=== PATIENT | female | born 1955 | race Caucasian/White ===

== ENCOUNTER 2016-05-29 15:59 | Inpatient (IN) | payer MEDICAID, OTHER ==
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
[2016-05-29 17:55] LABS: Basophils % (A) 1 %; CH 32.9; CHCM 34.1; Eosinophils # (A) 0.2 k/uL (0-0.7); Eosinophils % (A) 3 %; HCT 34.8 % (34.0-46.0); HDW 2.23; HGB 11.8 gm/dL (11.4-16.0); Luc # (Auto) 0.18; Luc % (Auto) 3; Lymphocytes # (A) 1.9 k/uL (1.0-4.8); Lymphocytes % (A) 31 %; MCH 32.8 pg (25.0-35.0); MCHC 33.9 g/dL (31.0-37.0); MCV 96.8 fL (80.0-100.0); Mean Platelet Volume 7.5; Monocytes # (A) 0.3 k/uL (0-1.0); Monocytes % (A) 5 %; Neutrophils # (A) 3.5 k/uL (1.3-7.7); Neutrophils % (A) 57 %; RBC 3.59 m/uL (3.80-5.40); RDW 13.2 % (11.5-15.5); WBC 6.1 k/uL (3.8-10.6); WBC (Perox) 6.37
[2016-05-29 18:11] LABS: ALT 44 U/L (9-52); AST 45 U/L (14-36); Alkaline Phosphatase 121 U/L (38-126); Anion Gap 12 mmol/L; Blood Urea Nitrogen 12 mg/dL (7-17); Calcium 9.2 mg/dL (8.4-10.2); Carbon Dioxide 25 mmol/L (22-30); Chloride 103 mmol/L (98-107); Glucose 95 mg/dL (74-99); Non-African American GFR(MDRD) >60 (>60 ml/min/1.73 sqM); Potassium 3.2 mmol/L (3.5-5.1); Sodium 140 mmol/L (137-145); Total Bilirubin 0.6 mg/dL (0.2-1.3); Total Protein 6.8 g/dL (6.3-8.2)
[2016-05-29 19:22] LABS: Appearance,Urine Clear (Clear); Bilirubin,Urine Negative (Negative); Glucose,Urine (UA) Negative (Negative); Ketones,Urine Negative (Negative); Leukocyte Esterase,Urine Negative (Negative); Nitrite,Urine Negative (Negative); PH, Urine 5.5 (5.0-8.0); Protein,Urine Trace (Negative); UA Billing (MACRO vs. MICRO) CHEM; Urobilinogen,Urine <2.0 mg/dL (<2.0)
[2016-05-29] MEDS ORDERED: POTASSIUM CHLORIDE ER 20 MEQ TAB.ER PO STA (20:04)
[2016-05-29] MEDS ORDERED: MAG HYDROX/AL HYDROX/SIMETH 30 ML CUP PO PRN (21:47)
[2016-05-29] MEDS ORDERED: MAGNESIUM HYDROXIDE 2,400 MG/10 ML CUP PO PRN (21:47)
[2016-05-29] MEDS ORDERED: ACETAMINOPHEN TAB 325 MG TAB PO PRN (21:47)
[2016-05-29] MEDS ORDERED: ZIPRASIDONE 20 MG VIAL IM PRN (21:47)
[2016-05-29] MEDS ORDERED: LORazepam 2 MG/ML SYRINGE IM PRN ×2 (21:50→22:23)
[2016-05-29] MEDS ORDERED: LORazepam 1 MG TAB PO PRN (21:50)
[2016-05-29] MEDS: NICOTINE 14MG/24HR PATCH TRANSDERM SCH (22:01)
[2016-05-30] MEDS: NICOTINE 14MG/24HR PATCH TRANSDERM SCH (09:17)
[2016-05-30 11:34] LABS: Anion Gap 11 mmol/L; Blood Urea Nitrogen 15 mg/dL (7-17); Calcium 9.5 mg/dL (8.4-10.2); Carbon Dioxide 30 mmol/L (22-30); Chloride 103 mmol/L (98-107); Glucose 73 mg/dL (74-99); Non-African American GFR(MDRD) >60 (>60 ml/min/1.73 sqM); Sodium 144 mmol/L (137-145)
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
--- NOTE | 2016-05-30 13:55 | CT ---
EXAMINATION TYPE: CT brain wo con DATE OF EXAM: 05/30/2016 1:48 PM COMPARISON: 11/18/2015 INDICATION: Headaches DLP: 1135 mGycm, Automated exposure control for dose reduction was used. CONTRAST: None CT of the brain is performed utilizing 3 mm thick sections through the posterior fossa and 3 mm thick sections through the remaining calvarium. Study is performed within 24 hours of arrival to the hosp [facility]. No abnormal hyperdensity is present to suggest an acute intracranial hemorrhage. No mass lesion is evident. There is some subtle hypodensity within the left limbic region. This appears sutton than on the federico rison study. Some acute ischemic change at this level is not excluded. Series 5 image 23. Encephaloma lacia such as posttraumatic change is within the inferior left frontal and anterior left temporal reg ion. This is unchanged from 11/18/2015. Patient reports history of head trauma. Ventricles and sulci are prominent for the patient age. Paranasal sinuses and mastoid air cells within the [id number] are clear. IMPRESSIONS: 1. Correlate for left subcortical infarct left limbic region. 2. Posttraumatic change or possibly prior infarct left frontal and anterior temporal regions, stable from November 2015. 3. Age-related atrophy
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
[2016-05-30] MEDS: GABAPENTIN 100 MG CAP PO SCH ×2 (16:09→21:13)
[2016-05-30] MEDS ORDERED: risperiDONE ODT 2 MG TAB PO SCH (21:00)
[2016-05-30] MEDS: clonazePAM 0.5 MG TAB PO SCH (21:12)
[2016-05-30] MEDS: DIVALPROEX 500 MG TABLET.DR PO SCH (21:13)
[2016-05-31] MEDS: DIVALPROEX 500 MG TABLET.DR PO SCH ×3 (09:45→21:33)
[2016-05-31] MEDS: NICOTINE 14MG/24HR PATCH TRANSDERM SCH (09:45)
[2016-05-31] MEDS: clonazePAM 0.5 MG TAB PO SCH ×2 (09:45→21:33)
[2016-05-31] MEDS: GABAPENTIN 100 MG CAP PO SCH ×3 (09:45→21:34)
--- NOTE | 2016-05-31 09:53 | CONS ---
DATE OF CONSULTATION: 05/30/2016 CHIEF COMPLAINT: Abnormal CT scan of the brain. HISTORY OF PRESENT ILLNESS: The patient is a 61-year-old female who is being evaluated today on 05/30/2016 by the Neurology Service per the request of Dr. Gonzalez Barbour for an abnormal CT scan of the brain. The patient was admitted to [facility] mental health unit for increasing depression and suicidal thoughts. An episode of confusion was noticed and a CT scan of the brain was done, which showed old traumatic changes involving the frontal and temporal lobes. There was also evidence of a left subcortical acute stroke involving the limbic region. The patient denies any lateralizing numbness or weakness. She is complaining of a mild recurrent headache. The patient does have history of seizure disorder, which is felt to be secondary to her old traumatic brain injury. It is unclear why she is not on any antiepileptic medications. She had been on seizure medications in the past when I had seen her in the Outpatient Neurology Clinic. She denies having any recent generalized tonic-clonic seizures, but the patient is a poor historian with significant memory deficits. PAST MEDICAL HISTORY: Seizure disorder, traumatic brain injury, chronic obstructive pulmonary disease, history of alcohol abuse, orthopedic surgeries, bipolar disorder, depression, anxiety disorder, borderline personality disorder. SOCIAL HISTORY: The patient is a current every day smoker. She does have a history of alcohol abuse and continues to drink on a daily basis. She denies any IV drug use. HOME MEDICATIONS: Reviewed in the chart. ALLERGIES: SULFA DRUGS and TRILEPTAL. REVIEW OF SYSTEMS: CONSTITUTIONAL: Positive for fatigue. EYES: Negative. ENT: Negative. CARDIOVASCULAR: Negative. RESPIRATORY: Positive for occasional shortness of breath. NEUROLOGICAL: As mentioned above. GASTROINTESTINAL: Negative. GENITOURINARY: Negative. PSYCHIATRIC: As mentioned above. MUSCULOSKELETAL: Positive for chronic joint pain. ENDOCRINE: Negative. DERMATOLOGICAL: Negative. PHYSICAL EXAM: Vital signs show a temperature of 98.0, pulse 82, respirations 16, blood pressure 124/84. GENERAL APPEARANCE: The patient is a well-developed female who appears to be in no acute distress. HEENT: Normocephalic, atraumatic, no facial asymmetry is seen. Neck is supple with no masses felt. CARDIOVASCULAR: Regular rate and rhythm. ABDOMEN: Nontender, nondistended. Extremities showed no edema or clubbing. NEUROLOGICAL EXAM: The patient is alert, aware, and oriented x3. Speech and language are normal. Her affect is flat. No lateralizing weakness is seen. Sensory exam was normal to light touch in all 4 extremities. Her gait was normal. No seizure-like activity is seen. No facial asymmetry is noticed on cranial nerve testing. IMPRESSION: 1. Hypoattenuation in the left subcortical limbic region. 2. History of traumatic brain injury. 3. History of seizure disorder. 4. Severe depression. RECOMMENDATIONS: I did review her CT scan of the brain, which did show the old traumatic changes but there was questionable hypoattenuation involving the limbic system on the left side. It is unclear if this is an acute ischemic event, so I will order an MRI of the brain without contrast. The patient's neurological examination was normal. As for her history of seizures, I will restart her on Depakote 500 mg 3 times daily, which should also help with her mood stabilization. An EEG will be ordered. Continue your current management of her severe depression. I will continue to follow with you. Further recommendations to follow. Thank you for allowing me to participate in the care of your patient. If you have any questions, please feel free to contact me.
--- NOTE | 2016-05-31 11:03 | P.PN ---
Progress Note - Text SUBJECTIVE: Patient endorses racing thoughts ,restless sleep ,disorganized speech ,talked in detail about history of multiple orthopedic surgeries and her need for pain medications ,she stated "I WANT TO HAVE MY OLD MEDICATIONS ,I WAS NORMAL ON IT ,I WAS ON PROZAC 60 mg ,NORCO 4 TIMES DAILY AND XANAX 2mg 4 TIMES DAILY", patient endorses grandiose delusion "MY IQ is 150",somatic preoccupied ,drug seeking for opium and benzodiazepine RX,she recalled that she left [facility] because "THEY ASKED ME TO DO TOUGH ACTIVITIES ,I JUST ASKED FOR PAIN MEDICATIONS AND REST,EVEN MY SURGEON TOLD ME NOT TO LISTEN TO THEM", perseveration Patient was seen by DR CHAMPION ,as her CT scan of brain was abnormal ,he started her on Depakote for seizure and ordered EEG and MRI of brain MENTAL STATUS EXAM: Patient is wearing hospital gown ,unkept ,disheveled ,limping ,unsteady gait , disorganized ,endorses lot of somatic complains,racing thoughts ,not able to maintain train of thoughts ,loose of association ,halting and blocking ,denies any current suicidal or homicidal ideation ,denies any hallucination but reports delusional thinking ,concrete thinking ,insight and judgment impaired PLAN :1)Start low of PROZAC ,continue Klonopin and Neurontin ,same dose 2) Continue full neurological work -up 3) Increase Risperdal ,encourage groups participation
[2016-05-31 11:17] VITALS: BMI 20.6
--- NOTE | 2016-05-31 15:11 | MR ---
EXAMINATION TYPE: MR brain wo con DATE OF EXAM: 05/31/2016 2:54 PM. COMPARISON: Previous study dated 09/10/2008. HISTORY: Stroke Technique: Multiplanar, multiecho imaging of the brain was obtained without intravenous contrast. FINDINGS: Midline structures are unremarkable. There is a normal craniocervical junction. Echoplanar diffusion imaging shows no areas of restricted diffusion. There are normal vascular flow voids. The orbits are normal. There is no evidence of a CP angle mass lesion. There is some abnormal signal within the ashlee bilaterally suggesting layering degeneration. There is abnormal signal in the left frontal region compatible with an old infarct. There is also sma ll amount of abnormal signal just anterior to the sylvian fissure on the right. There is a 9.5 mm hig h signal lesion adjacent to the frontal horn of the right lateral ventricle. There is no mass effect, midline shift or intracranial blood. IMPRESSION: 1. NO ACUTE INTRACRANIAL ABNORMALITY. 2. EVIDENCE OF A PREVIOUS LEFT FRONTAL INFARCT. 3. 9.5 MM LESION ANTERIOR TO THE FRONTAL HORN OF THE RIGHT LATERAL VENTRICLE IS NONSPECIFIC AND MAY R EPRESENT DEMYELINATION FROM SMALL VESSEL DISEASE OR OTHER CAUSES. 4. I CANNOT EXCLUDE A SMALL PREVIOUS INFARCT IN THE ANTERIOR RIGHT FRONTAL REGION.
--- NOTE | 2016-05-31 15:49 | P.PN ---
Subjective Principal diagnosis: Abnormal CT of the brain This is 61-year-old female continuing be evaluated by the neurology service for an abnormal CT of the brain. She was admitted to [facility] to the mental health unit for depression and suicidal thoughts. She had an episode of confusion her computed tomography scan of the brain was done and showed old traumatic changes of the frontal and temporal lobes. There was also evidence of the left subcortical acute stroke involving the limbic region. This could not be confirmed on MRI was recommended. She denied any significant strokelike symptoms. Recall that we did have restarted her on Depakote 500 mg 3 times daily for her history of seizure disorder. The MRI was performed and showed no acute intracranial abnormalities. There was evidence of a previous left frontal infarct which is consistent with her history. There was also a 9.5 mm area of demyelination in the frontal horn of the right lateral ventricle this is nonspecific. And a previous infarct of the anterior right frontal region could not be excluded. Again no acute ischemic changes are seen. At the time of my exam she is in the mental health unit. Objective - Vital Signs Vital signs: Vital Signs Temp 97.3 F L 05/31/16 07:08 Pulse 72 05/31/16 07:08 Resp 18 05/31/16 07:08 BP 121/61 05/31/16 07:08 Pulse Ox 97 05/29/16 21:00 Intake & Output 05/30/16 05/31/16 05/31/16 18:59 06:59 18:59 Weight 58.06 kg - Constitutional General appearance: Present: cooperative, no acute distress - EENT Eyes: Present: EOMI, PERRLA. Absent: abnormal pupil, ptosis ENT: Present: hearing grossly normal - Neck Neck: Present: normal ROM. Absent: rigidity - Respiratory Respiratory: negative: prolonged expiration, prolonged inspiration - Cardiovascular Rhythm: regular - Gastrointestinal General gastrointestinal: Absent: distended, tenderness - Neurologic Neurologic Comment(s): She is alert awake and oriented 3. Speech-language are normal. There is no lateralizing weakness. Gait is normal. Negative Romberg. Strength is full in bilateral upper lower extremities. There is no sensory deficit. - Labs CBC & Chem 7: 05/29/16 17:34 05/30/16 10:58 Assessment and Plan (1) Seizure disorder Status: Chronic (2) Confusion with non-focal neuro exam Status: Resolved (3) Abnormal computed tomography scan Status: Acute (4) Depression Status: Chronic (5) History of traumatic brain injury Status: Chronic (6) Benzodiazepine abuse Status: Chronic Plan: Due to the abnormality on her computed tomography scan of the brain, and MRI was done showing no evidence of an acute ischemic event. Her neurological exam remains normal. Recommend continuation of Depakote 500 mg 3 times daily for a known seizure disorder. Continue management for treatment of her psychological diagnoses. Otherwise she is cleared from a neurological standpoint. We may be contacted for any further or some neurological symptoms. I have performed a history and physical on the above patient. I have reviewed the above note, and agree.
[2016-05-31] MEDS ORDERED: risperiDONE ODT 1 MG TAB PO SCH (21:00)
--- NOTE | 2016-06-01 08:51 | EEG ---
DATE OF SERVICE: 05/31/2016 REASON FOR TESTING: Altered mental status and history of seizures. AGE: 61Y DESCRIPTION OF THE PROCEDURE: This EEG was performed using a 21-channel digital electroencephalograph, following the international 10 to 20 system. DESCRIPTION OF THE RECORDING: From the beginning of the tracing, and with the patient's eyes closed, the background rhythm was mostly consisting of 8 to 9 Hz alpha frequency in the posterior occipital leads. No obvious asymmetry is seen. Occasional movement artifacts and muscle artifacts are seen. Photic stimulation was performed with a minimal driving response seen. No pathological waves were elicited. Hyperventilation was performed with no build-up of amplitude seen. Again, no pathological waves were elicited. Later in the tracing, the patient does reach stage II of sleep and occasional sleep spindles are seen. No epileptiform discharges were seen. Her EKG lead showed a regular rate and rhythm. INTERPRETATION: This asleep and awake EEG can be considered within normal limits. There was no asymmetry seen. No epileptiform discharges were noticed. The absence of epileptiform discharges does not rule out the diagnosis of epilepsy, therefore, clinical correlation is recommended.
[2016-06-01] MEDS: NICOTINE 14MG/24HR PATCH TRANSDERM SCH (09:34)
[2016-06-01] MEDS: DIVALPROEX 500 MG TABLET.DR PO SCH ×3 (09:35→21:13)
[2016-06-01] MEDS: clonazePAM 0.5 MG TAB PO SCH ×2 (09:35→21:13)
[2016-06-01] MEDS: FLUoxetine HCL 20 MG CAP PO SCH (09:35)
[2016-06-01] MEDS: GABAPENTIN 100 MG CAP PO SCH ×3 (09:35→21:13)
--- NOTE | 2016-06-01 13:28 | P.PN ---
Progress Note - Text SUBJECTIVE: Patient endorses racing thoughts ,restless sleep ,auditory hallucination "YOUNG COLLEGE MAN WHISPERING IN MY EAR" ,talked in detail about history of multiple orthopedic surgeries and her need for pain medications ,she asked me more than once to put her on Prozac 60 mg but was receptive when I discussed with her history "OF MOOD SWINGS "and treatment options ,she asked to see her PCP because "He will put me back on Xanax 2 mg 3-4 times a day and [place] ,Klonopin does not help ",lot of somatic complain ,perseverating on her chronic pain I reviewed neurologist notes ,EEG:no seizure activity but he recommended to continue her on Depakote,MRI of Brain :no acute process ,old infarct in frontal lobe MENTAL STATUS EXAM: Patient is wearing hospital gown ,unkept ,disheveled ,limping ,unsteady gait , disorganized ,endorses lot of somatic complains,racing thoughts ,not able to maintain train of thoughts ,loose of association ,auditory hallucination , denies any current suicidal or homicidal ideation ,,concrete thinking ,insight and judgment impaired PLAN :Increase Risperdal continue current medication regime ,encourage ADLs and groups participation
[2016-06-01] MEDS: risperiDONE ODT 2 MG TAB PO SCH (21:12)
[2016-06-02] MEDS: NICOTINE 14MG/24HR PATCH TRANSDERM SCH (09:18)
[2016-06-02] MEDS: DIVALPROEX 500 MG TABLET.DR PO SCH ×3 (09:19→21:08)
[2016-06-02] MEDS: clonazePAM 0.5 MG TAB PO SCH ×2 (09:19→21:07)
[2016-06-02] MEDS: FLUoxetine HCL 20 MG CAP PO SCH (09:19)
[2016-06-02] MEDS: GABAPENTIN 100 MG CAP PO SCH ×3 (09:19→21:08)
--- NOTE | 2016-06-02 18:20 | P.PN ---
Progress Note - Text Interval history: Patient seen in cross coverage today for Dr. Stanley. She reports that she is frustrated because she is not getting the medications that she should be on. She makes reference to a certain dose of Tatum as well as Xanax she's been on in the past. She feels like she is sicker and also in more pain. Mental status exam: She is alert and cooperative with the interview. Her affect overall is restricted. Her mood she describes as "depressed and agitated." She denies any thoughts of harm to self or others. She says at times she gets thoughts that she doesn't want to wake up. She makes reference to being poisoned with the medication. She does not appear to responding to any internal stimuli. She does not show any significant agitation. Plan: We'll maintain current psychotropic medications. Continue to monitor her mood and for any agitation. We'll continue to cover this patient for Dr. Stanley through the weekend.
[2016-06-02] MEDS: risperiDONE ODT 2 MG TAB PO SCH (21:08)
[2016-06-03] MEDS: DIVALPROEX 500 MG TABLET.DR PO SCH ×3 (08:57→21:14)
[2016-06-03] MEDS: clonazePAM 0.5 MG TAB PO SCH ×2 (08:57→21:14)
[2016-06-03] MEDS: FLUoxetine HCL 20 MG CAP PO SCH (08:58)
[2016-06-03] MEDS: GABAPENTIN 100 MG CAP PO SCH ×3 (08:58→21:14)
[2016-06-03] MEDS: NICOTINE 14MG/24HR PATCH TRANSDERM SCH (08:58)
[2016-06-03] MEDS: NICOTINE 21MG/24HR PATCH TRANSDERM SCH (10:41)
--- NOTE | 2016-06-03 14:53 | P.PN ---
Progress Note - Text Interval history: Patient is seen in cross coverage today for . She reports that earlier this morning she got up without her walker to go to the bathroom and took a fall look onto her right upper extremity/side in makes reference to hitting her head. Neuro checks have been ordered. She is fully alert. She does not appear to be in any acute distress at this time. She does make reference to being frustrated that she is not on her normal pain medication and makes reference to if she had to continue to live her life like that she would consider suicide but denies any current thoughts of harm to self or others. Mental status exam: She is fully alert and cooperative with the interview. She is seated in a wheelchair. She does show range of affect today and smiles at times. She denies any current thoughts of harm to self or others. She denies any hallucinations. She does not show any significant agitation. She does not appear to be in any acute distress. Plan: We'll maintain current psychotropic medications. Patient is encouraged to continue to use her walker she is going to ambulate. She is on fall precautions. We are continuing to do neuro checks. Dr. Stanley will be resuming care of this patient starting tomorrow.
[2016-06-03] MEDS: risperiDONE ODT 2 MG TAB PO SCH (21:14)
[2016-06-03] MEDS: ARTIFICIAL TEARS-HYPROMELLOSE DROPS 15 ML BTL BOTH EYES PRN (21:17)
[2016-06-04] MEDS: NICOTINE 21MG/24HR PATCH TRANSDERM SCH (09:32)
[2016-06-04] MEDS: ARTIFICIAL TEARS-HYPROMELLOSE DROPS 15 ML BTL BOTH EYES PRN (09:33)
--- NOTE | 2016-06-04 10:53 | P.PN ---
Subjective Interval history: . She reports that yesterday morning she got up without her walker to go to the bathroom and took a fall look onto her right upper extremity /side in makes reference to hitting her head. Neuro checks have been ordered. She is on wheelchair ,looked tired and sedated ,very somatic preoccupied , focussing about having more pain since she fell and asking for NORCO ,She does make reference to being frustrated that she is not on her normal pain medication and makes reference to if she had to continue to live her life like that she would consider suicide but denies any current thoughts of harm to self or others. ORDER STAT DEPAKOTE LEVEL :117 ,ammonia level pending,patient was started On Depakote by Neurologist for possible seizure disorder ,EEG :no epileptic focus Mental status exam: She is fully alert and cooperative with the interview. She is seated in a wheelchair. She looked tired and sedated ,long reaction time , non spontaneous but coherent ,denies any current suicidal or homicidal ideation ,no psychotic features ,insight is very limited Plan: We'll decrease Depakote ,hold morning dose,decrease Klonopin to only HS to minimize morning sedation ,continue rest of medications. She is on fall precautions. We are continuing to do neuro checks. Encourage patient to use a walker instead of wheelchair Objective - Vital Signs Vital signs: Vital Signs Temp 98.0 F 06/04/16 07:11 Pulse 85 06/04/16 07:11 Resp 18 06/04/16 07:11 BP 113/64 06/04/16 07:11 Pulse Ox 97 05/29/16 21:00 - Labs CBC & Chem 7: 05/29/16 17:34 05/30/16 10:58 Labs: Abnormal Lab Results - Last 24 Hours (Table) 06/04/16 Range/Units 09:26 Valproic Acid 117.0 H* ug/mL
[2016-06-04] MEDS: GABAPENTIN 100 MG CAP PO SCH ×3 (10:54→21:41)
[2016-06-04] MEDS: FLUoxetine HCL 20 MG CAP PO SCH (10:54)
[2016-06-04] MEDS: DIVALPROEX 500 MG TABLET.DR PO SCH (10:58)
[2016-06-04] MEDS ORDERED: clonazePAM 0.5 MG TAB PO SCH (21:00)
[2016-06-04] MEDS: risperiDONE ODT 2 MG TAB PO SCH (21:37)
[2016-06-04] MEDS: DIVALPROEX ER 250 MG TAB.ER.24H PO SCH (21:37)
[2016-06-05 07:19] VITALS: BP 101/55; PULSE 72; RESP 16; TEMP 97.5
[2016-06-05] MEDS: NICOTINE 21MG/24HR PATCH TRANSDERM SCH (08:57)
[2016-06-05] MEDS: GABAPENTIN 100 MG CAP PO SCH (08:57)
[2016-06-05] MEDS: DIVALPROEX ER 250 MG TAB.ER.24H PO SCH (08:57)
[2016-06-05] MEDS: FLUoxetine HCL 20 MG CAP PO SCH (08:57)
[2016-06-05] MEDS: ARTIFICIAL TEARS-HYPROMELLOSE DROPS 15 ML BTL BOTH EYES PRN (09:01)
--- NOTE | 2016-06-06 09:13 | DS ---
DATE OF ADMISSION: 05/29/2016 DATE OF DISCHARGE: 06/05/2016 CONSULT PHYSICIAN: Routine. Patient was seen by medical consultation Dr. Gonzalez Barbour and also by the neurologist Dr. Jossy Thibodeaux. CONSULT REASON: For medical management. Do you want consulting provider notified? He was already notified. DISCHARGE DIAGNOSES: 1. Bipolar disorder mixed with psychotic feature in early remission. 2. Major neurocognitive disorder due to vascular dementia. 3. Polysubstance abuse and dependence, alcohol, opiate and sedative hypnotic. 4. Chronic pain syndrome. FOR BRIEF SUMMARY OF THE ADMISSION NOTE: The patient was admitted to the mental health unit for psychosis and visual hallucination. Patient was admitted on petition filed by the clinical social work aide from the [facility] and she was in the [facility] due to conduct disorder and disturbing the peace. Please refer to my initial dictation on May 30. SUMMARY OF THE HOSPITAL COURSE: The patient was originally admitted to the mental health unit on petition and clinical certificate and I did fill the second clinical certificate. Patient met with her city attorney and she deferred regarding consultation. The medical doctor stated that there is history of cerebrovascular accident; also, seizure disorder with gait dysfunction as she has multiple orthopedic surgeries so I did consult Physical Therapy who did recommend that the patient has to moved with walker as her gait has been unsteady. On 05/30, I did order brain CT and it came back that patient has old infarct in the limbic region. In addition, there is infarct in the left frontal and temporal region. Patient also had atrophy of the brain Due to this abnormal CT scan, I did consult the neurologist Dr. Thibodeaux and according to his consultation he did recommend EEG and MRI of the brain. EEG came there is no epileptic focus; however, he did recommend to start the patient on Depakote 500 three times a day due to past history of seizure disorder and history of traumatic brain injury. The brain MRI done on May 31 show there is no acute intracranial abnormality. There is evidence of previous left frontal infarct and there is a lesion in the frontal area of the right lateral ventricle. Regarding her psychotropic medication, I did restart her back on Klonopin 0.5 twice a day; however, patient was demanding every day to be back on Xanax up to 6 mg daily and [place] for her chronic pain. She did not have any insight regarding her extensive history of substance abuse. She did agree to start Neurontin for chronic pain and we gradually increased this to 200 three times a day and due to her irrational thinking, grandiose delusion I did add Risperdal to restore her sleep and she was able to tolerate up to 4 mg at bedtime of Risperdal. Patient was complaining of having depression and she was asking me more than once to be back on Prozac 60 mg; however, I told her based on her history of mood swings and poor impulse control I will not recommended this high dose and she did agree to be only on Prozac 20 mg daily. We did check her Depakote level and it was 117, so I did cut down the Depakote from 500 three times a day to just 250 twice a day. It can be used as preventive for seizure and also as mood stabilizer. Patient was participating in group therapy. Regarding the mental status examination, the patient is unkept, disheveled, Speech is non-pressure. She has definite cognitive program due to chronic alcoholism and stroke and/or old stroke. Her thought process is tangential. She denied any homicidal or suicidal ideation. She does not feel hopeless or helpless. She is still very somatic, preoccupied and drug seeking for pain medication or for more benzodiazepine, but there is no evidence of psychosis or esdras. Her insight and judgment are very limited. Cognitive ability has been the same since her hospitalization as she has mild to moderate cognitive deficit. PLAN: The patient will be discharged from the mental health unit today to return back [facility]. I will continue her on her current medications: 1. Prozac 20 mg in the morning for depression. 2. Neurontin 200 mg 3 times a day for one month supply for chronic pain. 3. Depakote XR 250 mg twice a day for seizure and as mood stabilizer. 4. Klonopin 0.5 at bedtime for sleep. 5. Risperdal 4 mg at bedtime for her thought disorder. Patient was instructed to maintain abstinence from any habit-forming drugs especially ii is affecting her cognitive function in very negative way. Prognosis guarded.
== END 2016-06-05 13:00 | DRG 885 ==
LOC: EC 15:59 → 3MHU 20:55
PROVIDERS: ADMIT Psychiatry & Neurology Psychiatry; ATTEND Psychiatry & Neurology Psychiatry
DX: F31.60 Bipolar disorder, current episode mixed, unspecified (principal); F01.51 Vascular dementia, unspecified severity, with behavioral disturbance; R45.851 Suicidal ideations; F19.20 Other psychoactive substance dependence, uncomplicated; F23 Brief psychotic disorder; J44.9 Chronic obstructive pulmonary disease, unspecified; F41.9 Anxiety disorder, unspecified; G89.4 Chronic pain syndrome; R26.9 Unspecified abnormalities of gait and mobility; G40.909 Epilepsy, unspecified, not intractable, without status epilepticus; I67.9 Cerebrovascular disease, unspecified; F10.20 Alcohol dependence, uncomplicated; R25.1 Tremor, unspecified; R51 Headache; R90.89 Other abnormal findings on diagnostic imaging of central nervous system; Z91.410 Personal history of adult physical and sexual abuse; E87.6 Hypokalemia; F60.3 Borderline personality disorder; Z88.8 Allergy status to other drugs, medicaments and biological substances; F22 Delusional disorders; Z87.81 Personal history of (healed) traumatic fracture; R41.89 Other symptoms and signs involving cognitive functions and awareness; F17.200 Nicotine dependence, unspecified, uncomplicated; Z88.2 Allergy status to sulfonamides; Z81.8 Family history of other mental and behavioral disorders; Z87.820 Personal history of traumatic brain injury; Z79.899 Other long term (current) drug therapy; Z87.01 Personal history of pneumonia (recurrent); Z91.5 Personal history of self-harm; Z76.5 Malingerer [conscious simulation]; Z91.19 Patient's noncompliance with other medical treatment and regimen; Z71.51 Drug abuse counseling and surveillance of drug abuser; Z71.41 Alcohol abuse counseling and surveillance of alcoholic; Z81.1 Family history of alcohol abuse and dependence; Z62.811 Personal history of psychological abuse in childhood; Z59.0 Homelessness; Z65.3 Problems related to other legal circumstances; Z71.6 Tobacco abuse counseling; Z91.81 History of falling; Z86.73 Personal history of transient ischemic attack (TIA), and cerebral infarction without residual deficits; Z72.89 Other problems related to lifestyle
CPT/HCPCS: 36415; 70450; 70551; 80048; 80053; 80164; 80306; 81003; 82075; 82140; 82607; 84443; 85025; 95819; 99285

== ENCOUNTER → 2016-08-06 | Outpatient (CLI) | payer OTHER ==
--- NOTE | 2016-08-06 10:00 | XR ---
EXAMINATION TYPE: XR knee complete LT DATE OF EXAM: 08/06/2016 9:48 AM COMPARISON: 11/20/2015 HISTORY: Pain TECHNIQUE: Four views are submitted. FINDINGS: Narrowing of the joint spaces with no evidence of erosive change.. Osseous structures are intact. N o acute fracture seen. Postsurgical change involving the distal femur. Diffuse osteopenia noted. IMPRESSION: 1. No acute fracture or dislocation. 2. Postsurgical changes and findings compatible with osteoarthritis.
== END ==
LOC: RADXRMAIN 09:24
PROVIDERS: ATTEND Family Medicine
DX: M23.92 Unspecified internal derangement of left knee (principal); Z98.890 Other specified postprocedural states

== ENCOUNTER → 2016-08-13 | Outpatient (CLI) | payer OTHER ==
--- NOTE | 2016-08-14 08:11 | BD ---
EXAMINATION TYPE: MG DEXA axial skeleton. DATE OF EXAM: 08/13/2016 2:12 PM COMPARISON: Prior DEXA bone scan report August 10, 2003. CLINICAL HISTORY: Postmenopausal female Height: 64 IN Weight: 143 LBS FRAX RISK QUESTIONS: Alcohol (3 or more units per day): NOT NOW. PT STOPPED DRINKING 3 1/2 MONTHS AGO Family History (Parent hip fracture): NO Glucocorticoids (More than 3mos): NO (Ex: prednisone, prednisolone, methylprednisolone, dexamethasone, and hydrocortisone). History of Fracture in Adulthood: YES . RT ARM, RT HAND, RT TIB/ FIB, RT FOOT.LT HIP. MANY FRACTURES SINCE AGE 49., Secondary Osteoporosis: 1. Type 1 Diabetes: NO 2. Hyperthyroidism: NO 3. Menopause before 45: YES AGE 39 4. Malnutrition: NO 5. Chronic liver disease: NO Rheumatoid Arthritis: NO Current Tobacco Use: YES RISK FACTORS HISTORY OF: Hip Fracture (Left): YES When: 03/2015 History of Wrist Fracture: YES RT When: PT STATES SHE FX RT WRIST 12 TIMES OVER THE YEARS WHEN SHE WAS DRINKING. Surgery to Hip(left): YES When: 03/2015 Other Fractures since Age 49: MANY FRACTURES. RT HAND, RT ARM, RT TIB/FIB, RT FOOT. LT HIP. When: OVER THE YEARS PT HAS HAD MANY FRACTURES CANNOT REMEMBER WHEN Active: MODERATELY Postmenopausal woman: AGE 39 Lost more than 2 inches in height since high school: YES 3 " Frequent falls: YES Poor Health: YES MEDICATIONS: Additional Medications: FLUOXETINE, VIT B1, GABAPENTIN, DIVALPROEX, OLANZAPINE, TRAZODONE EXAM MEASUREMENTS: Bone mineral densitometry was performed using the RES Software System. Bone mineral density as measured about the Lumbar spine is: ----- L1-L4(G/cm2): 0.927 T Score Values are as follows: ----- L2: -2.0 ----- L3: -2.4 ----- L4: -2.6 ----- L1-L4: -2.1 Bone mineral density has: Decreased -7.0% since study of: 08/10/2003 PT HAD LEFT HIP FRACTURE AND SURGERY IN 03/2015 Bone mineral density about the R hip (g/cm2): 0.666 T Score values are as follows: -----R Neck: -2.7 ----R Total: -2.8 Bone mineral density has: Decreased -16.7% since study of: 08/10/2003 IMPRESSION: Osteoporosis (T Score less than -2.5) as noted by T Score values at the right hip. There is increase d fracture risk and therapy is usually indicated based on age. Re-Screen 1-2 years. NOTE: T-SCORE=SD OF THE YOUNG ADULT MEAN.
--- NOTE | 2016-08-14 10:05 | MM ---
Reason for exam: screening (asymptomatic). Last mammogram was performed 3 years and 4 months ago. History: Patient is postmenopausal. Physical Findings: A clinical breast exam by your physician is recommended on an annual basis and results should be correlated with mammographic findings. MG Screening Mammo w CAD Bilateral CC and MLO view(s) were taken. Prior study comparison: April 29, 2013, bilateral digital screening mammo w/CAD. February 15, 2012, bilateral digital screening mammo w/CAD. The breast tissue is heterogeneously dense. This may lower the sensitivity of mammography. Finding: There are typically benign round calcifications in the right breast. There is no discrete abnormality. ASSESSMENT: Benign, BI-RAD 2 RECOMMENDATION: Routine screening mammogram of both breasts in 1 year.
== END | disposition home or self-care (01) ==
LOC: RADBDWWP 13:26
PROVIDERS: ATTEND Family Medicine
DX: Z12.31 Encounter for screening mammogram for malignant neoplasm of breast (principal); M81.0 Age-related osteoporosis without current pathological fracture; Z78.0 Asymptomatic menopausal state
CPT/HCPCS: 77080; G0202

== ENCOUNTER → 2016-09-20 | Outpatient (CLI) | payer OTHER ==
--- NOTE | 2016-09-20 14:36 | MR ---
EXAMINATION TYPE: MR cspine/lspine wo con DATE OF EXAM: 09/20/2016 COMPARISON: MRI lumbar spine March 16, 2014. MRI cervical spine July 24, 2010. HISTORY: Cervicalgia and lumbago per order. Headaches with neck pain causing pain or weakness in righ t arm and fingers per years per patient. Chronic back pain for 20 years per patient. TECHNIQUE: Multiplanar, multisequence imaging of the cervical and lumbar spine are performed without IV contrast. FINDINGS: C-SPINE: FINDINGS: Sagittal images of the cervical spine show the craniocervical junction to appear within nor mal limits. The cervical and upper thoracic spinal cord is normal in course, caliber, and signal. V ertebral alignment is anatomic. The vertebral body and intravertebral disk heights are normal. No la rge posterior disc herniations are seen on sagittal images. The bone marrow signal intensity is withi n normal limits. No significant spurring is seen. Axial images show the C2-C3 and C3-C4 levels to appear within normal limits. Axial images at C4-C5 level redemonstrate central broad-based disc protrusion mildly effacing anterio r thecal sac on axial image 33 slightly more prominent than prior study, bilateral neural foramina re main patent. Axial images at C5-C6 level are felt to remain within normal limits. Axial images at C6-C7 and C7-T1 level are felt to remain within normal limits IMPRESSION: Slight progression in degenerative finding C4-C5 level otherwise unremarkable study. L-SPINE: Sagittal images of the lumbar spine redemonstrated stable mild to moderate height loss superior L1 en dplate with prominent Schmorl node. There is additional prominent Schmorl low in the superior T12 end plate redemonstrated. Multilevel disc desiccation is again seen. There is mild disc space narrowing L 5-S1 level. No significant posterior disc herniations are seen on sagittal images. The conus medullar y remains normal in position and signal ending at mid L1 vertebral body level. The bone marrow signa l intensity is overall heterogeneous. Mild multilevel anterior spurring in the upper to mid lumbar sp ine is present. Axial images show the T12-L1, L1-L2, and L2-L3 levels all to remain within normal limits. Axial images at L3-L4 level show mild broad disc bulge and facet degenerative changes bilaterally but spinal canal is preserved and bilateral neural foramina are patent. Axial images at L4-L5 and L5-S1 levels redemonstrated mild facet degenerative changes bilaterally but spinal canal is preserved and bilateral neural foramina are patent. IMPRESSION: Overall stable findings, mild to moderate compression type fracture involving the superio r L1 endplate and multilevel degenerative changes in mid to lower lumbar spine as detailed above.
== END | disposition home or self-care (01) ==
LOC: RADMRIMAIN 10:28
PROVIDERS: ATTEND Psychiatry & Neurology Neurology
DX: M48.56XA Collapsed vertebra, not elsewhere classified, lumbar region, initial encounter for fracture (principal); M47.816 Spondylosis without myelopathy or radiculopathy, lumbar region; M47.812 Spondylosis without myelopathy or radiculopathy, cervical region; Z88.2 Allergy status to sulfonamides; Z88.8 Allergy status to other drugs, medicaments and biological substances
CPT/HCPCS: 72141; 72148

== ENCOUNTER → 2016-09-28 | Outpatient (CLI) | payer OTHER ==
--- NOTE | 2016-09-28 10:40 | US ---
EXAMINATION TYPE: US carotid duplex BILAT DATE OF EXAM: 09/28/2016 COMPARISON: NONE CLINICAL HISTORY: I65.29 CRISTY STENOSIS. ICA STENOSIS, DIZZINESS. EXAM MEASUREMENTS: RIGHT: Peak Systolic Velocity (PSV) cm/sec ----- Right CCA: 68.8 ----- Right ICA: 102.0 ----- Right ECA: 31.7 ICA/CCA ratio: 1.5 RIGHT: End Diastole cm/sec ----- Right CCA: 18.0 ----- Right ICA: 33.0 ----- Right ECA: 5.4 LEFT: Peak Systolic Velocity (PSV) cm/sec ----- Left CCA: 96.6 ----- Left ICA: 139.5 ----- Left ECA: 116.9 ICA/CCA ratio: 1.4 LEFT: End Diastole cm/sec ----- Left CCA: 33.2 ----- Left ICA: 28.0 ----- Left ECA: 26.4 VERTEBRALS (direction of flow): Right Vertebral: Antegrade Left Vertebral: Antegrade IMPRESSION: 1. Mild left internal carotid artery stenosis estimated between 50 and 69% based on velocity measurem ents. Criteria for Assigning % of Stenosis / Diameter reduction (Estimation based on the indirect measurements of the internal carotid artery velocities (ICA PSV). 1. Normal (no stenosis)=ICA PSV < 125 cm/s: ratio < 2.0: ICA EDV<40 cm/s. 2. Less than 50% stenosis=ICA PSV < 125 cm/s: ratio < 2.0: ICA EDV<40 cm/s. 3. 50 to 69% stenosis=ICA PSV of 125 to 230 cm/s: ration 2.0 ? 4.0: ICA EDV 40-100 cm/s. 4. Greater than 70% stenosis to near occlusion= ICA PSV > 230 cm/s: ratio > 4.0: ICA EDV > 100 cm/s. 5. Near occlusion= ICA PSV velocities may be low or undetectable: variable ratio and ICA EDV. 6. Total occlusion=unable to detect flow.
== END | disposition home or self-care (01) ==
LOC: RADUSWWP 09:05
PROVIDERS: ATTEND Psychiatry & Neurology Neurology
DX: I65.22 Occlusion and stenosis of left carotid artery (principal)
CPT/HCPCS: 93880

== ENCOUNTER 2017-04-12 14:55 | Emergency (ER) | payer MEDICAID, OTHER ==
[2017-04-12] MEDS ORDERED: HALOPERIDOL LACTATE 5 MG/ML 1 ML VIAL IM STA (14:59)
[2017-04-12] MEDS ORDERED: LORazepam 2 MG/ML INJ IM STA (14:59)
[2017-04-12 15:08] VITALS: RESP 18; TEMP 97.4
--- NOTE | 2017-04-12 15:50 | CT ---
EXAMINATION TYPE: CT brain soledad harris con DATE OF EXAM: 04/12/2017 COMPARISON: 05/30/2016 HISTORY: Head laceration after fall. CT DLP: 1169.7 mGycm. Automated Exposure Control for Dose Reduction was Utilized. TECHNIQUE: CT scan of the head and cervical spine are performed without contrast. FINDINGS: There is encephalomalacia within the left frontal temporal region from prior injury. There is no acute intracranial hemorrhage, mass effect, or midline shift identified. The ventricles and braxton lci are symmetrically prominent compatible with age-related volume loss. Patchy areas of hypoattenuat ion are present within the subcortical and periventricular white matter, most commonly on the basis o f microangiopathy. This includes a similar appearing left external capsule patchy area of hypoattenua tion seen on the prior exam of 05/30/2016. The globes are intact and the visualized sinuses are clear. Left frontal scalp hematoma with high density hemorrhage measures 5 mm in greatest thickness. Cervical spine is visualized in its entirety from C1 through upper thoracic levels and demonstrates s atisfactory alignment without evidence of acute fracture or dislocation. Prevertebral soft tissue ap pears within normal limits. The C1-C2 articulation is unremarkable. Mild paraseptal emphysematous c hanges are seen of the lung apices. Multilevel degenerative disc disease is seen of the cervical spin e, mild in degree. No gross evidence of spinal canal stenosis. Incidentally noted carotid arterial ar harley atheromatous calcifications are present. IMPRESSION: 1. Left frontal scalp hematoma measuring 5 mm in greatest thickness with no underlying intracranial h emorrhage or calvarial fracture. No acute intracranial process. 2. There is no acute fracture or dislocation evident in the cervical spine. 3. Similar encephalomalacia of the left frontal temporal lobes. 4. Mild paraseptal emphysematous changes of the lung apices. 5. Incidentally noted atheromatous calcifications of the carotid arteries. Nonemergent carotid ultras ound could be performed for further evaluation.
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
--- NOTE | 2017-04-12 16:58 | XR ---
EXAMINATION TYPE: XR pelvis AP view DATE OF EXAM: 04/12/2017 CLINICAL HISTORY: Pelvic pain. TECHNIQUE: A single AP view of the pelvis is obtained. COMPARISON: None. FINDINGS: There is no acute fracture/dislocation evident in the pelvis. Fixation of a prior left fem oral fracture is seen as a cephalomedullary patrick and intramedullary patrick, partially visualized. Mild d egenerative changes of the femoral acetabular joints are noted. The hip and sacroiliac joints appear symmetric and unremarkable. The overlying soft tissue appears unremarkable. IMPRESSION: There is no acute fracture or dislocation in the pelvis. Postsurgical changes of the lef t hip.
--- NOTE | 2017-04-12 17:00 | XR ---
EXAMINATION TYPE: XR knee complete LT DATE OF EXAM: 04/12/2017 CLINICAL HISTORY: Left knee pain TECHNIQUE: Three views of the left knee are obtained. COMPARISON: None. FINDINGS: New impacted lateral tibial plateau fracture with approximately 4 mm of depression and comm inution is seen in comparison to exam of 08/06/2016. Small suprapatellar joint effusion is also noted as well as surgical fixation of a prior distal femoral fracture no radiopaque foreign body. Generaliz ed mild overlying soft tissue swelling of the left knee. IMPRESSION: New comminuted impacted lateral tibial plateau fracture with small suprapatellar joint ef fusion and surrounding soft tissue swelling.
[2017-04-12] MEDS ORDERED: NICOTINE 21MG/24HR PATCH TRANSDERM STA (18:16)
[2017-04-12] MEDS ORDERED: MORPHINE SULFATE 5 MG/ML SYRINGE IVP STA (18:54)
[2017-04-12 19:58] VITALS: BP 154/87; PULSE 81
== END 2017-04-12 20:01 | disposition home or self-care (01) ==
LOC: SUPCPDRO 14:55 → EC 14:55
DX: S82.252A Displaced comminuted fracture of shaft of left tibia, initial encounter for closed fracture (principal); S01.81XA Laceration without foreign body of other part of head, initial encounter; F10.129 Alcohol abuse with intoxication, unspecified; G40.909 Epilepsy, unspecified, not intractable, without status epilepticus; F41.9 Anxiety disorder, unspecified; F31.9 Bipolar disorder, unspecified; F17.200 Nicotine dependence, unspecified, uncomplicated; Z79.899 Other long term (current) drug therapy; Z88.2 Allergy status to sulfonamides; Z88.8 Allergy status to other drugs, medicaments and biological substances; X58.XXXA Exposure to other specified factors, initial encounter
CPT/HCPCS: 82075; 72170; 73562; 72125; 70450; 99284; 12013; 96374; 96372 ×2; S4990; J2060; J1630; J2274

== ENCOUNTER 2018-08-28 22:26 | Emergency (ER) | payer OTHER ==
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
[2018-08-29 09:43] VITALS: BP 135/55; PULSE 68; RESP 19; TEMP 98.1
== END 2018-08-29 09:42 | disposition home or self-care (01) ==
LOC: EC 22:26
DX: F43.23 Adjustment disorder with mixed anxiety and depressed mood (principal); F10.129 Alcohol abuse with intoxication, unspecified; G40.909 Epilepsy, unspecified, not intractable, without status epilepticus; F17.200 Nicotine dependence, unspecified, uncomplicated; Z86.73 Personal history of transient ischemic attack (TIA), and cerebral infarction without residual deficits; Z79.899 Other long term (current) drug therapy; Z88.8 Allergy status to other drugs, medicaments and biological substances; Z88.2 Allergy status to sulfonamides
CPT/HCPCS: 82075; 99285

== ENCOUNTER 2018-10-12 00:04 | Emergency (ER) | payer OTHER ==
[2018-10-12 00:24] VITALS: TEMP 98.6
[2018-10-12] MEDS ORDERED: ACETAMINOPHEN TAB 500 MG TAB PO STA (02:16)
[2018-10-12] MEDS ORDERED: HYDROcodone/APAP 5-325MG 1 EACH TAB PO STA (02:29)
--- NOTE | 2018-10-12 03:43 | XR ---
EXAM: XR Left Ankle Complete, 3 or More Views CLINICAL HISTORY: ITS.REASON XR Reason: Pain TECHNIQUE: Frontal, lateral and oblique views of the left ankle. COMPARISON: No relevant prior studies available. FINDINGS/IMPRESSION: Osteopenia. Degenerative changes which appear mild by plain film. Suspect some soft tissue swelling. Calcaneal plantar enthesophyte.
--- NOTE | 2018-10-12 03:50 | XR ---
EXAM: XR Left Foot Complete, 3 or More Views CLINICAL HISTORY: ITS.REASON XR Reason: Pain TECHNIQUE: Frontal, lateral and oblique views of the left foot. COMPARISON: No relevant prior studies available. FINDINGS/IMPRESSION: Bones appear osteopenic. Tibial sesamoid is not definitely visualized. Clinical significance uncertain. No significant hallux valgus. Although rare, can be congenital and associated with pain at first MTP. Correlate clinically. MR or other nonemergent follow-up could be obtained, as clinically indicated. No acute fracture or dislocation seen. DJD which appears mild by plain film. Suspect some soft tissue swelling. Plantar calcaneal enthesophyte.
--- NOTE | 2018-10-12 04:01 | XR ---
EXAM: XR Left Knee CLINICAL HISTORY: Pain COMPARISON: 04/12/17. FINDINGS/IMPRESSION: 4 views left knee. Interval plate and screw fixation of tibial plateau fracture compared to the previous. There is increasing sclerosis at the lateral tibial plateau. Old femur fracture with postop fixation, as on prior. DJD which appears mild by plain film. Osteopenia. Trace joint effusion.
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
[2018-10-12 06:27] VITALS: BP 146/76; PULSE 76; RESP 18
== END 2018-10-12 06:00 | disposition home or self-care (01) ==
LOC: EC 00:04
DX: M79.605 Pain in left leg (principal); G89.29 Other chronic pain; M17.12 Unilateral primary osteoarthritis, left knee; M19.072 Primary osteoarthritis, left ankle and foot; M85.80 Other specified disorders of bone density and structure, unspecified site; M77.32 Calcaneal spur, left foot; M85.872 Other specified disorders of bone density and structure, left ankle and foot; M79.89 Other specified soft tissue disorders; G40.909 Epilepsy, unspecified, not intractable, without status epilepticus; F10.10 Alcohol abuse, uncomplicated; F31.9 Bipolar disorder, unspecified; F41.9 Anxiety disorder, unspecified; F17.200 Nicotine dependence, unspecified, uncomplicated; Z88.2 Allergy status to sulfonamides; Z88.8 Allergy status to other drugs, medicaments and biological substances; Z79.899 Other long term (current) drug therapy; Z86.73 Personal history of transient ischemic attack (TIA), and cerebral infarction without residual deficits; Z87.81 Personal history of (healed) traumatic fracture; Z96.7 Presence of other bone and tendon implants; Z98.890 Other specified postprocedural states; W22.8XXA Striking against or struck by other objects, initial encounter
CPT/HCPCS: 99284

== ENCOUNTER 2018-10-12 16:15 | Emergency (ER) | payer OTHER ==
[2018-10-12] MEDS ORDERED: SODIUM CHLORIDE 0.9% 1,000 ML IV STA (19:35)
[2018-10-12] MEDS ORDERED: ONDANSETRON 4 MG/2 ML VIAL IVP STA (19:35)
[2018-10-12] MEDS ORDERED: DICYCLOMINE 10 MG CAP PO STA ×2 (19:36→22:51)
[2018-10-12 20:27] LABS: Basophils # (A) 0.1 k/uL (0-0.2); Basophils % (A) 1 %; Eosinophils # (A) 0.4 k/uL (0-0.7); Eosinophils % (A) 5 %; HCT 38.3 % (34.0-46.0); HGB 12.6 gm/dL (11.4-16.0); Lymphocytes # (A) 2.9 k/uL (1.0-4.8); Lymphocytes % (A) 36 %; MCH 30.3 pg (25.0-35.0); MCHC 32.9 g/dL (31.0-37.0); MCV 92.1 fL (80.0-100.0); Mean Platelet Volume 7.8; Monocytes # (A) 0.3 k/uL (0-1.0); Monocytes % (A) 4 %; Neutrophils # (A) 4.3 k/uL (1.3-7.7); Neutrophils % (A) 52 %; Platelet Count 375 k/uL (150-450); RBC 4.16 m/uL (3.80-5.40); RDW 15.2 % (11.5-15.5); WBC 8.1 k/uL (3.8-10.6)
[2018-10-12 20:38] LABS: African American GFR (CKD) >90 (>60 ml/min/1.73 sqM); Anion Gap 11 mmol/L; Blood Urea Nitrogen 14 mg/dL (7-17); Carbon Dioxide 26 mmol/L (22-30); Chloride 103 mmol/L (98-107); Glucose 89 mg/dL (74-99); Sodium 140 mmol/L (137-145)
[2018-10-12 20:39] LABS: ALT 20 U/L (9-52); AST 21 U/L (14-36); Alkaline Phosphatase 143 U/L (38-126); Calcium 9.4 mg/dL (8.4-10.2); Lipase 84 U/L (23-300); Total Bilirubin 0.3 mg/dL (0.2-1.3); Total Protein 7.2 g/dL (6.3-8.2)
--- NOTE | 2018-10-12 21:16 | CT ---
EXAMINATION TYPE: CT abdomen pelvis w con DATE OF EXAM: 10/12/2018 COMPARISON: NONE HISTORY: 63-year-old female Abdomen pain, nausea. TECHNIQUE: Contiguous axial scanning of the abdomen and pelvis following administration of 100 ml Omn ipaque 300 IV contrast. Delayed images through the kidneys and coronal/sagittal reconstructions perf ormed. CT DLP: 664.8 mGycm Automated exposure control for dose reduction was used. FINDINGS: Heart normal size without pericardial effusion. 6 mm peripheral left basilar pulmonary nodule appears larger from 2012. 6-12 month follow-up recommended. No focal liver lesion. Mild prominence to the bile duct likely acceptable given patient's age. Portal venous system is patent. Gallbladder, adrenal glands, and pancreas appear within normal limits. There is a diverticulum of the second portion of the duodenum projecting into the peripancreatic head region. Both kidneys show some centimeter cortical hypodensities too small for accurate CT characterization, likely cysts. There is some cortical defects in the lower pole of the right kidney suggesting prior v ascular or infectious insults. Multiple splenic granulomas. Moderate atherosclerotic calcifications abdominal aorta and iliac arteries. No dilated small bowel, free fluid, or free air. There is some prominent fluid-filled small bowel loops in the lower abdomen and liquid stool in the c ecum. No pericolonic inflammatory change or significant stool burden. Normal appendix. Some mucosal h yperemia suggested within the cecum and lower ascending colon. Bladder urine distended. Prominent periuterine varices on both sides. Pelvic phlebolith. No abnormal fluid collection in the pelvis or pelvic lymphadenopathy. Bones: Proximal femoral antegrade nail fixation with screws. Facet arthropathy lower lumbar spine. IMPRESSION: 1. SOME LIQUID STOOL IN THE CECUM AND DISTAL ILEUM AND SOME MILD MUCOSAL HYPEREMIA SUGGESTED UNTIL TH E LOWER ASCENDING COLON. CORRELATE FOR REGIONAL ENTEROCOLITIS. 2. A 6 MM LEFT BASILAR PULMONARY NODULE INCREASED IN SIZE FROM 2012. 6-[address] MON[address] FOLLOW-UP CT RECOMMEN DED TO REASSESS. 3. CORTICAL DEFECTS LOWER POLE RIGHT KIDNEY SUGGESTS SEQUELA OF PRIOR VASCULAR OR INFECTIOUS INSULTS.
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
[2018-10-12 22:33] VITALS: PULSE 78
[2018-10-12 22:39] LABS: Appearance,Urine Clear (Clear); Bilirubin,Urine Negative (Negative); Blood,Urine Negative (Negative); Color,Urine Yellow; Glucose,Urine (UA) Negative (Negative); Ketones,Urine Negative (Negative); Leukocyte Esterase,Urine Negative (Negative); Nitrite,Urine Negative (Negative); PH, Urine 6.5 (5.0-8.0); Protein,Urine Negative (Negative); Urobilinogen,Urine <2.0 mg/dL (<2.0)
[2018-10-12] MEDS ORDERED: ONDANSETRON ODT 4 MG TAB PO STA (22:50)
[2018-10-12 23:01] LABS: Specific Gravity,Urine >1.050 (1.001-1.035)
[2018-10-13 00:33] VITALS: BP 111/68; RESP 15; TEMP 98.8
== END 2018-10-13 00:30 | disposition home or self-care (01) ==
LOC: EC 16:15
DX: R11.2 Nausea with vomiting, unspecified (principal); R19.7 Diarrhea, unspecified; F17.200 Nicotine dependence, unspecified, uncomplicated; Z86.73 Personal history of transient ischemic attack (TIA), and cerebral infarction without residual deficits; Z88.2 Allergy status to sulfonamides; Z88.8 Allergy status to other drugs, medicaments and biological substances
CPT/HCPCS: 99284 ×3; 96374 ×2; 36415; 93005; 80053; 83605; 83690; 85025; 81003; 73564; 73610; 73630; 74177; J2405; Q9967

== ENCOUNTER 2018-12-03 16:28 | Emergency (ER) | payer OTHER ==
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
[2018-12-03 17:25] LABS: Basophils # (A) 0.1 k/uL (0-0.2); Basophils % (A) 1 %; Eosinophils # (A) 0.2 k/uL (0-0.7); Eosinophils % (A) 2 %; HCT 41.4 % (34.0-46.0); HGB 13.8 gm/dL (11.4-16.0); Lymphocytes # (A) 2.5 k/uL (1.0-4.8); Lymphocytes % (A) 40 %; MCHC 33.4 g/dL (31.0-37.0); MCV 92.9 fL (80.0-100.0); Mean Platelet Volume 6.8; Monocytes # (A) 0.3 k/uL (0-1.0); Monocytes % (A) 4 %; Neutrophils # (A) 3.1 k/uL (1.3-7.7); Neutrophils % (A) 50 %; Platelet Count 296 k/uL (150-450); RBC 4.46 m/uL (3.80-5.40); RDW 14.7 % (11.5-15.5); WBC 6.3 k/uL (3.8-10.6)
[2018-12-03 17:35] LABS: Acetaminophen <10.0 ug/mL; African American GFR (CKD) >90 (>60 ml/min/1.73 sqM); Anion Gap 13 mmol/L; Blood Urea Nitrogen 10 mg/dL (7-17); Calcium 9.1 mg/dL (8.4-10.2); Carbon Dioxide 19 mmol/L (22-30); Chloride 110 mmol/L (98-107); Glucose 104 mg/dL (74-99); Potassium 4.1 mmol/L (3.5-5.1); Salicylate <1.0 mg/dL; Sodium 142 mmol/L (137-145)
[2018-12-03 17:40] LABS: Alcohol 226 mg/dL
[2018-12-03 20:49] LABS: Appearance,Urine Clear (Clear); Bilirubin,Urine Negative (Negative); Blood,Urine Negative (Negative); Color,Urine Yellow; Glucose,Urine (UA) Negative (Negative); Ketones,Urine Negative (Negative); Leukocyte Esterase,Urine Negative (Negative); Nitrite,Urine Negative (Negative); Protein,Urine Negative (Negative); Urobilinogen,Urine <2.0 mg/dL (<2.0)
[2018-12-03 20:59] LABS: Amphetamine Screen,Urine Detected (NotDetected); Barbiturate Screen,Urine Not Detected (NotDetected); Benzodiazepines Screen,Urine Not Detected (NotDetected); Cocaine Screen,Urine Not Detected (NotDetected); Methadone Screen, Urine Not Detected (NotDetected); Opiate Screen,Urine Not Detected (NotDetected); Oxycodone Screen, Urine Not Detected (NotDetected); Phencyclidine Screen,Urine Not Detected (NotDetected); Tricyclic Antidepressant,Urine Not Detected (NotDetected); Urn Cannabinoid Scrn Not Detected (NotDetected)
[2018-12-03 22:27] VITALS: RESP 18
[2018-12-04 02:20] VITALS: BP 136/79; PULSE 100; TEMP 98
== END 2018-12-04 02:25 | disposition home or self-care (01) ==
LOC: EC 16:28
DX: F10.129 Alcohol abuse with intoxication, unspecified (principal); F32.9 Major depressive disorder, single episode, unspecified; F17.200 Nicotine dependence, unspecified, uncomplicated; Z88.2 Allergy status to sulfonamides; Z88.8 Allergy status to other drugs, medicaments and biological substances
CPT/HCPCS: 82075; 36415; 80048; 85025; 81003; 80306; 83520; 99285; G0480 ×2; 80320; 80329

== ENCOUNTER 2018-12-14 13:33 | Emergency (ER) | payer OTHER ==
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
[2018-12-14 14:11] VITALS: RESP 18
[2018-12-14 14:42] LABS: Amphetamine Screen,Urine Not Detected (NotDetected); Barbiturate Screen,Urine Not Detected (NotDetected); Benzodiazepines Screen,Urine Not Detected (NotDetected); Cocaine Screen,Urine Not Detected (NotDetected); Methadone Screen, Urine Not Detected (NotDetected); Opiate Screen,Urine Not Detected (NotDetected); Oxycodone Screen, Urine Not Detected (NotDetected); Phencyclidine Screen,Urine Not Detected (NotDetected); Tricyclic Antidepressant,Urine Not Detected (NotDetected); Urn Cannabinoid Scrn Not Detected (NotDetected)
[2018-12-14 20:36] VITALS: BP 160/85; PULSE 95; TEMP 97.9
== END 2018-12-14 20:50 | disposition home or self-care (01) ==
LOC: EC 13:33
DX: F43.20 Adjustment disorder, unspecified (principal); F10.129 Alcohol abuse with intoxication, unspecified; R44.0 Auditory hallucinations; R44.1 Visual hallucinations; F32.9 Major depressive disorder, single episode, unspecified; F17.200 Nicotine dependence, unspecified, uncomplicated; Z88.2 Allergy status to sulfonamides; Z88.8 Allergy status to other drugs, medicaments and biological substances
CPT/HCPCS: 80306; 82075; 99285

== ENCOUNTER 2019-01-18 13:18 | Emergency (ER) | payer OTHER ==
[2019-01-18 13:33] VITALS: TEMP 98
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
--- NOTE | 2019-01-18 14:55 | CT ---
EXAMINATION TYPE: CT brain [place] DATE OF EXAM: 01/18/2019 COMPARISON: 04/12/2017 HISTORY: Fall downstairs, c/o ALEMAN, dizziness Headache. Neck pain CT DLP: 1322.6 mGycm Automated exposure control for dose reduction was used. TECHNIQUE: CT scan of the head and cervical spine are performed without contrast. FINDINGS: There is cerebral cortical atrophy. There is hypodensity that measures 5 cm in the left f rontal lobe related to old infarct. There is also evidence of old infarct anterior left temporal lobe . There is no mass effect nor midline shift. There is no sign of intracranial hemorrhage. Calvarium i s intact. Cervical vertebra have normal alignment. Disc spaces are fairly normal. Posterior elements are intact . There is multilevel mild hypertrophic facet arthropathy. The skull base is intact. There is no evid ence of cervical spine fracture. 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 No acute intracranial abnormality . Minor degenerative changes in the cervical spine. No fracture. No change.
[2019-01-18 15:13] VITALS: BP 110/65; PULSE 88; RESP 16
== END 2019-01-18 15:07 | disposition home or self-care (01) ==
LOC: EC 13:18
DX: S09.90XA Unspecified injury of head, initial encounter (principal); F17.200 Nicotine dependence, unspecified, uncomplicated; Z88.2 Allergy status to sulfonamides; Z88.8 Allergy status to other drugs, medicaments and biological substances; Z79.82 Long term (current) use of aspirin; Z86.73 Personal history of transient ischemic attack (TIA), and cerebral infarction without residual deficits; W10.9XXA Fall (on) (from) unspecified stairs and steps, initial encounter
CPT/HCPCS: 70450; 72125; 99283

== ENCOUNTER 2019-02-10 19:57 | Emergency (ER) | payer MEDICARE, OTHER ==
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
[2019-02-10] MEDS ORDERED: LORazepam 2 MG/ML INJ IM STA (21:10)
[2019-02-10 21:27] LABS: Amphetamine Screen,Urine Not Detected (NotDetected); Barbiturate Screen,Urine Not Detected (NotDetected); Benzodiazepines Screen,Urine Detected (NotDetected); Cocaine Screen,Urine Not Detected (NotDetected); Methadone Screen, Urine Not Detected (NotDetected); Opiate Screen,Urine Not Detected (NotDetected); Oxycodone Screen, Urine Not Detected (NotDetected); Phencyclidine Screen,Urine Not Detected (NotDetected); Tricyclic Antidepressant,Urine Not Detected (NotDetected); Urn Cannabinoid Scrn Not Detected (NotDetected)
[2019-02-10 21:35] VITALS: RESP 18
[2019-02-11 04:29] VITALS: BP 126/78; PULSE 88; TEMP 98.7
== END 2019-02-11 04:38 | disposition home or self-care (01) ==
LOC: EC 19:57
DX: F10.129 Alcohol abuse with intoxication, unspecified (principal); S09.90XA Unspecified injury of head, initial encounter; F17.200 Nicotine dependence, unspecified, uncomplicated; Z79.82 Long term (current) use of aspirin; Z88.2 Allergy status to sulfonamides; Z88.8 Allergy status to other drugs, medicaments and biological substances; Z86.73 Personal history of transient ischemic attack (TIA), and cerebral infarction without residual deficits; Z86.69 Personal history of other diseases of the nervous system and sense organs; W22.8XXA Striking against or struck by other objects, initial encounter
CPT/HCPCS: 82075; 80306; 99285; 96372; J2060

== ENCOUNTER 2019-02-13 21:23 | Emergency (ER) | payer MEDICARE, OTHER ==
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
[2019-02-13 21:51] VITALS: TEMP 98.6
[2019-02-13 23:07] VITALS: BP 126/70; PULSE 87; RESP 18
== END 2019-02-14 01:45 | disposition home or self-care (01) ==
LOC: EC 21:23
DX: F10.229 Alcohol dependence with intoxication, unspecified (principal); F17.200 Nicotine dependence, unspecified, uncomplicated; Z88.2 Allergy status to sulfonamides; Z88.8 Allergy status to other drugs, medicaments and biological substances; Z79.82 Long term (current) use of aspirin; Z86.73 Personal history of transient ischemic attack (TIA), and cerebral infarction without residual deficits
CPT/HCPCS: 99284

== ENCOUNTER 2019-06-10 05:48 | Emergency (ER) | payer MEDICARE, OTHER ==
[2019-06-10 05:58] LABS: Glucose,Whole Blood 140 mg/dL (75-99)
[2019-06-10] MEDS ORDERED: SODIUM CHLORIDE 0.9% 1,000 ML IV ONE (05:59)
[2019-06-10] MEDS ORDERED: DIPH,PERTUS(ACELL)TETVAC-LF 0.5 ML VIAL IM ONE (06:00)
[2019-06-10 06:13] LABS: Basophils % (A) 1 %; Eosinophils # (A) 0.1 k/uL (0-0.7); Eosinophils % (A) 1 %; HCT 35.6 % (34.0-46.0); HGB 11.9 gm/dL (11.4-16.0); Lymphocytes # (A) 2.1 k/uL (1.0-4.8); Lymphocytes % (A) 24 %; MCH 31.8 pg (25.0-35.0); MCHC 33.4 g/dL (31.0-37.0); MCV 95.3 fL (80.0-100.0); Mean Platelet Volume 8.2; Monocytes # (A) 0.2 k/uL (0-1.0); Monocytes % (A) 3 %; Neutrophils % (A) 68 %; Platelet Count 267 k/uL (150-450); RBC 3.74 m/uL (3.80-5.40); RDW 13.4 % (11.5-15.5); WBC 8.9 k/uL (3.8-10.6)
[2019-06-10 06:22] LABS: Albumin 3.7 g/dL (3.5-5.0); Calcium 8.7 mg/dL (8.4-10.2); Potassium 4.3 mmol/L (3.5-5.1); Total Bilirubin 0.1 mg/dL (0.2-1.3); Total Protein 6.9 g/dL (6.3-8.2)
[2019-06-10 06:29] LABS: INR 0.9 (<1.2); Partial Thromboplastin Time 22.8 sec (22.0-30.0); Prothrombin Time 9.6 sec (9.0-12.0)
--- NOTE | 2019-06-10 06:48 | CT ---
EXAM: CT Head Without Intravenous Contrast CLINICAL HISTORY: fall TECHNIQUE: Axial computed tomography images of the head/brain without intravenous contrast. CTDI is 56 mGy and DLP is 1350 mGy-cm. This CT exam was performed using one or more of the following dose reduction techniques: automated exposure control, adjustment of the mA and/or kV according to patient size, and/or use of iterative reconstruction technique. COMPARISON: January 18, 2019 FINDINGS: Brain: No acute intracranial hemorrhage. No mass effect or midline shift. Stable encephalomalacia in the left frontal lobe. Generalized involutional changes. Ventricles: Unremarkable. No ventriculomegaly. Bones/joints: Unremarkable. No acute fracture. Soft tissues: Extracranial soft tissue hematoma and laceration. Sinuses: Unremarkable as visualized. Mastoid air cells: Unremarkable as visualized. No mastoid effusion. IMPRESSION: Extracranial soft tissue hematoma and laceration. No acute skull fractures. No acute intracranial hemorrhage. EXAM: CT Cervical Spine Without Intravenous Contrast CLINICAL HISTORY: fall TECHNIQUE: Axial computed tomography images of the cervical spine without intravenous contrast. CTDI is 56 mGy and DLP is 1350 mGy-cm. This CT exam was performed using one or more of the following dose reduction techniques: automated exposure control, adjustment of the mA and/or kV according to patient size, and/or use of iterative reconstruction technique. COMPARISON: January 18, 2019 FINDINGS: Vertebrae: There is mild loss of height along the superior aspect of the C7 vertebral body, new since prior exam. Generalized osteopenia. No acute fracture. Discs/spinal canal/neural foramina: Mild multilevel degenerative changes. No spinal canal stenosis. Soft tissues: Unremarkable. Lung apices: Emphysematous disease in the lung apices. IMPRESSION: Mild loss of height along the superior aspect of the C7 vertebral bodies is new since prior exam. Differential considerations include acute or subacute process. If there is acute neck pain, recommend correlation with MRI. <[id number]> Communications: 06/10/19 06:58 Verify Receipt Verified receipt with ABBY Neal . Given to Dr. Herring on 06/10 06:57 (-05:00)
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
[2019-06-10] MEDS ORDERED: LIDOCAINE 1% INJ 10MG/ML (20 ML MDV) SQ ONE (08:03)
[2019-06-10 10:03] VITALS: BP 168/85; PULSE 97; RESP 20; TEMP 98.5
== END 2019-06-10 10:03 | disposition home or self-care (01) ==
LOC: EC 05:48 → EEVIPCON 05:48 → EC 10:03
DX: S01.81XA Laceration without foreign body of other part of head, initial encounter (principal); F31.9 Bipolar disorder, unspecified; F41.9 Anxiety disorder, unspecified; F17.200 Nicotine dependence, unspecified, uncomplicated; Z88.2 Allergy status to sulfonamides; Z88.8 Allergy status to other drugs, medicaments and biological substances; Z79.899 Other long term (current) drug therapy; Z23 Encounter for immunization; W01.0XXA Fall on same level from slipping, tripping and stumbling without subsequent striking against object, initial encounter; Y92.009 Unspecified place in unspecified non-institutional (private) residence as the place of occurrence of the external cause
CPT/HCPCS: 99285; 12013; 96360; 90471; 36415; 86900; 86901; 80053; 83605; 85025; 85610; 85730; 86850; 72125; 70450; 90715; G0480; J2001; 80320

== ENCOUNTER 2019-07-20 00:25 | Emergency (ER) | payer MEDICARE, OTHER ==
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
[2019-07-20 14:52] VITALS: BP 144/67; PULSE 99; RESP 18; TEMP 97.9
== END 2019-07-20 15:06 | disposition home or self-care (01) ==
LOC: EC 00:25
DX: Z00.8 Encounter for other general examination (principal); F31.9 Bipolar disorder, unspecified; F17.200 Nicotine dependence, unspecified, uncomplicated; Z86.73 Personal history of transient ischemic attack (TIA), and cerebral infarction without residual deficits; Z79.899 Other long term (current) drug therapy; Z88.8 Allergy status to other drugs, medicaments and biological substances; Z88.2 Allergy status to sulfonamides; X31.XXXA Exposure to excessive natural cold, initial encounter
CPT/HCPCS: 82075; 99283

== ENCOUNTER 2019-08-31 11:00 | Emergency (ER) | payer MEDICARE, OTHER ==
[2019-08-31 11:08] VITALS: PULSE 106; RESP 18; TEMP 97.9
[2019-08-31] MEDS ORDERED: IBUPROFEN 600 MG TAB PO STA (11:28)
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
--- NOTE | 2019-08-31 11:41 | XR ---
EXAMINATION TYPE: XR foot complete LT DATE OF EXAM: 08/31/2019 CLINICAL HISTORY: pain TECHNIQUE: Frontal, lateral and oblique images of the left foot are obtained. COMPARISON: 10/12/2018 FINDINGS: There is no acute fracture/dislocation evident. The joint spaces appear within normal carvalho its. The overlying soft tissue appears unremarkable. IMPRESSION: There is no acute fracture or dislocation. ICD 10 NO FRACTURE, INITIAL EVALUATION
[2019-08-31 12:25] VITALS: BP 132/77
== END 2019-08-31 12:45 | disposition home or self-care (01) ==
LOC: EC 11:00
DX: M79.672 Pain in left foot (principal); F10.10 Alcohol abuse, uncomplicated; F41.9 Anxiety disorder, unspecified; F31.9 Bipolar disorder, unspecified; F17.200 Nicotine dependence, unspecified, uncomplicated; Z79.899 Other long term (current) drug therapy; Z88.2 Allergy status to sulfonamides; Z88.8 Allergy status to other drugs, medicaments and biological substances; Z87.81 Personal history of (healed) traumatic fracture; Z98.890 Other specified postprocedural states
CPT/HCPCS: 99283

== ENCOUNTER 2019-09-12 14:07 | Emergency (ER) | payer MEDICARE, OTHER ==
[2019-09-12 14:18] VITALS: RESP 18; TEMP 98.5
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
[2019-09-12 15:21] LABS: Basophils # (A) 0.1 k/uL (0-0.2); Basophils % (A) 1 %; Eosinophils # (A) 0.2 k/uL (0-0.7); Eosinophils % (A) 3 %; HCT 44.3 % (34.0-46.0); HGB 14.2 gm/dL (11.4-16.0); Lymphocytes # (A) 2.2 k/uL (1.0-4.8); Lymphocytes % (A) 27 %; MCH 30.8 pg (25.0-35.0); MCHC 32.1 g/dL (31.0-37.0); Mean Platelet Volume 7.6; Monocytes # (A) 0.3 k/uL (0-1.0); Monocytes % (A) 4 %; Neutrophils # (A) 5.1 k/uL (1.3-7.7); Neutrophils % (A) 63 %; Platelet Count 328 k/uL (150-450); RBC 4.61 m/uL (3.80-5.40); RDW 13.4 % (11.5-15.5); WBC 8.1 k/uL (3.8-10.6)
[2019-09-12 15:48] LABS: ALT 28 U/L (4-34); AST 34 U/L (14-36); African American GFR (CKD) >90 (>60 ml/min/1.73 sqM); Albumin 4.4 g/dL (3.5-5.0); Alkaline Phosphatase 129 U/L (38-126); Anion Gap 10 mmol/L; Blood Urea Nitrogen 11 mg/dL (7-17); Calcium 9.3 mg/dL (8.4-10.2); Carbon Dioxide 25 mmol/L (22-30); Chloride 107 mmol/L (98-107); Glucose 94 mg/dL (74-99); Magnesium 2.4 mg/dL (1.6-2.3); Non-African American GFR(CKD) >90 (>60 ml/min/1.73 sqM); Potassium 4.2 mmol/L (3.5-5.1); Sodium 142 mmol/L (137-145); Total Bilirubin 0.2 mg/dL (0.2-1.3); Total Protein 7.9 g/dL (6.3-8.2)
[2019-09-12 15:53] LABS: Alcohol 230 mg/dL
[2019-09-12 16:25] VITALS: BP 128/78; PULSE 64
== END 2019-09-12 16:32 | disposition home or self-care (01) ==
LOC: EC 14:07
DX: F10.10 Alcohol abuse, uncomplicated (principal); F41.9 Anxiety disorder, unspecified; F31.9 Bipolar disorder, unspecified; F17.200 Nicotine dependence, unspecified, uncomplicated; Z79.899 Other long term (current) drug therapy; Z88.2 Allergy status to sulfonamides; Z88.8 Allergy status to other drugs, medicaments and biological substances; Z86.73 Personal history of transient ischemic attack (TIA), and cerebral infarction without residual deficits
CPT/HCPCS: 36415; 80053; 83735; 85025; 99284; G0480; 80320

== ENCOUNTER 2019-10-25 15:14 | Emergency (ER) | payer MEDICARE, OTHER ==
[2019-10-25 15:25] VITALS: BP 116/59; PULSE 95; RESP 20
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
== END 2019-10-25 21:19 | disposition home or self-care (01) ==
LOC: EC 15:14
DX: F10.129 Alcohol abuse with intoxication, unspecified (principal); F17.200 Nicotine dependence, unspecified, uncomplicated; F41.9 Anxiety disorder, unspecified; F31.9 Bipolar disorder, unspecified; Z79.899 Other long term (current) drug therapy; Z88.2 Allergy status to sulfonamides; Z88.8 Allergy status to other drugs, medicaments and biological substances; Z86.73 Personal history of transient ischemic attack (TIA), and cerebral infarction without residual deficits; Y90.9 Presence of alcohol in blood, level not specified
CPT/HCPCS: 99284

== ENCOUNTER 2019-10-27 01:46 | Emergency (ER) | payer MEDICARE, OTHER ==
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
--- NOTE | 2019-10-27 02:57 | CT ---
EXAMINATION TYPE: CT brain cspine wo con DATE OF EXAM: 10/27/2019 COMPARISON: 06/10/2019 HISTORY: fALL Headache. Neck pain CT DLP: 1355.3 mGycm Automated exposure control for dose reduction was used. Cervical vertebra have fairly normal spacing and alignment. Posterior elements are intact. Facet join ts are intact. The skull base is intact. There is normal aeration of the temporal bones. There is 4.5 x 2.5 cm area of hypodensity in the left frontal lobe leone and white matter consistent w ith an old infarct. There is no mass effect nor midline shift. There is no evidence of intracranial h emorrhage. There is mild cerebral atrophy. The calvarium appears intact. IMPRESSION: Negative CT scan of the cervical spine. Mild atrophy. Old left frontal lobe infarct unchanged compared to old exam. No acute intracranial abn ormality. There is clearing of right frontal scalp hematoma compared to old exam.
[2019-10-27 04:32] VITALS: PULSE 87
[2019-10-27 06:32] VITALS: BP 146/67; RESP 16; TEMP 97.9
== END 2019-10-27 06:31 | disposition home or self-care (01) ==
LOC: EC 01:46
DX: F10.129 Alcohol abuse with intoxication, unspecified (principal); F41.9 Anxiety disorder, unspecified; F31.9 Bipolar disorder, unspecified; F17.200 Nicotine dependence, unspecified, uncomplicated; Y90.9 Presence of alcohol in blood, level not specified; Z79.899 Other long term (current) drug therapy; Z86.73 Personal history of transient ischemic attack (TIA), and cerebral infarction without residual deficits; Z88.8 Allergy status to other drugs, medicaments and biological substances; Z88.2 Allergy status to sulfonamides
CPT/HCPCS: 70450; 72125; 99284

== ENCOUNTER 2019-12-10 17:18 | Emergency (ER) | payer MEDICARE, OTHER ==
[2019-12-10 17:33] VITALS: RESP 18
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
[2019-12-10 23:49] VITALS: BP 163/81; PULSE 97; TEMP 98.2
== END 2019-12-10 23:47 | disposition home or self-care (01) ==
LOC: EC 17:18
DX: F10.129 Alcohol abuse with intoxication, unspecified (principal); F17.200 Nicotine dependence, unspecified, uncomplicated; F32.9 Major depressive disorder, single episode, unspecified; F41.9 Anxiety disorder, unspecified; Z88.2 Allergy status to sulfonamides; Z88.8 Allergy status to other drugs, medicaments and biological substances; Y90.6 Blood alcohol level of 120-199 mg/100 ml
CPT/HCPCS: 82075; 99284

== ENCOUNTER 2020-01-14 13:30 | Observation (INO) | payer MEDICARE, OTHER ==
[2020-01-14] MEDS ORDERED: SODIUM CHLORIDE 0.9% 1,000 ML IV ONE ×2 (13:36→15:05)
[2020-01-14] MEDS ORDERED: SODIUM CHLORIDE 0.9% 500 ML 500 ML IV ONE (13:36)
[2020-01-14] MEDS ORDERED: SODIUM CHLORIDE 0.9% 1,000 ML with MVI, ADULT NO.4 WITH VIT K 10 ML, THIAMINE 100 MG, F... IV ONE ×4 (13:36)
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
[2020-01-14 14:50] LABS: Albumin 4.3 g/dL (3.5-5.0); Calcium 9.1 mg/dL (8.4-10.2); Magnesium 2.3 mg/dL (1.6-2.3); Potassium 4.4 mmol/L (3.5-5.1); Total Bilirubin 0.3 mg/dL (0.2-1.3); Total Protein 7.9 g/dL (6.3-8.2)
[2020-01-14 14:56] LABS: Basophils # (A) 0.1 k/uL (0-0.2); Basophils % (A) 1 %; Eosinophils # (A) 0.2 k/uL (0-0.7); Eosinophils % (A) 3 %; HCT 46.7 % (34.0-46.0); HGB 15.3 gm/dL (11.4-16.0); Lymphocytes # (A) 2.9 k/uL (1.0-4.8); Lymphocytes % (A) 32 %; MCH 30.7 pg (25.0-35.0); MCHC 32.7 g/dL (31.0-37.0); MCV 93.8 fL (80.0-100.0); Mean Platelet Volume 7.3; Monocytes # (A) 0.2 k/uL (0-1.0); Monocytes % (A) 2 %; Neutrophils # (A) 5.4 k/uL (1.3-7.7); Neutrophils % (A) 61 %; Platelet Count 304 k/uL (150-450); RBC 4.98 m/uL (3.80-5.40); RDW 13.3 % (11.5-15.5); WBC 8.9 k/uL (3.8-10.6)
[2020-01-14] MEDS ORDERED: LORazepam 2 MG/ML INJ IV PRN ×3 (15:07)
[2020-01-14] MEDS ORDERED: THIAMINE 100 MG/ML 2 ML VIAL IM STA (15:07)
[2020-01-14] MEDS ORDERED: HYDROcodone/APAP 5-325MG 1 EACH TAB PO PRN (21:32)
[2020-01-14] MEDS ORDERED: ONDANSETRON 4 MG/2 ML VIAL IVP PRN (21:32)
[2020-01-14] MEDS ORDERED: ACETAMINOPHEN TAB 325 MG TAB PO PRN (21:32)
[2020-01-14] MEDS ORDERED: HALOPERIDOL LACTATE 5 MG/ML 1 ML VIAL IM PRN (21:45)
[2020-01-14 23:46] LABS: Amphetamine Screen,Urine Not Detected (NotDetected); Cocaine Screen,Urine Not Detected (NotDetected); Opiate Screen,Urine Not Detected (NotDetected); Phencyclidine Screen,Urine Not Detected (NotDetected); Urn Cannabinoid Scrn Not Detected (NotDetected)
[2020-01-14 23:47] LABS: Barbiturate Screen,Urine Not Detected (NotDetected); Benzodiazepines Screen,Urine Detected (NotDetected); Methadone Screen, Urine Not Detected (NotDetected); Oxycodone Screen, Urine Not Detected (NotDetected); Tricyclic Antidepressant,Urine Not Detected (NotDetected)
[2020-01-15] MEDS: THIAMINE 100 MG TAB PO SCH ×2 (08:38→16:28)
[2020-01-15] MEDS ORDERED: PANTOPRAZOLE 40 MG/10 ML VIAL IVP SCH (09:00)
--- NOTE | 2020-01-15 19:29 | PN ---
PROGRESS NOTE DATE OF SERVICE: 01/15/2020 CHIEF COMPLAINT: Alcohol intoxication. HISTORY OF PRESENT ILLNESS: This lady is doing well. She is more awake and alert, oriented. PHYSICAL EXAMINATION: Color is good. Chest is clear. Cardiac exam is normal. Abdomen is soft, nontender. IMPRESSION: 1. Acute alcohol intoxication. 2. Alcoholism. 3. Chronic obstructive pulmonary disease. 4. Depression. PLAN: Continue with current program with suicide precautions and watching for DTs. MMODL / IJN: [id number] /
--- NOTE | 2020-01-15 19:29 | HP ---
HISTORY AND PHYSICAL CHIEF COMPLAINT: 1. Acute alcohol intoxication. 2. Depression and impending DTs. HISTORY OF PRESENT ILLNESS: This is another admission for this 64-year-old white female, chronic alcoholic who came to the emergency room and was admitted. She was admitted to another physician and I was notified after the fact. REVIEW OF SYSTEMS: She denies any seizures, blackouts, diplopia, chest pain, shortness of breath, cough, hemoptysis, abdominal pain, nausea, vomiting, melena, any, hematochezia, dysuria, frequency, urgency and hematuria, etc. Past medical history, family history and personal and social histories are otherwise unremarkable and noncontributory. PHYSICAL EXAMINATION: Blood pressure is 128/90 with a pulse of 96, respirations of 34 and she is afebrile. In general, she appeared to be older than stated age. She is slightly dehydrated. She is not jaundiced. Head, ears, eyes, nose, mouth, and throat were normal. Neck veins not distended. Thyroid is not enlarged. Chest demonstrated scattered rales. Cardiac exam demonstrated sinus rhythm and no murmurs. Abdomen is soft, nontender without any visceromegaly or masses. Bowel sounds present. Extremities: Normal. Neurologically, she is intact. She was not tremulous. There is no diplopia. IMPRESSION: She is admitted to the hospital with diagnoses: 1. Acute alcohol intoxication. 2. Chronic alcoholism. 3. Chronic obstructive pulmonary disease. 4. Depression. PLAN: 1. Bed rest. 2. IV fluids. 3. Bedside sitter. 4. Watch for DTs. MMODL / IJN: [id number] /
[2020-01-15] MEDS: cloNIDine HCL 0.1 MG TAB PO SCH (21:45)
[2020-01-16] MEDS: cloNIDine HCL 0.1 MG TAB PO SCH ×3 (08:09→20:38)
[2020-01-16] MEDS: PANTOPRAZOLE 40 MG TABLET PO SCH (08:09)
[2020-01-16] MEDS: THIAMINE 100 MG TAB PO SCH ×2 (08:09→16:59)
--- NOTE | 2020-01-16 16:07 | PN ---
PROGRESS NOTE DATE OF SERVICE: 01/16/2020. CHIEF COMPLAINT: DTs and depression. HISTORY OF PRESENT ILLNESS: This lady is doing well. She is awake, alert, and affect seems fairly normal. She is not in DTs and she has no diplopia or tremors. When she came in, she was talking about wanting to and she has been referred to Psychiatry who has not seen her yet. PHYSICAL EXAMINATION: She is awake and alert. Chest is clear. Cardiac exam is normal. Abdomen is soft, nontender. She has no diplopia and no DTs. IMPRESSION: 1. Acute alcohol intoxication. 2. Chronic alcoholism. 3. Depression. PLAN: Continue with IV fluids, advancing diet and activity, suicide precautions and wait for psych consult. MMODL / IJN: [id number] /
[2020-01-16] MEDS: QUEtiapine 200 MG TAB PO SCH (20:22)
[2020-01-16 20:35] VITALS: RESP 16
[2020-01-17] MEDS: LEVOTHYROXINE 25 MCG TAB PO SCH (05:34)
[2020-01-17] MEDS: QUEtiapine 200 MG TAB PO SCH (08:21)
[2020-01-17] MEDS: FLUoxetine HCL 20 MG CAP PO SCH ×2 (08:28)
[2020-01-17] MEDS: THIAMINE 100 MG TAB PO SCH ×2 (08:28→17:11)
[2020-01-17] MEDS: cloNIDine HCL 0.1 MG TAB PO SCH ×3 (08:28→21:00)
[2020-01-17] MEDS: PANTOPRAZOLE 40 MG TABLET PO SCH (08:28)
[2020-01-17] MEDS ORDERED: OLANZapine 5 MG TAB PO ONE (12:50)
[2020-01-17] MEDS: OLANZapine 5 MG TAB PO SCH ×2 (17:11→21:00)
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
[2020-01-18 04:43] VITALS: BP 114/63; PULSE 58; TEMP 98.2
[2020-01-18] MEDS: LEVOTHYROXINE 25 MCG TAB PO SCH (05:41)
[2020-01-18] MEDS: OLANZapine 5 MG TAB PO SCH (09:05)
[2020-01-18] MEDS: FLUoxetine HCL 20 MG CAP PO SCH ×2 (09:05→09:06)
[2020-01-18] MEDS: PANTOPRAZOLE 40 MG TABLET PO SCH (09:05)
[2020-01-18] MEDS: THIAMINE 100 MG TAB PO SCH (09:05)
[2020-01-18] MEDS: cloNIDine HCL 0.1 MG TAB PO SCH (09:05)
--- NOTE | 2020-01-18 22:49 | PN ---
PROGRESS NOTE DATE OF SERVICE: 01/17/2020 CHIEF COMPLAINT: Acute alcohol intoxication and DTs with depression. HISTORY OF PRESENT ILLNESS: This lady is doing very well. She is awake and alert and up and about. She has not been seen by Psychiatry yet. PHYSICAL EXAMINATION: Chest is clear. Cardiac exam is normal. Abdomen is soft, nontender. Extremities are normal. IMPRESSION: 1. Acute alcohol intoxication. 2. Chronic obstructive pulmonary disease. 3. Major depression. PLAN: Await Psychiatry's evaluation, then she can probably go home. MMODL / IJN: [id number] /
--- NOTE | 2020-01-19 03:54 | DS ---
DISCHARGE SUMMARY CHIEF COMPLAINT: Acute alcohol intoxication and depression with suicidal intent. HISTORY OF PRESENT ILLNESS AND PHYSICAL EXAM: Details of this lady's history and physical can be found in the initial workup. LABORATORY STUDIES: While she was in the hospital she had laboratory studies, details of which can be found in the laboratory section of her chart. COURSE IN THE HOSPITAL: After admission, patient was placed on bedrest, started on intravenous fluids and was placed on suicide precautions. She did not go into the [facility] DTs. She was doing well and seen by Psychiatry who felt that she did not need to be kept in the hospital to protect her from herself. She will go home on light activity about the house and her usual medication and diet and will follow her up in the office. FINAL DIAGNOSES: 1. Acute alcohol intoxication. 2. Chronic alcoholism. 3. Depression. 4. Chronic obstructive pulmonary disease. OPERATIONS: None. CONSULTATIONS: Psychiatry. She is improved. MMODL / CHRISTINEN: [id number] /
== END 2020-01-18 15:00 | disposition home or self-care (01) ==
LOC: EC 13:30 → 4SSUR 15:06 → 6NMEDSUR 17:14
PROVIDERS: ADMIT Family Medicine; ATTEND Family Medicine
DX: F10.229 Alcohol dependence with intoxication, unspecified (principal); F10.239 Alcohol dependence with withdrawal, unspecified; Y90.8 Blood alcohol level of 240 mg/100 ml or more; R45.851 Suicidal ideations; Z20.828 Contact with and (suspected) exposure to other viral communicable diseases; F41.9 Anxiety disorder, unspecified; F31.9 Bipolar disorder, unspecified; F17.200 Nicotine dependence, unspecified, uncomplicated; G40.909 Epilepsy, unspecified, not intractable, without status epilepticus; J44.9 Chronic obstructive pulmonary disease, unspecified; Z86.73 Personal history of transient ischemic attack (TIA), and cerebral infarction without residual deficits; Z87.01 Personal history of pneumonia (recurrent); Z98.890 Other specified postprocedural states; Z87.81 Personal history of (healed) traumatic fracture; Z79.899 Other long term (current) drug therapy; Z88.2 Allergy status to sulfonamides; Z88.8 Allergy status to other drugs, medicaments and biological substances
CPT/HCPCS: 96375 ×2; 82075; 96365; 96366; 96372; 99285; 36415; 93005; 80053; 83735; 85025; 80306; G0378 ×6; G0480; U0003; J2060; J3411; C9113; 80320

== ENCOUNTER 2020-03-19 10:41 | Inpatient (IN) | payer MEDICARE, OTHER ==
[2020-03-19] MEDS ORDERED: SODIUM CHLORIDE 0.9% 1,000 ML IV STA ×2 (10:49)
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
[2020-03-19] MEDS ORDERED: SODIUM CHLORIDE 0.9% 1,000 ML with MVI, ADULT NO.4 WITH VIT K 10 ML, THIAMINE 100 MG, F... IV ONE ×4 (11:00)
[2020-03-19 11:16] LABS: Glucose,Whole Blood 79 mg/dL (75-99)
[2020-03-19 11:32] LABS: Basophils % (A) 1 %; Eosinophils # (A) 0.1 k/uL (0-0.7); Eosinophils % (A) 1 %; Hypochromasia Slight; Lymphocytes # (A) 1.2 k/uL (1.0-4.8); Lymphocytes % (A) 15 %; MCH 31.3 pg (25.0-35.0); MCHC 32.1 g/dL (31.0-37.0); MCV 97.5 fL (80.0-100.0); Mean Platelet Volume 8.1; Monocytes # (A) 0.2 k/uL (0-1.0); Monocytes % (A) 2 %; Neutrophils # (A) 6.5 k/uL (1.3-7.7); Neutrophils % (A) 80 %; Platelet Count 202 k/uL (150-450); RBC 3.29 m/uL (3.80-5.40); RDW 14.4 % (11.5-15.5); WBC 8.1 k/uL (3.8-10.6)
[2020-03-19 11:33] LABS: HGB 10.3 gm/dL (11.4-16.0)
[2020-03-19 11:34] LABS: ALT 18 U/L (4-34); African American GFR (CKD) >90 (>60 ml/min/1.73 sqM); Albumin 2.5 g/dL (3.5-5.0); Amylase 46 U/L (30-110); Anion Gap 8 mmol/L; Blood Urea Nitrogen 14 mg/dL (7-17); Carbon Dioxide 15 mmol/L (22-30); Chloride 120 mmol/L (98-107); Creatine Kinase 112 U/L (30-135); Glucose 55 mg/dL (74-99); Lipase 108 U/L (23-300); Non-African American GFR(CKD) >90 (>60 ml/min/1.73 sqM); Sodium 143 mmol/L (137-145); Total Bilirubin 0.4 mg/dL (0.2-1.3); Total Protein 5.3 g/dL (6.3-8.2)
[2020-03-19 11:53] LABS: Alcohol 195 mg/dL
[2020-03-19 11:54] LABS: AST 33 U/L (14-36); Alkaline Phosphatase 79 U/L (38-126); Calcium 5.8 mg/dL (8.4-10.2); Magnesium 1.6 mg/dL (1.6-2.3)
[2020-03-19] MEDS ORDERED: POTASSIUM CHLORIDE 20 MEQ in WATER FOR INJECTION 1 100ML.BAG IVPB STA (11:58)
--- NOTE | 2020-03-19 12:02 | XR ---
EXAMINATION TYPE: XR chest 1V portable DATE OF EXAM: 03/19/2020 Comparison: 11/18/2015 Clinical History: 65-year-old female Aspiration Findings: Heart borderline enlarged atherosclerotic arch calcifications. Increasing diffuse interstitial opacit y. No pleural effusion. Impression: Increased diffuse interstitial opacity could represent early interstitial edema, bronchitis, asthma, or atypical pneumonias.
--- NOTE | 2020-03-19 12:04 | XR ---
EXAMINATION TYPE: XR pelvis AP view DATE OF EXAM: 03/19/2020 COMPARISON: 04/12/2017 HISTORY: 65-year-old female pain, possible trauma, confusion and hypothermia. FINDINGS: The visualized antegrade intramedullary nailing and screw fixation on the left. Overall appearance of the pelvis is unchanged from 04/12/2017. Osteopenia. No displaced fracture seen. IMPRESSION: Osteopenia. No displaced fracture seen. Partially visualized IT fracture fixation left hip.
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
[2020-03-19] MEDS: MAGNESIUM SULFATE-D5W PMX 1 GM in DEXTROSE/WATER 1 100ML.BAG IVPB SCH ×2 (12:37→14:14)
[2020-03-19] MEDS ORDERED: cefTRIAXone IN SWFI 1,000 MG/10 ML SYRINGE IVP STA (13:20)
[2020-03-19] MEDS ORDERED: THIAMINE 100 MG/ML 2 ML VIAL IM STA (15:02)
[2020-03-19] MEDS ORDERED: LORazepam 2 MG/ML INJ IV PRN ×3 (15:02)
[2020-03-19] MEDS ORDERED: NALOXONE 0.4 MG/ML 1 ML VIAL IV PRN (15:04)
[2020-03-19 16:59] LABS: Appearance,Urine Clear (Clear); Bacteria,Urine Rare /hpf; Bilirubin,Urine Negative (Negative); Blood,Urine Negative (Negative); Color,Urine Yellow; Glucose,Urine (UA) Negative (Negative); Hyaline Casts,Urine 19 /lpf (0-2); Ketones,Urine 1+ (Negative); Leukocyte Esterase,Urine Trace (Negative); Mucus,Urine Few /hpf; Nitrite,Urine Negative (Negative); Protein,Urine Trace (Negative); RBC,Urine <1 /hpf (0-5); Specific Gravity,Urine 1.016 (1.001-1.035); Squamous Epithelial Cell,Urine 1 /hpf (0-4); Urobilinogen,Urine <2.0 mg/dL (<2.0); WBC,Urine 4 /hpf (0-5)
[2020-03-19 17:03] LABS: Amphetamine Screen,Urine Detected (NotDetected); Barbiturate Screen,Urine Not Detected (NotDetected); Benzodiazepines Screen,Urine Not Detected (NotDetected); Cocaine Screen,Urine Not Detected (NotDetected); Methadone Screen, Urine Not Detected (NotDetected); Opiate Screen,Urine Not Detected (NotDetected); Oxycodone Screen, Urine Not Detected (NotDetected); Phencyclidine Screen,Urine Not Detected (NotDetected); Tricyclic Antidepressant,Urine Detected (NotDetected); Urn Cannabinoid Scrn Not Detected (NotDetected)
[2020-03-19] MEDS: PIPERACILLIN-TAZOBACTAM 3.375 GM in SODIUM CHLORIDE 0.9% 100 ML IVPB SCH (17:50)
[2020-03-19] MEDS: THIAMINE 100 MG TAB PO SCH (17:55)
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
[2020-03-20] MEDS: PIPERACILLIN-TAZOBACTAM 3.375 GM in SODIUM CHLORIDE 0.9% 100 ML IVPB SCH ×3 (00:44→18:17)
[2020-03-20 06:00] LABS: Basophils % (A) 0 %; Eosinophils # (A) 0.2 k/uL (0-0.7); Eosinophils % (A) 3 %; HCT 39.4 % (34.0-46.0); HGB 12.9 gm/dL (11.4-16.0); Lymphocytes # (A) 1.4 k/uL (1.0-4.8); Lymphocytes % (A) 19 %; MCHC 32.7 g/dL (31.0-37.0); MCV 94.8 fL (80.0-100.0); Mean Platelet Volume 7.5; Monocytes # (A) 0.3 k/uL (0-1.0); Monocytes % (A) 4 %; Neutrophils # (A) 5.3 k/uL (1.3-7.7); Neutrophils % (A) 72 %; Platelet Count 281 k/uL (150-450); RBC 4.15 m/uL (3.80-5.40); RDW 14.4 % (11.5-15.5); WBC 7.3 k/uL (3.8-10.6)
[2020-03-20] MEDS: THIAMINE 100 MG TAB PO SCH ×2 (09:36→18:17)
[2020-03-20 10:19] LABS: African American GFR (CKD) 104.6 (60.0-200.0); Albumin/Globulin Ratio 1.54 (1.60-3.17); Anion Gap 10.2 mmol/L (4.00-12.00); BUN/Creat Ratio 25.71 Ratio (12.00-20.00); Calcium 8.6 mg/dL (8.7-10.3); Carbon Dioxide 21.8 mmol/L (21.6-31.8); Globulin 2.6 g/dL (1.6-3.3); Non-African American GFR(CKD) 90.3 (60.0-200.0); Potassium 4.1 mmol/L (3.5-5.5); Total Bilirubin 0.6 mg/dL (0.3-1.2); Total Protein 6.6 g/dL (6.2-8.2)
[2020-03-21] MEDS: PIPERACILLIN-TAZOBACTAM 3.375 GM in SODIUM CHLORIDE 0.9% 100 ML IVPB SCH ×2 (00:44→07:58)
[2020-03-21 06:48] LABS: Basophils # (A) 0.1 k/uL (0-0.2); Basophils % (A) 1 %; Eosinophils # (A) 0.3 k/uL (0-0.7); Eosinophils % (A) 7 %; HCT 39.6 % (34.0-46.0); HGB 13.1 gm/dL (11.4-16.0); Lymphocytes # (A) 1.3 k/uL (1.0-4.8); Lymphocytes % (A) 29 %; MCH 31.1 pg (25.0-35.0); MCV 94.3 fL (80.0-100.0); Mean Platelet Volume 7.7; Monocytes # (A) 0.3 k/uL (0-1.0); Monocytes % (A) 6 %; Neutrophils # (A) 2.5 k/uL (1.3-7.7); Neutrophils % (A) 55 %; Platelet Count 239 k/uL (150-450); WBC 4.6 k/uL (3.8-10.6)
[2020-03-21] MEDS: THIAMINE 100 MG TAB PO SCH (07:58)
[2020-03-21 08:12] VITALS: BP 177/78; PULSE 80; RESP 17; TEMP 98.5
[2020-03-21 09:20] LABS: African American GFR (CKD) 110.1 (60.0-200.0); Anion Gap 7.6 mmol/L (4.00-12.00); Calcium 8.8 mg/dL (8.7-10.3); Carbon Dioxide 24.4 mmol/L (21.6-31.8)
--- NOTE | 2020-03-21 15:10 | P.PN ---
Subjective Progress Note Date: 03/20/20 Principal diagnosis: Hypothermia and alcohol intoxication Ms. Renee is a 65-year-old female with a past medical history of COPD, CVA/TIA, seizure disorder, alcohol abuse brought in by EMS after she was noted to be sleeping at a bus stop outside in the cold winter weather. A fellow citizen noticed that the patient was sleeping in the past up around 6:30 in the morning, and later on he noticed that she was sleeping in the same place at 10:30 AM. When the paramedics went she was cold to touch and they were unable to get an accurate temperature so she was brought in to the emergency for further evaluation. After warming, patient was more responsive and able to communicate. Patient had blood work done showing alcohol level of 195 and her UDS was positive for amphetamines and tricyclic antidepressants. Her initial lactic acid was 4 and a repeat 1 was 1.5. Patient was still in the emergency department when I examined her. She states that she is homeless and was recently in correction, currently on probation not to drink. Patient states that she is a chronic alcoholic and drinks 1/5 of vodka every day. Patient denies having any chest pain or palpitations. No fever cough or chills or rigors. No chest pain or palpitations. No abdominal pain nausea vomiting or diarrhea. No complaints of pain in the lower extremities. In the ER patient also had chest x-ray showing diffuse interstitial opacity could be early interstitial edema, bronchitis, asthma or atypical pneumonia. EKG left fasicular block , unchanged from May. CT scan of the head showing stable encephalomalacia in the anterior left frontal lobe and anterior left temporal lobe possibly sequela of prior traumatic insult versus prior infarct. X-ray of the pelvis showing no displaced fracture partially visualized right hip fracture fixation of left hip. On 03/20/2020 - patient was seen and examined. She denies having any cough or difficulty in breathing. No chest pain or palpitations. No abdominal pain nausea vomiting or diarrhea. Patient denies having any visual or auditory hallucinations. She denies having any tremors. As per discussion with nursing staff patient required only 1 dose of Ativan last night. Active Medications Piperacillin Sod/Tazobactam (Sod 3.375 gm/ Sodium Chloride) 100 mls @ 200 mls/hr IVPB Q8HR DALE Last Admin: 03/21/20 00:44 Dose: 200 mls/hr Documented by: Lorazepam (Lorazepam 2 Mg/Ml Inj) 1 mg IV Q2HR PRN PRN Reason: CIWA 8 or 9 Last Admin: 03/20/20 00:08 Dose: 1 mg Documented by: Lorazepam (Lorazepam 2 Mg/Ml Inj) 1 mg IV Q1HR PRN PRN Reason: CIWA 10 to 15 Lorazepam (Lorazepam 2 Mg/Ml Inj) 2 mg IV Q10M PRN PRN Reason: CIWA 16 or higher Stop: 03/21/20 15:02 Naloxone HCl (Naloxone 0.4 Mg/Ml 1 Ml Vial) 0.2 mg IV Q2M PRN PRN Reason: Opioid Reversal Thiamine HCl (Thiamine 100 Mg Tab) 100 mg PO BID-W/MEALS DALE Last Admin: 03/20/20 18:17 Dose: 100 mg Documented by: Objective - Vital Signs Vital signs: Vital Signs Temp 98.5 F 03/20/20 15:00 Pulse 81 03/20/20 15:00 Resp 18 03/20/20 15:00 BP 163/68 03/20/20 15:00 Pulse Ox 96 03/20/20 15:00 Intake & Output 03/19/20 03/20/20 03/20/20 18:59 06:59 18:59 Weight 71 kg - Exam ASSESSMENT Hypothermia Alcohol intoxication Possible aspiration pneumonitis Hypokalemia Hypocalcemia Lactic acidosis Chronic alcohol abuse History of traumatic brain injury in the past PLAN: Will monitor for alcohol withdrawal, CIWA scale. Patient was started on Zosyn for possible aspiration pneumonia. Continue with thiamine supplements. Patient's lactic acid is trending down. We will repeat labs for tomorrow morning. Further recommendations depending on the progress of the patient. - Labs CBC & Chem 7: 03/21/20 06:01 03/21/20 06:01 Labs: Abnormal Lab Results - Last 24 Hours (Table) 03/19/20 03/19/20 03/20/20 Range/Units 16:29 17:17 05:45 Sodium 134 L (135-145) mmol/L BUN/Creatinine Ratio 25.71 H (12.00-20.00) Ratio Plasma Lactic Acid Sam 2.9 H* (0.7-2.0) mmol/L Calcium 8.6 L (8.7-10.3) mg/dL AST 42 H (13-35) U/L Alkaline Phosphatase 141 H (41-126) U/L Albumin/Globulin Ratio 1.54 L (1.60-3.17) g/dL U Tricyclic Antidepress Detected H (NotDetected) Ur Amphetamines Screen Detected H (NotDetected) Microbiology - Last 24 Hours (Table) 03/19/20 14:12 Blood Culture - Preliminary Blood No Growth after 24 hours
--- NOTE | 2020-03-21 15:13 | P.DS ---
Providers Date of admission: 03/19/20 15:04 Expected date of discharge: 03/21/20 Attending physician: Marylin John Primary care physician: Stated None Hospital Course: Ms. Renee is a 65-year-old female with a past medical history of COPD, CVA/TIA, seizure disorder, alcohol abuse brought in by EMS after she was noted to be sleeping at a bus stop outside in the cold winter weather. A fellow citizen noticed that the patient was sleeping in the past up around 6:30 in the morning, and later on he noticed that she was sleeping in the same place at 10:30 AM. When the paramedics went she was cold to touch and they were unable to get an accurate temperature so she was brought in to the emergency for further evaluation. After warming, patient was more responsive and able to communicate. Patient had blood work done showing alcohol level of 195 and her UDS was positive for amphetamines and tricyclic antidepressants. Her initial lactic acid was 4 and a repeat 1 was 1.5. Patient was still in the emergency department when I examined her. She states that she is homeless and was recently in skilled nursing, currently on probation not to drink. Patient states that she is a chronic alcoholic and drinks 1/5 of vodka every day. Patient denies having any chest pain or palpitations. No fever cough or chills or rigors. No chest pain or palpitations. No abdominal pain nausea vomiting or diarrhea. No complaints of pain in the lower extremities. In the ER patient also had chest x-ray showing diffuse interstitial opacity could be early interstitial edema, bronchitis, asthma or atypical pneumonia. EKG left fasicular block , unchanged from May. CT scan of the head showing stable encephalomalacia in the anterior left frontal lobe and anterior left temporal lobe possibly sequela of prior traumatic insult versus prior infarct. X-ray of the pelvis showing no displaced fracture partially visualized right hip fracture fixation of left hip. Hospital course - patient was monitored for alcohol withdrawal symptoms and was put on Cipro scale. She required only couple of doses of Ativan. Patient is back to her baseline. She does not have any complaints. She states that she is straight to go home. So patient is being discharged to a rehab facility. Vital Signs - 24 hr 03/20/20 03/21/20 03/21/20 19:25 03:10 07:00 Temperature 99.2 F 98.8 F 98.5 F Pulse Rate [ 83 83 80 Pulse Oximetery ] Respiratory 20 16 17 Rate Blood Pressure 149/83 174/84 177/78 [Right Arm] O2 Sat by Pulse 95 96 96 Oximetry PHYSICAL EXAMINATION: Patient is lying in the bed comfortably, no acute distress, awake alert and oriented.. HEENT: Normocephalic. Neck is supple. Pupils reactive. . Oral cavity is moist. Neck reveals no JVD, carotid bruits, or thyromegaly. CHEST EXAMINATION: Trachea is central. Lung dodd clear to auscultation and percussion. CARDIAC: Normal S1, S2 with no gallops. No murmurs ABDOMEN: Soft. Bowel sounds normal. No organomegaly. No abdominal bruits. Extremities: reveal no edema. No clubbing or cyanosis Neurologically awake, alert, oriented x3 with well-coordinated movements. No focal deficits noted Skin: No rash or skin lesions. Psychiatric: Coperative. normal modd an effect DISCHARGE DIAGNOSIS Hypothermia Alcohol intoxication Possible aspiration pneumonitis Hypokalemia Hypocalcemia Lactic acidosis Chronic alcohol abuse History of traumatic brain injury in the past Follow-up: Patient is advised to follow with her primary care physician in one weeks time. She is being discharged on 5 days of levofloxacin for aspiration pneumonia. Patient is on her way to rehab facility. Patient Condition at Discharge: Fair Plan - Discharge Summary Discharge Rx Participant: Yes New Discharge Prescriptions: New Folic Acid 1 mg PO DAILY 30 Days #30 tablet levoFLOXacin 750 mg PO DAILY 4 Days #4 tab Thiamine [Vitamin B-1] 100 mg PO BID-W/MEALS 30 Days #30 tab Discharge Medication List Folic Acid 1 mg PO DAILY 30 Days #30 tablet 03/21/20 [Rx] Thiamine [Vitamin B-1] 100 mg PO BID-W/MEALS 30 Days #30 tab 03/21/20 [Rx] levoFLOXacin 750 mg PO DAILY 4 Days #4 tab 03/21/20 [Rx] Follow up Appointment(s)/Referral(s): None,Stated [Primary Care Provider] - 1-2 days Patient Instructions/Handouts: Alcohol Intoxication (DC), Acute Hypothermia (DC) Discharge Disposition: HOME SELF-CARE
== END 2020-03-21 14:54 | DRG 922 ==
LOC: EC 10:41 → 4SSUR 15:04
PROVIDERS: ADMIT Internal Medicine; ATTEND Internal Medicine
DX: T68.XXXA Hypothermia, initial encounter (principal); J69.0 Pneumonitis due to inhalation of food and vomit; E87.2 Acidosis; G93.89 Other specified disorders of brain; F10.229 Alcohol dependence with intoxication, unspecified; F60.9 Personality disorder, unspecified; J44.9 Chronic obstructive pulmonary disease, unspecified; G40.909 Epilepsy, unspecified, not intractable, without status epilepticus; F31.9 Bipolar disorder, unspecified; F41.9 Anxiety disorder, unspecified; E83.51 Hypocalcemia; E86.0 Dehydration; E87.6 Hypokalemia; Y90.6 Blood alcohol level of 120-199 mg/100 ml; F17.210 Nicotine dependence, cigarettes, uncomplicated; Z59.0 Homelessness; Z86.73 Personal history of transient ischemic attack (TIA), and cerebral infarction without residual deficits; Z87.81 Personal history of (healed) traumatic fracture; Z98.890 Other specified postprocedural states; Z87.820 Personal history of traumatic brain injury; Z65.3 Problems related to other legal circumstances; Z87.01 Personal history of pneumonia (recurrent); X31.XXXA Exposure to excessive natural cold, initial encounter; Z88.2 Allergy status to sulfonamides; Z88.8 Allergy status to other drugs, medicaments and biological substances
CPT/HCPCS: 36415; 70450; 71045; 72125; 72170; 80048; 80053; 80306; 80320; 81001; 82150; 82550; 83605; 83690; 83735; 84484; 85025; 87040; 93005; 96361; 96365; 96366; 96368; 96375; 99291

== ENCOUNTER 2021-01-08 16:23 | Emergency (ER) | payer MEDICARE, OTHER ==
[2021-01-08] MEDS ORDERED: DIPH,PERTUS(ACELL)TETVAC-LF 0.5 ML VIAL IM ONE (16:47)
[2021-01-08 17:03] VITALS: BP 123/63; PULSE 67; RESP 20; TEMP 97.7
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
[2021-01-08 20:37] LABS: Basophils # (A) 0.1 k/uL (0-0.2); Basophils % (A) 1 %; Eosinophils # (A) 0.1 k/uL (0-0.7); Eosinophils % (A) 2 %; HCT 44.8 % (34.0-46.0); HGB 15.4 gm/dL (11.4-16.0); Lymphocytes # (A) 2.8 k/uL (1.0-4.8); Lymphocytes % (A) 31 %; MCH 31.9 pg (25.0-35.0); MCHC 34.3 g/dL (31.0-37.0); MCV 92.8 fL (80.0-100.0); Mean Platelet Volume 8.1; Monocytes # (A) 0.3 k/uL (0-1.0); Monocytes % (A) 3 %; Neutrophils # (A) 5.5 k/uL (1.3-7.7); Neutrophils % (A) 61 %; Platelet Count 316 k/uL (150-450); RBC 4.82 m/uL (3.80-5.40); RDW 13.4 % (11.5-15.5)
== END 2021-01-08 22:48 | disposition left against medical advice (07) ==
LOC: EC 16:23
DX: F10.129 Alcohol abuse with intoxication, unspecified (principal); J44.9 Chronic obstructive pulmonary disease, unspecified; F41.9 Anxiety disorder, unspecified; F31.9 Bipolar disorder, unspecified; F17.200 Nicotine dependence, unspecified, uncomplicated; Z23 Encounter for immunization; Z88.2 Allergy status to sulfonamides; Z86.73 Personal history of transient ischemic attack (TIA), and cerebral infarction without residual deficits; Y90.9 Presence of alcohol in blood, level not specified; W18.30XA Fall on same level, unspecified, initial encounter
CPT/HCPCS: 36415; 85025; 90471; 90715; 99284

== ENCOUNTER 2021-01-12 13:54 | Inpatient (IN) | payer MEDICARE, MEDICAID ==
[2021-01-12] MEDS ORDERED: DIPH,PERTUS(ACELL)TETVAC-LF 0.5 ML VIAL IM ONE (14:23)
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
[2021-01-12] MEDS ORDERED: LORazepam 2 MG/ML INJ IM STA (14:36)
[2021-01-12] MEDS ORDERED: HALOPERIDOL LACTATE 5 MG/ML 1 ML VIAL IM STA (14:36)
--- NOTE | 2021-01-12 15:13 | CT ---
EXAMINATION TYPE: CT brain [facility]ed[facility]arris con DATE OF EXAM: 01/12/2021 COMPARISON: 03/19/2020 HISTORY: Patient poor historian. Right sided facial and frontal abrasions. CT DLP: 2528.[address] of the brain was performed. The ventricles, basal cisterns and sulci overlying the cerebral convexities demonstrate mild enlargem ent. Remote insult left frontal lobe. There is no evidence for intracranial hemorrhage or sulcal effacement. There is decreased attenuatio n about the periventricular white matter and deep white matter of both cerebral hemispheres, compatib le with chronic small vessel ischemia. No mass effects are seen. If symptoms persist consider MRI. Osseous calvarium is intact. IMPRESSION: 1. Age related atrophic and chronic small vessel ischemic change without acute intracranial process seen at this time. CT Cervical Spine: Unenhanced CT of the cervical spine was performed with bone and soft tissue window settings submitted . Coronal and sagittal reconstruction is obtained. There is normal alignment and prevertebral soft tissues. No evidence for acute cervical fracture . Scattered degenerative disc disease and spondylosis. Biapical scarring. IMPRESSION: 1. No evidence for acute fracture or subluxation of the cervical spine.
[2021-01-12 19:06] LABS: Amphetamine Screen,Urine Not Detected (NotDetected); Barbiturate Screen,Urine Not Detected (NotDetected); Benzodiazepines Screen,Urine Not Detected (NotDetected); Cocaine Screen,Urine Not Detected (NotDetected); Methadone Screen, Urine Not Detected (NotDetected); Opiate Screen,Urine Not Detected (NotDetected); Oxycodone Screen, Urine Not Detected (NotDetected); Phencyclidine Screen,Urine Not Detected (NotDetected); Tricyclic Antidepressant,Urine Not Detected (NotDetected); Urn Cannabinoid Scrn Not Detected (NotDetected)
[2021-01-13] MEDS ORDERED: ACETAMINOPHEN TAB 325 MG TAB PO PRN (00:02)
[2021-01-13] MEDS ORDERED: MAGNESIUM HYDROXIDE 2,400 MG/10 ML CUP PO PRN (00:02)
[2021-01-13] MEDS ORDERED: MAG HYDROX/AL HYDROX/SIMETH 30 ML CUP PO PRN (00:02)
[2021-01-13] MEDS ORDERED: LORazepam 2 MG/ML INJ IM PRN (00:05)
[2021-01-13] MEDS ORDERED: haloperidoL 5 MG TAB PO PRN (00:05)
[2021-01-13] MEDS ORDERED: HALOPERIDOL LACTATE 5 MG/ML 1 ML VIAL IM PRN (00:05)
[2021-01-13] MEDS: LORazepam 1 MG TAB PO PRN (01:23)
[2021-01-13] MEDS: NICOTINE 14MG/24HR PATCH TRANSDERM SCH ×2 (01:24→08:11)
--- NOTE | 2021-01-13 02:30 | P.PN ---
Progress Note - Text Progress Note Date: 01/13/21 Patient sleeping and unable to be evaluated at this time.
[2021-01-13] MEDS: THIAMINE 100 MG TAB PO SCH (11:04)
[2021-01-13] MEDS: diazePAM 5 MG TAB PO SCH ×3 (11:04→21:02)
[2021-01-13] MEDS: FOLIC ACID 1 MG TAB PO SCH (11:04)
[2021-01-13] MEDS: FLUoxetine HCL 20 MG CAP PO SCH (11:04)
[2021-01-13] MEDS: MULTIVITAMINS, THERA 1 EACH TAB PO SCH (11:04)
--- NOTE | 2021-01-13 11:28 | P.HP ---
Psychiatric H&P - . H&P Date: 01/13/21 History & Physical: Allergies Allergy/AdvReac Type Severity Reaction Status Date / Time Sulfa (Sulfonamide Allergy Severe Rash/Hives Verified 01/12/21 16:53 Antibiotics) oxcarbazepine Allergy Unknown Verified 01/12/21 16:53 From Trileptal Vital Signs Temp 98.6 F 01/13/21 08:00 Pulse 111 H 01/13/21 08:00 Resp 16 01/13/21 08:00 BP 127/60 01/13/21 08:00 Pulse Ox 94 L 01/13/21 08:00 Intake & Output 01/12/21 01/13/21 01/13/21 18:59 06:59 18:59 Weight 71.214 kg Laboratory Last Values Urine Opiates Screen Not Detected (NotDetected) 01/12/21 18:41 Ur Oxycodone Screen Not Detected (NotDetected) 01/12/21 18:41 Urine Methadone Screen Not Detected (NotDetected) 01/12/21 18:41 Ur Propoxyphene Screen Not Detected (NotDetected) 01/12/21 18:41 Ur Barbiturates Screen Not Detected (NotDetected) 01/12/21 18:41 U Tricyclic Antidepress Not Detected (NotDetected) 01/12/21 18:41 Ur Phencyclidine Scrn Not Detected (NotDetected) 01/12/21 18:41 Ur Amphetamines Screen Not Detected (NotDetected) 01/12/21 18:41 U Methamphetamines Scrn Not Detected (NotDetected) 01/12/21 18:41 U Benzodiazepines Scrn Not Detected (NotDetected) 01/12/21 18:41 Urine Cocaine Screen Not Detected (NotDetected) 01/12/21 18:41 U Marijuana (THC) Screen Not Detected (NotDetected) 01/12/21 18:41 Coronavirus (PCR) Not Detected (Not Detectd) 01/12/21 23:01 01/13/21 10:37 IDENTIFYING DATA: Patient is a 65-year-old female who is currently on Social Security disability, currently living at different hotels and has 2 kids. HPI: Patient presented to the hospital yesterday for alcohol intoxication and was picked up by the police as she was wandering on the streets. Patient was endorsing suicidal thoughts and depression in the ER. Patient was admitted voluntarily to the mental health unit. Patient was last admitted to the mental health unit in May 2016. Patient appeared to have cuts over the right side of her face near her nose and stated that she had a fall at her hotel last weekend as she was trying to get up from a seated position outside. She states that she has been staying at different shelters and hotels also a sober house recently [facility] the past several months. Patient's UDS was negative. Patient claims that she has been dealing with alcohol and has been binge drinking "on and off". She is not currently did not admitting to any withdrawal symptoms however does state that she has a history of withdrawal seizures in the past and complicated withdrawals. She claims that her father recently and has been having other family issues which she was vague about. She states that she is has poor contact with her family. She claims that she's been feeling depressed and anxious for "hears now". She claims that she is not on any medications however did state that she used to be on Prozac in the past which has helped her. Claims that she has been having poor sleep. She is denying any paranoid thoughts today. Patient denies any current suicidal or homicidal ideations intent or plan. At this time patient denies any auditory or visual hallucinations. Patient denies any flight of ideas racing thoughts and increased in goal directed behavior. Patient admits to using alcohol as noted above. She claims that she has been in rehab multiple times in the past. She admits to cigarette use. PAST PSYCHIATRIC HISTORY: Patient states that she has a history of depression and anxiety and alcohol abuse. She has been on different antidepressants in the past however can only remember Prozac and Zyprexa. Patient was last psychiatrically hospitalized in May 2016. Patient currently follows up at [facility]. Patient denies any history of suicide attempts in the past. PMH:denies ALLERGIES: as per EMR CHEMICAL DEPENDENCY HISTORY: as per HPI FAMILY PSYCHIATRIC/SUBSTANCE USE HISTORY: denies SOCIAL HISTORY: Patient was born and raised in [place] [place] [facility]. 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 She claims that she has been to senior living in the past however cannot remember when related to her alcohol use. She has 2 kids collects Social Sec urity disability and currently is homeless and living in different hotels.. MENTAL STATUS EXAM: General Appearance: Patient appears to be older than stated age is alert, is using a walker, attempts to cooperate. Patient appears to have poor hygiene and grooming. Various abrasions over the right side of her face and nose. Behavior: Patient is seated without any agitated behavior. Speech: Patient's speech is fluent and nonpressured. Soft spoken. Mood/Affect: Patient reports their mood is depressed, affect is congruent and constricted. Suicidality/Homicidality: Patient denies having any homicidal ideation intent or plan. Denies any suicidal ideations intent or plan Perceptions: Patient denies any visual hallucinations and denies any auditory hallucinations Though content/process: There is no evidence of any delusional thought content and thought process is linear and goal-directed. Memory and concentration: AOX3, grossly intact for the purposes of this session. Can spell "WORLD" backwards Judgment and insight: poor STRENGTHS/WEAKNESSES: strength is that patient is resilient. Weakness is that patient has poor judgment and is impulsive INTELLECT: average IMPRESSIONS: Major depressive disorder, recurrent, severe without psychotic features Alcohol use disorder, severe, currently in withdrawal Homelessness Nicotine dependence PLAN: -Patient is admitted under voluntary status to MHU for stabilization of psychiatric symptoms and safety. Patient has signed adult voluntary form and medication consent and is placed in patient's chart. -Medications : Will start patient on Prozac 20 mg daily for mood/anxiety. We'll start patient on Remeron 15 mg daily at bedtime for mood/anxiety/insomnia. Start scheduled Valium 5 mg 3 times a day for alcohol withdrawal with plan to taper down. -Ativan and Haldol PRN for agitation/aggression -Started thiamine, MVM for etoh use -CIWA protocol with Ativan PRN for ETOH withdrawal -Patient was counselled on substance abuse and desired to cut back on use -Patient was informed of the risks, benefits and side effects of the medication and patient verbally consented to taking the medications. Patient signed med consent form and was placed in chart. -Internal Medicine consult to perform medical evaluation and physical. -NRT - nicotine patch -SW on board for discharge planning. Encourage patient to participate in groups to work on coping skills. Patient will have a substance use court hearing on next Saturday. glass processing worker will speak to patient about going to rehab upon discharge.
[2021-01-13] MEDS ORDERED: MIRTAZAPINE 15 MG TAB PO SCH (21:00)
--- NOTE | 2021-01-13 22:22 | P.PN ---
Progress Note - Text Progress Note Date: 01/13/21 The patient refused to be seen or examined.
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
[2021-01-14] MEDS: FLUoxetine HCL 20 MG CAP PO SCH (09:31)
[2021-01-14] MEDS: NICOTINE 14MG/24HR PATCH TRANSDERM SCH (09:31)
[2021-01-14] MEDS: MULTIVITAMINS, THERA 1 EACH TAB PO SCH (09:31)
[2021-01-14] MEDS: THIAMINE 100 MG TAB PO SCH (09:31)
[2021-01-14] MEDS: FOLIC ACID 1 MG TAB PO SCH (09:31)
[2021-01-14] MEDS: diazePAM 5 MG TAB PO SCH ×3 (09:33→20:56)
[2021-01-14 12:11] LABS: Basophils # (A) 0.1 k/uL (0-0.2); Basophils % (A) 1 %; Eosinophils # (A) 0.2 k/uL (0-0.7); Eosinophils % (A) 3 %; HCT 43.1 % (34.0-46.0); HGB 14.6 gm/dL (11.4-16.0); Lymphocytes # (A) 2.3 k/uL (1.0-4.8); Lymphocytes % (A) 33 %; MCH 31.8 pg (25.0-35.0); MCHC 33.9 g/dL (31.0-37.0); MCV 93.7 fL (80.0-100.0); Mean Platelet Volume 7.8; Monocytes # (A) 0.3 k/uL (0-1.0); Monocytes % (A) 4 %; Neutrophils % (A) 57 %; Platelet Count 323 k/uL (150-450); RBC 4.61 m/uL (3.80-5.40); RDW 13.5 % (11.5-15.5); WBC 7.1 k/uL (3.8-10.6)
[2021-01-14 12:44] LABS: ALT 12 U/L (4-34); AST 21 U/L (14-36); African American GFR (CKD) >90 (>60 ml/min/1.73 sqM); Albumin 4.2 g/dL (3.5-5.0); Alkaline Phosphatase 125 U/L (38-126); Anion Gap 10 mmol/L; Blood Urea Nitrogen 15 mg/dL (7-17); Carbon Dioxide 28 mmol/L (22-30); Chloride 102 mmol/L (98-107); Glucose 81 mg/dL (74-99); Non-African American GFR(CKD) >90 (>60 ml/min/1.73 sqM); Potassium 4.6 mmol/L (3.5-5.1); Sodium 140 mmol/L (137-145); Total Bilirubin 0.4 mg/dL (0.2-1.3); Total Protein 7.9 g/dL (6.3-8.2)
[2021-01-14] MEDS: MIRTAZAPINE 15 MG TAB PO SCH (20:56)
--- NOTE | 2021-01-14 21:00 | P.PN ---
Progress Note - Text Progress Note Date: 01/14/21 Subjective: Patient was seen today as a cross coverage for Dr. Bernardo. The patient was evaluated, chart reviewed, case discussed with the treatment team. Patient reports poor sleep last night, and appetite was reported as " fair". Patient has been going to some groups and other unit activities. The patient is compliant with her medications and denies any adverse reactions. Patient reports troubles falling asleep last night and Remeron didn't help her. She continues to feel depressed and today feeling tired. Denies any current suicidal ideation, paranoid ideation, or any hallucinations. No report of delusions or manic symptoms. Objective: Vitals has been reviewed. Mental status examination; Appearance: The patient appears stated age, adequately groomed and dressed, with laceration and contusions on her face Gait/posture: using walker, Normal arm swinging: No abnormal movements. Attitude and behavior: not fully engaged, superficially cooperative, intermittent eye contact. Motor activity: slow psychomotor activity Speech: Normal rate, tone. Mood: Anxious, depressed Affect: Constricted Thought form: goal-directed, linear, coherent. Thought content: Non-delusional, denies suicidal thoughts, denies homicidal thoughts, denies intentions or plans. Perception: Denies any auditory or visual hallucinations Attention: No impairment. Orientation: Patient patient was fully oriented to time place person and situation. Insight: Patient has fair insight about her psychiatric disorder. Judgment: Patient has fair judgment about her psychiatric treatment. Assessment: Major depressive disorder, recurrent, severe without psychotic features Alcohol use disorder, severe, currently in withdrawal Homelessness Nicotine dependence Plan: Continue inpatient level of care due to she needs further monitoring and stabilization and he still meets criteria for inpatient level of care Precautions: Continue 15 minutes check for safety. Consider medical consultation if any acute medical issues arise. Provide the patient individual, group therapy, substance use disorder counseling to give better insight and learn coping skills. Medications: Continue Prozac and increase the dose to 30 mg daily for better management of depression and anxiety. Continue Remeron and increase the dose to 22.5 mg at bedtime for better help with insomnia and for depression/anxiety. Continue Valium taper as per her primary psychiatrist plan. Continue nicotine replacement therapy. Continue as needed medications for psychiatric emergencies including Haldol for psychosis, agitation and Ativan for anxiety. Continue non-psychiatric medications for medical conditions as recommended by t [facility] medical team. Discharge patient to OUTPATIENT services upon a stabilization
[2021-01-15] MEDS: FOLIC ACID 1 MG TAB PO SCH (08:38)
[2021-01-15] MEDS: NICOTINE 14MG/24HR PATCH TRANSDERM SCH (08:38)
[2021-01-15] MEDS: FLUoxetine HCL 10 MG CAP PO SCH (08:38)
[2021-01-15] MEDS: THIAMINE 100 MG TAB PO SCH (08:38)
[2021-01-15] MEDS: MULTIVITAMINS, THERA 1 EACH TAB PO SCH (08:38)
[2021-01-15] MEDS: diazePAM 5 MG TAB PO SCH ×3 (08:39→21:29)
[2021-01-15] MEDS ORDERED: ASPIRIN 325 MG TAB PO STA (12:17)
[2021-01-15] MEDS: MIRTAZAPINE 15 MG TAB PO SCH (21:29)
--- NOTE | 2021-01-15 22:36 | P.PN ---
Progress Note - Text Progress Note Date: 01/15/21 Subjective: Patient was seen today as a cross coverage for Dr. Bernardo. The patient was evaluated, chart reviewed, case discussed with the treatment team. Patient reports is still having difficulty to maintain sleeping, but denies any appetite problems. She continues to take her psych medications and denies side effects. Patient is selectively participating in groups and other unit activities. Reports feeling down and is still depressed with high anxiety. She reports is still having bouts of severe headache. Denies any suicidal or homicidal ideation, and no reports of hallucinations, paranoid ideation, delusions, or manic symptoms. Objective: Vitals has been reviewed. Mental status examination; Appearance: The patient appears stated age, adequately groomed and dressed, with laceration and contusions on her face Gait/posture: using walker, Normal arm swinging: No abnormal movements. Attitude and behavior: not fully engaged, superficially cooperative, intermittent eye contact. Motor activity: slow psychomotor activity Speech: Normal rate, tone. Mood: Anxious, depressed Affect: Constricted Thought form: goal-directed, linear, coherent. Thought content: Non-delusional, denies suicidal thoughts, denies homicidal thoughts, denies intentions or plans. Perception: Denies any auditory or visual hallucinations Attention: No impairment. Orientation: Patient patient was fully oriented to time place person and situation. Insight: Patient has fair insight about her psychiatric disorder. Judgment: Patient has fair judgment about her psychiatric treatment. Assessment: Major depressive disorder, recurrent, severe without psychotic features Alcohol use disorder, severe, currently in withdrawal Homelessness Nicotine dependence Plan: Continue inpatient level of care due to she needs further monitoring and stabilization and he still meets criteria for inpatient level of care Precautions: Continue 15 minutes check for safety. Consider medical consultation if any acute medical issues arise. Discussed with nursing staff to update medical team about patient requested reevaluation of headache and other treatment. Provide the patient individual, group therapy, substance use disorder counseling to give better insight and learn coping skills. Medications: Continue Prozac 30 mg daily for better management of depression and anxiety. Continue Pbqnyuv71.5 mg at bedtime for better help with insomnia and for depression/anxiety. Continue Valium taper as per her primary psychiatrist plan. Continue nicotine replacement therapy. Continue as needed medications for psychiatric emergencies including Haldol for psychosis, agitation and Ativan for anxiety. Continue non-psychiatric medications for medical conditions as recommended by the medical team. Discharge patient to OUTPATIENT services upon a stabilization
[2021-01-16] MEDS: FLUoxetine HCL 10 MG CAP PO SCH (08:33)
[2021-01-16] MEDS: FOLIC ACID 1 MG TAB PO SCH (08:33)
[2021-01-16] MEDS: diazePAM 5 MG TAB PO SCH (08:33)
[2021-01-16] MEDS: NICOTINE 14MG/24HR PATCH TRANSDERM SCH (08:33)
[2021-01-16] MEDS: MULTIVITAMINS, THERA 1 EACH TAB PO SCH (08:33)
[2021-01-16] MEDS: THIAMINE 100 MG TAB PO SCH (08:33)
--- NOTE | 2021-01-16 11:39 | P.PN ---
Progress Note - Text Progress Note Date: 01/16/21 Interval History: Patient was seen wandering the hallways and was directable and agreeable to sp coralk with technical proposal writer in the office. Patient was fairly focused on discharge today and wanted to go smoke a cigarette. She claims that she is doing better now in terms of her mood and anxiety. She claims that her sleep was poor last night and was agreeable to have her Remeron increased. She was vague about her [facility] intake date and what she spoke, some about over the phone. She appeared to be minimizing her substance use and states that "I will not touch alcohol again". She was refusing naltrexone or any other cravings medications. She was argumentative with technical proposal writer when she found out that she was not really discharged today. She was demanding to see "paperwork" that she wasn't going to be released. She wanted to speak to her director of social services today. She appears to have chronically poor insight and judgment. At this time patient denies any suicidal or homical ideations, intent or plan. Patient denies any auditory, visual hallucinations and denies any paranoia or delusions. Patient denies any side effects from the medications and has been compliant with meds. Mental Status Exam: General Appearance: Patient appears to be older than stated age is alert, is using a walker, demanding. Patient appears to have improving hygiene and grooming. Various abrasions over the right side of her face and nose, improving mildly Behavior: Patient is seated without any agitated behavior. Argumentative. Demanding discharge. Speech: Patient's speech is fluent and nonpressured. Soft spoken. Mood/Affect: Patient reports their mood is improving, affect is congruent and constricted. Suicidality/Homicidality: Patient denies having any homicidal ideation intent or plan. Denies any suicidal ideations intent or plan Perceptions: Patient denies any visual hallucinations and denies any auditory hallucinations Though content/process: There is no evidence of any delusional thought content. She was focused on discharge. Demanding. Memory and concentration: AOX3, grossly intact for the purposes of this session. Can spell "WORLD" backwards Judgment and insight: Chronically poor Assessment Major depressive disorder, recurrent, severe without psychotic features Alcohol use disorder, severe, currently in withdrawal Homelessness Nicotine dependence Plan: -Patient continues to meet criteria for inpatient psychiatric admission for symptom stabilization and safety. Patient has signed adult voluntary form and medication consent and was placed in patient's chart. -Medications: Continue Prozac 30 mg daily/anxiety. Increase Remeron to 30 mg daily at bedtime for mood/anxiety/insomnia. Decreased Valium to 2 mg 3 times a day for alcohol withdrawal with plan to continue tapering down. -thiamine, MVM for etoh use -CIWA protocol with Ativan PRN for ETOH withdrawal -When necessary Ativan and Haldol for agitation/aggression. -NRT - nicotine patch -SW on board for discharge planning. Encouraged the patient to participate in milieu. Substance use court hearing on next Saturday. forestry worker to help patient obtain a [facility] intake appointment today. We'll need to ensure that patient has a intake date before discharge.
[2021-01-16] MEDS: diazePAM 2 MG TAB PO SCH ×2 (17:00→21:01)
[2021-01-16] MEDS ORDERED: MIRTAZAPINE 15 MG TAB PO SCH (21:00)
[2021-01-17] MEDS: NICOTINE 14MG/24HR PATCH TRANSDERM SCH (08:45)
[2021-01-17] MEDS: MULTIVITAMINS, THERA 1 EACH TAB PO SCH (08:46)
[2021-01-17] MEDS: diazePAM 2 MG TAB PO SCH (08:46)
[2021-01-17] MEDS: FOLIC ACID 1 MG TAB PO SCH (08:47)
[2021-01-17] MEDS: THIAMINE 100 MG TAB PO SCH (08:47)
[2021-01-17] MEDS: FLUoxetine HCL 10 MG CAP PO SCH (08:47)
[2021-01-17] MEDS: NICOTINE 21MG/24HR PATCH TRANSDERM SCH (09:52)
--- NOTE | 2021-01-17 09:56 | P.PN ---
Progress Note - Text Progress Note Date: 01/17/21 Interval History: Patient was seen wandering the hallways today after speaking with the social w boris and was directable and agreeable to speak with technical writer and editor in the office. Patient appeared to have improvement in her mood and affect today. She was less irritable with technical writer and editor and apologized yesterday for slamming the door and "being rude". She spoke more about her alcohol use and her history and also her relapses. She states that "I'm not in a touch alcohol" and spoke about the negative affects of alcohol that she was experiencing before. She understands that she will be having the court hearing tomorrow for her substance use order and claims that she tried to call to get into [facility] today however was not able to get through to intake. She claims that yesterday she did not sleep much at all with the Remeron and wanted to switch onto another medication. Straw Baler went through other options including trazodone and Benadryl however patient claims that she would like to try doxepin for sleep as the others have not been helping her. At this time patient denies any suicidal or homical ideations, intent or plan. Patient denies any auditory, visual hallucinations and denies any paranoia or delusions. Patient denies any side effects from the medications and has been compliant with meds. Mental Status Exam: General Appearance: Patient appears to be older than stated age is alert, is using a walker, attempts to cooperate today. Patient appears to have improving hygiene and grooming. Various abrasions over the right side of her face and nose, improving mildly Behavior: Patient is seated without any agitated behavior. More cooperative today Speech: Patient's speech is fluent and nonpressured. Soft spoken. Mood/Affect: Patient reports their mood is improving, affect is congruent and constricted. Suicidality/Homicidality: Patient denies having any homicidal ideation intent or plan. Denies any suicidal ideations intent or plan Perceptions: Patient denies any visual hallucinations and denies any auditory hallucinations Though content/process: There is no evidence of any delusional thought content. Logical. Memory and concentration: AOX3, grossly intact for the purposes of this session. Can spell "WORLD" backwards Judgment and insight: Chronically poor, improving mildly Assessment Major depressive disorder, recurrent, severe without psychotic features Alcohol use disorder, severe, currently in withdrawal Homelessness Nicotine dependence Plan: -Patient continues to meet criteria for inpatient psychiatric admission for symptom stabilization and safety. Patient has signed adult voluntary form and medication consent and was placed in patient's chart. -Medications: Continue Prozac 30 mg daily/anxiety. d/c remeron and patient is agreeable to start Doxepin 10mg hs for sleep/mood. Decreased Valium to 2 mg daily for alcohol withdrawal with plan to continue tapering down. -thiamine, MVM for etoh use -CIWA protocol with Ativan PRN for ETOH withdrawal -When necessary Ativan and Haldol for agitation/aggression. -NRT - nicotine patch -SW on board for discharge planning. Encouraged the patient to participate in milieu. Substance use court hearing tomorrow morning. coke worker to help patient obtain a [facility] intake appointment today prior to d/c. We'll need to ensure that patient has a intake date before discharge.
[2021-01-17] MEDS ORDERED: diazePAM 2 MG TAB PO ONE (13:00)
[2021-01-17] MEDS: LORazepam 1 MG TAB PO PRN (20:41)
[2021-01-17] MEDS: DOXEPIN 10 MG CAP PO SCH (20:41)
[2021-01-17] MEDS ORDERED: diazePAM 2 MG TAB PO SCH (21:00)
[2021-01-17] MEDS ORDERED: MIRTAZAPINE 45 MG TABLET PO SCH (21:00)
[2021-01-17] MEDS ORDERED: MELATONIN 5 MG TABLET PO SCH (21:00)
[2021-01-18] MEDS: ASPIRIN 325 MG TAB PO PRN (00:03)
[2021-01-18] MEDS: NICOTINE 21MG/24HR PATCH TRANSDERM SCH (08:40)
[2021-01-18] MEDS: THIAMINE 100 MG TAB PO SCH (08:41)
[2021-01-18] MEDS: FOLIC ACID 1 MG TAB PO SCH (08:41)
[2021-01-18] MEDS: MULTIVITAMINS, THERA 1 EACH TAB PO SCH (08:41)
[2021-01-18] MEDS: FLUoxetine HCL 10 MG CAP PO SCH (08:41)
[2021-01-18] MEDS ORDERED: diazePAM 2 MG TAB PO ONE (09:00)
--- NOTE | 2021-01-18 10:14 | P.DS ---
Providers Date of admission: 01/12/21 23:59 Expected date of discharge: 01/18/21 Attending physician: Nitin Bernardo MD Consults: 01/13/21 00:02 Consult Physician Routine Consulting Provider: Ayla Kenny Consult Reason/Comments: History and physical Do you want consulting provider notified?: Yes Primary care physician: Stated None - Discharge Diagnosis(es) (1) Major depressive disorder without psychotic features Current Visit: Yes Status: Acute Priority: High (2) Alcohol use disorder, severe, dependence Current Visit: Yes Status: Acute Priority: High (3) Homelessness Current Visit: Yes Status: Acute Priority: Medium (4) Nicotine dependence Current Visit: Yes Status: Acute Priority: Low Hospital Course: Admission HPI: Admission note was completed by typewriter assembly and parts inspector "Patient is a 65-year-old female who is currently on Social Security disability, currently living at different hotels and has 2 kids. Patient presented to the hospital yesterday for alcohol intoxication and was picked up by the police as she was wandering on the streets. Patient was endorsing suicidal thoughts and depression in the ER. Patient was admitted voluntarily to the mental health unit. Patient was last admitted to the mental health unit in May 2016. Patient appeared to have cuts over the right side of her face near her nose and stated that she had a fall at her hotel last weekend as she was trying to get up from a seated position outside. She states that she has been staying at different shelters and hotels also a sober house recently between [facility] the past several months. Patient's UDS was negative. Patient claims that she has been dealing with alcohol and has been binge drinking "on and off". She is not currently did not admitting to any withdrawal symptoms however does state that she has a history of withdrawal seizures in the past and complicated withdrawals. She claims that her father recently and has been having other family issues which she was vague about. She states that she is has poor contact with her family. She claims that she's been feeling depressed and anxious for "hears now". She claims that she is not on any medications however did state that she used to be on Prozac in the past which has helped her. Claims that she has been having poor sleep. She is denying any paranoid thoughts today. Patient denies any current suicidal or homicidal ideations intent or plan. At this time patient denies any auditory or visual hallucinations. Patient denies any flight of ideas racing thoughts and increased in goal directed behavior. Patient admits to using alcohol as noted above. She claims that she has been in rehab multiple times in the past. She admits to cigarette use." Hospital course: Upon admission to the unit patient was initially depressed and going through alcohol withdrawal. Patient was however directable and agreeable to commence treatment and signed adult voluntary form. Patient got along well with other patients on the unit and followed unit protocol. Patient was compliant with the medications and denied any side effects throughout hospital course. Patient was started on CIWA protocol with when necessary Ativan and also given Valium scheduled which was gradually tapered down for alcohol withdrawal symptoms. Patient was also started on Prozac and titrated up to dose of 30 mg daily for mood/anxiety, started on doxepin 10 mg daily at bedtime for sleep/mood. Patient spoke of her stressors and engaged in therapy both group and individual. Patient was also seen by medical team for history and physical exam. She had a computed tomography scan of her brain and C-spine without contrast performed on 01/12/2021 which showed age-related atrophic and chronic small vessel ischemic changes and no acute intracranial process was observed and also no evidence of any acute fracture or subluxation in her C-spine. Throughout the course of the hospitalization patient gradually improved with regards to mood, anxiety, sleep and became more future oriented with improved insight and judgment. On the day of discharge patient denied any suicidal or homicidal ideations intent or plan denied any auditory or visual hallucinations. Patient endorsed wanting to live for her sobriety and her future. The patient denied any access to guns or weapons. Patient denied any paranoia and did not endorse any delusions. Patient does have a significant history of substance abuse and was counseled on abstaining from all substances including alcohol and marijuana. Patient will be scheduled for a court hearing for her subtsance use treatment order today on day of discharge and has an intake at [facility] and will be transferred directly from the unit on discharge to the rehab program at [facility] today. Patient was also counseled on the medications and need for regular compliance and was encouraged to follow-up with their outpatient appointment for mental health and also for primary care. Mental status exam: General Appearance: Patient appears to be elderly, stated age is alert, pleasant, and cooperative. Patient is in no acute distress and has improved hygiene and grooming Behavior: Patient is calmly seated without any agitated behavior. More cooperative today. Speech: Patient's speech is fluent and nonpressured. Mood/Affect: Patient reports their mood is "good", affect is congruent and euthymic. Suicidality/Homicidality: Patient denies having any suicidal or homicidal ideation intent or plan. Perceptions: Patient denies any auditory or visual hallucinations. Though content/process: There is no evidence of any delusional thought content and thought process is linear and goal-directed. more future oriented Memory and concentration: AOX3, grossly intact for the purposes of this session. Can spell "WORLD" backwards correctly. Judgment and insight: chronically poor, however has improved with guarded prognosis Impression: Major depressive disorder, severe, recurrent without psychotic features Alcohol use disorder severe dependence Homelessness Nicotine dependence Plan: -Continue with discharge today as patient has improved and stabilized psyc hiatrically and is not currently an imminent threat to himself and/or others. Patient will remain at chronically elevated risk for harm to self and/or others due to his impulsivity and polysubstance abuse. -Continue medications: Prozac 30 mg daily for mood/anxiety, doxepin 10 mg daily at bedtime for sleep/mood. Valium was discontinued prior to discharge. -Patient was counseled on the need for medication compliance and appropriate follow-up at mental health and also primary care for medical issues. Patient verbalized understanding and agreed. -Social work to arrange for transfer today to [facility] substance use rehab program as she has her intake today. Social work also to arrange for patients follow up appointments with [facility] for psychiatric care along with follow up with primary care provider. -Patient counseled on abstaining from recreational drugs and marijuana and alcohol. Was informed/educated on the adverse effects on their physical and mental health. Patient verbally agreed and understood. -Patient was instructed to return to the hospital or seek immediate medical care if their psychiatric or medical symptoms do worsen or reoccur. Allergies Allergy/AdvReac Type Severity Reaction Status Date / Time Sulfa (Sulfonamide Allergy Severe Rash/Hives Verified 01/14/21 16:08 Antibiotics) oxcarbazepine Allergy Unknown Verified 01/14/21 16:08 [From Trileptal] Laboratory Results WBC 7.1 k/uL (3.8-10.6) 01/14/21 11:52 RBC 4.61 m/uL (3.80-5.40) 01/14/21 11:52 Hgb 14.6 gm/dL (11.4-16.0) 01/14/21 11:52 Hct 43.1 % (34.0-46.0) 01/14/21 11:52 MCV 93.7 fL (80.0-100.0) 01/14/21 11:52 MCH 31.8 pg (25.0-35.0) 01/14/21 11:52 MCHC 33.9 g/dL (31.0-37.0) 01/14/21 11:52 RDW 13.5 % (11.5-15.5) 01/14/21 11:52 Plt Count 323 k/uL (150-450) 01/14/21 11:52 MPV 7.8 01/14/21 11:52 Neutrophils % 57 % 01/14/21 11:52 Lymphocytes % 33 % 01/14/21 11:52 Monocytes % 4 % 01/14/21 11:52 Eosinophils % 3 % 01/14/21 11:52 Basophils % 1 % 01/14/21 11:52 Neutrophils # 4.0 k/uL (1.3-7.7) 01/14/21 11:52 Lymphocytes # 2.3 k/uL (1.0-4.8) 01/14/21 11:52 Monocytes # 0.3 k/uL (0-1.0) 01/14/21 11:52 Eosinophils # 0.2 k/uL (0-0.7) 01/14/21 11:52 Basophils # 0.1 k/uL (0-0.2) 01/14/21 11:52 Sodium 140 mmol/L (137-145) 01/14/21 11:52 Potassium 4.6 mmol/L (3.5-5.1) 01/14/21 11:52 Chloride 102 mmol/L (98-107) 01/14/21 11:52 Carbon Dioxide 28 mmol/L (22-30) 01/14/21 11:52 Anion Gap 10 mmol/L 01/14/21 11:52 BUN 15 mg/dL (7-17) 01/14/21 11:52 Creatinine 0.64 mg/dL (0.52-1.04) 01/14/21 11:52 Est GFR (CKD-EPI)AfAm >90 (>60 ml/min/1.73 sqM) 01/14/21 11:52 Est GFR (CKD-EPI)NonAf >90 (>60 ml/min/1.73 sqM) 01/14/21 11:52 Glucose 81 mg/dL (74-99) 01/14/21 11:[address] Glu mg/dL 114 01/14/21 11:52 Hemoglobin A1c 5.6 % (4.0-6.0) 01/14/21 11:52 Calcium 10.0 mg/dL (8.4-10.2) 01/14/21 11:52 Total Bilirubin 0.4 mg/dL (0.2-1.3) 01/14/21 11:52 AST 21 U/L (14-36) 01/14/21 11:52 ALT 12 U/L (4-34) 01/14/21 11:52 Alkaline Phosphatase 125 U/L (38-126) 01/14/21 11:52 Total Protein 7.9 g/dL (6.3-8.2) 01/14/21 11:52 Albumin 4.2 g/dL (3.5-5.0) 01/14/21 11:52 TSH 3.030 mIU/L (0.465-4.680) 01/14/21 11:52 Urine Opiates Screen Not Detected (NotDetected) 01/12/21 18:41 Ur Oxycodone Screen Not Detected (NotDetected) 01/12/21 18:41 Urine Methadone Screen Not Detected (NotDetected) 01/12/21 18:41 Ur Propoxyphene Screen Not Detected (NotDetected) 01/12/21 18:41 Ur Barbiturates Screen Not Detected (NotDetected) 01/12/21 18:41 U Tricyclic Antidepress Not Detected (NotDetected) 01/12/21 18:41 Ur Phencyclidine Scrn Not Detected (NotDetected) 01/12/21 18:41 Ur Amphetamines Screen Not Detected (NotDetected) 01/12/21 18:41 U Methamphetamines Scrn Not Detected (NotDetected) 01/12/21 18:41 U Benzodiazepines Scrn Not Detected (NotDetected) 01/12/21 18:41 Urine Cocaine Screen Not Detected (NotDetected) 01/12/21 18:41 U Marijuana (THC) Screen Not Detected (NotDetected) 01/12/21 18:41 Coronavirus (PCR) Not Detected (Not Detectd) 01/12/21 23:01 Vital Signs Temp 97.8 F 01/18/21 06:39 Pulse 73 01/18/21 06:39 Resp 16 01/18/21 06:39 BP 131/56 01/18/21 06:39 Pulse Ox 95 01/17/21 06:26 Patient Condition at Discharge: Stable Plan - Discharge Summary New Discharge Prescriptions: New Aspirin 325 mg PO DAILY PRN 30 Days tab PRN Reason: Pain Folic Acid 1 mg PO DAILY 30 Days tab FLUoxetine HCL [PROzac] 30 mg PO DAILY 30 Days cap Nicotine 21Mg/24Hr Patch [Habitrol] 1 patch TRANSDERM DAILY 14 Days patch Multivitamins, Thera [Multivitamin (formulary)] 1 each PO DAILY 30 Days tab Doxepin [SINEquan] 10 mg PO HS 30 Days cap Acetaminophen Tab [Tylenol] 650 mg PO Q4HR PRN tab PRN Reason: Pain/Discomfort Thiamine [Vitamin B-1] 100 mg PO DAILY 30 Days tab Discharge Medication List Acetaminophen Tab [Tylenol] 650 mg PO Q4HR PRN tab 01/18/21 [Rx] Aspirin 325 mg PO DAILY PRN 30 Days tab 01/18/21 [Rx] Doxepin [SINEquan] 10 mg PO HS 30 Days cap 01/18/21 [Rx] FLUoxetine HCL [PROzac] 30 mg PO DAILY 30 Days cap 01/18/21 [Rx] Folic Acid 1 mg PO DAILY 30 Days tab 01/18/21 [Rx] Multivitamins, Thera [Multivitamin (formulary)] 1 each PO DAILY 30 Days tab 01/18/21 [Rx] Nicotine 21Mg/24Hr Patch [Habitrol] 1 patch TRANSDERM DAILY 14 Days patch 01/18/21 [Rx] Thiamine [Vitamin B-1] 100 mg PO DAILY 30 Days tab 01/18/21 [Rx] Follow up Appointment(s)/Referral(s): None,Stated [Primary Care Provider] - 1-2 days Activity/Diet/Wound Care/Special Instructions: Activity and diet as tolerated. Avoid the use of street drugs and alcohol. Take all medications as prescribed. When you are in need of refills on your medications please contact your medical provider and/or outpatient psychiatrist to have this done. Please go to scheduled outpatient appointment for aftercare treatment. If symptoms return or become worse, call the crisis line at and/or go to the nearest emergency room for evaluation. Discharge Disposition: OTHER INSTITUTION NOT DEFINED
[2021-01-18] MEDS: DOXEPIN 10 MG CAP PO SCH (20:06)
[2021-01-19] MEDS: ASPIRIN 325 MG TAB PO PRN (07:40)
[2021-01-19] MEDS: THIAMINE 100 MG TAB PO SCH (08:44)
[2021-01-19] MEDS: NICOTINE 21MG/24HR PATCH TRANSDERM SCH (08:44)
[2021-01-19] MEDS: MULTIVITAMINS, THERA 1 EACH TAB PO SCH (08:44)
[2021-01-19] MEDS: FOLIC ACID 1 MG TAB PO SCH (08:44)
[2021-01-19] MEDS: FLUoxetine HCL 10 MG CAP PO SCH (08:44)
--- NOTE | 2021-01-19 12:48 | P.PN ---
Progress Note - Text Progress Note Date: 01/19/21 Clinical Problems: According use disorder severe, major depressive disorder without psychotic features, tobacco use disorder, homelessness Interim history: I reviewed the medical record, interviewed the patient and discussed her treatment and treatment plan during team meeting. She is anxious about discharge and was expected to be discharge [facility] today. However, manager social responsibility spoke with the coordinator from [facility] and they had mistakingly scheduled for admission to the psychiatric unit. lube worker is currently coordinating discharge plans with the courts in the community residential substance abuse treatment programs. The patient denied other concerns; specifically and that she is experiencing withdrawal symptoms or thoughts of or suicide. Mental status exam: She presented as a casually groomed elderly woman who was pleasant on approach. She made eye contact and attended to the interview. She had a blunted but bright facial expression. She was alert and oriented to person, place and time. She had psychomotor retardation but no abnormal invo luntary movements. She walked with the aid of walker. Her speech was spontaneous with normal rate and rhythm. Affect was blunted but stable and appropriate. She denied suicidal ideation, wishes and homicidal ideation. She denied feeling hopeless, helpless or worthless. She did not express ideas reference, paranoid ideation, magical ideation or delusions. Her thinking was concrete but her associations were coherent, logical goal-directed. She denied hallucinations didn't appear to be responding to internal stimuli. Assessment: Overall, she is much improved from admission. We are waiting placement at a residential substance abuse treatment program. Plan: Continue inpatient treatment pending disposition. The [employer] is continuing to coordinate discharge and aftercare consistent with her substance- abuse court order. Continue Sinequan 10 mg at bedtime, Prozac 30 mg daily, and Habitrol for smoking cessation. Encouraged continued participation in therapeutic groups and activities. Evaluate clinical status response to treatment daily basis.
[2021-01-19] MEDS: DOXEPIN 10 MG CAP PO SCH (21:07)
[2021-01-20 06:45] VITALS: BP 132/58; PULSE 72; RESP 14; TEMP 97.7
[2021-01-20] MEDS: FLUoxetine HCL 10 MG CAP PO SCH (07:41)
[2021-01-20] MEDS: FOLIC ACID 1 MG TAB PO SCH (07:41)
[2021-01-20] MEDS: NICOTINE 21MG/24HR PATCH TRANSDERM SCH (07:41)
[2021-01-20] MEDS: THIAMINE 100 MG TAB PO SCH (07:41)
[2021-01-20] MEDS: MULTIVITAMINS, THERA 1 EACH TAB PO SCH (07:41)
[2021-01-20] MEDS ORDERED: BACITRACIN ZINC 500 UNIT/GM OINT 28.4 GM TUBE TOPICAL SCH (09:00)
[2021-01-20] MEDS ORDERED: MUPIROCIN 2% OINT 22 GM TUBE TOPICAL SCH (09:00)
--- NOTE | 2021-01-20 12:38 | P.PN ---
Progress Note - Text Progress Note Date: 01/20/21 Clinical Problems: Alcohol use disorder severe, major depressive disorder without psychotic features, tobacco use disorder, homelessness Interim history: I reviewed the medical record, interviewed the patient and discussed her treatment and treatment plan during team meeting. She is less anxious since the social has arranged a substance abuse rehabilitation program. After several telephone call yesterday the director social service was able to secure admission to [facility]. ticket worker collaboration with mental health has range for transportation. The patient denied other concerns; specifically and that she is experiencing withdrawal symptoms or thoughts of or suicide. Mental status exam: She presented as a casually groomed elderly woman who was pleasant on approach. She made eye contact and attended to the interview. She had a blunted but bright facial expression. She was alert and oriented to person, place and time. She had psychomotor retardation but no abnormal involuntary movements. She walked with the aid of walker. Her speech was spontaneous with normal rate and rhythm. Affect was blunted but stable and appropriate. She denied suicidal ideation, wishes and homicidal ideation. She denied feeling hopeless, helpless or worthless. She did not express ideas reference, paranoid ideation, magical ideation or delusions. Her thinking was concrete but her associations were coherent, logical goal-directed. She denied hallucinations didn't appear to be responding to internal stimuli. Assessment: Overall, she is much improved from admission. Plan: Discharge today for residential substance abuse treatment. Continue Sinequan 10 mg at bedtime, Prozac 30 mg daily, and Habitrol for smoking cessation. Encouraged continued participation in therapeutic groups and activities. Evaluate clinical status response to treatment daily basis.
== END 2021-01-20 11:47 | DRG 885 ==
LOC: EC 13:54 → 3MHU 23:59
PROVIDERS: ADMIT Psychiatry & Neurology Psychiatry; ATTEND Psychiatry & Neurology Psychiatry
PROC: 3E0234Z Introduction of Serum, Toxoid and Vaccine into Muscle, Percutaneous Approach (ICD-10-PCS; principal; 2021-01-12)
DX: F33.2 Major depressive disorder, recurrent severe without psychotic features (principal); F10.239 Alcohol dependence with withdrawal, unspecified; R45.851 Suicidal ideations; F10.229 Alcohol dependence with intoxication, unspecified; J44.9 Chronic obstructive pulmonary disease, unspecified; Z23 Encounter for immunization; Z20.822 Contact with and (suspected) exposure to COVID-19; F41.9 Anxiety disorder, unspecified; S00.81XA Abrasion of other part of head, initial encounter; M54.9 Dorsalgia, unspecified; M79.605 Pain in left leg; M79.604 Pain in right leg; F17.210 Nicotine dependence, cigarettes, uncomplicated; Z71.6 Tobacco abuse counseling; Z59.0 Homelessness; Z87.01 Personal history of pneumonia (recurrent); Z87.81 Personal history of (healed) traumatic fracture; Z65.3 Problems related to other legal circumstances; Z86.73 Personal history of transient ischemic attack (TIA), and cerebral infarction without residual deficits; Z86.69 Personal history of other diseases of the nervous system and sense organs; Z98.890 Other specified postprocedural states; W18.39XA Other fall on same level, initial encounter; Y92.59 Other trade areas as the place of occurrence of the external cause; Z88.2 Allergy status to sulfonamides; Z88.8 Allergy status to other drugs, medicaments and biological substances; Z82.49 Family history of ischemic heart disease and other diseases of the circulatory system
CPT/HCPCS: 70450; 72125; 80053; 80306; 82075; 83036; 84443; 85025; 87635; 90471; 90715; 96372; 99285

== ENCOUNTER 2021-02-14 23:15 | Emergency (ER) | payer MEDICARE, OTHER ==
[2021-02-14] MEDS ORDERED: SODIUM CHLORIDE 0.9% 1,000 ML IV STA (23:27)
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
[2021-02-15 00:29] LABS: Basophils # (A) 0.1 k/uL (0-0.2); Basophils % (A) 1 %; Eosinophils # (A) 0.2 k/uL (0-0.7); Eosinophils % (A) 2 %; HCT 43.4 % (34.0-46.0); Lymphocytes % (A) 38 %; MCH 32.2 pg (25.0-35.0); MCHC 34.5 g/dL (31.0-37.0); MCV 93.4 fL (80.0-100.0); Monocytes # (A) 0.3 k/uL (0-1.0); Monocytes % (A) 3 %; Neutrophils # (A) 4.1 k/uL (1.3-7.7); Neutrophils % (A) 52 %; Platelet Count 290 k/uL (150-450); RBC 4.65 m/uL (3.80-5.40); RDW 13.8 % (11.5-15.5); WBC 7.8 k/uL (3.8-10.6)
[2021-02-15 00:45] LABS: ALT 14 U/L (4-34); AST 28 U/L (14-36); African American GFR (CKD) >90 (>60 ml/min/1.73 sqM); Albumin 4.6 g/dL (3.5-5.0); Alkaline Phosphatase 164 U/L (38-126); Anion Gap 17 mmol/L; Blood Urea Nitrogen 13 mg/dL (7-17); Calcium 9.4 mg/dL (8.4-10.2); Carbon Dioxide 17 mmol/L (22-30); Chloride 104 mmol/L (98-107); Glucose 101 mg/dL (74-99); Lipase 158 U/L (23-300); Magnesium 2.1 mg/dL (1.6-2.3); Non-African American GFR(CKD) >90 (>60 ml/min/1.73 sqM); Phosphorus 3.8 mg/dL (2.5-4.5); Potassium 3.6 mmol/L (3.5-5.1); Sodium 138 mmol/L (137-145); Total Bilirubin 0.3 mg/dL (0.2-1.3)
[2021-02-15 00:47] LABS: Alcohol 146 mg/dL
[2021-02-15] MEDS ORDERED: SODIUM CHLORIDE 0.9% 1,000 ML IV STA (00:48)
--- NOTE | 2021-02-15 01:10 | CT ---
EXAMINATION TYPE: CT brain cspine wo con DATE OF EXAM: 02/15/2021 COMPARISON: 01/12/2021 HISTORY: fall CT DLP: 1335.2 mGycm Automated exposure control for dose reduction was used. There is wedge-shaped 3 cm area of hypodensity in the left frontal lobe related to old infarct. There is no mass effect nor midline shift. There is no evidence of intracranial hemorrhage. Calvarium is i ntact skull base is intact. There is normal aeration of the mastoid sinuses Cervical vertebra have normal alignment. Posterior elements are intact. There is no compression fract ure. Facet joints are intact. No focal bone destruction. IMPRESSION: Mild atrophy. Old left frontal lobe infarct. No acute intracranial abnormality. No change compared to old exam. Negative CT scan cervical spine. No fracture.
[2021-02-15 05:05] VITALS: BP 160/69; PULSE 90; RESP 18; TEMP 97.9
== END 2021-02-15 05:05 | disposition home or self-care (01) ==
LOC: EC 23:15
DX: F10.129 Alcohol abuse with intoxication, unspecified (principal); R41.82 Altered mental status, unspecified; G40.909 Epilepsy, unspecified, not intractable, without status epilepticus; J44.9 Chronic obstructive pulmonary disease, unspecified; F31.9 Bipolar disorder, unspecified; F41.9 Anxiety disorder, unspecified; F17.200 Nicotine dependence, unspecified, uncomplicated; Z79.82 Long term (current) use of aspirin; Z79.899 Other long term (current) drug therapy; Z86.73 Personal history of transient ischemic attack (TIA), and cerebral infarction without residual deficits; Z88.2 Allergy status to sulfonamides; Z82.49 Family history of ischemic heart disease and other diseases of the circulatory system; Y90.6 Blood alcohol level of 120-199 mg/100 ml
CPT/HCPCS: 36415; 80053; 83690; 83735; 84100; 85025; 72125; 70450; 99284; 96360; 96361; G0480; 80320

== ENCOUNTER 2021-03-23 19:22 | Emergency (ER) | payer MEDICARE, OTHER ==
[2021-03-23 20:59] VITALS: TEMP 98.9
[2021-03-23 22:47] LABS: ALT 18 U/L (4-34); AST 27 U/L (14-36); African American GFR (CKD) >90 (>60 ml/min/1.73 sqM); Albumin 4.1 g/dL (3.5-5.0); Alcohol <10 mg/dL; Alkaline Phosphatase 130 U/L (38-126); Amylase 73 U/L (30-110); Anion Gap 10 mmol/L; Blood Urea Nitrogen 14 mg/dL (7-17); Calcium 9.4 mg/dL (8.4-10.2); Carbon Dioxide 30 mmol/L (22-30); Chloride 99 mmol/L (98-107); Glucose 147 mg/dL (74-99); Lipase 59 U/L (23-300); Non-African American GFR(CKD) >90 (>60 ml/min/1.73 sqM); Potassium 3.2 mmol/L (3.5-5.1); Sodium 139 mmol/L (137-145); Total Bilirubin 0.3 mg/dL (0.2-1.3); Total Protein 7.3 g/dL (6.3-8.2)
[2021-03-23 23:00] LABS: Basophils # (A) 0.1 k/uL (0-0.2); Basophils % (A) 1 %; Eosinophils # (A) 0.2 k/uL (0-0.7); Eosinophils % (A) 2 %; HCT 42.7 % (34.0-46.0); HGB 14.2 gm/dL (11.4-16.0); Lymphocytes # (A) 3.4 k/uL (1.0-4.8); Lymphocytes % (A) 38 %; MCH 31.8 pg (25.0-35.0); MCHC 33.2 g/dL (31.0-37.0); Mean Platelet Volume 8.1; Monocytes # (A) 0.4 k/uL (0-1.0); Monocytes % (A) 5 %; Neutrophils # (A) 4.9 k/uL (1.3-7.7); Neutrophils % (A) 54 %; Platelet Count 319 k/uL (150-450); RBC 4.45 m/uL (3.80-5.40); RDW 12.9 % (11.5-15.5)
[2021-03-24] MEDS ORDERED: LORazepam 1 MG TAB PO STA (00:47)
[2021-03-24] MEDS ORDERED: POTASSIUM CHLORIDE ER 20 MEQ TAB.ER PO STA (00:47)
[2021-03-24 03:08] VITALS: BP 138/77; PULSE 70; RESP 16
--- NOTE | 2021-03-24 03:10 | ED ---
Alcohol HPI - General Chief Complaint: Alcohol Stated Complaint: ETOH withdrawal Time Seen by Provider: 03/24/21 00:38 Source: patient Mode of arrival: ambulatory Limitations: no limitations - History of Present Illness MD Complaint: alcohol withdrawal Last Drink: just [employer] Previous Visits for Alcohol Intoxication?: Yes Recent Trauma: No Associated Symptoms: nausea Treatments Prior to Arrival: none Chronic Alcohol Use: Yes - Related Data Home Medications Medication Instructions Recorded Confirmed Aspirin 325 mg PO DAILY 02/14/21 02/14/21 Bacitracin Zinc Oint 1 applic TOPICAL BID PRN 02/14/21 02/14/21 Multivitamins, Thera [Multivitamin 1 tab PO DAILY 02/14/21 02/14/21 (formulary)] Nicotine 21Mg/24Hr Patch [Habitrol] 1 patch TRANSDERM DAILY PRN 02/14/21 02/14/21 Previous Rx's Medication Instructions Recorded Acetaminophen Tab [Tylenol] 650 mg PO Q4HR PRN tab 01/18/21 Doxepin [SINEquan] 10 mg PO HS 30 Days cap 01/18/21 FLUoxetine HCL [PROzac] 30 mg PO DAILY 30 Days cap 01/18/21 Folic Acid 1 mg PO DAILY 30 Days tab 01/18/21 Thiamine [Vitamin B-1] 100 mg PO DAILY 30 Days tab 01/18/21 Aspirin 325 mg PO DAILY 30 Days tab 03/28/21 Famotidine [Pepcid] 20 mg PO BID 30 Days tab 03/28/21 Folic Acid 1 mg PO DAILY 30 Days tab 03/28/21 Nicotine 14Mg/24Hr Patch [Habitrol] 1 patch TRANSDERM DAILY 30 Days 03/28/21 patch Thiamine [Vitamin B-1] 100 mg PO DAILY 30 Days tab 03/28/21 Topiramate [Topamax] 50 mg PO HS 30 Days tab 03/28/21 Venlafaxine HCl ER [Effexor XR] 150 mg PO DAILY 30 Days capsule 03/28/21 Allergies Allergy/AdvReac Type Severity Reaction Status Date / Time Sulfa (Sulfonamide Allergy Severe Rash/Hives Verified 03/31/21 07:59 Antibiotics) oxcarbazepine Allergy Unknown Verified 03/31/21 07:59 [From Trileptal] Review of Systems ROS Statement: Those systems with pertinent positive or pertinent negative responses have been documented in the HPI. ROS Other: All systems not noted in ROS Statement are negative. Constitutional: Denies: fever, chills, weakness Respiratory: Denies: cough, dyspnea Cardiovascular: Denies: chest pain, palpitations, edema Gastrointestinal: Reports: nausea. Denies: abdominal pain, vomiting Genitourinary: Denies: dysuria, frequency, hematuria Musculoskeletal: Denies: back pain Skin: Denies: rash Neurological: Denies: headache, weakness Psychiatric: Reports: anxiety. Denies: homicidal thoughts, suicidal thoughts Past Medical History Past Medical History: COPD, CVA/TIA, Pneumonia Additional Past Medical History / Comment(s): ETOH abuse/withdrawals/tremors, seizures-pt unsure if in past prior to using alcohol or only with alcohol withdrawal, head injury, CVA without residual, migraines, L leg/foot injury with surgery/gait dysfunction, tracheobronchitis. History of Any Multi-Drug Resistant Organisms: None Reported Past Surgical History: No Surgical Hx Reported, Orthopedic Surgery Additional Past Surgical History / Comment(s): R shoulder surgery d/t injury, L leg surgery d/t injury, colonoscopy Past Anesthesia/Blood Transfusion Reactions: No Reported Reaction Past Psychological History: Anxiety, Depression Smoking Status: Current every day smoker Past Alcohol Use History: Daily, Heavy Past Drug Use History: None Reported - Past Family History Father Family Medical History: No Reported History Additional Family Medical History / Comment(s): Father recently . He was in his 90s. Mother Family Medical History: No Reported History Additional Family Medical History / Comment(s): Mother is , pt states she was healthy. General Exam Limitations: no limitations General appearance: alert, in no apparent distress Head exam: Present: atraumatic, normocephalic Eye exam: Present: normal appearance. Absent: scleral icterus, conjunctival injection Neck exam: Present: normal inspection Respiratory exam: Present: normal lung sounds bilaterally. Absent: respiratory distress, wheezes, rales, rhonchi, stridor Cardiovascular Exam: Present: regular rate, normal rhythm, normal heart sounds. Absent: systolic murmur, diastolic murmur, rubs, gallop GI/Abdominal exam: Present: soft. Absent: distended, tenderness, guarding, rebound, rigid, mass Extremities exam: Present: normal inspection, normal capillary refill. Absent: pedal edema, calf tenderness Back exam: Present: normal inspection. Absent: CVA tenderness (R), CVA tenderness (L) Neurological exam: Present: alert Psychiatric exam: Present: anxious. Absent: suicidal ideation Skin exam: Present: warm, dry, intact, normal color. Absent: rash Course Vital Signs 03/23/21 03/24/21 20:54 03:07 Temperature 98.9 F Pulse Rate 86 70 Respiratory 20 16 Rate Blood Pressure 112/70 138/77 O2 Sat by Pulse 97 97 Oximetry Medical Decision Making - Lab Data Result diagrams: 03/23/21 22:25 03/23/21 22:25 Lab Results 03/23/21 03/23/21 Range/Units 22:25 22:25 WBC 9.0 (3.8-10.6) k/uL RBC 4.45 (3.80-5.40) m/uL Hgb 14.2 (11.4-16.0) gm/dL Hct 42.7 (34.0-46.0) % MCV 96.0 (80.0-100.0) fL MCH 31.8 (25.0-35.0) pg MCHC 33.2 (31.0-37.0) g/dL RDW 12.9 (11.5-15.5) % Plt Count 319 (150-450) k/uL MPV 8.1 Neutrophils % 54 % Lymphocytes % 38 % Monocytes % 5 % Eosinophils % 2 % Basophils % 1 % Neutrophils # 4.9 (1.3-7.7) k/uL Lymphocytes # 3.4 (1.0-4.8) k/uL Monocytes # 0.4 (0-1.0) k/uL Eosinophils # 0.2 (0-0.7) k/uL Basophils # 0.1 (0-0.2) k/uL Sodium 139 (137-145) mmol/L Potassium 3.2 L (3.5-5.1) mmol/L Chloride 99 (98-107) mmol/L Carbon Dioxide 30 (22-30) mmol/L Anion Gap 10 mmol/L BUN 14 (7-17) mg/dL Creatinine 0.69 (0.52-1.04) mg/dL Est GFR (CKD-EPI)AfAm >90 (>60 ml/min/1.73 sqM) Est GFR (CKD-EPI)NonAf >90 (>60 ml/min/1.73 sqM) Glucose 147 H (74-99) mg/dL Calcium 9.4 (8.4-10.2) mg/dL Magnesium 2.0 (1.6-2.3) mg/dL Total Bilirubin 0.3 (0.2-1.3) mg/dL AST 27 (14-36) U/L ALT 18 (4-34) U/L Alkaline Phosphatase 130 H (38-126) U/L Total Protein 7.3 (6.3-8.2) g/dL Albumin 4.1 (3.5-5.0) g/dL Amylase 73 (30-110) U/L Lipase 59 (23-300) U/L Serum Alcohol <10 mg/dL Disposition Clinical Impression: Alcohol withdrawal syndrome Disposition: HOME SELF-CARE Condition: Good Instructions (If sedation given, give patient instructions): Alcohol Withdrawal (ED) Is patient prescribed a controlled substance at d/c from ED?: No Referrals: None,Stated [Primary Care Provider] - 1-2 days
== END 2021-03-24 03:59 | disposition home or self-care (01) ==
LOC: EC 19:22 → MERGE 19:22 → EC 03-24 03:59
DX: F10.239 Alcohol dependence with withdrawal, unspecified (principal); J44.9 Chronic obstructive pulmonary disease, unspecified; F32.A Depression, unspecified; F41.9 Anxiety disorder, unspecified; F17.200 Nicotine dependence, unspecified, uncomplicated; Z79.82 Long term (current) use of aspirin; Z79.899 Other long term (current) drug therapy; Y90.0 Blood alcohol level of less than 20 mg/100 ml
CPT/HCPCS: 36415; 80053; 82150; 83690; 83735; 85025; 99284; G0480; 80320

== ENCOUNTER 2021-03-26 16:19 | Inpatient (IN) | payer MEDICARE, MEDICAID ==
--- NOTE | 2021-03-26 16:52 | ED ---
General Adult HPI - General Chief complaint: Psychiatric Symptoms Stated complaint: EPS eval Time Seen by Provider: 03/26/21 16:37 Source: patient, police, EMS, RN notes reviewed, old records reviewed Mode of arrival: EMS - History of Present Illness Initial comments: 76-year-old female presenting for psychiatric evaluation. Patient has had increased depression, suicidal thoughts. She is currently homeless. She has been dealing with community mental health and has been living in various hotels over the past several months. She admits to alcohol consumption approximately 2 or 3 days ago. She states she has not slept in 5 days. She denies suicide attempt. She does have several suicidal plans. - Related Data Home Medications Medication Instructions Recorded Confirmed Aspirin EC [Ecotrin] 325 mg PO DAILY 03/13/21 03/13/21 Doxepin [SINEquan] 10 mg PO HS 03/13/21 03/13/21 FLUoxetine HCL [PROzac] 60 mg PO DAILY 03/13/21 03/13/21 Folic Acid 1 mg PO DAILY 03/13/21 03/13/21 Multivitamins, Thera [Multivitamin 1 tab PO DAILY 03/13/21 03/13/21 (formulary)] Thiamine HCl [Vitamin B-1] 100 mg PO DAILY 03/13/21 03/13/21 Previous Rx's Medication Instructions Recorded Famotidine [Pepcid] 20 mg PO BID #60 tab 03/15/21 Ondansetron [Zofran] 4 mg PO Q8HR PRN #6 tab 03/15/21 chlordiazePOXIDE HCl [Librium] See Taper PO TID 7 Days #14 capsule 03/15/21 LORazepam [Ativan] 1 mg PO TID 3 Days #9 tab 03/24/21 Allergies Allergy/AdvReac Type Severity Reaction Status Date / Time Sulfa (Sulfonamide Allergy Unknown Verified 03/23/21 20:59 Antibiotics) Review of Systems ROS Statement: Those systems with pertinent positive or pertinent negative responses have been documented in the HPI. ROS Other: All systems not noted in ROS Statement are negative. 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 History of Any Multi-Drug Resistant Organisms: None Reported Past Surgical History: No Surgical Hx Reported, Orthopedic Surgery Additional Past Surgical History / Comment(s): R shoulder surgery d/t injury, L leg surgery d/t injury, colonoscopy Past Anesthesia/Blood Transfusion Reactions: No Reported Reaction Past Psychological History: Anxiety, Depression Smoking Status: Current every day smoker Past Alcohol Use History: Daily, Heavy Past Drug Use History: None Reported - Past Family History Father Family Medical History: No Reported History Additional Family Medical History / Comment(s): Father recently . He was in his 90s. Mother Family Medical History: No Reported History Additional Family Medical History / Comment(s): Mother is , pt states she was healthy. General Exam General appearance: alert, in no apparent distress Head exam: Present: atraumatic, normocephalic Eye exam: Present: normal appearance, PERRL ENT exam: Present: normal exam Neck exam: Present: normal inspection. Absent: tenderness, meningismus Respiratory exam: Present: normal lung sounds bilaterally. Absent: respiratory distress, wheezes Cardiovascular Exam: Present: regular rate. Absent: normal rhythm GI/Abdominal exam: Present: soft. Absent: distended, tenderness Extremities exam: Present: normal inspection, normal capillary refill. Absent: pedal edema Neurological exam: Present: alert, oriented X3, CN II-XII intact. Absent: motor sensory deficit Psychiatric exam: Present: depressed, flat affect, suicidal ideation Skin exam: Present: warm, dry, intact. Absent: cyanosis, diaphoretic Course Vital Signs 03/26/21 16:34 Temperature 98.8 F Pulse Rate 67 Respiratory 18 Rate Blood Pressure 161/67 O2 Sat by Pulse 97 Oximetry - Reevaluation(s) Reevaluation #1: 03/26/21 16:52 Cleared for EPS Medical Decision Making - Medical Decision Making Patient evaluated by EPS and felt to require inpatient psychiatric evaluation treatment. she will be admitted to this institution. - Lab Data Lab Results 03/26/21 Range/Units 19:11 Coronavirus (PCR) Not Detected (Not Detectd) Disposition Clinical Impression: Depression, Suicidal ideation Disposition: ADMITTED IP TO THIS HOSP Condition: Stable Is patient prescribed a controlled substance at d/c from ED?: No Referrals: None,Stated [Primary Care Provider] - 1-2 days Decision to Admit Reason: Admit from EC Decision Date: 03/26/21 Decision Time: 20:09
[2021-03-26] MEDS ORDERED: MAGNESIUM HYDROXIDE 2,400 MG/10 ML CUP PO PRN (20:44)
[2021-03-26] MEDS ORDERED: ACETAMINOPHEN TAB 325 MG TAB PO PRN (20:44)
[2021-03-26] MEDS ORDERED: LORazepam 1 MG TAB PO PRN (20:44)
[2021-03-26] MEDS ORDERED: MAG HYDROX/AL HYDROX/SIMETH 30 ML CUP PO PRN (20:44)
[2021-03-26] MEDS ORDERED: LORazepam 2 MG/ML INJ IM PRN (20:47)
[2021-03-26] MEDS ORDERED: HALOPERIDOL LACTATE 5 MG/ML 1 ML VIAL IM PRN (20:52)
--- NOTE | 2021-03-27 00:12 | P.PN ---
Progress Note - Text Progress Note Date: 03/27/21 The patient received sedatives and is not appropriate for evaluation at this time. Will attempt again tomorrow.
[2021-03-27 07:04] VITALS: TEMP 97.4
[2021-03-27 07:22] LABS: Basophils # (A) 0.1 k/uL (0-0.2); Basophils % (A) 1 %; Eosinophils # (A) 0.2 k/uL (0-0.7); Eosinophils % (A) 2 %; HCT 41.8 % (34.0-46.0); HGB 13.5 gm/dL (11.4-16.0); Lymphocytes # (A) 2.6 k/uL (1.0-4.8); Lymphocytes % (A) 39 %; MCH 31.8 pg (25.0-35.0); MCHC 32.2 g/dL (31.0-37.0); MCV 98.7 fL (80.0-100.0); Mean Platelet Volume 7.6; Monocytes # (A) 0.3 k/uL (0-1.0); Monocytes % (A) 4 %; Neutrophils # (A) 3.4 k/uL (1.3-7.7); Neutrophils % (A) 51 %; Platelet Count 329 k/uL (150-450); RBC 4.24 m/uL (3.80-5.40); RDW 13.7 % (11.5-15.5); WBC 6.7 k/uL (3.8-10.6)
[2021-03-27 07:50] LABS: ALT 14 U/L (4-34); AST 22 U/L (14-36); African American GFR (CKD) >90 (>60 ml/min/1.73 sqM); Albumin 3.7 g/dL (3.5-5.0); Alkaline Phosphatase 109 U/L (38-126); Anion Gap 7 mmol/L; Bilirubin, Delta 0.1 mg/dL (0.0-0.2); Bilirubin,Unconjugated 0.2 mg/dL (0.0-1.1); Blood Urea Nitrogen 17 mg/dL (7-17); Calcium 9.3 mg/dL (8.4-10.2); Carbon Dioxide 27 mmol/L (22-30); Chloride 104 mmol/L (98-107); Glucose 98 mg/dL (74-99); Non-African American GFR(CKD) 88 (>60 ml/min/1.73 sqM); Sodium 138 mmol/L (137-145); Total Bilirubin 0.3 mg/dL (0.2-1.3); Total Protein 6.8 g/dL (6.3-8.2)
[2021-03-27] MEDS: NICOTINE 14MG/24HR PATCH TRANSDERM SCH (09:03)
[2021-03-27] MEDS ORDERED: VENLAFAXINE HCL ER 37.5 MG CAP PO STA (11:38)
[2021-03-27 11:44] LABS: Chol/HDL Ratio 2.99 Ratio; LDL Cholesterol,Calculated 83.9 mg/dL (0.0-131.0)
--- NOTE | 2021-03-27 14:01 | P.HP ---
Psychiatric H&P - . H&P Date: 03/27/21 History & Physical: Allergies Allergy/AdvReac Type Severity Reaction Status Date / Time Sulfa (Sulfonamide Allergy Unknown Verified 03/26/21 20:41 Antibiotics) Vital Signs Temp 97.4 F L 03/27/21 07:02 Pulse 92 03/27/21 07:02 Resp 14 03/27/21 07:02 BP 123/85 03/27/21 07:02 Pulse Ox 95 03/27/21 07:02 Intake & Output 03/26/21 03/27/21 03/27/21 18:59 06:59 18:59 Weight 68.039 kg 66.678 kg Laboratory Last Values WBC 6.7 k/uL (3.8-10.6) 03/27/21 06:46 RBC 4.24 m/uL (3.80-5.40) 03/27/21 06:46 Hgb 13.5 gm/dL (11.4-16.0) 03/27/21 06:46 Hct 41.8 % (34.0-46.0) 03/27/21 06:46 MCV 98.7 fL (80.0-100.0) 03/27/21 06:46 MCH 31.8 pg (25.0-35.0) 03/27/21 06:46 MCHC 32.2 g/dL (31.0-37.0) 03/27/21 06:46 RDW 13.7 % (11.5-15.5) 03/27/21 06:46 Plt Count 329 k/uL (150-450) 03/27/21 06:46 MPV 7.6 03/27/21 06:46 Neutrophils % 51 % 03/27/21 06:46 Lymphocytes % 39 % 03/27/21 06:46 Monocytes % 4 % 03/27/21 06:46 Eosinophils % 2 % 03/27/21 06:46 Basophils % 1 % 03/27/21 06:46 Neutrophils # 3.4 k/uL (1.3-7.7) 03/27/21 06:46 Lymphocytes # 2.6 k/uL (1.0-4.8) 03/27/21 06:46 Monocytes # 0.3 k/uL (0-1.0) 03/27/21 06:46 Eosinophils # 0.2 k/uL (0-0.7) 03/27/21 06:46 Basophils # 0.1 k/uL (0-0.2) 03/27/21 06:46 Sodium 138 mmol/L (137-145) 03/27/21 06:46 Potassium 4.0 mmol/L (3.5-5.1) 03/27/21 06:46 Chloride 104 mmol/L (98-107) 03/27/21 06:46 Carbon Dioxide 27 mmol/L (22-30) 03/27/21 06:46 Anion Gap 7 mmol/L 03/27/21 06:46 BUN 17 mg/dL (7-17) 03/27/21 06:46 Creatinine 0.72 mg/dL (0.52-1.04) 03/27/21 06:46 Est GFR (CKD-EPI)AfAm >90 (>60 ml/min/1.73 sqM) 03/27/21 06:46 Est GFR (CKD-EPI)NonAf 88 (>60 ml/min/1.73 sqM) 03/27/21 06:46 Glucose 98 mg/dL (74-99) 03/27/21 06:[address] Glu mg/dL 100 03/27/21 06:46 Hemoglobin A1c 5.1 % (4.0-6.0) 03/27/21 06:46 Calcium 9.3 mg/dL (8.4-10.2) 03/27/21 06:46 Total Bilirubin 0.3 mg/dL (0.2-1.3) 03/27/21 06:46 Conjugated Bilirubin 0.0 mg/dL (0.0-0.3) 03/27/21 06:46 Unconjugated Bilirubin 0.2 mg/dL (0.0-1.1) 03/27/21 06:46 Delta Bilirubin 0.1 mg/dL (0.0-0.2) 03/27/21 06:46 AST 22 U/L (14-36) 03/27/21 06:46 ALT 14 U/L (4-34) 03/27/21 06:46 Alkaline Phosphatase 109 U/L (38-126) 03/27/21 06:46 Total Protein 6.8 g/dL (6.3-8.2) 03/27/21 06:46 Albumin 3.7 g/dL (3.5-5.0) 03/27/21 06:46 Triglycerides 130.00 mg/dL (0.00-149.00) 03/27/21 06:46 Cholesterol 165.00 mg/dL (0.00-200.00) 03/27/21 06:46 LDL Cholesterol, Calc 83.9 mg/dL (0.0-131.0) 03/27/21 06:46 VLDL Cholesterol, Calc 26.00 mg/dL (5.00-40.00) 03/27/21 06:46 HDL Cholesterol 55.10 mg/dL (40.00-60.00) 03/27/21 06:46 Cholesterol/HDL Ratio 2.99 Ratio 03/27/21 06:46 TSH 4.310 mIU/L (0.465-4.680) 03/27/21 06:46 Coronavirus (PCR) Not Detected (Not Detectd) 03/26/21 19:11 03/27/21 14:01 IDENTIFYING DATA: Patient is a , unemployed, 66-year-old female with significant history of alcohol use disorder, depression, and bipolar disorder, who presented to the emergency department brought in by EMS for suicidal ideation. HPI: Patient presented to the hospital on 03/26/2021, brought in by EMS for suicidal ideation. The patient reportedly told the EPS nurse that "I'm and wishing to drop . The only reason why I am not that is because I don't have a gun." The patient expresses numerous life stressors that have been contributing to her depression. Furthermore, the patient reports that she has been drinking heavily. The patient states that the last time she was not miserable was in 1991 prior to her her . She reports that s anam then she has been chronically depressed with significant symptoms of hopelessness, helplessness, suicidal ideation, and difficulty sleeping. The patient continues to report that this is all ongoing despite being trialed on numerous medications in the past. In regards other mood symptoms, the patient does endorse a history of esdras. She reports that she went 15 days with little to no sleep. She reports no periods of mood lability, racing thoughts, or grandiosity that occur outside the presence of substance use. The patient does not endorse any significant history of psychotic symptoms. She reports no auditory or visual hallucinations. She denies any paranoia or other delusions. The patient expresses a strong desire to be back on medications to help her with her sleep. The patient states that she has been off her prescribed regimen of Prozac and Sinequan for the last few weeks. She reportedly stopped the medications because she felt like that they were not helping her with her mood. This provider discussed at length that since the patient is actively drinking alcohol, the effects of medications will not be present. The patient maintains that she is waiting for the medications to help prior to her being able to quit alcohol. The patient has been drinking for most of her adult life. She reports that it was because of her drinking that she is now and alienated from her family. She reports that she was scheduled to go to [place] and for rehabilitation this week. PAST PSYCHIATRIC HISTORY: Patient states that she has been diagnosed with bipolar disorder and alcohol use disorder. The patient reports that she has been on numerous medications including Seroquel, trazodone, and Xanax. The patient has had numerous psychiatric admissions on to this unit. The patient reports that she has not been following up with her outpatient appointments. The patient denies any prior suicide attempts. 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 History of Any Multi-Drug Resistant Organisms: None Reported Past Surgical History: No Surgical Hx Reported, Orthopedic Surgery Additional Past Surgical History / Comment(s): R shoulder surgery d/t injury, L leg surgery d/t injury, colonoscopy Past Anesthesia/Blood Transfusion Reactions: No Reported Reaction Past Psychological History: Anxiety, Depression Smoking Status: Current every day smoker Past Alcohol Use History: Daily, Heavy Past Drug Use History: None Reported ALLERGIES: Sulfa CHEMICAL DEPENDENCY HISTORY: The patient's drug of choice is alcohol. The patient reportedly drinks at least a pint of liquor per day and up to 2/5 of liquor per day. Last drink reportedly 3 days ago She smokes one pack per day of tobacco. She denies any other drug use. She reports going to rehabilitation multiple times in the past. FAMILY PSYCHIATRIC/SUBSTANCE USE HISTORY: The patient's father was an alcoholic. She reports no other psychiatric family history. SOCIAL HISTORY: Patient was born in [place] and raised in [place]. She is currently twice. She has 2 children 1 grandchild. She reports that her children are currently living in [place]. The patient is currently homeless. She spends her days in front of the [facility]. MENTAL STATUS EXAM: General Appearance: Patient appears to be stated age is alert, directable, and attempts to cooperate. Patient appears to have poor hygiene and grooming. Short cut hair. Behavior: Patient is seated without any agitated behavior. Ambulates with the assistance of a walker. Speech: Patient's speech is fluent and nonpressured. Mood/Affect: Patient reports their mood is depressed, affect is congruent and constricted. Suicidality/Homicidality: Patient denies having any homicidal ideation intent or plan. Patient endorses suicidal ideation with plan to shoot herself. Perceptions: Patient denies any visual hallucinations and denies any auditory hallucinations Though content/process: There is no evidence of any delusional thought content and thought process is linear and goal-directed. Memory and concentration: AOX3, grossly intact for the purposes of this session. Can spell "WORLD" backwards Judgment and insight: poor STRENGTHS/WEAKNESSES: Unable to identify patient's strengths at this time. Weakness is that the patient is currently homeless, engages in heavy alcohol use, and appears to be precontemplative and change. INTELLECT: average IMPRESSIONS: Major depressive disorder, recurrent, severe Alcohol use disorder Nicotine dependence PLAN: -Patient is admitted under voluntary status to MHU for stabilization of psychiatric symptoms and safety. Patient signed adult voluntary form and medication consent and is placed in patient's chart. -Medications : Will start patient on Effexor XR 37.5 mg by mouth daily for depression/anxiety Topamax 25 mg by mouth at bedtime for off label use for mood stabilization; benefit of seizure control as well. -Ativan and Haldol PRN for agitation/aggression -CIWA protocol will be initiated. -Patient was counselled on substance abuse and desired to cut back on use -Patient was informed of the risks, benefits and side effects of the medication and patient verbally consented to taking the medications. Patient signed med consent form and was placed in chart. -Internal Medicine consult to perform medical evaluation and physical. -NRT - nicotine patch -SW on board for discharge planning. Encourage patient to participate in groups to work on coping skills. 03/27/21 14:01
[2021-03-27] MEDS ORDERED: TOPIRAMATE 25 MG TAB PO SCH (21:00)
--- NOTE | 2021-03-27 21:54 | P.CONS ---
History of Present Illness - Reason for Consult Consult date: 03/27/21 - History of Present Illness The patient is a 66 yo F with a PMH of chronic lower back and L hip pain, EtOH abuse, currently homeless who had presented to the emergency room with complaints of depression and suicidal ideation. The patient reported that she has been dealing with home assistance for the past several years which has taken a large mental told. The patient was admitted to the mental health unit where she was seen and evaluated. Patient reports drinking several beers daily. She denied any physical complaints aside from her long-standing left hip pain, which is controlled with [id number] medications. She denied chest discomfort, shortness, fever, chills, cough or nausea, vomiting, abdominal pain, diarrhea. Laboratory evaluation was reviewed. Review of systems: Pertinent positives and negatives as discussed in HPI, a complete review of systems was performed and all other systems are negative. Physical examination: General: non toxic, no distress, appears at stated age, normal weight Derm: no unusual rashes/lesions no unusual ecchymoses, warm, dry Head: atraumatic, normocephalic, symmetric Eyes: EOMI, no lid lag, anicteric sclera, pupils equal round reactive to light ENT: Nose and ears atraumatic, no thrush, no pharyngeal erythema Neck: No thyromegaly, no cervical lymphadenopathy, trachea midline, supple Mouth: no lip lesion, mucus membranes moist Cardiovascular: S1S2 reg, no murmur, positive posterior tibial pulse bilateral, no edema, capillary refill less than 2 seconds Lungs: CTA bilateral, no rhonchi, no rales , no accessory muscle use Abdominal: soft, nontender to palpation, no guarding, no appreciable organomegaly, normal bowel sounds Ext: no gross muscle atrophy, muscle strength 5 out of 5 in all 4 extremities grossly, no contractures, Neuro: CN II-XI grossly intact, light touch intact all 4 extremities, finger to nose within normal limits, Psych: Alert, oriented, appropriate affect Assessment/plan EtOH abuse -Continue thiamine -Advised on importance of cessation Depression and suicidal ideation -As per psychiatry Thank you for allowing us to participate in the care of this patient. We will follow peripherally. Do not hesitate to contact us with questions. Someone can be reached from the [facility] hospitalist group at all hours of the day at [phone]. 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 History of Any Multi-Drug Resistant Organisms: None Reported Past Surgical History: No Surgical Hx Reported, Orthopedic Surgery Additional Past Surgical History / Comment(s): R shoulder surgery d/t injury, L leg surgery d/t injury, colonoscopy Past Anesthesia/Blood Transfusion Reactions: No Reported Reaction Smoking Status: Current every day smoker - Past Family History Father Family Medical History: No Reported History Additional Family Medical History / Comment(s): Father recently . He was in his 90s. Mother Family Medical History: No Reported History Additional Family Medical History / Comment(s): Mother is , pt states she was healthy. Medications and Allergies Home Medications Medication Instructions Recorded Confirmed Type Aspirin EC [Ecotrin] 325 mg PO DAILY 03/13/21 03/26/21 History Doxepin [SINEquan] 10 mg PO HS 03/13/21 03/26/21 History FLUoxetine HCL [PROzac] 60 mg PO DAILY 03/13/21 03/26/21 History Folic Acid 1 mg PO DAILY 03/13/21 03/26/21 History Multivitamins, Thera [Multivitamin 1 tab PO DAILY 03/13/21 03/26/21 History (formulary)] Thiamine HCl [Vitamin B-1] 100 mg PO DAILY 03/13/21 03/26/21 History Famotidine [Pepcid] 20 mg PO BID #60 tab 03/15/21 03/26/21 Rx Ondansetron [Zofran] 4 mg PO Q8HR PRN #6 tab 03/15/21 03/26/21 Rx chlordiazePOXIDE HCl [Librium] See Taper PO TID 7 Days #14 capsule 03/15/21 03/26/21 Rx LORazepam [Ativan] 1 mg PO TID 3 Days #9 tab 03/24/21 03/26/21 Rx Allergies Allergy/AdvReac Type Severity Reaction Status Date / Time Sulfa (Sulfonamide Allergy Unknown Verified 03/26/21 20:41 Antibiotics) Physical Exam Vitals: Vital Signs Temp Pulse Resp BP Pulse Ox 03/27/21 07:02 97.4 F L 92 14 123/85 95 03/26/21 22:10 98.7 F 96 18 109/51 96 Results CBC & Chem 7: 03/27/21 06:46 03/27/21 06:46
[2021-03-28] MEDS: NICOTINE 14MG/24HR PATCH TRANSDERM SCH (08:36)
[2021-03-28] MEDS: FOLIC ACID 1 MG TAB PO SCH (08:37)
[2021-03-28] MEDS: FAMOTIDINE 20 MG TAB PO SCH ×2 (08:37→20:45)
[2021-03-28] MEDS: THIAMINE 100 MG TAB PO SCH (08:37)
[2021-03-28] MEDS: ASPIRIN 325 MG TAB PO SCH (08:37)
[2021-03-28] MEDS ORDERED: VENLAFAXINE HCL ER 75 MG CAP PO SCH (09:00)
--- NOTE | 2021-03-28 11:11 | P.PN ---
Progress Note - Text Progress Note Date: 03/28/21 Interval History: Patient was seen resting in bed and was directable and agreeable to speak with film writer in the office. The patient reports that her mood is okay. She states that she was able to sleep last night and continues to request medication for sleep as she feels like she is unable to sleep outside when it is very cold. She was informed that medications would not prevent her from experiencing the cold. She is currently endorsing suicidal ideation but states that this is chronic in nature due to her situation. The patient expresses that she has been from her family due to her drinking and expresses significant regret for leaving her because of her drinking. Despite this, the patient states that drinking is all she has left in order to feel "normal." She is currently not reporting any auditory or visualizations. She denies any paranoia or other delusions. The patient has been adherent to medication is not endorsing any significant side effects at this time. The patient is agreeable to go to [facility] for substance abuse rehabilitation tomorrow. Mental Status Exam: General Appearance: Patient appears to be stated age is alert, directable, and cooperative. Behavior: Patient is calmly seated without any agitated behavior. Speech: Patient's speech is fluent and nonpressured. Mood/Affect: Mood is improving mildly, affect is congruent and constricted. Suicidality/Homicidality: Patient denies having any suicidal or homicidal ideation intent or plan. Perceptions: Patient denies any visual hallucinations and denies any auditory hallucinations Though content/process: There is no evidence of any delusional thought content and thought process is linear and goal-directed. Memory and concentration: AOX3, grossly intact for the purposes of this session Judgment and insight: Improving mildly Vital Signs Temp 97.4 F L 03/27/21 07:02 Pulse 92 03/27/21 07:02 Resp 14 03/27/21 07:02 BP 123/85 03/27/21 07:02 Pulse Ox 95 03/27/21 07:02 Laboratory Results - Last 24 Hours 03/27/21 03/27/21 06:46 06:[address] Glu mg/dL 100 Hemoglobin A1c 5.1 Triglycerides 130.00 Cholesterol 165.00 LDL Cholesterol, Calc 83.9 VLDL Cholesterol, Calc 26.00 HDL Cholesterol 55.10 Cholesterol/HDL Ratio 2.99 Assessment Major depressive disorder, recurrent, severe Alcohol use disorder Nicotine dependence Plan: -Patient continues to meet criteria for inpatient psychiatric admission for symptom stabilization and safety. Patient has signed adult voluntary form and medication consent and was placed in patient's chart. -Patient will be going to rehabilitation at [facility] tomorrow -Medications: Increase Effexor XR to 75 mg by mouth daily today and we will discharge the patient on 150 mg tomorrow. Increase Topamax 50 mg at bedtime -When necessary Ativan and Haldol for agitation/aggression. -NRT - nicotine patch -SW on board for discharge planning. Encouraged the patient to participate in milieu.
[2021-03-28] MEDS ORDERED: TOPIRAMATE 25 MG TAB PO SCH (21:00)
[2021-03-29 06:58] VITALS: BP 145/78; PULSE 81; RESP 16
[2021-03-29] MEDS: FOLIC ACID 1 MG TAB PO SCH (07:59)
[2021-03-29] MEDS: FAMOTIDINE 20 MG TAB PO SCH (07:59)
[2021-03-29] MEDS: THIAMINE 100 MG TAB PO SCH (07:59)
[2021-03-29] MEDS: NICOTINE 14MG/24HR PATCH TRANSDERM SCH (08:01)
[2021-03-29] MEDS: ASPIRIN 325 MG TAB PO SCH (08:20)
[2021-03-29] MEDS ORDERED: VENLAFAXINE HCL ER 150 MG CAP PO SCH (09:00)
--- NOTE | 2021-03-29 11:46 | P.DS ---
Providers Date of admission: 03/26/21 20:35 Expected date of discharge: 03/29/21 Attending physician: Raymond Samuel MD Consults: 03/26/21 20:44 Consult Physician Routine Consulting Provider: Ayla Kenny Consult Reason/Comments: health management Do you want consulting provider notified?: Yes Primary care physician: Stated None - Discharge Diagnosis(es) (1) Major depressive disorder, recurrent episode, severe Status: Acute Priority: High (2) Alcohol use disorder Status: Chronic Priority: Medium (3) Nicotine dependence Status: Chronic Priority: Medium Hospital Course: Admission HPI: Patient is a , unemployed, 66-year-old female with significant history of alcohol use disorder, depression, and bipolar disorder, who presented to the emergency department brought in by EMS for suicidal ideation. HPI: Patient presented to the hospital on 03/26/2021, brought in by EMS for suicidal ideation. The patient reportedly told the EPS nurse that "I'm and wishing to drop . The only reason why I am not that is because I don't have a gun." The patient expresses numerous life stressors that have been c ontributing to her depression. Furthermore, the patient reports that she has been drinking heavily. The patient states that the last time she was not miserable was in 1991 prior to her her . She reports that since then she has been chronically depressed with significant symptoms of hopelessness, helplessness, suicidal ideation, and difficulty sleeping. The patient continues to report that this is all ongoing despite being trialed on numerous medications in the past. In regards other mood symptoms, the patient does endorse a history of esdras. She reports that she went 15 days with little to no sleep. She reports no periods of mood lability, racing thoughts, or grandiosity that occur outside the presence of substance use. The patient does not endorse any significant history of psychotic symptoms. She reports no auditory or visual hallucinations. She denies any paranoia or other delusions. The patient expresses a strong desire to be back on medications to help her with her sleep. The patient states that she has been off her prescribed regimen of Prozac and Sinequan for the last few weeks. She reportedly stopped the medications because she felt like that they were not helping her with her mood. This provider discussed at length that since the patient is actively drinking alcohol, the effects of medications will not be present. The patient maintains that she is waiting for the medications to help prior to her being able to quit alcohol. The patient has been drinking for most of her adult life. She reports that it was because of her drinking that she is now and alienated from her family. She reports that she was scheduled to go to [facility] and for rehabilitation this week. Patient states that she has been diagnosed with bipolar disorder and alcohol use disorder. The patient reports that she has been on numerous medications including Seroquel, trazodone, and Xanax. The patient has had numerous psychiatric admissions on to this unit. The patient reports that she has not been following up with her outpatient appointments. The patient denies any prior suicide attempts. Hospital course: Upon admission to the unit patient was initially endorsing significant depression and chronic suicidal ideation. Patient was however directable and agreeable to commence treatment. Patient got along well with other patients on the unit and followed unit protocol. Patient was compliant with the medications and denied any side effects throughout hospital course. Patient was started on and Effexor and Topamax for management of depression, anxiety, and off label use for mood stabilization and insomnia.. Patient spoke of her stressors and engaged in therapy both group and individual. Patient was also seen by medical team for history and physical exam. Significant psychotherapy with the patient in motivational interviewing occurred during the hospital stay. We discussed at length the patient's alcohol use disorder and how this is the primary reason that the patient has been dealing with significant mood issues chronically for the past 20 years. Throughout the course of the hospitalization patient gradually improved with regards to depression and sleep and became future oriented with improved insight and judgment. On the day of discharge, the patient continued to endorse chronic suicidal ideation but no active intention and/or plan. She denied any homicidal ideation, intention, and/or plan. The patient reported that she would like to in the future move down to [place] so that she can be reunited with her family. The patient does have a significant history of substance abuse and was counseled at great length on abstaining from all substances, in particular alcohol. The patient will be going to [facility] for alcohol rehabilitation post discharge. Patient was counseled on her medications and need regular compliance and was encouraged to follow-up with her outpatient appointments for mental health for primary care. Mental status exam: General Appearance: Patient appears to be stated age is alert, pleasant, and cooperative. Patient is in no acute distress and has fair hygiene and grooming Behavior: Patient is calmly seated without any agitated behavior. Speech: Patient's speech is fluent and nonpressured. Mood/Affect: Patient reports their mood is "feeling okay", affect is congruent and euthymic. Suicidality/Homicidality: Patient denies having any suicidal or homicidal ideation intent or plan. Perceptions: Patient denies any auditory or visual hallucinations. Though content/process: There is no evidence of any delusional thought content and thought process is linear and goal-directed. Patient is future oriented. Memory and concentration: AOX3, grossly intact for the purposes of this session. Can spell "WORLD" backwards correctly. Judgment and insight: Improved with guarded prognosis Impression: Major depressive disorder, recurrent, severe Alcohol use disorder Nicotine dependence Plan: -Continue with discharge today as patient has improved and stabilized psychiatrically and is not currently an imminent threat to herself and/or others. Patient will remain at chronically elevated risk for harm to self and/or others due to her chronic alcohol abuse. -Continue medications: Effexor XR 150 mg daily Topamax 50 mg by mouth at bedtime Habitrol patches for nicotine cessation -Patient was counseled on the need for medication compliance and appropriate follow-up at mental health and also primary care for medical issues. Patient verbalized understanding and agreed. -Social work to arrange for and conduct family meeting to ensure safety upon discharge and answer any questions/concerns. -Patient counseled on abstaining from recreational drugs and marijuana and alcohol. Was informed/educated on the adverse effects on their physical and mental health. Patient verbally agreed and understood. Patient will be going to rehabilitation at [facility]. -Patient was instructed to return to the hospital or seek immediate medical care if their psychiatric or medical symptoms do worsen or reoccur. -Psychoeducation and supportive therapy provided to patient. Risks and benefits of pharmacological treatment versus the risks and benefits of nontreatment weight and discussed. Informed consent discussion held. Common side effects of psychotropics discussed such as, but not limited to headache, GI disturbance, sexual dysfunction, movement disorders, sedation, and orthostatic hypotension. Life threatening and blackbox warnings of prescribed medications also discussed. Potential risks of operating a vehicle or heavy machinery discussed with patient at length. Advised on importance of compliance and a reliable and responsible manner. Patient advised to review FDA consumer labeling of all medications prior to taking. Patient verbalized understanding of potential risks, and agrees with current treatment plan. Patient advised to medically contact physician/emergency personnel if any acute changes in condition occur. Vital Signs Temp 97.4 F L 03/29/21 06:46 Pulse 81 03/29/21 06:46 Resp 16 03/29/21 06:46 BP 145/78 03/29/21 06:46 Pulse Ox 95 03/27/21 07:02 Intake & Output 03/28/21 03/29/21 03/29/21 18:59 06:59 18:59 Weight 66.678 kg Laboratory Results WBC 6.7 k/uL (3.8-10.6) 03/27/21 06:46 RBC 4.24 m/uL (3.80-5.40) 03/27/21 06:46 Hgb 13.5 gm/dL (11.4-16.0) 03/27/21 06:46 Hct 41.8 % (34.0-46.0) 03/27/21 06:46 MCV 98.7 fL (80.0-100.0) 03/27/21 06:46 MCH 31.8 pg (25.0-35.0) 03/27/21 06:46 MCHC 32.2 g/dL (31.0-37.0) 03/27/21 06:46 RDW 13.7 % (11.5-15.5) 03/27/21 06:46 Plt Count 329 k/uL (150-450) 03/27/21 06:46 MPV 7.6 03/27/21 06:46 Neutrophils % 51 % 03/27/21 06:46 Lymphocytes % 39 % 03/27/21 06:46 Monocytes % 4 % 03/27/21 06:46 Eosinophils % 2 % 03/27/21 06:46 Basophils % 1 % 03/27/21 06:46 Neutrophils # 3.4 k/uL (1.3-7.7) 03/27/21 06:46 Lymphocytes # 2.6 k/uL (1.0-4.8) 03/27/21 06:46 Monocytes # 0.3 k/uL (0-1.0) 03/27/21 06:46 Eosinophils # 0.2 k/uL (0-0.7) 03/27/21 06:46 Basophils # 0.1 k/uL (0-0.2) 03/27/21 06:46 Sodium 138 mmol/L (137-145) 03/27/21 06:46 Potassium 4.0 mmol/L (3.5-5.1) 03/27/21 06:46 Chloride 104 mmol/L (98-107) 03/27/21 06:46 Carbon Dioxide 27 mmol/L (22-30) 03/27/21 06:46 Anion Gap 7 mmol/L 03/27/21 06:46 BUN 17 mg/dL (7-17) 03/27/21 06:46 Creatinine 0.72 mg/dL (0.52-1.04) 03/27/21 06:46 Est GFR (CKD-EPI)AfAm >90 (>60 ml/min/1.73 sqM) 03/27/21 06:46 Est GFR (CKD-EPI)NonAf 88 (>60 ml/min/1.73 sqM) 03/27/21 06:46 Glucose 98 mg/dL (74-99) 03/27/21 06:[address] Glu mg/dL 100 03/27/21 06:46 Hemoglobin A1c 5.1 % (4.0-6.0) 03/27/21 06:46 Calcium 9.3 mg/dL (8.4-10.2) 03/27/21 06:46 Total Bilirubin 0.3 mg/dL (0.2-1.3) 03/27/21 06:46 Conjugated Bilirubin 0.0 mg/dL (0.0-0.3) 03/27/21 06:46 Unconjugated Bilirubin 0.2 mg/dL (0.0-1.1) 03/27/21 06:46 Delta Bilirubin 0.1 mg/dL (0.0-0.2) 03/27/21 06:46 AST 22 U/L (14-36) 03/27/21 06:46 ALT 14 U/L (4-34) 03/27/21 06:46 Alkaline Phosphatase 109 U/L (38-126) 03/27/21 06:46 Total Protein 6.8 g/dL (6.3-8.2) 03/27/21 06:46 Albumin 3.7 g/dL (3.5-5.0) 03/27/21 06:46 Triglycerides 130.00 mg/dL (0.00-149.00) 03/27/21 06:46 Cholesterol 165.00 mg/dL (0.00-200.00) 03/27/21 06:46 LDL Cholesterol, Calc 83.9 mg/dL (0.0-131.0) 03/27/21 06:46 VLDL Cholesterol, Calc 26.00 mg/dL (5.00-40.00) 03/27/21 06:46 HDL Cholesterol 55.10 mg/dL (40.00-60.00) 03/27/21 06:46 Cholesterol/HDL Ratio 2.99 Ratio 03/27/21 06:46 TSH 4.310 mIU/L (0.465-4.680) 03/27/21 06:46 Coronavirus (PCR) Not Detected (Not Detectd) 03/26/21 19:11 Allergies Allergy/AdvReac Type Severity Reaction Status Date / Time Sulfa (Sulfonamide Allergy Unknown Verified 03/26/21 20:41 Antibiotics) Patient Condition at Discharge: Stable Plan - Discharge Summary Discharge Rx Participant: No New Discharge Prescriptions: New Aspirin 325 mg PO DAILY 30 Days tab Venlafaxine HCl ER [Effexor XR] 150 mg PO DAILY 30 Days capsule Nicotine 14Mg/24Hr Patch [Habitrol] 1 patch TRANSDERM DAILY 30 Days patch Famotidine [Pepcid] 20 mg PO BID 30 Days tab Thiamine [Vitamin B-1] 100 mg PO DAILY 30 Days tab Folic Acid 1 mg PO DAILY 30 Days tab Topiramate [Topamax] 50 mg PO HS 30 Days tab Discontinued Folic Acid 1 mg PO DAILY FLUoxetine HCL [PROzac] 60 mg PO DAILY Aspirin EC [Ecotrin] 325 mg PO DAILY Thiamine HCl [Vitamin B-1] 100 mg PO DAILY Famotidine [Pepcid] 20 mg PO BID #60 tab Ondansetron [Zofran] 4 mg PO Q8HR PRN #6 tab PRN Reason: Nausea And Vomiting LORazepam [Ativan] 1 mg PO TID 3 Days #9 tab Multivitamins, Thera [Multivitamin (formulary)] 1 tab PO DAILY Doxepin [SINEquan] 10 mg PO HS chlordiazePOXIDE HCl [Librium] See Taper PO TID 7 Days #14 capsule Discharge Medication List Aspirin 325 mg PO DAILY 30 Days tab 03/28/21 [Rx] Famotidine [Pepcid] 20 mg PO BID 30 Days tab 03/28/21 [Rx] Folic Acid 1 mg PO DAILY 30 Days tab 03/28/21 [Rx] Nicotine 14Mg/24Hr Patch [Habitrol] 1 patch TRANSDERM DAILY 30 Days patch 03/28/21 [Rx] Thiamine [Vitamin B-1] 100 mg PO DAILY 30 Days tab 03/28/21 [Rx] Topiramate [Topamax] 50 mg PO HS 30 Days tab 03/28/21 [Rx] Venlafaxine HCl ER [Effexor XR] 150 mg PO DAILY 30 Days capsule 03/28/21 [Rx] Follow up Appointment(s)/Referral(s): Eliceo Mon [Other] - 03/29/21 12[facility]00 [facility] Patient Instructions/Handouts: Mood Disorders (DC), Depression (DC), Alcohol Use Disorder (DC) Activity/Diet/Wound Care/Special Instructions: Activity and diet as tolerated. Avoid the use of street drugs and alcohol. Take all medications as prescribed. When you are in need of refills on your medications please contact your medical provider and/or outpatient psychiatrist to have this done. Please go to scheduled outpatient appointment for aftercare treatment. If symptoms return or become worse, call the crisis line at and/or go to the nearest emergency room for evaluation Discharge Disposition: OTHER INSTITUTION NOT DEFINED
== END 2021-03-29 08:15 | DRG 885 ==
LOC: EC 16:19 → 3MHU 20:35 → MERGE 20:35
PROVIDERS: ADMIT Psychiatry & Neurology Psychiatry; ATTEND Psychiatry & Neurology Psychiatry
DX: F33.2 Major depressive disorder, recurrent severe without psychotic features (principal); R45.851 Suicidal ideations; F10.10 Alcohol abuse, uncomplicated; Z71.41 Alcohol abuse counseling and surveillance of alcoholic; F17.210 Nicotine dependence, cigarettes, uncomplicated; F31.9 Bipolar disorder, unspecified; F41.9 Anxiety disorder, unspecified; R26.9 Unspecified abnormalities of gait and mobility; G43.909 Migraine, unspecified, not intractable, without status migrainosus; G47.00 Insomnia, unspecified; J44.9 Chronic obstructive pulmonary disease, unspecified; Z20.822 Contact with and (suspected) exposure to COVID-19; Z59.00 Homelessness unspecified; Z79.82 Long term (current) use of aspirin; Z79.899 Other long term (current) drug therapy; Z81.1 Family history of alcohol abuse and dependence; Z86.73 Personal history of transient ischemic attack (TIA), and cerebral infarction without residual deficits; Z56.0 Unemployment, unspecified; Z63.5 Disruption of family by separation and divorce; Z98.890 Other specified postprocedural states; Z88.2 Allergy status to sulfonamides; Z88.8 Allergy status to other drugs, medicaments and biological substances
CPT/HCPCS: 80053; 80061; 82075; 82248; 83036; 84443; 85025; 87635; 99285

== ENCOUNTER 2021-10-24 15:36 | Emergency (ER) | payer MEDICARE, OTHER ==
[2021-10-24 16:00] VITALS: RESP 18; TEMP 96.5
--- NOTE | 2021-10-24 16:03 | ED ---
General Adult HPI - General Stated complaint: seizure Time Seen by Provider: 10/24/21 15:38 Source: patient Mode of arrival: EMS - History of Present Illness Initial comments: Dictation was produced using [employer] dictation software. please excuse any grammatical, word or spelling errors. Chief Complaint: 66-year-old female with history of schizophrenia and mental disability presents to the ER for concerns of seizure History of Present Illness: 66-year-old female she has past medical history of seizure disorder, COPD and stroke. She is supposed to be taking Topamax as a mood stabilizing medication. Patient is a poor historian. She has history of mental disability. She lives at a retirement where she was witnessed to have seizure-like activity. EMS was called and patient was also found to be postictal. Patient states that she is does not take seizure medications. She i s a poor historian. The ROS documented in this emergency department record has been reviewed and c onfirmed by me. Those systems with pertinent positive or negative responses have been documented in the HPI. All other systems are other negative and/or noncontributory. PHYSICAL EXAM: General Impression: Alert and oriented x3, not in acute distress HEENT: Normocephalic atraumatic, extra-ocular movements intact, pupils equal and reactive to light bilaterally, mucous membranes moist. Cardiovascular: Heart regular rate and rhythm Chest: Able to complete full sentences, no retractions, no tachypnea Abdomen: abdomen soft, non-tender, non-distended, no organomegaly Musculoskeletal: Pulses present and equal in all extremities, no peripheral edema Motor: no focal deficits noted Neurological: CN II-XII grossly intact, no focal motor or sensory deficits noted Skin: Intact with no visualized rashes Psych: Tangential speech ED course: 66-year-old female with past medical history of schizophrenia, chronic mental disability presents to the ER for suspicion of seizure today. She supposed be on Topamax, however is not compliant with this medication.. Vital signs upon arrival are within acceptable limits. Patient has no focal neurologic deficit. Patient is well-appearing and has no complaints. Laboratory evaluation obtained. CBC, metabolic panel is unremarkable. Patient had her seizures evaluated in the past hasn't been evaluated by neurology here in our facility. She does have history of abnormal CT with hypoattenuation seen in the limbic system on the left side. She is to be on Depakote 500 mg 3 times daily which is also prescribed to help with stabilization at that time Computed tomography scan of the brain shows no acute intracranial processes. There does appear to be chronic stable encephalomalacia of the left frontal left temporal lobes. Patient observed in emergency department for approximately 2 hours and 30 minutes. She did not have any seizure activity. Patient be discharged advised follow-up with primary care doctor and/or neurologist. - Related Data Home Medications Medication Instructions Recorded Confirmed Aspirin 325 mg PO DAILY 02/14/21 02/14/21 Bacitracin Zinc Oint 1 applic TOPICAL BID PRN 02/14/21 02/14/21 Multivitamins, Thera [Multivitamin 1 tab PO DAILY 02/14/21 02/14/21 (formulary)] Nicotine 21Mg/24Hr Patch [Habitrol] 1 patch TRANSDERM DAILY PRN 02/14/21 02/14/21 Previous Rx's Medication Instructions Recorded Acetaminophen Tab [Tylenol] 650 mg PO Q4HR PRN tab 01/18/21 Doxepin [SINEquan] 10 mg PO HS 30 Days cap 01/18/21 FLUoxetine HCL [PROzac] 30 mg PO DAILY 30 Days cap 01/18/21 Folic Acid 1 mg PO DAILY 30 Days tab 01/18/21 Thiamine [Vitamin B-1] 100 mg PO DAILY 30 Days tab 01/18/21 Aspirin 325 mg PO DAILY 30 Days tab 03/28/21 Famotidine [Pepcid] 20 mg PO BID 30 Days tab 03/28/21 Folic Acid 1 mg PO DAILY 30 Days tab 03/28/21 Nicotine 14Mg/24Hr Patch [Habitrol] 1 patch TRANSDERM DAILY 30 Days 03/28/21 patch Thiamine [Vitamin B-1] 100 mg PO DAILY 30 Days tab 03/28/21 Topiramate [Topamax] 50 mg PO HS 30 Days tab 03/28/21 Venlafaxine HCl ER [Effexor XR] 150 mg PO DAILY 30 Days capsule 03/28/21 Allergies Allergy/AdvReac Type Severity Reaction Status Date / Time Sulfa (Sulfonamide Allergy Severe Rash/Hives Verified 10/24/21 16:00 Antibiotics) oxcarbazepine Allergy Unknown Verified 10/24/21 16:00 [From Trileptal] Review of Systems ROS Statement: Those systems with pertinent positive or pertinent negative responses have been documented in the HPI. ROS Other: All systems not noted in ROS Statement are negative. 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 History of Any Multi-Drug Resistant Organisms: None Reported Past Surgical History: No Surgical Hx Reported, Orthopedic Surgery Additional Past Surgical History / Comment(s): R shoulder surgery d/t injury, L leg surgery d/t injury, colonoscopy Past Anesthesia/Blood Transfusion Reactions: No Reported Reaction Past Psychological History: Anxiety, Bipolar, Depression Smoking Status: Current every day smoker, Current some day smoker, Heavy tobacco smoker Past Alcohol Use History: Abuse, Daily, Heavy - Past Family History Father History Unknown: Yes Mother Additional Family Medical History / Comment(s): Mother is , pt states she was healthy. Course Vital Signs 10/24/21 10/24/21 15:42 18:00 Temperature 96.5 F L Pulse Rate 71 72 Respiratory 18 18 Rate Blood Pressure 177/92 154/76 O2 Sat by Pulse 97 97 Oximetry Medical Decision Making - Lab Data Result diagrams: 10/24/21 16:08 10/24/21 16:08 Lab Results 10/24/21 10/24/21 Range/Units 16:08 16:08 WBC 7.6 (3.8-10.6) k/uL RBC 4.37 (3.80-5.40) m/uL Hgb 13.2 (11.4-16.0) gm/dL Hct 41.6 (34.0-46.0) % MCV 95.2 (80.0-100.0) fL MCH 30.2 (25.0-35.0) pg MCHC 31.7 (31.0-37.0) g/dL RDW 12.7 (11.5-15.5) % Plt Count 272 (150-450) k/uL MPV 8.2 Neutrophils % 62 % Lymphocytes % 26 % Monocytes % 3 % Eosinophils % 6 % Basophils % 1 % Neutrophils # 4.7 (1.3-7.7) k/uL Lymphocytes # 2.0 (1.0-4.8) k/uL Monocytes # 0.2 (0-1.0) k/uL Eosinophils # 0.5 (0-0.7) k/uL Basophils # 0.1 (0-0.2) k/uL Sodium 137 (137-145) mmol/L Potassium 4.0 (3.5-5.1) mmol/L Chloride 102 (98-107) mmol/L Carbon Dioxide 29 (22-30) mmol/L Anion Gap 6 mmol/L BUN 13 (7-17) mg/dL Creatinine 0.85 (0.52-1.04) mg/dL Est GFR (CKD-EPI)AfAm 82 (>60 ml/min/1.73 sqM) Est GFR (CKD-EPI)NonAf 71 (>60 ml/min/1.73 sqM) Glucose 104 H (74-99) mg/dL Calcium 9.1 (8.4-10.2) mg/dL Magnesium 2.0 (1.6-2.3) mg/dL Disposition Clinical Impression: Recurrent seizures Disposition: HOME SELF-CARE Condition: Good Instructions (If sedation given, give patient instructions): Recurrent Seizures in Adults (ED) Is patient prescribed a controlled substance at d/c from ED?: No Referrals: Adair Silva MD [Primary Care Provider] - 1-2 days Time of Disposition: 18:03
[2021-10-24 16:29] LABS: Basophils # (A) 0.1 k/uL (0-0.2); Basophils % (A) 1 %; Eosinophils # (A) 0.5 k/uL (0-0.7); Eosinophils % (A) 6 %; HCT 41.6 % (34.0-46.0); HGB 13.2 gm/dL (11.4-16.0); Lymphocytes % (A) 26 %; MCH 30.2 pg (25.0-35.0); MCHC 31.7 g/dL (31.0-37.0); MCV 95.2 fL (80.0-100.0); Mean Platelet Volume 8.2; Monocytes # (A) 0.2 k/uL (0-1.0); Monocytes % (A) 3 %; Neutrophils # (A) 4.7 k/uL (1.3-7.7); Neutrophils % (A) 62 %; Platelet Count 272 k/uL (150-450); RBC 4.37 m/uL (3.80-5.40); RDW 12.7 % (11.5-15.5); WBC 7.6 k/uL (3.8-10.6)
[2021-10-24 16:38] LABS: Calcium 9.1 mg/dL (8.4-10.2)
--- NOTE | 2021-10-24 17:54 | CT ---
EXAMINATION TYPE: CT brain wo con CT DLP: 1078.4 mGycm, Automated exposure control for dose reduction was used. DATE OF EXAM: 10/24/2021 5:18 PM COMPARISON: CT brain on 02/15/2021. CLINICAL INDICATION:Female, 66 years old with history of seizure, TECHNIQUE: Brain: Multiple axial CT images of the brain were obtained without IV contrast. FINDINGS: Brain: Extra-axial spaces: No abnormal extra-axial fluid collections. Ventricular system: Within normal limits Cerebral parenchyma: Encephalomalacia of the left frontal and temporal lobes. No acute intraparenchym al hemorrhage or mass effect. The leone-white junction is well differentiated. Cerebellum: Unremarkable. Mass effect: No evidence of midline shift. Intracranial vasculature: unremarkable Soft tissues: Normal. Calvarium/osseous structures: No depressed skull fracture. Paranasal sinuses and mastoid air cells: Mild scattered paranasal sinus disease. Visualized orbits: Orbital contents are intact. IMPRESSION: 1. No acute intracranial process. 2. Encephalomalacia of the left frontal and left temporal lobes from prior injury.
[2021-10-24 18:02] VITALS: BP 154/76; PULSE 72
== END 2021-10-24 21:20 | disposition home or self-care (01) ==
LOC: EC 15:36
DX: G40.909 Epilepsy, unspecified, not intractable, without status epilepticus (principal); J44.9 Chronic obstructive pulmonary disease, unspecified; F31.9 Bipolar disorder, unspecified; F41.9 Anxiety disorder, unspecified; F17.200 Nicotine dependence, unspecified, uncomplicated; Z86.73 Personal history of transient ischemic attack (TIA), and cerebral infarction without residual deficits; Z79.82 Long term (current) use of aspirin; Z79.899 Other long term (current) drug therapy
CPT/HCPCS: 36415; 70450; 80048; 83735; 85025; 93005; 99284

== ENCOUNTER → 2023-04-16 | Outpatient (CLI) | payer MEDICARE, OTHER ==
--- NOTE | 2023-04-20 09:31 | CT ---
EXAMINATION TYPE: CT brain cspine wo con CT DLP: 1449.50 mGycm, Automated exposure control for dose reduction was used. DATE OF EXAM: 04/16/2023 11:29 AM COMPARISON: CT brain 10/24/2021, CT brain and C-spine 02/15/2021. CLINICAL INDICATION:Female, 68 years old with history of R29.6 RECURRENT FALLS Z87.898 SEIZURES; hx o f cva, seizures and falls. c/o headaches and neck pain. TECHNIQUE: Brain: Multiple axial CT images of the brain were obtained without IV contrast. Cspine: Axial CT images from the skull base to the inferior aspect of T2 we obtained without intraven ous contrast. Coronal and sagittal reformatted images were also reviewed. FINDINGS: Brain: Extra-axial spaces: No abnormal extra-axial fluid collections. Ventricular system: Appear dilated in proportion to the degree of cerebral atrophy. Cerebral parenchyma: No increased attenuation to suggest acute intraparenchymal hemorrhage. The gra y-white matter interface appears maintained. Mild generalized brain atrophy. Scattered hypoattenuat ing areas are seen within the cerebral white matter, nonspecific but most often seen with chronic shady rovascular ischemic changes; mild in degree. Encephalomalacia with some volume loss consistent with remote insult to the left inferior frontal and parietal lobes, similar to previous. Cerebellum: No acute abnormality. Mass effect: No evidence of mass effect or midline shift. Intracranial vasculature: Atherosclerotic calcifications of the larger arteries near the skull base. Soft tissues: No significant acute abnormality. Visualized orbits: Orbital contents appear grossly intact. Calvarium/osseous structures: No evidence of calvarial fracture. Nasal septal deviation to the right anteriorly. Paranasal sinuses and mastoid air cells: Clear MRI is more sensitive for detecting acute processes such as infarct, and may be considered if clinica lly warranted. Cervical spine: Fracture: None seen. Osseous structures, spinal canal/neural foramina: Moderate degenerative changes of the anterior C1-C2 articulation. Mild degenerative disc disease changes with mild facet arthrosis. No significant narro wing of the bony canal or neural foraminal is identified. Vertebral alignment: No traumatic malalignment. Preserved normal cervical lordosis. Neck soft tissues: No acute finding.. Generally moderate diffuse atherosclerotic calcification of the arteries, greatest in the common carotid arteries and bifurcation regions. Nonenlarged nodes seen in the bilateral neck. Other: Lung apices show moderate to severe paraseptal and centrilobular emphysema. No acute infiltrat e. There is some debris seen in the upper thoracic esophagus with mild prominence of the lumen. Dista l process such as achalasia etc. could be present. IMPRESSION: CT head: 1. No acute intracranial CT abnormality. 2. Generalized atrophy and encephalomalacia from remote insult to the left frontal and parietal lobes redemonstrated. CT cervical spine: 1. No evidence of cervical spine fracture or traumatic malalignment. 2. Mild cervical spondylosis. 3. Generally moderate diffuse atherosclerotic calcification of the arteries, greatest in the common carotid arteries and bifurcation regions. 4. Moderate to severe pulmonary emphysematous changes. 5. Some debris seen within a mildly prominent upper thoracic esophagus. Distal process such as achal vashti, reflux etc. could be present.
== END | disposition home or self-care (01) ==
LOC: RADCTMAIN 11:02
PROVIDERS: ATTEND Psychiatry & Neurology Neurology
DX: G31.1 Senile degeneration of brain, not elsewhere classified (principal); G93.89 Other specified disorders of brain; M47.812 Spondylosis without myelopathy or radiculopathy, cervical region; J43.2 Centrilobular emphysema; R29.6 Repeated falls; K22.89 Other specified disease of esophagus; Z87.898 Personal history of other specified conditions
CPT/HCPCS: 70450; 72125

== ENCOUNTER 2023-07-06 09:17 | Emergency (ER) | payer MEDICARE ==
--- NOTE | 2023-07-06 09:51 | ED ---
Fall HPI - General Chief Complaint: Fall Stated Complaint: Syncope Time Seen by Provider: 07/06/23 09:20 Source: patient, RN notes reviewed, Caregiver Mode of arrival: EMS Limitations: no limitations - History of Present Illness Initial Comments: This is a 68-year-old female who presents to the emergency department for a fall. Patient has a history of recurrent falls over the last several years. States that she had another fall today, and hit the back of her head. Caregiver at bedside states that she was a little slow to respond afterwards and may have had loss of consciousness. Not taking any blood thinners. Currently complaining of a headache and lower back pain. Denies any chest pain or shortness of breath. She had no symptoms prior to the fall. MD Complaint: fall - Related Data Home Medications Medication Instructions Recorded Confirmed Aspirin 325 mg PO DAILY 02/14/21 02/14/21 Bacitracin Zinc Oint 1 applic TOPICAL BID PRN 02/14/21 02/14/21 Multivitamins, Thera [Multivitamin 1 tab PO DAILY 02/14/21 02/14/21 (formulary)] Nicotine 21Mg/24Hr Patch [Habitrol] 1 patch TRANSDERM DAILY PRN 02/14/21 02/14/21 Previous Rx's Medication Instructions Recorded Acetaminophen Tab [Tylenol] 650 mg PO Q4HR PRN tab 01/18/21 Doxepin [SINEquan] 10 mg PO HS 30 Days cap 01/18/21 FLUoxetine HCL [PROzac] 30 mg PO DAILY 30 Days cap 01/18/21 Folic Acid 1 mg PO DAILY 30 Days tab 01/18/21 Thiamine [Vitamin B-1] 100 mg PO DAILY 30 Days tab 01/18/21 Aspirin 325 mg PO DAILY 30 Days tab 03/28/21 Famotidine [Pepcid] 20 mg PO BID 30 Days tab 03/28/21 Folic Acid 1 mg PO DAILY 30 Days tab 03/28/21 Nicotine 14Mg/24Hr Patch [Habitrol] 1 patch TRANSDERM DAILY 30 Days 03/28/21 patch Thiamine [Vitamin B-1] 100 mg PO DAILY 30 Days tab 03/28/21 Topiramate [Topamax] 50 mg PO HS 30 Days tab 03/28/21 Venlafaxine HCl ER [Effexor XR] 150 mg PO DAILY 30 Days capsule 03/28/21 Lidocaine 5% Patch [Lidoderm 5% 1 patch TOPICAL DAILY PRN #30 patch 07/06/23 Patch] Allergies Allergy/AdvReac Type Severity Reaction Status Date / Time Sulfa (Sulfonamide Allergy Severe Rash/Hives Verified 10/24/21 16:00 Antibiotics) oxcarbazepine Allergy Unknown Verified 10/24/21 16:00 [From Trileptal] Review of Systems ROS Statement: Those systems with pertinent positive or pertinent negative responses have been documented in the HPI. ROS Other: All systems not noted in ROS Statement are negative. 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 History of Any Multi-Drug Resistant Organisms: None Reported Past Surgical History: No Surgical Hx Reported, Orthopedic Surgery Additional Past Surgical History / Comment(s): R shoulder surgery d/t injury, L leg surgery d/t injury, colonoscopy Past Anesthesia/Blood Transfusion Reactions: No Reported Reaction Past Psychological History: Anxiety, Bipolar, Depression Smoking Status: Current every day smoker, Current some day smoker, Heavy tobacco smoker Past Alcohol Use History: Abuse, Daily, Heavy - Past Family History Father History Unknown: Yes Family Medical History: Hypertension Mother Family Medical History: No Reported History Additional Family Medical History / Comment(s): Mother is , pt states she was healthy. General Exam Limitations: no limitations General appearance: alert, in no apparent distress Head exam: Present: atraumatic, normocephalic, normal inspection Eye exam: Present: normal appearance, PERRL, EOMI. Absent: scleral icterus, conjunctival injection, periorbital swelling Respiratory exam: Present: normal lung sounds bilaterally. Absent: respiratory distress, wheezes, rales, rhonchi, stridor Cardiovascular Exam: Present: regular rate, normal rhythm, normal heart sounds. Absent: systolic murmur, diastolic murmur, rubs, gallop, clicks Neurological exam: Present: alert, oriented X3, CN II-XII intact Psychiatric exam: Present: normal affect, normal mood Skin exam: Present: warm, dry, intact, normal color. Absent: rash Course Vital Signs 07/06/23 07/06/23 07/06/23 09:23 11:25 12:06 Temperature 98 F Pulse Rate 53 L 80 68 Respiratory 16 16 16 Rate Blood Pressure 104/44 131/49 136/82 O2 Sat by Pulse 98 98 98 Oximetry Medical Decision Making - Medical Decision Making This is a 68 year old female who presents to the emergency department for a fall and head injury. Was pt. sent in by a medical professional or institution? @ -No Did you speak to anyone other than the patient for history? @ -Caregiver provided the information about the patient being slower to respond after the fall. Did you review nursing and triage notes? @ -Yes, and I agree, it is accurate with regards to the patient's symptoms. Were old charts reviewed? @ -No Differential Diagnosis? @ -Differential Diagnosis Head Injury: Contusion, hematoma, intracranial hemorrhage, skull fracture, whiplash, concussion, this is not meant to be an all-inclusive list. EKG interpreted by me (3pts min.)? @ -EKG interpreted by me demonstrating the following: Sinus bradycardia. Ventricular rate 51 bpm, DE interval 155 ms, QRS duration 101 ms, QTc 426 ms. X-rays interpreted by me (1pt min.)? @ -X-ray of the lumbar spine obtained. My interpretation identifies compression deformities of the lower thoracic and upper lumbar spine. CT interpreted by me (1pt min.)? @ -Computed tomography scan of the brain and c-spine obtained. My interpretation identifies no evidence of an acute intracranial hemorrhage, skull fracture, or cervical spine fracture. U/S interpreted by me (1pt. min.)? @ -Not obtained What testing was considered but not performed? (CT, X-rays, U/S, labs)? Why? @ -None What meds were considered but not given? Why? @ -None Did you discuss the management of the patient with other professionals? @ -No Did you reconcile home meds? @ -No Was smoking cessation discussed for >3mins.? @ -I discussed smoking cessation for greater than 3 minutes. The risk of smoking were discussed with the patient including but not limited to risks of cancer, stroke, coronary artery disease and COPD. Also discussed with patient were multiple methods of quitting smoking. Lastly we discussed the financial cost of smoking. Was critical care preformed (if so, how long)? @ -No Were there social determinants of health that impacted care today? How? (Homelessness, low income, unemployed, alcoholism, drug addiction, transportation, low edu. Level, literacy, decrease access to med. care, custodial, rehab)? @ -No Was there de-escalation of care discussed even if they declined? (Discuss DNR or withdrawal of care, Hospice)? @ -No What co-morbidities impacted this encounter? (DM, HTN, Smoking, COPD, CAD, Cancer, CVA, Hep., AIDS, mental health diagnosis, sleep apnea, morbid obesity)? @ -Smoking Was patient admitted / discharged? @ -Discharged. Lab work unremarkable. CT scan of the brain and C-spine reveals no acute process. X-ray of the lumbar spine obtained demonstrating age- indeterminate compression deformities of T11, T12, L1, and L2. She has complained of back pain in prior falls, and it is not entirely clear when these fractures occurred. Advised Tylenol as needed for any additional pain relief. Prescription for lidocaine patches provided with dosing instructions reviewed. She was given information for orthopedic follow-up regarding the compression deformities. She was otherwise discharged home in stable condition. Undiagnosed new problem with uncertain prognosis? @ -None Drug Therapy requiring intensive monitoring for toxicity (Heparin, Nitro, Insulin, Cardizem)? @ -None Were any procedures done? @ -None Diagnosis/symptom? @ -Fall, head injury Acute, or Chronic, or Acute on Chronic? @ -Acute Uncomplicated (without systemic symptoms) or Complicated (systemic symptoms)? @ -Uncomplicated Side effects of treatment? @ -None Exacerbation, Progression, or Severe Exacerbation] @ -Not applicable Poses a threat to life or bodily function? @ -No Return precautions reviewed in depth, the patient is instructed to return to the emergency department with any new, worsening, or concerning symptoms. Patient verbalized understanding. This case was discussed in detail with the attending ED physician, Dr. Tyler. Presentation, findings, and treatment plan discussed in detail as well. - Lab Data Result diagrams: 07/06/23 10:02 07/06/23 10:02 Lab Results 07/06/23 07/06/23 Range/Units 10:02 10:02 WBC 7.0 (3.8-10.6) k/uL RBC 4.01 (3.80-5.40) m/uL Hgb 12.7 (11.4-16.0) gm/dL Hct 39.5 (34.0-46.0) % MCV 98.7 (80.0-100.0) fL MCH 31.8 (25.0-35.0) pg MCHC 32.2 (31.0-37.0) g/dL RDW 13.2 (11.5-15.5) % Plt Count 266 (150-450) k/uL MPV 8.2 Neutrophils % 61 % Lymphocytes % 28 % Monocytes % 4 % Eosinophils % 5 % Basophils % 1 % Neutrophils # 4.2 (1.3-7.7) k/uL Lymphocytes # 2.0 (1.0-4.8) k/uL Monocytes # 0.3 (0-1.0) k/uL Eosinophils # 0.3 (0-0.7) k/uL Basophils # 0.1 (0-0.2) k/uL Sodium 141 (137-145) mmol/L Potassium 5.1 (3.5-5.1) mmol/L Chloride 110 H (98-107) mmol/L Carbon Dioxide 22 (22-30) mmol/L Anion Gap 9 mmol/L BUN 25 H (7-17) mg/dL Creatinine 1.09 H (0.52-1.04) mg/dL Est GFR (CKD-EPI)AfAm 60 (>60 ml/min/1.73 sqM) Est GFR (CKD-EPI)NonAf 52 (>60 ml/min/1.73 sqM) Glucose 79 (74-99) mg/dL Calcium 9.6 (8.4-10.2) mg/dL Total Bilirubin 0.5 (0.2-1.3) mg/dL AST 53 H (14-36) U/L ALT 27 (4-34) U/L Alkaline Phosphatase 60 (38-126) U/L Total Protein 7.4 (6.3-8.2) g/dL Albumin 4.1 (3.5-5.0) g/dL Serum Alcohol <10 mg/dL - Radiology Data Radiology results: report reviewed, image reviewed Disposition Clinical Impression: Fall, Compression fracture, Head injury, Nicotine dependence Disposition: HOME SELF-CARE Instructions (If sedation given, give patient instructions): Vertebral Compression Fracture (ED), Fall Prevention for Older Adults (ED) Additional Instructions: Return to the emergency department with any new, worsening, or concerning symptoms. Take Tylenol as needed for pain relief. You can apply the lidocaine patches daily. Contact the orthopedic provider listed below for a follow-up appointment regarding the compression fractures of the spine. Follow up with your primary care provider in 1-2 days. Prescriptions: Lidocaine 5% Patch [Lidoderm 5% Patch] 1 patch TOPICAL DAILY PRN #30 patch PRN Reason: Pain Is patient prescribed a controlled substance at d/c from ED?: No Referrals: None,Stated [Primary Care Provider] - 1-2 days Lashell De Oliveira DO [Doctor of Osteopathic Medicine] - 1-2 days Time of Disposition: 11:45
[2023-07-06 10:00] VITALS: RESP 16; TEMP 98
[2023-07-06 10:13] LABS: Basophils # (A) 0.1 k/uL (0-0.2); Basophils % (A) 1 %; Eosinophils # (A) 0.3 k/uL (0-0.7); Eosinophils % (A) 5 %; HCT 39.5 % (34.0-46.0); HGB 12.7 gm/dL (11.4-16.0); Lymphocytes % (A) 28 %; MCH 31.8 pg (25.0-35.0); MCHC 32.2 g/dL (31.0-37.0); MCV 98.7 fL (80.0-100.0); Mean Platelet Volume 8.2; Monocytes # (A) 0.3 k/uL (0-1.0); Monocytes % (A) 4 %; Neutrophils # (A) 4.2 k/uL (1.3-7.7); Neutrophils % (A) 61 %; Platelet Count 266 k/uL (150-450); RBC 4.01 m/uL (3.80-5.40); RDW 13.2 % (11.5-15.5)
[2023-07-06 10:26] LABS: ALT 27 U/L (4-34); African American GFR (CKD) 60 (>60 ml/min/1.73 sqM); Albumin 4.1 g/dL (3.5-5.0); Alcohol <10 mg/dL; Anion Gap 9 mmol/L; Blood Urea Nitrogen 25 mg/dL (7-17); Calcium 9.6 mg/dL (8.4-10.2); Carbon Dioxide 22 mmol/L (22-30); Chloride 110 mmol/L (98-107); Glucose 79 mg/dL (74-99); Non-African American GFR(CKD) 52 (>60 ml/min/1.73 sqM); Sodium 141 mmol/L (137-145); Total Bilirubin 0.5 mg/dL (0.2-1.3); Total Protein 7.4 g/dL (6.3-8.2)
--- NOTE | 2023-07-06 10:37 | CT ---
EXAMINATION TYPE: CT brain soledad harris con DATE OF EXAM: 07/06/2023 COMPARISON: 04/16/2023 HISTORY: fall CT DLP: 1300.4 mGycm Automated exposure control for dose reduction was used. TECHNIQUE: CT scan of the head and cervical spine are performed without contrast. Findings: Head CT: Ventricles, basal cisterns and sulci over convexities within normal limits for the patient's age and there is no mass, mass effect or shift of midline structures. There are moderate to large areas of encephalomalacia involving the left frontal lobe and left tempor al lobe consistent with remote infarcts. There is mild decreased density in the periventricular white matter consistent with mild chronic ischemic white matter demyelination. There is no acute intra or extra-axial hemorrhage. Posterior fossa including the brainstem, fourth ventricle and cerebellar pontine angles are grossly n ormal. The intraorbital contents appear normal and symmetric. Visualized paranasal sinuses are well aerated. CT cervical spine: Craniovertebral junction relationships and prevertebral soft tissues are normal. The cervical vertebral segments are normal in height and alignment and there is no fracture subluxati on. The disc spaces are well-maintained in height and there is no significant degenerative disc disease. The bony cervical canal is widely patent and there is no bony encroachment of the neural foramina. The paraspinal soft tissues unremarkable. IMPRESSION: 1. Head CT: No acute bleed or mass effect. Remote left frontal and left temporal infarcts. 2. CT cervical spine: No acute trauma.
[2023-07-06 10:49] LABS: AST 53 U/L (14-36); Alkaline Phosphatase 60 U/L (38-126); Potassium 5.1 mmol/L (3.5-5.1)
--- NOTE | 2023-07-06 11:06 | XR ---
Lumbar spine. HISTORY: Neck pain after fall. COMPARISON: None TECHNIQUE: 3 views of the lumbar spine were obtained. The osseous structures are diffusely osteopenic. There are multiple mild compression fractures involv ing T11, T12, L1 and L2. There are indeterminate age given the lack of prior study for comparison. Th e lumbar vertebral segments are normal in alignment. Disc spaces well-maintained Sacrum and SI joints normal. IMPRESSION: Mild compression fractures of T11, T12, L1 and L2 of indeterminate age. Diffuse osteopenia.
[2023-07-06] MEDS: ACETAMINOPHEN TAB 500 MG TAB PO STA (11:58)
[2023-07-06] MEDS: LIDOCAINE 4% PATCH TOPICAL ONE (11:58)
[2023-07-06 12:18] VITALS: BP 136/82; PULSE 68
== END 2023-07-06 12:07 | disposition home or self-care (01) ==
LOC: EC 09:17
DX: S22.080A Wedge compression fracture of T11-T12 vertebra, initial encounter for closed fracture (principal); S09.90XA Unspecified injury of head, initial encounter; I45.10 Unspecified right bundle-branch block; F17.200 Nicotine dependence, unspecified, uncomplicated; Z88.2 Allergy status to sulfonamides; Z88.8 Allergy status to other drugs, medicaments and biological substances; W19.XXXA Unspecified fall, initial encounter
CPT/HCPCS: 36415; 70450; 72100; 72125; 80053; 80320; 85025; 93005; 99285; 99406

== ENCOUNTER → 2023-08-02 | Outpatient (CLI) | payer MEDICARE ==
--- NOTE | 2023-08-02 16:25 | BD ---
EXAMINATION TYPE: Axial Bone Density DATE OF EXAM: 08/02/2023 CLINICAL HISTORY: 68 years old Female. ICD-10 CODE: M85.89 OTH DISRD OF BONE DENSITY AND STRUCTURE, MU Height: 64 in Weight: 155 lbs FRAX RISK QUESTIONS: Family History (Parent hip fracture): yes father History of Fracture in Adulthood: many fx. pt unsure of all fx. skull fx, rt arm, rt hand, rt tib/fi b, lt hip Secondary Osteoporosis: 3. Menopause before 45: age 39 Current Tobacco Use: yes RISK FACTORS HISTORY OF: Hip Fracture (Left): unsure when Surgery to Hip(left): yes unsure when EXAM MEASUREMENTS: Bone mineral densitometry was performed using the [employer] System. Bone mineral density as measured about the Lumbar spine is: ----- L1-L4(G/cm2): 0.949 T Score Values are as follows: ----- L1: -1.0 ----- L2: -1.3 ----- L3: -2.5 ----- L4: -2.6 ----- L1-L4: -1.9 Z Score Values are as follows: ----- L1: 0.4 ----- L2: 0.2 ----- L3: -1.0 ----- L4: -1.1 ----- L1-L4: -0.4 Bone mineral density has: Increased 2.4% since study of: 08/13/2016 Bone mineral density about the R hip (g/cm2): 0.653 T Score values are as follows: -----R Neck: -2.5 -----R Total: -2.8 Z Score values are as follows: -----R Neck: -1.0 -----R Total: -2.2 Bone mineral density has: Increased 0.6% since study of: 08/13/2016 FRAX%s: The graph provided illustrates a 30.9% chance for a major osteoporotic fx and a 14.1% chance for the hips probability for fx in 10 years time. IMPRESSION: Osteoporosis (T Score less than -2.5). There is increased fracture risk and therapy is usually indicated based on age. Re-Screen 1-2 years. NOTE: T-SCORE=SD OF THE YOUNG ADULT MEAN.
== END | disposition home or self-care (01) ==
LOC: RADBDWWP 09:15
PROVIDERS: ATTEND General Practice
DX: M85.89 Other specified disorders of bone density and structure, multiple sites (principal); M81.0 Age-related osteoporosis without current pathological fracture; Z78.0 Asymptomatic menopausal state
CPT/HCPCS: 77080

== ENCOUNTER 2023-12-02 07:30 | Inpatient (IN) | payer MEDICARE, OTHER ==
[~2023-12-02 07:30] MED LIST: ACETAMINOPHEN TAB 500 MG TAB ONE; DEXAMETHASONE SOD PHOSPHATE 4 MG/ML 1 ML VIAL ONE; GLYCOPYRROLATE 0.2 MG/ML 2 ML VIAL ONE; HEPARIN SODIUM,PORCINE 5,000 UNIT/ML 1 ML VIAL ONE; KETOROLAC 15 MG/ML 1 ML VIAL ONE; LACTATED RINGERS 1,000 ML BAG ONE; LIDOCAINE 1% INJ 10MG/ML (20 ML MDV) ONE; LIDOCAINE 1%-EPI 1:100,000 20 ML VIAL ONE; NEOSTIGMINE 1 MG/ML 10 ML VIAL ONE; ONDANSETRON 4 MG/2 ML VIAL ONE; PROPOFOL 10 MG/ML 20 ML VIAL IV ONE; ROCURONIUM 10 MG/ML (5 ML VIAL) IV ONE; SUCCINYLCHOLINE CHLORIDE 200 MG/10 ML VIAL IV ONE; ePHEDrine 50 MG/ML 1 ML VIAL ONE; fentaNYL (PF) 50 MCG/ML 2 ML AMP ONE
[2023-12-02] MEDS ORDERED: LIDOCAINE 1%-EPI 1:100,000 20 ML VIAL ONE (07:34)
[2023-12-02] MEDS ORDERED: SODIUM CHLORIDE 0.9% 50 ML BAG ONE (07:34)
[2023-12-02] MEDS ORDERED: ceFAZolin 10 GM VIAL IVPB ONE (07:34)
[2023-12-02] MEDS ORDERED: LACTATED RINGERS 1,000 ML BAG ONE (07:34)
[2023-12-02] MEDS ORDERED: ONDANSETRON 4 MG/2 ML VIAL ONE ×2 (10:40)
[2023-12-02] MEDS ORDERED: droPERidol 5 MG/2 ML VIAL ONE (12:09)
[2023-12-02] MEDS ORDERED: TAMSULOSIN 0.4 MG CAP.ER.24H PO ONE ×2 (14:07)
[2023-12-02] MEDS ORDERED: HYDROmorphone 0.5 MG/0.5 ML SYRINGE ONE ×2 (17:03)
[2023-12-02] MEDS ORDERED: METOPROLOL TARTRATE 25 MG TAB ONE (20:05)
[2023-12-02] MEDS ORDERED: TOPIRAMATE 25 MG TAB ONE (20:05)
[2023-12-02] MEDS ORDERED: traZODone HCL 100 MG TAB ONE (20:05)
[2023-12-02] MEDS ORDERED: ATORVASTATIN 20 MG TAB ONE (20:06)
[2023-12-02] MEDS ORDERED: SODIUM CHLORIDE 0.9% 1,000 ML BAG ONE (23:59)
[2023-12-03] MEDS ORDERED: HYDROmorphone 1 MG/ML 1 ML SYRINGE ONE (07:35)
[2023-12-03] MEDS ORDERED: HYDROcodone/APAP 5-325MG 1 EACH TAB ONE ×2 (13:57→19:46)
[2023-12-03] MEDS ORDERED: PANTOPRAZOLE 40 MG/10 ML VIAL ONE (19:45)
[2023-12-03] MEDS ORDERED: traZODone HCL 100 MG TAB ONE (23:13)
[2023-12-03] MEDS ORDERED: ALPRAZolam 1 MG TAB ONE (23:14)
[2023-12-03] MEDS ORDERED: METOPROLOL TARTRATE 25 MG TAB ONE (23:14)
[2023-12-03] MEDS ORDERED: SODIUM CHLORIDE 0.9% 1,000 ML BAG ONE (23:59)
[2023-12-03] MEDS ORDERED: ATORVASTATIN 20 MG TAB ONE (23:59)
[2023-12-04] MEDS ORDERED: HYDROcodone/APAP 5-325MG 1 EACH TAB ONE ×3 (03:37→22:18)
[2023-12-04] MEDS ORDERED: PANTOPRAZOLE 40 MG/10 ML VIAL ONE ×2 (07:53→22:11)
[2023-12-04] MEDS ORDERED: METOPROLOL TARTRATE 25 MG TAB ONE ×2 (07:53→22:13)
[2023-12-04] MEDS ORDERED: amLODIPine 10 MG TAB ONE (07:53)
[2023-12-04] MEDS ORDERED: ASPIRIN 81 MG ONE (07:54)
[2023-12-04] MEDS ORDERED: FOLIC ACID 1 MG TAB ONE (07:54)
[2023-12-04] MEDS ORDERED: ALPRAZolam 1 MG TAB ONE ×3 (07:54→22:12)
[2023-12-04] MEDS ORDERED: CITALOPRAM HYDROBROMIDE 20 MG TAB ONE (07:54)
[2023-12-04] MEDS ORDERED: LORATADINE 10 MG TAB ONE (07:54)
[2023-12-04] MEDS ORDERED: oxyBUTYnin chloride 5 MG TAB ONE (07:54)
[2023-12-04] MEDS ORDERED: CHOLECALCIFEROL 25 MCG (1000 IU) TABLET ONE (07:55)
[2023-12-04] MEDS ORDERED: ATORVASTATIN 20 MG TAB ONE (22:12)
[2023-12-04] MEDS ORDERED: traZODone HCL 50 MG TAB ONE (22:14)
[2023-12-04] MEDS ORDERED: hydrALAZINE HCL 25 MG TAB ONE (22:17)
[2023-12-04] MEDS ORDERED: OXYBUTYNIN XL 5 MG TAB.ER.24 PO ONE (23:59)
[2023-12-04] MEDS ORDERED: traZODone HCL 100 MG TAB ONE (23:59)
[2023-12-04] MEDS ORDERED: ALBUTEROL HFA INHALER INHALATION ONE (23:59)
[2023-12-04] MEDS ORDERED: FENOFIBRATE 160 MG TAB ONE (23:59)
[2023-12-04] MEDS ORDERED: IPRATROPIUM-ALBUTEROL 3 ML NEB ONE (23:59)
[2023-12-05] MEDS ORDERED: HYDROcodone/APAP 5-325MG 1 EACH TAB ONE (05:30)
[2023-12-05] MEDS ORDERED: PANTOPRAZOLE 40 MG/10 ML VIAL ONE ×2 (08:03→20:22)
[2023-12-05] MEDS ORDERED: FOLIC ACID 1 MG TAB ONE (09:45)
[2023-12-05] MEDS ORDERED: amLODIPine 10 MG TAB ONE (09:45)
[2023-12-05] MEDS ORDERED: ASPIRIN 81 MG ONE (09:45)
[2023-12-05] MEDS ORDERED: LORATADINE 10 MG TAB ONE (09:45)
[2023-12-05] MEDS ORDERED: CITALOPRAM HYDROBROMIDE 20 MG TAB ONE ×2 (09:46→23:59)
[2023-12-05] MEDS ORDERED: METOPROLOL TARTRATE 25 MG TAB ONE ×2 (09:46→20:23)
[2023-12-05] MEDS ORDERED: CHOLECALCIFEROL 25 MCG (1000 IU) TABLET ONE (09:46)
[2023-12-05] MEDS ORDERED: FUROSEMIDE 10 MG/ML 4 ML VIAL ONE ×2 (12:25→20:31)
[2023-12-05] MEDS ORDERED: ACETAMINOPHEN TAB 325 MG TAB ONE (16:16)
[2023-12-05] MEDS ORDERED: IBUPROFEN 600 MG TAB PO ONE (20:19)
[2023-12-05] MEDS ORDERED: ATORVASTATIN 20 MG TAB ONE (20:22)
[2023-12-05] MEDS ORDERED: traZODone HCL 50 MG TAB ONE (20:23)
[2023-12-05] MEDS ORDERED: QUEtiapine 25 MG TAB ONE (23:59)
[2023-12-05] MEDS ORDERED: OXYBUTYNIN XL 5 MG TAB.ER.24 PO ONE (23:59)
[2023-12-05] MEDS ORDERED: FENOFIBRATE 160 MG TAB ONE (23:59)
[2023-12-06] MEDS ORDERED: PANTOPRAZOLE 40 MG TABLET PO ONE (08:21)
[2023-12-06] MEDS ORDERED: amLODIPine 10 MG TAB ONE (08:21)
[2023-12-06] MEDS ORDERED: ASPIRIN 81 MG ONE (08:21)
[2023-12-06] MEDS ORDERED: LORATADINE 10 MG TAB ONE (08:22)
[2023-12-06] MEDS ORDERED: ATORVASTATIN 20 MG TAB ONE ×2 (08:22→21:24)
[2023-12-06] MEDS ORDERED: ONDANSETRON 4 MG/2 ML VIAL IVP PRN (08:23)
[2023-12-06] MEDS ORDERED: hydrALAZINE HCL 25 MG TAB PO PRN (08:23)
[2023-12-06] MEDS ORDERED: FUROSEMIDE 10 MG/ML 4 ML VIAL ONE (08:24)
[2023-12-06] MEDS ORDERED: IPRATROPIUM-ALBUTEROL 3 ML NEB INHALATION PRN (08:24)
[2023-12-06] MEDS ORDERED: CHOLECALCIFEROL 25 MCG (1000 IU) TABLET ONE (08:24)
[2023-12-06] MEDS ORDERED: METOPROLOL TARTRATE 25 MG TAB ONE ×3 (08:24→21:25)
[2023-12-06] MEDS ORDERED: FOLIC ACID 1 MG TAB ONE (08:24)
[2023-12-06] MEDS ORDERED: PANTOPRAZOLE 40 MG/10 ML VIAL ONE ×2 (08:25→21:23)
[2023-12-06] MEDS ORDERED: ACETAMINOPHEN TAB 325 MG TAB PO PRN (08:25)
[2023-12-06] MEDS ORDERED: IBUPROFEN 600 MG TAB PO PRN (08:26)
[2023-12-06] MEDS ORDERED: FUROSEMIDE 10 MG/ML 2 ML VIAL IV SCH (08:30)
[2023-12-06] MEDS ORDERED: IPRATROPIUM-ALBUTEROL 3 ML NEB ONE ×2 (11:51→15:40)
[2023-12-06] MEDS ORDERED: IBUPROFEN 600 MG TAB PO ONE (13:05)
--- NOTE | 2023-12-06 15:56 | OP ---
OPERATIVE REPORT DATE OF SERVICE : 12/02/2023 PROCEDURE PERFORMED: Laparoscopic cholecystectomy. PREOPERATIVE DIAGNOSIS: Chronic cholecystitis. POSTOPERATIVE DIAGNOSIS: Acute on chronic cholecystitis with inflamed gallbladder. LOCOMOTIVE DRIVER: None. ANESTHESIA: General endotracheal tube anesthesia. DESCRIPTION OF PROCEDURE: The patient was placed on the operating table in the supine position. She received general anesthesia. Her abdomen was prepped and draped in a sterile fashion. The infraumbilical skin incision was made, and then, a pair of Ida clamps used to grasp the umbilicus. The Veress needle was positioned into the peritoneal cavity. The abdomen was insufflated. After adequate insufflation, a 5 mm trocar was placed into the peritoneal cavity. Next, a 5 mm trocar was placed in the epigastric position, and in the right lateral and right mid abdomen position. The patient was placed in reverse Trendelenburg [id number] position. The gallbladder appeared to be inflamed. The gallbladder grasped at the fundus and infundibulum. Traction of the gallbladder was placed in a lateral cephalad position. The cystic duct was fully dissected with a pusher. Then, the critical view of safety was achieved between the common bile duct, cystic duct, and common hepatic duct. The cystic duct was then ligated with 2-0 Ethibond suture. Using the Harmonic scissors, the cystic duct was divided, and then, the gallbladder was removed from liver bed using electrocautery and Harmonic scissors. The gallbladder was placed in EndoCatch and brought out through the 10 mm trocar site in the epigastric position. The abdomen was irrigated. There was no bleeding seen. Several small spots were coagulated on the liver. The trocars were withdrawn. The skin was then closed with interrupted 3-0 Monocryl suture. Dermabond was applied. The patient tolerated well. She was sent to the recovery room in stable condition. MMODL / IJN: [id number] /
[2023-12-06] MEDS ORDERED: FENOFIBRATE 160 MG TAB ONE (23:59)
[2023-12-06] MEDS ORDERED: OXYBUTYNIN XL 5 MG TAB.ER.24 PO ONE (23:59)
[2023-12-06] MEDS ORDERED: CITALOPRAM HYDROBROMIDE 20 MG TAB ONE (23:59)
[2023-12-06] MEDS ORDERED: QUEtiapine 25 MG TAB ONE (23:59)
[2023-12-06] MEDS ORDERED: traZODone HCL 100 MG TAB ONE (23:59)
[2023-12-07] MEDS ORDERED: IPRATROPIUM-ALBUTEROL 3 ML NEB ONE ×2 (07:39→15:44)
[2023-12-07] MEDS ORDERED: amLODIPine 10 MG TAB ONE (07:55)
[2023-12-07] MEDS ORDERED: FOLIC ACID 1 MG TAB ONE (07:55)
[2023-12-07] MEDS ORDERED: METOPROLOL TARTRATE 25 MG TAB ONE ×2 (07:56→20:24)
[2023-12-07] MEDS ORDERED: ASPIRIN 81 MG ONE (07:56)
[2023-12-07] MEDS ORDERED: CHOLECALCIFEROL 25 MCG (1000 IU) TABLET ONE (07:56)
[2023-12-07] MEDS ORDERED: LORATADINE 10 MG TAB ONE (07:56)
[2023-12-07] MEDS ORDERED: CITALOPRAM HYDROBROMIDE 20 MG TAB ONE (07:56)
[2023-12-07] MEDS ORDERED: ATORVASTATIN 20 MG TAB ONE ×2 (07:56→20:24)
[2023-12-07] MEDS ORDERED: PANTOPRAZOLE 40 MG/10 ML VIAL ONE ×2 (07:56→20:24)
[2023-12-07] MEDS ORDERED: ACETAMINOPHEN TAB 325 MG TAB ONE (20:24)
[2023-12-07] MEDS ORDERED: traZODone HCL 50 MG TAB ONE (20:24)
[2023-12-07] MEDS ORDERED: FENOFIBRATE 160 MG TAB ONE (23:59)
[2023-12-07] MEDS ORDERED: QUEtiapine 25 MG TAB ONE (23:59)
[2023-12-07] MEDS ORDERED: traZODone HCL 100 MG TAB ONE (23:59)
[2023-12-07] MEDS ORDERED: OXYBUTYNIN XL 5 MG TAB.ER.24 PO ONE (23:59)
--- NOTE | 2023-12-08 01:10 | PN ---
PROGRESS NOTE DATE OF SERVICE: 12/06/2023 SUBJECTIVE: Mrs. Renee appears to be stable. She denies any shortness of breath. OBJECTIVE: VITAL SIGNS: On exam, vital signs appear stable. ABDOMEN: Soft. Status post laparoscopic cholecystectomy. The patient will be discharged home today. She will follow up in the office in 1 week. MMODL / IJN: [id number] /
[2023-12-08] MEDS: HYDROcodone/APAP 5-325MG 1 EACH TAB ONE ×6 (06:29→06:44)
[2023-12-08] MEDS: PANTOPRAZOLE 40 MG/10 ML VIAL ONE ×6 (06:30→06:44)
[2023-12-08] MEDS: FUROSEMIDE 10 MG/ML 4 ML VIAL ONE ×3 (06:30→06:31)
[2023-12-08] MEDS: LORATADINE 10 MG TAB ONE ×3 (06:30→06:44)
[2023-12-08] MEDS: ACETAMINOPHEN TAB 325 MG TAB ONE (06:30)
[2023-12-08] MEDS: FOLIC ACID 1 MG TAB ONE ×3 (06:30→06:44)
[2023-12-08] MEDS: IBUPROFEN 600 MG TAB PO ONE ×2 (06:30→06:34)
[2023-12-08] MEDS: ASPIRIN 81 MG ONE ×3 (06:30→06:43)
[2023-12-08] MEDS: CITALOPRAM HYDROBROMIDE 20 MG TAB ONE ×2 (06:30→06:43)
[2023-12-08] MEDS: METOPROLOL TARTRATE 25 MG TAB ONE ×7 (06:30→06:44)
[2023-12-08] MEDS: CHOLECALCIFEROL 25 MCG (1000 IU) TABLET ONE ×3 (06:30→06:44)
[2023-12-08] MEDS: amLODIPine 10 MG TAB ONE ×3 (06:30→06:43)
[2023-12-08] MEDS: ATORVASTATIN 20 MG TAB ONE ×4 (06:31→06:44)
[2023-12-08] MEDS: PANTOPRAZOLE 40 MG TABLET PO ONE (06:31)
[2023-12-08] MEDS: traZODone HCL 50 MG TAB ONE ×2 (06:31→06:44)
[2023-12-08] MEDS: CHOLECALCIFEROL 25 MCG (1000 IU) TABLET PO SCH (06:32)
[2023-12-08] MEDS: amLODIPine 10 MG TAB PO SCH (06:32)
[2023-12-08] MEDS: METOPROLOL TARTRATE 25 MG TAB PO SCH (06:32)
[2023-12-08] MEDS: CITALOPRAM HYDROBROMIDE 20 MG TAB PO SCH (06:32)
[2023-12-08] MEDS: LORATADINE 10 MG TAB PO SCH (06:32)
[2023-12-08] MEDS: FENOFIBRATE 160 MG TAB PO SCH (06:32)
[2023-12-08] MEDS: OXYBUTYNIN XL 5 MG TAB.ER.24 PO SCH (06:32)
[2023-12-08] MEDS: ASPIRIN 81 MG PO SCH (06:32)
[2023-12-08] MEDS: FOLIC ACID 1 MG TAB PO SCH (06:33)
[2023-12-08] MEDS: IPRATROPIUM-ALBUTEROL 3 ML NEB INHALATION SCH (06:33)
[2023-12-08] MEDS: ATORVASTATIN 20 MG TAB PO SCH (06:33)
[2023-12-08] MEDS: PANTOPRAZOLE 40 MG/10 ML VIAL IVP SCH (06:33)
[2023-12-08] MEDS: VITAMIN B COMPLEX PO SCH (06:33)
[2023-12-08] MEDS: QUEtiapine 25 MG TAB PO SCH (06:36)
[2023-12-08] MEDS: traZODone HCL 100 MG TAB PO SCH (06:36)
[2023-12-08] MEDS: ALPRAZolam 1 MG TAB ONE ×4 (06:42→06:44)
[2023-12-08] MEDS: traZODone HCL 100 MG TAB ONE ×2 (06:42)
[2023-12-08] MEDS: TOPIRAMATE 25 MG TAB ONE (06:42)
[2023-12-08] MEDS: HYDROmorphone 1 MG/ML 1 ML SYRINGE ONE (06:42)
[2023-12-08] MEDS: hydrALAZINE HCL 25 MG TAB ONE (06:44)
[2023-12-08] MEDS: oxyBUTYnin chloride 5 MG TAB ONE (06:44)
--- NOTE | 2023-12-08 08:27 | P.PN ---
Subjective Progress Note Date: 12/08/23 Patient main stable. She was discharged yesterday however she still running to the hospital due to transportation issues. On exam vital signs appear stable. Abdomen soft. Status post laparoscopic ostectomy with postoperative shortness of breath and pulmonary edema. Patient will be discharged today. Objective - Vital Signs Vital signs: Vital Signs Temp 98.6 F 12/08/23 01:16 Pulse 73 12/08/23 01:16 Resp 19 12/08/23 01:16 BP 131/69 12/08/23 01:16 Pulse Ox 91 L 12/08/23 01:16 FiO2 Intake & Output 12/07/23 12/08/23 12/08/23 18:59 06:59 18:59 Output Total 350 Balance -350 Weight 81.81 kg Output: Urine 350 Other: Voiding Method Indwelling Catheter
[2023-12-08] MEDS: polyethylene glycoL 3350 17 GM POWD.PACK PO SCH (10:24)
[2023-12-08] MEDS: DOCUSATE 100 MG CAP PO SCH (10:24)
--- NOTE | 2023-12-08 14:54 | P.PN ---
Subjective Progress Note Date: 12/08/23 Patient evaluated in follow up on the medical floor. Mentation appears baseline. Patient is alert x 3. Patient continues to report cough and shortness of breath. Recommend to avoid narcotics and continue on bowel regimen. Continue on seroquel HS. Review of Systems Constitutional: Denied any fatigue denied any fever. Cardio vascular: denied any chest pain, palpitations Gastrointestinal: denied any nausea, vomiting, diarrhea Pulmonary: Reports shortness of breath and cough Neurologic denied any new focal deficits weak. All inpatient medications were reviewed and appropriate changes in these medications as dictated in the interval history and assessment and plan. PHYSICAL EXAMINATION: GENERAL: The patient is alert and oriented x3, not in any acute distress. Well developed, well nourished. on 4L of oxygen HEENT: Pupils are round and equally reacting to light. EOMI. No scleral icterus. No conjunctival pallor. Normocephalic, atraumatic. No pharyngeal erythema. No thyromegaly. CARDIOVASCULAR: S1 and S2 present. No murmurs, rubs, or gallops. PULMONARY: Chest is clear to auscultation, no wheezing or crackles. Diminished dry cough. ABDOMEN: Soft, nontender, nondistended, normoactive bowel sounds. No palpable organomegaly. Midline incision dressing intact. MUSCULOSKELETAL: No joint swelling or deformity. EXTREMITIES: No cyanosis, clubbing, or pedal edema. NEUROLOGICAL: Gross neurological examination did not reveal any focal deficits. Diffuse weakness. SKIN: No rashes. Assessment Postoperative day #5 laproscopic cholecystectomy for acute cholecystitis Acute diastolic dysfunction better Acute hypoxic respiratory failure secondary to above Altered mental status acute metabolic encephalopathy and hospital delirium Hx of traumatic brain injury has public guardian; from custodial Anxiety/Panic disorder GI prophylaxis DVT prophylaxis Full Code Plan Repeat Chest xray Monitor renal function Continues off lasix Repeat chest xray Repeat labs in the AM Discharge to rehab Saturday The impression and plan of care has been dictated by Anna Manzo, Nurse Practitioner as directed. Dr. Severo MD I have performed a history and physical examination and medical decision making of this patient, discussed the same with the dictator, and agree with the dictators assessment and plan as written, documented as a scribe. Based on total visit time, I have performed more than 50% of this visit. Objective - Vital Signs Vital signs: Vital Signs Temp 98.0 F 12/08/23 07:00 Pulse 76 12/08/23 11:47 Resp 17 12/08/23 08:00 BP 135/64 12/08/23 07:00 Pulse Ox 96 12/08/23 07:24 FiO2 Intake & Output 12/07/23 12/08/23 12/08/23 18:59 06:59 18:59 Intake Total 118 Output Total 350 Balance -350 118 Weight 81.81 kg Intake: Oral 118 Output: Urine 350 Other: Voiding Method Indwelling Catheter Indwelling Catheter # Bowel Movements 1
[2023-12-09 12:18] VITALS: BMI 29.1
--- NOTE | 2023-12-09 13:05 | P.DS ---
Providers Date of admission: 12/02/23 08:49 Expected date of discharge: 12/09/23 Attending physician: Moiz Montalvo Consults: 12/08/23 09:39 Consult Physician Routine Consulting Provider: Tiarra Elkins Consult Reason/Comments: Med mgt, has been following Do you want consulting provider notified?: Already Contacted Primary care physician: Stated None Hospital Course: Discharge diagnosis 1. Cholecystitis status post laparoscopic cholecystectomy 2. Acute diastolic CHF exacerbation causing hypoxic respiratory failure 3. History of traumatic brain injury Hospital course This is a 68-year-old female with evidence of cholecystitis status post laparoscopic cholecystectomy. Patient had shortness of breath and evidence of CHF exacerbation and respiratory failure requiring oxygen and Lasix. Patient followed closely by medicine service. Patient's breathing has improved. She is still requiring oxygen and will require further titration of O2 needs at ECF. Patient did have urinary retention and has Christopher catheter in place. Patient's pain is controlled. She is tolerating diet. She is afebrile. She has been cleared by medicine service for discharge. Patient is stable for discharge to ECF. They will continue to wean oxygen at ECF. Will continue Christopher catheter until at that point catheter can be discontinued with a urology follow- up. Patient is stable for discharge. Please refer to chart for further details. Physician Marker Machine Attendant note has been reviewed by physician. Signing provider agrees with the documented findings, assessment, and plan of care. Patient Condition at Discharge: Stable Plan - Discharge Summary New Discharge Prescriptions: New Citalopram Hydrobromide [CeleXA] 40 mg PO DAILY tab traZODone HCL [Desyrel] 100 mg PO HS tab Oxybutynin Xl [Ditropan XL] 5 mg PO DAILY tab polyethylene glycoL 3350 [Miralax] 17 gm PO DAILY packet Cholecalciferol [Vitamin D3 (25 Mcg = 1000 Iu)] 50 mcg PO DAILY tab hydrALAZINE HCL [Apresoline] 25 mg PO DAILY PRN tab PRN Reason: SBP OVER 170 Aspirin 81 mg PO DAILY tab Loratadine [Claritin] 10 mg PO DAILY tab Docusate [Colace] 100 mg PO DAILY cap Ipratropium-Albuterol Nebulize [Duoneb 0.5 mg-3 mg/3 ml Soln] 3 ml INHALATION RT-QID each Ipratropium-Albuterol Nebulize [Duoneb 0.5 mg-3 mg/3 ml Soln] 3 ml INHALATION QID PRN each PRN Reason: SOB/WHEEZING Atorvastatin [Lipitor] 20 mg PO HS tab Fenofibrate [Lofibra] 160 mg PO DAILY tab Metoprolol Tartrate [Lopressor] 25 mg PO BID tab Ibuprofen [Motrin] 600 mg PO Q8H PRN tab PRN Reason: Pain amLODIPine [Norvasc] 10 mg PO DAILY tab QUEtiapine [SEROquel] 12.5 mg PO HS tab Continue Folic Acid 1 mg PO DAILY 30 Days tab Bacitracin Zinc Oint 1 applic TOPICAL BID PRN PRN Reason: WOUNDS Nicotine 14Mg/24Hr Patch [Habitrol] 1 patch TRANSDERM DAILY 30 Days patch Famotidine [Pepcid] 20 mg PO BID 30 Days tab Acetaminophen Tab [Tylenol] 650 mg PO Q4HR PRN tab PRN Reason: Pain/Discomfort Thiamine [Vitamin B-1] 100 mg PO DAILY 30 Days tab Multivitamins, Thera [Multivitamin (formulary)] 1 tab PO DAILY Lidocaine 5% Patch [Lidoderm 5% Patch] 1 patch TOPICAL DAILY PRN #30 patch PRN Reason: Pain Discontinued FLUoxetine HCL [PROzac] 30 mg PO DAILY 30 Days cap Aspirin 325 mg PO DAILY Aspirin 325 mg PO DAILY 30 Days tab Venlafaxine HCl ER [Effexor XR] 150 mg PO DAILY 30 Days capsule Thiamine [Vitamin B-1] 100 mg PO DAILY 30 Days tab Doxepin [SINEquan] 10 mg PO HS 30 Days cap Nicotine 21Mg/24Hr Patch [Habitrol] 1 patch TRANSDERM DAILY PRN PRN Reason: Nicotine Cravings Folic Acid 1 mg PO DAILY 30 Days tab Topiramate [Topamax] 50 mg PO HS 30 Days tab Discharge Medication List Acetaminophen Tab [Tylenol] 650 mg PO Q4HR PRN tab 01/18/21 [Rx] Folic Acid 1 mg PO DAILY 30 Days tab 01/18/21 [Rx] Thiamine [Vitamin B-1] 100 mg PO DAILY 30 Days tab 01/18/21 [Rx] Bacitracin Zinc Oint 1 applic TOPICAL BID PRN 02/14/21 [History] Multivitamins, Thera [Multivitamin (formulary)] 1 tab PO DAILY 02/14/21 [History] Famotidine [Pepcid] 20 mg PO BID 30 Days tab 03/28/21 [Rx] Nicotine 14Mg/24Hr Patch [Habitrol] 1 patch TRANSDERM DAILY 30 Days patch 03/28/21 [Rx] Lidocaine 5% Patch [Lidoderm 5% Patch] 1 patch TOPICAL DAILY PRN #30 patch 07/06/23 [Rx] Aspirin 81 mg PO DAILY tab 12/09/23 [Rx] Atorvastatin [Lipitor] 20 mg PO HS tab 12/09/23 [Rx] Cholecalciferol [Vitamin D3 (25 Mcg = 1000 Iu)] 50 mcg PO DAILY tab 12/09/23 [Rx] Citalopram Hydrobromide [CeleXA] 40 mg PO DAILY tab 12/09/23 [Rx] Docusate [Colace] 100 mg PO DAILY cap 12/09/23 [Rx] Fenofibrate [Lofibra] 160 mg PO DAILY tab 12/09/23 [Rx] Ibuprofen [Motrin] 600 mg PO Q8H PRN tab 12/09/23 [Rx] Ipratropium-Albuterol Nebulize [Duoneb 0.5 mg-3 mg/3 ml Soln] 3 ml INHALATION QID PRN each 12/09/23 [Rx] Ipratropium-Albuterol Nebulize [Duoneb 0.5 mg-3 mg/3 ml Soln] 3 ml INHALATION RT-QID each 12/09/23 [Rx] Loratadine [Claritin] 10 mg PO DAILY tab 12/09/23 [Rx] Metoprolol Tartrate [Lopressor] 25 mg PO BID tab 12/09/23 [Rx] Oxybutynin Xl [Ditropan XL] 5 mg PO DAILY tab 12/09/23 [Rx] QUEtiapine [SEROquel] 12.5 mg PO HS tab 12/09/23 [Rx] amLODIPine [Norvasc] 10 mg PO DAILY tab 12/09/23 [Rx] hydrALAZINE HCL [Apresoline] 25 mg PO DAILY PRN tab 12/09/23 [Rx] polyethylene glycoL 3350 [Miralax] 17 gm PO DAILY packet 12/09/23 [Rx] traZODone HCL [Desyrel] 100 mg PO HS tab 12/09/23 [Rx] Follow up Appointment(s)/Referral(s): Isaac Schroeder MD [STAFF PHYSICIAN] - 1 Week Moiz Montalvo MD [STAFF PHYSICIAN] - 1 Week Activity/Diet/Wound Care/Special Instructions: Follow up with Dr. Montalvo within 1 week of discharge. No lifting over 10 pounds Shower daily. No soaking or tub baths for 2 weeks Very light activity until you are reevaluated at your follow up appointment with your surgeon Continue christopher catheter upon discharge. Discontinue on . And check post void residual. Follow up with urology outpatient Discharge with home O2 Discharge Disposition: TRANSFER TO SNF/ECF
--- NOTE | 2023-12-09 14:44 | P.PN ---
Subjective Progress Note Date: 12/09/23 Patient evaluated in follow up on the medical floor. Mentation appears baseline. Patient is alert x 3. Patient continues to report cough and shortness of breath. Recommend to avoid narcotics and continue on bowel regimen. Continue on seroquel HS. 12/09/2023 Patient seen in follow-up today Scheduled to undergo discharge to ECF once cleared by surgery as patient is admitted to surgery services status post laparoscopic cholecystectomy. Patient is afebrile with no reported chest pain or shortness of breath. Patient does require oxygen and will on discharge at 3 L to manage CHF. Strongly recommend avoiding narcotic medications as patient's mentation was increasingly affected during hospitalization. Patient is maintained on Tylenol and would recommend continuing for now. Patient is being followed by social work and arranging for oxygen on discharge. Discharge planning in process for ECF versus [facility]FC home where she resides. Social work to follow-up further regarding discharge planning. Patient is back to baseline and medically stable. Review of Systems Constitutional: Denied any fatigue denied any fever. Cardio vascular: denied any chest pain, palpitations Gastrointestinal: denied any nausea, vomiting, diarrhea Pulmonary: no Reports of shortness of breath and cough Neurologic denied any new focal deficits weak. All inpatient medications were reviewed and appropriate changes in these medications as dictated in the interval history and assessment and plan. PHYSICAL EXAMINATION: GENERAL: The patient is alert and oriented x2, baseline not in any acute distress. Well developed, well nourished. on 3L of oxygen HEENT: Pupils are round and equally reacting to light. EOMI. No scleral icterus. No conjunctival pallor. Normocephalic, atraumatic. No pharyngeal erythema. No thyromegaly. CARDIOVASCULAR: S1 and S2 present. No murmurs, rubs, or gallops. PULMONARY: Chest is clear to auscultation, no wheezing or crackles. Diminished dry cough. ABDOMEN: Soft, nontender, nondistended, normoactive bowel sounds. No palpable organomegaly. Midline incision dressing intact. MUSCULOSKELETAL: No joint swelling or deformity. EXTREMITIES: No cyanosis, clubbing, or pedal edema. NEUROLOGICAL: Gross neurological examination did not reveal any focal deficits. Diffuse weakness. SKIN: No rashes. Assessment Postoperative day #6 laproscopic cholecystectomy for acute cholecystitis Acute diastolic dysfunction, better Acute hypoxic respiratory failure secondary to above and will require 3 L of oxygen via nasal cannula on discharge to manage CHF Altered mental status, acute metabolic encephalopathy and hospital delirium Hx of traumatic brain injury has public guardian; from [facility] Anxiety/Panic disorder GI prophylaxis DVT prophylaxis Full Code Plan: Patient continues to require oxygen and attempted weaning FiO2 although still requiring 3 L and will require 3 L via nasal cannula on discharge to manage CHF exacerbation Recommend to continue with incentive spirometer although patient does not quite understand how to use properly and needs constantly encouragement Per social work plan is now to return to [facility] and they can accommodate rehab in the home as well as managing a Lakhani catheter and O2 Patient is medically stable once cleared by general surgery for discharge Overall prognosis is guarded The impression and plan of care has been dictated by Ashleigh Church Nurse Practitioner as directed. Dr. Severo MD I have performed a history and physical examination and medical decision making of this patient, discussed the same with the dictator, and agree with the dictators assessment and plan as written, documented as a scribe. Based on total visit time, I have performed more than 50% of this visit. Objective - Vital Signs Vital signs: Vital Signs Temp 98.6 F 12/09/23 08:10 Pulse 82 12/09/23 08:52 Resp 17 12/09/23 08:10 BP 139/64 12/09/23 08:10 Pulse Ox 95 12/09/23 08:43 FiO2 Intake & Output 12/08/23 12/09/23 12/09/23 18:59 06:59 18:59 Intake Total 236 240 Output Total 200 950 Balance 36 -710 Intake: Oral 236 240 Output: Urine 200 950 Other: Voiding Method Indwelling Catheter Indwelling Catheter # Bowel Movements 1
[2023-12-09 16:40] VITALS: BP 119/66; PULSE 75; RESP 18; TEMP 98.9
--- NOTE | 2023-12-10 10:10 | PN ---
PROGRESS NOTE DATE OF SERVICE: 12/07/2023 Ms. Renee was to be discharged yesterday. She was kept for medical reasons. The patient states she feels better today. OBJECTIVE: VITAL SIGNS: Stable. ABDOMEN: Soft. Status post laparoscopic cholecystectomy. The patient will be discharged when cleared by Medicine. MMODL / IJN: [id number] /
--- NOTE | 2023-12-30 14:32 | CA ---
Transthoracic Echo Report Name: Shavon Renee Age: 68 Gender: O : 1955 Exam Date: 12/05/2023 15:28 Exam Location: [place] [facility] Ht (in): 65 Wt (lb): 150 Ordering Physician: Attending/Referring Phys: Band Scroll Saw Operator Sandy Helm RDCS Procedure CPT: Indications: Left ventricular failure Cardiac Hx: Technical Quality: Fair Contrast 1: Total Dose (mL): Contrast 2: Total Dose (mL): MEASUREMENTS (Male / Female) Normal Values 2D ECHO LV Diastolic Diameter PLAX 4.1 cm 4.2 - 5.9 / 3.9 - 5.3 cm LV Systolic Diameter PLAX 2.8 cm IVS Diastolic Thickness 1.0 cm 0.6 - 1.0 / 0.6 - 0.9 cm LVPW Diastolic Thickness 1.5 cm 0.6 - 1.0 / 0.6 - 0.9 cm LV Relative Wall Thickness 0.6 RV Internal Dim ED PLAX 1.6 cm LA Systolic Diameter LX 3.8 cm 3.0 - 4.0 / 2.7 - 3.8 cm LV Diastolic Volume MOD BP 34.6 cm??? 67 - 155 / 56 - 104 cm??? LV Systolic Volume MOD BP 13.4 cm??? 22 - 58 / 19 - 49 cm??? LV Ejection Fraction MOD BP 61.2 % >= 55 % LV Cardiac Index MOD BP 881.4 cm???/min???m??? LV Diastolic Volume MOD 4C 42.0 cm??? LV Systolic Volume MOD 4C 14.4 cm??? LV Ejection Fraction MOD 4C 65.7 % LV Cardiac Index MOD 4C 1148.6 cm???/min???m??? LV Diastolic Length 4C 6.9 cm LV Systolic Length 4C 5.7 cm LV Diastolic Volume MOD 2C 26.0 cm??? LV Systolic Volume MOD 2C 11.5 cm??? LV Ejection Fraction MOD 2C 55.7 % LV Cardiac Index MOD 2C 602.7 cm???/min???m??? LV Diastolic Length 2C 6.2 cm LV Systolic Length 2C 5.2 cm M-MODE Aortic Root Diameter MM 3.0 cm LA Systolic Diameter MM 4.3 cm LA Ao Ratio MM 1.5 AV Cusp Separation MM 1.9 cm DOPPLER Mitral E Point Velocity 76.7 cm/s Mitral A Point Velocity 130.6 cm/s Mitral E to A Ratio 0.6 MV Deceleration Time 328.0 ms MV E' Velocity 4.5 cm/s Mitral E to MV E' Ratio 16.9 TR Peak Velocity 305.0 cm/s TR Peak Gradient 37.2 mmHg Right Ventricular Systolic Press 47.8 mmHg FINDINGS Left Ventricle Left ventricular ejection fraction is estimated at 55-60%. Normal left ventricular wall motion. No obvious regional wall motion abnormalities. Left ventricular cavity size normal. Thickening of the posterior wall Right Ventricle Normal right ventricular size and function. Mild to Moderate pulmonary hypertension. Right Atrium Mild right atrial dilatation. Left Atrium Mild left atrial dilatation. Mitral Valve Mitral valve thickened. Mitral annular calcification. Mild to Moderate mitral regurgitation. Aortic Valve Trileaflet aortic valve. No aortic valve stenosis or regurgitation. Tricuspid Valve Structurally normal tricuspid valve. Mild to Moderate tricuspid regurgitation. No tricuspid stenosis. Pulmonic Valve Structurally normal pulmonic valve. No pulmonic stenosis. Pericardium No pericardial or pleural effusion. Aorta Normal size aortic root and proximal ascending aorta. CONCLUSIONS 1. Normal left ventricular size and systolic function 2. Mild to moderate mitral and tricuspid regurgitation with mild to moderate pulmonary hypertension Previewed by: Dr. Echo Izaguirre MD (Electronically Signed) Final Date: 06 December 2023 10:28
--- NOTE | 2023-12-30 14:55 | XR ---
Patient: Shavon Renee Ordering Physician: Unknown, Unknown ID: [id number] Phone, Pager: Phone: N/ A Pager: N/A : 1955 Age/Gender: 68Y, F Primary Location: N/A Procedure: XR CHEST 1V Study Alexander e: 12/03/2023 10:40:07 AM EXAMINATION TYPE: XR chest 1V DATE OF EXAM: 12/03/2023 HISTORY: Shortness of breath. COMPARISON: None. TECHNIQUE: Single view of the chest is submitted. FINDINGS: Demonstrated are scattered senescent parenchymal change. There is no evidence for focal infiltrate. The heart is stable. Hilar and mediastinal structures are within normal limits. Degenerative changes are seen of the dorsal spine. IMPRESSION: 1. Chronic changes without evidence for acute pulmonary disease.
--- NOTE | 2023-12-31 16:10 | XR ---
Bladimirchin Shavon ID: [id number] : 1955 EXAMINATION TYPE: XR chest 1V DATE OF EXAM: 12/04/2023 COMPARISON: 12/03/2023 HISTORY: 68-year-old female shortness of breath and hypoxia TECHNIQUE: Single frontal view of the chest is obtained. FINDINGS: Heart borderline enlarged. Diffuse interstitial densities persist. Patchy opacity at the lung bases s lightly increased. IMPRESSION: Borderline cardiomegaly with ongoing interstitial densities and worsening patchy bibasilar opacities. Consider CHF with early developing interstitial pulmonary edema.
== END 2023-12-09 17:30 | disposition home health service (06) | DRG 417 ==
LOC: OR 07:30 → 6NMEDSUR 08:49
PROVIDERS: ADMIT Surgery; ATTEND Surgery
PROC: 0FT44ZZ Resection of Gallbladder, Percutaneous Endoscopic Approach (ICD-10-PCS; principal; 2023-12-02 07:30)
DX: K81.2 Acute cholecystitis with chronic cholecystitis (principal); G93.41 Metabolic encephalopathy; I50.33 Acute on chronic diastolic (congestive) heart failure; J96.01 Acute respiratory failure with hypoxia; F05 Delirium due to known physiological condition; Z90.49 Acquired absence of other specified parts of digestive tract; Z87.820 Personal history of traumatic brain injury; F41.0 Panic disorder [episodic paroxysmal anxiety]; R33.8 Other retention of urine; Z88.2 Allergy status to sulfonamides; Z88.8 Allergy status to other drugs, medicaments and biological substances
CPT/HCPCS: 71045; 88304; 93306; 94640; 94760

== ENCOUNTER 2024-03-27 13:33 | Emergency (ER) | payer MEDICARE, OTHER ==
--- NOTE | 2024-03-27 15:45 | ED ---
General Adult HPI - General Chief complaint: Recheck/Abnormal Lab/Rx Stated complaint: Med Refill Time Seen by Provider: 03/27/24 15:10 Source: patient, RN notes reviewed Mode of arrival: ambulatory Limitations: no limitations - History of Present Illness Initial comments: 69-year-old female presents to the emergency department for medication management. Patient's caregiver at the bedside reports that she has recently had a change in her insurance and has had issues getting into her PCP because of this. She reports that her insurance will change back at the beginning of the year and she will be able to follow-up with her PCP again. They are requesting medication refills until she is able to get back into her PCP. She does not have any complaints currently. - Related Data Home Medications Medication Instructions Recorded Confirmed Bacitracin Zinc Oint 1 applic TOPICAL BID PRN 02/14/21 02/14/21 Multivitamins, Thera [Multivitamin 1 tab PO DAILY 02/14/21 02/14/21 (formulary)] Previous Rx's Medication Instructions Recorded Acetaminophen Tab [Tylenol] 650 mg PO Q4HR PRN tab 01/18/21 Folic Acid 1 mg PO DAILY 30 Days tab 01/18/21 Thiamine [Vitamin B-1] 100 mg PO DAILY 30 Days tab 01/18/21 Famotidine [Pepcid] 20 mg PO BID 30 Days tab 03/28/21 Nicotine 14Mg/24Hr Patch [Habitrol] 1 patch TRANSDERM DAILY 30 Days 03/28/21 patch Lidocaine 5% Patch [Lidoderm 5% 1 patch TOPICAL DAILY PRN #30 patch 07/06/23 Patch] Aspirin 81 mg PO DAILY tab 12/09/23 Atorvastatin [Lipitor] 20 mg PO HS tab 12/09/23 Cholecalciferol [Vitamin D3 (25 50 mcg PO DAILY tab 12/09/23 Mcg = 1000 Iu)] Citalopram Hydrobromide [CeleXA] 40 mg PO DAILY tab 12/09/23 Docusate [Colace] 100 mg PO DAILY cap 12/09/23 Fenofibrate [Lofibra] 160 mg PO DAILY tab 12/09/23 Ibuprofen [Motrin] 600 mg PO Q8H PRN tab 12/09/23 Ipratropium-Albuterol Nebulize 3 ml INHALATION QID PRN each 12/09/23 [Duoneb 0.5 mg-3 mg/3 ml Soln] Ipratropium-Albuterol Nebulize 3 ml INHALATION RT-QID each 12/09/23 [Duoneb 0.5 mg-3 mg/3 ml Soln] Loratadine [Claritin] 10 mg PO DAILY tab 12/09/23 Metoprolol Tartrate [Lopressor] 25 mg PO BID tab 12/09/23 Oxybutynin Xl [Ditropan XL] 5 mg PO DAILY tab 12/09/23 QUEtiapine [SEROquel] 12.5 mg PO HS tab 12/09/23 amLODIPine [Norvasc] 10 mg PO DAILY tab 12/09/23 hydrALAZINE HCL [Apresoline] 25 mg PO DAILY PRN tab 12/09/23 polyethylene glycoL 3350 [Miralax] 17 gm PO DAILY packet 12/09/23 traZODone HCL [Desyrel] 100 mg PO HS tab 12/09/23 ALPRAZolam [Xanax] 1 mg PO Q8H 3 Days #9 tab 03/27/24 Aspirin 81 mg PO DAILY #30 tab 03/27/24 Atorvastatin [Lipitor] 20 mg PO HS #30 tablet 03/27/24 Citalopram Hydrobromide 40 mg PO DAILY #30 tablet 03/27/24 [Citalopram HBr] Fenofibrate Nanocrystallized 145 mg PO DAILY #30 tab 03/27/24 [Tricor] Fexofenadine HCl [Ngozi Allergy] 180 mg PO DAILY #30 tab 03/27/24 Folic Acid 1 mg PO DAILY #30 tablet 03/27/24 Metoprolol Tartrate 25 mg PO BID #60 tab 03/27/24 amLODIPine [Norvasc] 10 mg PO DAILY #30 tablet 03/27/24 traZODone HCL 100 mg PO HS #30 tab 03/27/24 Allergies Allergy/AdvReac Type Severity Reaction Status Date / Time Sulfa (Sulfonamide Allergy Severe Rash/Hives Verified 03/27/24 13:44 Antibiotics) baclofen Allergy Unknown Verified 03/27/24 13:44 oxcarbazepine Allergy Unknown Verified 03/27/24 13:44 [From Trileptal] Review of Systems ROS Statement: Those systems with pertinent positive or pertinent negative responses have been documented in the HPI. ROS Other: All systems not noted in ROS Statement are negative. 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 History of Any Multi-Drug Resistant Organisms: None Reported Past Surgical History: No Surgical Hx Reported, Orthopedic Surgery Additional Past Surgical History / Comment(s): R shoulder surgery d/t injury, L leg surgery d/t injury, colonoscopy Past Anesthesia/Blood Transfusion Reactions: No Reported Reaction Past Psychological History: Anxiety, Bipolar, Depression Smoking Status: Current every day smoker, Current some day smoker, Heavy tobacco smoker Past Alcohol Use History: Abuse, Daily, Heavy Past Drug Use History: None Reported - Past Family History Father History Unknown: Yes Family Medical History: Hypertension Mother Family Medical History: No Reported History Additional Family Medical History / Comment(s): Mother is , pt states she was healthy. General Exam Limitations: no limitations General appearance: alert, in no apparent distress Head exam: Present: atraumatic, normocephalic, normal inspection Eye exam: Present: normal appearance, PERRL, EOMI. Absent: scleral icterus, conjunctival injection, periorbital swelling ENT exam: Present: normal exam, mucous membranes moist Neck exam: Present: normal inspection. Absent: tenderness, meningismus, lymphadenopathy Respiratory exam: Present: normal lung sounds bilaterally. Absent: respiratory distress, wheezes, rales, rhonchi, stridor Cardiovascular Exam: Present: regular rate, normal rhythm, normal heart sounds. Absent: systolic murmur, diastolic murmur, rubs, gallop, clicks GI/Abdominal exam: Present: soft. Absent: distended, tenderness, guarding, rebound, rigid Extremities exam: Present: normal inspection, full ROM, normal capillary refill. Absent: tenderness, pedal edema, joint swelling, calf tenderness Neurological exam: Present: alert, oriented X3 Psychiatric exam: Present: normal affect, normal mood Skin exam: Present: warm, dry, intact, normal color. Absent: rash Course Vital Signs 03/27/24 03/27/24 13:42 16:19 Temperature 98.4 F 98.2 F Pulse Rate 89 86 Respiratory 20 18 Rate Blood Pressure 138/68 134/72 O2 Sat by Pulse 99 99 Oximetry Medical Decision Making - Medical Decision Making Was pt. sent in by a medical professional or institution ([facility]LLIE Marshall, [employer], urgent care, hospital, or [place] [facility] facility...) When possible be specific @ -No Did you speak to anyone other than the patient for history (EMS, parent, family, police, friend...)? What history was obtained from this source @ -No Did you review nursing and triage notes (agree or disagree)? Why? @ -I reviewed and agree with nursing and triage notes Were old charts reviewed (outside hosp., previous admission, EMS record, old EKG, old radiological studies, urgent care reports/EKG's, [place] health [facility] facility records)? Report findings @ -No old charts were reviewed Differential Diagnosis (chest pain, altered mental status, abdominal pain women, abdominal pain men, vaginal bleeding, weakness, fever, dyspnea, syncope, headache, dizziness, GI bleed, back pain, seizure, CVA, palpatations, mental health, musculoskeletal)? @ -Not applicable EKG interpreted by me (3pts min.). @ -None X-rays interpreted by me (1pt min.). @ -None done CT interpreted by me (1pt min.). @ -None done U/S interpreted by me (1pt. min.). @ -None done What testing was considered but not performed or refused? (CT, X-rays, U/S, labs)? Why? @ -None What meds were considered but not given or refused? Why? @ -None Did you discuss the management of the patient with other professionals (professionals i.e. ELLIE Marshall, [employer], lab, RT, psych nurse, high school social studies teacher, electric screw driver operator, teacher, loan officer assistant, nurse case management)? Give summary @ -No Was smoking cessation discussed for >3mins.? @ -No Was critical care preformed (if so, how long)? @ -No Were there social determinants of health that impacted care today? How? (Homelessness, low income, unemployed, alcoholism, drug addiction, transportation, low edu. Level, literacy, decrease access to med. care, intermediate, rehab)? @ -No Was there de-escalation of care discussed even if they declined (Discuss DNR or withdrawal of care, Hospice)? DNR status @ -No What co-morbidities impacted this encounter? (DM, HTN, Smoking, COPD, CAD, Cancer, CVA, ARF, Chemo, Hep., AIDS, mental health diagnosis, sleep apnea, morbid obesity)? @ -None Was patient admitted / discharged? Hospital course, mention meds given and route, prescriptions, significant lab abnormalities, going to OR and other pertinent info. @ -Discharged. Patient presented to the emergency department for medication management. She is otherwise feeling well. She is unable to get her medications refilled by her PCP due to insurance issues. Medications were refilled x 30 days with the exception of the Xanax which was only filled for 3 days. Patient and caregiver understanding of this. Patient will be discharged home. Case discussed with Dr. Flores Undiagnosed new problem with uncertain prognosis? @ -No Drug Therapy requiring intensive monitoring for toxicity (Heparin, Nitro, Insulin, Cardizem)? @ -No Were any procedures done? @ -No Diagnosis/symptom? @ -Medication management Acute, or Chronic, or Acute on Chronic? @ -acute Uncomplicated (without systemic symptoms) or Complicated (systemic symptoms)? @ -uncomplicated Side effects of treatment? @ -No Exacerbation, Progression, or Severe Exacerbation? @ -No Poses a threat to life or bodily function? How? (Chest pain, [place], [place], pneumonia, PE, COPD, DKA, ARF, appy, cholecystitis, CVA, Diverticulitis, Homicidal, Suicidal, threat to staff... and all critical care pts) @ -No Disposition Clinical Impression: Encounter for medication refill Disposition: HOME SELF-CARE Condition: Stable Additional Instructions: Please follow up with your primary care provider. Return to the emergency department for new or worsening symptoms. Prescriptions: Fexofenadine HCl [Ngozi Allergy] 180 mg PO DAILY #30 tab Aspirin 81 mg PO DAILY #30 tab Citalopram Hydrobromide [Citalopram HBr] 40 mg PO DAILY #30 tablet Folic Acid 1 mg PO DAILY #30 tablet Atorvastatin [Lipitor] 20 mg PO HS #30 tablet Metoprolol Tartrate 25 mg PO BID #60 tab amLODIPine [Norvasc] 10 mg PO DAILY #30 tablet traZODone HCL 100 mg PO HS #30 tab Fenofibrate Nanocrystallized [Tricor] 145 mg PO DAILY #30 tab ALPRAZolam [Xanax] 1 mg PO Q8H 3 Days #9 tab Is patient prescribed a controlled substance at d/c from ED?: Yes When asked, does pt state using other controlled substances?: No If prescribed controlled substance>3 days was MAPS reviewed?: Prescribed <3 Days Referrals: Adair Silva MD [Primary Care Provider] - 1-2 days
[2024-03-27 16:21] VITALS: BP 134/72; PULSE 86; RESP 18; TEMP 98.2
== END 2024-03-27 16:19 | disposition home or self-care (01) ==
LOC: EC 13:33
DX: Z76.0 Encounter for issue of repeat prescription (principal); F17.200 Nicotine dependence, unspecified, uncomplicated; Z88.1 Allergy status to other antibiotic agents; Z88.2 Allergy status to sulfonamides; Z86.73 Personal history of transient ischemic attack (TIA), and cerebral infarction without residual deficits
CPT/HCPCS: 99281

== ENCOUNTER 2024-03-29 05:29 | Observation (INO) | payer MEDICARE, OTHER ==
[2024-03-29 05:56] LABS: Glucose,Whole Blood 147 mg/dL (70-110)
[2024-03-29] MEDS: levETIRAcetam IV 500 MG/5 ML VIAL IVP STA (06:18)
[2024-03-29] MEDS: LORazepam 2 MG/ML INJ IV STA (06:22)
[2024-03-29] MEDS: SODIUM CHLORIDE 0.9% 1,000 ML IV STA ×2 (06:23→09:12)
[2024-03-29 06:30] LABS: ALT 21 U/L (4-34); AST 37 U/L (14-36); African American GFR (CKD) >90 (>60 ml/min/1.73 sqM); Albumin 4.1 g/dL (3.5-5.0); Alcohol <10 mg/dL; Alkaline Phosphatase 74 U/L (38-126); Anion Gap 12 mmol/L; Blood Urea Nitrogen 12 mg/dL (7-17); Calcium 9.7 mg/dL (8.4-10.2); Carbon Dioxide 17 mmol/L (22-30); Chloride 108 mmol/L (98-107); Glucose 143 mg/dL (74-99); Magnesium 1.9 mg/dL (1.6-2.3); Non-African American GFR(CKD) 87 (>60 ml/min/1.73 sqM); Potassium 3.2 mmol/L (3.5-5.1); Sodium 137 mmol/L (137-145); Total Protein 6.9 g/dL (6.3-8.2)
--- NOTE | 2024-03-29 06:30 | ED ---
Seizure HPI - General Chief Complaint: Seizure Stated Complaint: Seizure Time Seen by Provider: 03/29/24 05:59 Source: patient, EMS, RN notes reviewed Mode of arrival: EMS Limitations: altered mental status - History of Present Illness Initial Comments: This is a 69-year-old female who presents to the emergency department for seizures. Patient lives at a care home and staff witnessed her having a seizure lasting approximately 2 minutes. EMS was called and EMS reports witnessing another 2 seizures lasting 15 to 20 seconds each. She was given 5 mg of Versed by EMS en route. Staff member from the care home at bedside states that the patient fell 2 days ago. They are unsure if she hit her head, however she was not evaluated at that time. Since then she has been more confused. In the middle of conversation she will trail off and start saying random words. However, she has also been without all of her medication for at least a week and they state that she occasionally gets confused like this when she is off of her medication. They wonder if the seizure was potentially caused by medication withdrawals or hitting her head a couple of days ago. She does not have a seizure disorder, but has had seizures in the past related to alcohol w ithdrawal. She has not consumed any alcohol in many years. She is also not taking any seizure medications. MD Complaint: seizure - Related Data Home Medications Medication Instructions Recorded Confirmed ALPRAZolam [Xanax] 1 mg PO TID@0800,1400,199903/29/24 03/29/24 Acetaminophen [Tylenol Arthritis] 1,300 mg PO Q8H PRN 03/29/24 03/29/24 Aspirin 81 mg PO DAILY@0800 03/29/24 03/29/24 Atorvastatin [Lipitor] 20 mg PO HS@2100 03/29/24 03/29/24 Cholestyramine (with Sugar) 4 gm PO AC-TID PRN 03/29/24 03/29/24 [Cholestyramine Powder] Citalopram Hydrobromide 40 mg PO DAILY@0800 03/29/24 03/29/24 [Citalopram HBr] Fenofibrate Nanocrystallized 145 mg PO DAILY@0800 03/29/24 03/29/24 [Tricor] Fexofenadine HCl [Ngozi Allergy] 180 mg PO DAILY@0800 03/29/24 03/29/24 Folic Acid 1 mg PO DAILY@0800 03/29/24 03/29/24 Lidocaine 5% Patch [Lidoderm 5% 1 patch TRANSDERM DAILY PRN 03/29/24 03/29/24 Patch] Loperamide HCl [Imodium A-D] 2 - 4 mg PO QID PRN 03/29/24 03/29/24 Metoprolol Tartrate [Lopressor] 25 mg PO BID@0800,2100 03/29/24 03/29/24 Ondansetron [Zofran] 4 mg PO TID PRN 03/29/24 03/29/24 Vitamin B Complex 1 cap PO DAILY@0800 03/29/24 03/29/24 amLODIPine [Norvasc] 10 mg PO DAILY@0800 03/29/24 03/29/24 hydrALAZINE HCL [Apresoline] 25 mg PO DAILY PRN 03/29/24 03/29/24 traZODone HCL [Desyrel] 100 mg PO HS@2100 03/29/24 03/29/24 Previous Rx's Medication Instructions Recorded Cholecalciferol [Vitamin D3 (25 50 mcg PO DAILY tab 12/09/23 Mcg = 1000 Iu)] Allergies Allergy/AdvReac Type Severity Reaction Status Date / Time Sulfa (Sulfonamide Allergy Severe Rash/Hives Verified 03/29/24 14:41 Antibiotics) baclofen Allergy Unknown Verified 03/29/24 14:41 oxcarbazepine Allergy Unknown Verified 03/29/24 14:41 [From Trileptal] Review of Systems ROS Statement: Those systems with pertinent positive or pertinent negative responses have been documented in the HPI. ROS Other: All systems not noted in ROS Statement are negative. 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 History of Any Multi-Drug Resistant Organisms: None Reported Past Surgical History: No Surgical Hx Reported, Orthopedic Surgery Additional Past Surgical History / Comment(s): R shoulder surgery d/t injury, L leg surgery d/t injury, colonoscopy Past Anesthesia/Blood Transfusion Reactions: No Reported Reaction Past Psychological History: Anxiety, Bipolar, Depression Smoking Status: Current every day smoker, Current some day smoker, Heavy tobacco smoker Past Alcohol Use History: Abuse, Daily, Heavy Past Drug Use History: None Reported - Past Family History Father History Unknown: Yes Family Medical History: Hypertension Mother Family Medical History: No Reported History Additional Family Medical History / Comment(s): Mother is , pt states she was healthy. General Exam Limitations: altered mental status General appearance: alert, in no apparent distress Head exam: Present: atraumatic, normocephalic, normal inspection Eye exam: Present: normal appearance, PERRL, EOMI. Absent: scleral icterus, conjunctival injection, periorbital swelling Respiratory exam: Present: normal lung sounds bilaterally. Absent: respiratory distress, wheezes, rales, rhonchi, stridor Cardiovascular Exam: Present: normal rhythm, tachycardia GI/Abdominal exam: Present: soft. Absent: distended Neurological exam: Present: alert Skin exam: Present: warm, dry, intact, normal color. Absent: rash Course Vital Signs 03/29/24 03/29/24 03/29/24 05:30 06:00 06:49 Temperature 99.0 F Pulse Rate 116 H 107 H 94 Respiratory 18 18 18 Rate Blood Pressure 147/88 153/71 137/69 O2 Sat by Pulse 95 96 98 Oximetry 03/29/24 03/29/24 03/29/24 08:48 09:36 11:00 Temperature 99.1 F Pulse Rate 112 H 104 H 108 H Respiratory 18 18 18 Rate Blood Pressure 151/82 122/69 148/62 O2 Sat by Pulse 96 94 L 93 L Oximetry 03/29/24 03/29/24 12:51 12:58 Temperature Pulse Rate 103 H Respiratory 18 Rate Blood Pressure 116/95 O2 Sat by Pulse 97 94 L Oximetry Medical Decision Making - Medical Decision Making This is a 69-year-old female who presents to the emergency department for a seizure. Was pt. sent in by a medical professional or institution? @ -No Did you speak to anyone other than the patient for history? @ -Caregivers provided all of the history. Did you review nursing and triage notes? @ -Yes, and I agree, it is accurate with regards to the patient's symptoms. Were old charts reviewed? @ -No Differential Diagnosis? @ -Differential Seizure: Recurrent seizure disorder, febrile seizure, alcohol withdrawal, stimulants, meningitis, encephalitis, intercranial hemorrhage, intracranial tumor, stroke, eclampsia, thyrotoxicosis, hypocalcemia, hyponatremia, hypernatremia, hypomagnesemia, psychogenic, this is not meant to be an all-inclusive list. EKG interpreted by me (3pts min.)? @ -EKG interpreted by me demonstrating the following: Sinus tachycardia. Ventricular rate 116 bpm, RI interval 147 ms, QRS duration 98 ms, QTc 412 ms. X-rays interpreted by me (1pt min.)? @ -Chest x-ray obtained, my interpretation identifies no localized cons olidations or infiltrates. CT interpreted by me (1pt min.)? @ -CT scan of the brain obtained. My interpretation identifies no evidence of an acute intracranial hemorrhage. CTA of the chest obtained. My interpretation identifies no evidence of a pulmonary embolus. U/S interpreted by me (1pt. min.)? @ -Not obtained What testing was considered but not performed? (CT, X-rays, U/S, labs)? Why? @ -None What meds were considered but not given? Why? @ -None Did you discuss the management of the patient with other professionals? @ -No Did you reconcile home meds? @ -No Was smoking cessation discussed for >3mins.? @ -No Was critical care preformed (if so, how long)? @ -No Were there social determinants of health that impacted care today? How? (Homelessness, low income, unemployed, alcoholism, drug addiction, transportation, low edu. Level, literacy, decrease access to med. care, longterm, rehab)? @ -No Was there de-escalation of care discussed even if they declined? (Discuss DNR or withdrawal of care, Hospice)? @ -No What co-morbidities impacted this encounter? (DM, HTN, Smoking, COPD, CAD, Cancer, CVA, Hep., AIDS, mental health diagnosis, sleep apnea, morbid obesity)? @ -COPD, HTN, psychiatric illness Was patient admitted / discharged? @ -Admitted. Lab work demonstrates mild leukocytosis with a white blood cell count of 10.7. She also has mild hypokalemia with a potassium of 3.2. COVID, influenza, and RSV testing negative. Patient appeared to be postictal on arrival. She was given a liter bolus of IV fluids, 1 mg of Ativan, and 1 g of Keppra. Seizure precautions initiated as well. COVID, influenza, and RSV testing negative. UA and UDS negative. CT scan of the brain and chest x-ray reveal no acute process. She continued to remain tachycardic and had some dips in her O2 saturation. D-dimer subsequently obtained which was found to be elevated. CTA of the chest obtained revealing no evidence of a pulmonary embolus. While the patient was more alert than she was on arrival, she was still very altered and not making much sense on examination. She was able to put words together and communicate, however none of them made sense. Seizures may have been triggered by the Xanax withdrawals. Patient subsequently admitted to medicine for recurrent seizures and benzodiazepine withdrawal. Consult placed for neurology. Case discussed with ED attending Dr. Oliveira. Undiagnosed new problem with uncertain prognosis? @ -None Drug Therapy requiring intensive monitoring for toxicity (Heparin, Nitro, Insulin, Cardizem)? @ -None Were any procedures done? @ -None Diagnosis/symptom? @ -Recurrent seizures, benzodiazepine withdrawal Acute, or Chronic, or Acute on Chronic? @ -Acute Uncomplicated (without systemic symptoms) or Complicated (systemic symptoms)? @ -Complicated Side effects of treatment? @ -None Exacerbation, Progression, or Severe Exacerbation] @ -Not applicable Poses a threat to life or bodily function? @ -Yes - Lab Data Result diagrams: 03/29/24 05:53 03/29/24 05:53 Lab Results 03/29/24 03/29/24 03/29/24 Range/Units 05:53 05:53 05:55 WBC 10.7 H (3.8-10.6) k/uL RBC 3.72 L (3.80-5.40) m/uL Hgb 11.3 L (11.4-16.0) gm/dL Hct 34.1 (34.0-46.0) % MCV 91.5 (80.0-100.0) fL MCH 30.5 (25.0-35.0) pg MCHC 33.3 (31.0-37.0) g/dL RDW 14.1 (11.5-15.5) % Plt Count 261 (150-450) k/uL MPV 8.3 Neutrophils % 78 % Lymphocytes % 15 % Monocytes % 3 % Eosinophils % 3 % Basophils % 1 % Neutrophils # 8.3 H (1.3-7.7) k/uL Lymphocytes # 1.6 (1.0-4.8) k/uL Monocytes # 0.3 (0-1.0) k/uL Eosinophils # 0.3 (0-0.7) k/uL Basophils # 0.1 (0-0.2) k/uL PT (10.0-12.5) sec INR (<1.2) APTT (22.0-30.0) sec D-Dimer (<0.60) mg/L FEU Sodium 137 (137-145) mmol/L Potassium 3.2 L (3.5-5.1) mmol/L Chloride 108 H (98-107) mmol/L Carbon Dioxide 17 L (22-30) mmol/L Anion Gap 12 mmol/L BUN 12 (7-17) mg/dL Creatinine 0.71 (0.52-1.04) mg/dL Est GFR (CKD-EPI)AfAm >90 (>60 ml/min/1.73 sqM) Est GFR (CKD-EPI)NonAf 87 (>60 ml/min/1.73 sqM) Glucose 143 H (74-99) mg/dL POC Glucose (mg/dL) 147 H (70-110) mg/dL POC Glu Hand Surgeon ID Tyler Odom Plasma Lactic Acid Sam (0.7-2.0) mmol/L Calcium 9.7 (8.4-10.2) mg/dL Magnesium 1.9 (1.6-2.3) mg/dL Total Bilirubin 1.0 (0.2-1.3) mg/dL AST 37 H (14-36) U/L ALT 21 (4-34) U/L Alkaline Phosphatase 74 (38-126) U/L Total Protein 6.9 (6.3-8.2) g/dL Albumin 4.1 (3.5-5.0) g/dL Urine Color Urine Appearance (Clear) Urine pH (5.0-8.0) Ur Specific [place] (1.001-1.035) Urine Protein (Negative) Urine Glucose (UA) (Negative) Urine Ketones (Negative) Urine Blood (Negative) Urine Nitrite (Negative) Urine Bilirubin (Negative) Urine Urobilinogen (<2.0) mg/dL Ur Leukocyte Esterase (Negative) Urine RBC (0-5) /hpf Urine WBC (0-5) /hpf Ur Squamous Epith Cells (0-4) /hpf Urine Mucus (None) /hpf Urine Opiates Screen (NotDetected) Ur Oxycodone Screen (NotDetected) Urine Methadone Screen (NotDetected) Ur Barbiturates Screen (NotDetected) U Tricyclic Antidepress (NotDetected) Ur Phencyclidine Scrn (NotDetected) Ur Amphetamines Screen (NotDetected) U Methamphetamines Scrn (NotDetected) U Benzodiazepines Scrn (NotDetected) Urine Cocaine Screen (NotDetected) U Marijuana (THC) Screen (NotDetected) Serum Alcohol <10 mg/dL Influenza Type A (PCR) (Not Detectd) Influenza Type B (PCR) (Not Detectd) RSV (PCR) (Not Detectd) SARS-CoV-2 (PCR) (Not Detectd) 03/29/24 03/29/24 03/29/24 Range/Units 06:21 07:56 08:50 WBC (3.8-10.6) k/uL RBC (3.80-5.40) m/uL Hgb (11.4-16.0) gm/dL Hct (34.0-46.0) % MCV (80.0-100.0) fL MCH (25.0-35.0) pg MCHC (31.0-37.0) g/dL RDW (11.5-15.5) % Plt Count (150-450) k/uL MPV Neutrophils % % Lymphocytes % % Monocytes % % Eosinophils % % Basophils % % Neutrophils # (1.3-7.7) k/uL Lymphocytes # (1.0-4.8) k/uL Monocytes # (0-1.0) k/uL Eosinophils # (0-0.7) k/uL Basophils # (0-0.2) k/uL PT (10.0-12.5) sec INR (<1.2) APTT (22.0-30.0) sec D-Dimer (<0.60) mg/L FEU Sodium (137-145) mmol/L Potassium (3.5-5.1) mmol/L Chloride (98-107) mmol/L Carbon Dioxide (22-30) mmol/L Anion Gap mmol/L BUN (7-17) mg/dL Creatinine (0.52-1.04) mg/dL Est GFR (CKD-EPI)AfAm (>60 ml/min/1.73 sqM) Est GFR (CKD-EPI)NonAf (>60 ml/min/1.73 sqM) Glucose (74-99) mg/dL POC Glucose (mg/dL) (70-110) mg/dL POC Glu Hand Surgeon ID Plasma Lactic Acid Sam 1.2 (0.7-2.0) mmol/L Calcium (8.4-10.2) mg/dL Magnesium (1.6-2.3) mg/dL Total Bilirubin (0.2-1.3) mg/dL AST (14-36) U/L ALT (4-34) U/L Alkaline Phosphatase (38-126) U/L Total Protein (6.3-8.2) g/dL Albumin (3.5-5.0) g/dL Urine Color Light Yellow Urine Appearance Cloudy H (Clear) Urine pH 5.5 (5.0-8.0) Ur Specific [place] 1.017 (1.001-1.035) Urine Protein 1+ H (Negative) Urine Glucose (UA) Negative (Negative) Urine Ketones Negative (Negative) Urine Blood Trace H (Negative) Urine Nitrite Negative (Negative) Urine Bilirubin Negative (Negative) Urine Urobilinogen <2.0 (<2.0) mg/dL Ur Leukocyte Esterase Negative (Negative) Urine RBC 2 (0-5) /hpf Urine WBC 3 (0-5) /hpf Ur Squamous Epith Cells 1 (0-4) /hpf Urine Mucus Rare H (None) /hpf Urine Opiates Screen Not Detected (NotDetected) Ur Oxycodone Screen Not Detected (NotDetected) Urine Methadone Screen Not Detected (NotDetected) Ur Barbiturates Screen Not Detected (NotDetected) U Tricyclic Antidepress Not Detected (NotDetected) Ur Phencyclidine Scrn Not Detected (NotDetected) Ur Amphetamines Screen Not Detected (NotDetected) U Methamphetamines Scrn Not Detected (NotDetected) U Benzodiazepines Scrn Not Detected (NotDetected) Urine Cocaine Screen Not Detected (NotDetected) U Marijuana (THC) Screen Not Detected (NotDetected) Serum Alcohol mg/dL Influenza Type A (PCR) Not Detected (Not Detectd) Influenza Type B (PCR) Not Detected (Not Detectd) RSV (PCR) Not Detected (Not Detectd) SARS-CoV-2 (PCR) Not Detected (Not Detectd) 03/29/24 Range/Units 11:27 WBC (3.8-10.6) k/uL RBC (3.80-5.40) m/uL Hgb (11.4-16.0) gm/dL Hct (34.0-46.0) % MCV (80.0-100.0) fL MCH (25.0-35.0) pg MCHC (31.0-37.0) g/dL RDW (11.5-15.5) % Plt Count (150-450) k/uL MPV Neutrophils % % Lymphocytes % % Monocytes % % Eosinophils % % Basophils % % Neutrophils # (1.3-7.7) k/uL Lymphocytes # (1.0-4.8) k/uL Monocytes # (0-1.0) k/uL Eosinophils # (0-0.7) k/uL Basophils # (0-0.2) k/uL PT 10.9 (10.0-12.5) sec INR 1.0 (<1.2) APTT 21.0 L (22.0-30.0) sec D-Dimer 4.57 H (<0.60) mg/L FEU Sodium (137-145) mmol/L Potassium (3.5-5.1) mmol/L Chloride (98-107) mmol/L Carbon Dioxide (22-30) mmol/L Anion Gap mmol/L BUN (7-17) mg/dL Creatinine (0.52-1.04) mg/dL Est GFR (CKD-EPI)AfAm (>60 ml/min/1.73 sqM) Est GFR (CKD-EPI)NonAf (>60 ml/min/1.73 sqM) Glucose (74-99) mg/dL POC Glucose (mg/dL) (70-110) mg/dL POC Glu Hand Surgeon ID Plasma Lactic Acid Sam (0.7-2.0) mmol/L Calcium (8.4-10.2) mg/dL Magnesium (1.6-2.3) mg/dL Total Bilirubin (0.2-1.3) mg/dL AST (14-36) U/L ALT (4-34) U/L Alkaline Phosphatase (38-126) U/L Total Protein (6.3-8.2) g/dL Albumin (3.5-5.0) g/dL Urine Color Urine Appearance (Clear) Urine pH (5.0-8.0) Ur Specific [place] (1.001-1.035) Urine Protein (Negative) Urine Glucose (UA) (Negative) Urine Ketones (Negative) Urine Blood (Negative) Urine Nitrite (Negative) Urine Bilirubin (Negative) Urine Urobilinogen (<2.0) mg/dL Ur Leukocyte Esterase (Negative) Urine RBC (0-5) /hpf Urine WBC (0-5) /hpf Ur Squamous Epith Cells (0-4) /hpf Urine Mucus (None) /hpf Urine Opiates Screen (NotDetected) Ur Oxycodone Screen (NotDetected) Urine Methadone Screen (NotDetected) Ur Barbiturates Screen (NotDetected) U Tricyclic Antidepress (NotDetected) Ur Phencyclidine Scrn (NotDetected) Ur Amphetamines Screen (NotDetected) U Methamphetamines Scrn (NotDetected) U Benzodiazepines Scrn (NotDetected) Urine Cocaine Screen (NotDetected) U Marijuana (THC) Screen (NotDetected) Serum Alcohol mg/dL Influenza Type A (PCR) (Not Detectd) Influenza Type B (PCR) (Not Detectd) RSV (PCR) (Not Detectd) SARS-CoV-2 (PCR) (Not Detectd) - Radiology Data Radiology results: report reviewed, image reviewed Disposition Clinical Impression: Recurrent seizures, Benzodiazepine withdrawal Disposition: ADMITTED IP TO THIS HOSP
[2024-03-29 06:43] LABS: Basophils # (A) 0.1 k/uL (0-0.2); Basophils % (A) 1 %; Eosinophils # (A) 0.3 k/uL (0-0.7); Eosinophils % (A) 3 %; HCT 34.1 % (34.0-46.0); HGB 11.3 gm/dL (11.4-16.0); Lymphocytes # (A) 1.6 k/uL (1.0-4.8); Lymphocytes % (A) 15 %; MCH 30.5 pg (25.0-35.0); MCHC 33.3 g/dL (31.0-37.0); MCV 91.5 fL (80.0-100.0); Mean Platelet Volume 8.3; Monocytes # (A) 0.3 k/uL (0-1.0); Monocytes % (A) 3 %; Neutrophils # (A) 8.3 k/uL (1.3-7.7); Neutrophils % (A) 78 %; Platelet Count 261 k/uL (150-450); RBC 3.72 m/uL (3.80-5.40); RDW 14.1 % (11.5-15.5); WBC 10.7 k/uL (3.8-10.6)
--- NOTE | 2024-03-29 07:17 | XR ---
EXAMINATION TYPE: XR chest 1V DATE OF EXAM: 03/29/2024 COMPARISON: Chest x-ray December 04, 2023 CLINICAL INDICATION: Female, 69 years old with history of Weakness; TECHNIQUE: Single frontal view of the chest is obtained. FINDINGS: Improved inspiration on current study. Lungs grossly clear. Cardiac silhouette size remain s within normal limits. Osseous structures are intact. IMPRESSION: No acute cardiopulmonary process. [facility], , 03/29/2024 7:15 AM
--- NOTE | 2024-03-29 07:19 | CT ---
EXAMINATION TYPE: CT brain wo con DATE OF EXAM: 03/29/2024 COMPARISON: Prior CT July 06, 2023 HISTORY: seizure CT DLP: 1074 mGycm. Automated Exposure Control for Dose Reduction was Utilized. TECHNIQUE: CT scan of the head is performed without contrast. FINDINGS: There is no acute intracranial hemorrhage or midline shift identified. Mild to moderate v entricular and sulcal prominence is redemonstrated. Mild low attenuation in the periventricular white matter is redemonstrated. Old infarct inferior left frontal lobe again seen. Old infarct anterior le ft temporal lobe redemonstrated. The paranasal sinuses are clear. The globes are intact bilaterally. IMPRESSION: No acute intracranial hemorrhage or midline shift is seen. Old left frontal and temporal lobe infarcts redemonstrated. No significant change from most recent CT. [facility], , 03/29/2024 7:17 AM
[2024-03-29 07:22] LABS: Influenza A Not Detected (Not Detectd); Influenza B Not Detected (Not Detectd); RSV Not Detected (Not Detectd)
[2024-03-29] MEDS: POTASSIUM CHLORIDE 20 MEQ in WATER FOR INJECTION 1 100ML.BAG IVPB STA (09:10)
[2024-03-29 09:24] LABS: Amphetamine Screen,Urine Not Detected (NotDetected); Appearance,Urine Cloudy (Clear); Barbiturate Screen,Urine Not Detected (NotDetected); Benzodiazepines Screen,Urine Not Detected (NotDetected); Bilirubin,Urine Negative (Negative); Blood,Urine Trace (Negative); Cocaine Screen,Urine Not Detected (NotDetected); Color,Urine Light Yellow; Glucose,Urine (UA) Negative (Negative); Ketones,Urine Negative (Negative); Leukocyte Esterase,Urine Negative (Negative); Methadone Screen, Urine Not Detected (NotDetected); Mucus,Urine Rare /hpf; Nitrite,Urine Negative (Negative); Opiate Screen,Urine Not Detected (NotDetected); Oxycodone Screen, Urine Not Detected (NotDetected); PH, Urine 5.5 (5.0-8.0); Phencyclidine Screen,Urine Not Detected (NotDetected); Protein,Urine 1+ (Negative); RBC,Urine 2 /hpf (0-5); Specific Gravity,Urine 1.017 (1.001-1.035); Squamous Epithelial Cell,Urine 1 /hpf (0-4); Tricyclic Antidepressant,Urine Not Detected (NotDetected); Urn Cannabinoid Scrn Not Detected (NotDetected); Urobilinogen,Urine <2.0 mg/dL (<2.0); WBC,Urine 3 /hpf (0-5)
[2024-03-29 12:22] LABS: Prothrombin Time 10.9 sec (10.0-12.5)
--- NOTE | 2024-03-29 13:32 | CT ---
EXAMINATION TYPE: CT chest angio for PE DATE OF EXAM: 03/29/2024 1:21 PM COMPARISON: None CLINICAL INDICATION: Female, 69 years old with history of Tachycardia, elevated d-dimer; elevated d d jose elias TECHNIQUE/CONTRAST: CTA scan of the thorax is performed with IV Contrast, patient injected with 100ml mL of Isovue 370, M IP images are created and reviewed these are created on a separate workstation.. CT DLP: 337 mGycm, Automated exposure control for dose reduction was used. FINDINGS: Lungs/Pleura: No evidence of focal consolidation, pleural effusion or pneumothorax. Moderate centrilo bular and paraseptal emphysema changes throughout the lungs. Left lower lung 6 mm pulmonary nodule. Airway: Large airways are patent. Heart: Heart is within normal limits for size. Vasculature: There is no evidence for a filling defect within the pulmonary vasculature to suggest ac [place] pulmonary embolism. The pulmonary artery is of normal size. Mediastinum: No gross evidence of adenopathy. Musculoskeletal: No acute osseous abnormalities Soft Tissues/lymph nodes: Unremarkable. Lower neck: No significant findings. Upper Abdomen: Few scattered calcified granulomas in the spleen. IMPRESSION: 1. No evidence of pulmonary embolism. 2. Left lower lobe 6 mm pulmonary nodule. Consider surveillance imaging in 6-12 months with low dose lung cancer screening Follow up recommendations for incidental pulmonary nodules, if there are any, are per [employer] [place] [employer] or [employer]. https://radiopaedia.org/articles/obvfcfkcoh-[email or web address]-[email or web address]?lang=us [facility], , 03/29/2024 1:30 PM
[2024-03-29] MEDS ORDERED: NALOXONE 0.4 MG/ML 1 ML VIAL IV PRN (14:17)
[2024-03-29] MEDS ORDERED: MORPHINE SULFATE 4 MG/ML SYRINGE IV PRN (14:17)
[2024-03-29] MEDS ORDERED: ACETAMINOPHEN TAB 325 MG TAB PO PRN ×2 (14:17→15:15)
[2024-03-29] MEDS ORDERED: KETOROLAC 15 MG/ML 1 ML VIAL IVP PRN (14:17)
[2024-03-29] MEDS ORDERED: IBUPROFEN 400 MG TAB PO PRN (14:17)
[2024-03-29] MEDS ORDERED: ONDANSETRON 4 MG/2 ML VIAL IVP PRN (14:17)
[2024-03-29] MEDS ORDERED: ONDANSETRON 4 MG TAB PO PRN (15:15)
[2024-03-29] MEDS ORDERED: LIDOCAINE 4% PATCH TOPICAL PRN (15:15)
[2024-03-29] MEDS ORDERED: LOPERAMIDE 2 MG CAP PO PRN (15:15)
[2024-03-29] MEDS ORDERED: hydrALAZINE HCL 25 MG TAB PO PRN (15:15)
[2024-03-29] MEDS ORDERED: CHOLESTYRAMINE (WITH SUGAR) 4 GM PACKET PO PRN (17:30)
[2024-03-29] MEDS: METOPROLOL TARTRATE 25 MG TAB PO SCH (22:41)
[2024-03-29] MEDS: levETIRAcetam IV 500 MG/5 ML VIAL IVP SCH (22:41)
[2024-03-29] MEDS: ATORVASTATIN 20 MG TAB PO SCH (22:42)
[2024-03-29] MEDS: ALPRAZolam 1 MG TAB PO SCH (23:47)
[2024-03-29] MEDS: traZODone HCL 100 MG TAB PO SCH (23:47)
[2024-03-30] MEDS: HALOPERIDOL LACTATE 5 MG/ML 1 ML VIAL IM STA (00:31)
[2024-03-30] MEDS ORDERED: NON FORMULARY DRUG (Vitamin B Complex [Vitamin B Complex] 1 EACH Capsule) PO SCH (08:00)
[2024-03-30] MEDS: FOLIC ACID 1 MG TAB PO SCH (09:00)
[2024-03-30] MEDS: CITALOPRAM HYDROBROMIDE 20 MG TAB PO SCH (09:00)
[2024-03-30] MEDS: ASPIRIN 81 MG PO SCH (09:00)
[2024-03-30] MEDS: PANTOPRAZOLE 40 MG/10 ML VIAL IV SCH (09:01)
[2024-03-30] MEDS: CHOLECALCIFEROL 25 MCG (1000 IU) TABLET PO SCH (09:01)
[2024-03-30] MEDS: LORATADINE 10 MG TAB PO SCH (09:01)
[2024-03-30] MEDS: amLODIPine 10 MG TAB PO SCH (09:01)
[2024-03-30] MEDS: FENOFIBRATE 160 MG TAB PO SCH (09:01)
--- NOTE | 2024-03-30 10:46 | P.CNNES ---
History of Present Illness Consult date: 03/30/24 Reason for Consult: History of alcohol use with Xanax withdrawal and seizure. Chief complaint: "I used to drink, but it was a long time ago." History of Present Illness: Ms. Renee is a 69-year-old female with history of COPD, stroke, seizure disorder from alcohol withdrawal, migraines left leg injury, anxiety, bipolar disorder, major depression. She was admitted to [facility] on March 29 from a snf where she was noted to have seizure activity for approximately 2 minutes. She had 2 more seizures and route each lasting approximately 15 to 20 seconds and was given Versed which calmed these. She was loaded with Keppra 1000 mg in the emergency room and continues on Keppra at this time. She apparently fell 2 days ago and had some altered mental status following this however she is also been off her Xanax medication for approximately 1 week. Again she has a history of seizures in the past with alcohol withdrawal but has not used alcohol use in several years. In the hospital at this time patient was fairly confused and believes she is in [facility]. She will follow simple and complex commands but has difficulty recalling her history. Neurology was consulted for further management recommendations. Review of Systems Review of systems was somewhat limited secondary to patient's altered mental status. All systems: negative Musculoskeletal: bilateral: hip pain Past Medical History Past Medical History: COPD, CVA/TIA, Pneumonia, Seizure Disorder Additional Past Medical History / Comment(s): ETOH abuse/withdrawals/tremors, seizures-pt unsure if in past prior to using alcohol or only with alcohol withdrawal, head injury, CVA without residual, migraines, L leg/foot injury with surgery/gait dysfunction, tracheobronchitis. History of Any Multi-Drug Resistant Organisms: None Reported Past Surgical History: No Surgical Hx Reported, Orthopedic Surgery Additional Past Surgical History / Comment(s): R shoulder surgery d/t injury, L leg surgery d/t injury, colonoscopy Past Anesthesia/Blood Transfusion Reactions: No Reported Reaction Past Psychological History: Anxiety, Bipolar, Depression Smoking Status: Current every day smoker, Current some day smoker, Heavy tobacco smoker Past Alcohol Use History: Abuse, Daily, Heavy Past Drug Use History: None Reported - Past Family History Father History Unknown: Yes Family Medical History: Hypertension Mother Family Medical History: No Reported History Additional Family Medical History / Comment(s): Mother is , pt states she was healthy. Medications and Allergies Home Medications Medication Instructions Recorded Confirmed Type Cholecalciferol [Vitamin D3 (25 50 mcg PO DAILY tab 12/09/23 03/29/24 Rx Mcg = 1000 Iu)] ALPRAZolam [Xanax] 1 mg PO TID@0800,1400,199903/29/24 03/29/24 History Acetaminophen [Tylenol Arthritis] 1,300 mg PO Q8H PRN 03/29/24 03/29/24 History Aspirin 81 mg PO DAILY@0800 03/29/24 03/29/24 History Atorvastatin [Lipitor] 20 mg PO HS@209903/29/24 03/29/24 History Cholestyramine (with Sugar) 4 gm PO AC-TID PRN 03/29/24 03/29/24 History [Cholestyramine Powder] Citalopram Hydrobromide 40 mg PO DAILY@0800 03/29/24 03/29/24 History [Citalopram HBr] Fenofibrate Nanocrystallized 145 mg PO DAILY@0800 03/29/24 03/29/24 History [Tricor] Fexofenadine HCl [Ngozi Allergy] 180 mg PO DAILY@0800 03/29/24 03/29/24 History Folic Acid 1 mg PO DAILY@0800 03/29/24 03/29/24 History Lidocaine 5% Patch [Lidoderm 5% 1 patch TRANSDERM DAILY PRN 03/29/24 03/29/24 History Patch] Loperamide HCl [Imodium A-D] 2 - 4 mg PO QID PRN 03/29/24 03/29/24 History Metoprolol Tartrate [Lopressor] 25 mg PO BID@0800,209903/29/24 03/29/24 History Ondansetron [Zofran] 4 mg PO TID PRN 03/29/24 03/29/24 History Vitamin B Complex 1 cap PO DAILY@0800 03/29/24 03/29/24 History amLODIPine [Norvasc] 10 mg PO DAILY@0800 03/29/24 03/29/24 History hydrALAZINE HCL [Apresoline] 25 mg PO DAILY PRN 03/29/24 03/29/24 History traZODone HCL [Desyrel] 100 mg PO HS@2100 03/29/24 03/29/24 History Allergies Allergy/AdvReac Type Severity Reaction Status Date / Time Sulfa (Sulfonamide Allergy Severe Rash/Hives Verified 03/29/24 14:41 Antibiotics) baclofen Allergy Unknown Verified 03/29/24 14:41 oxcarbazepine Allergy Unknown Verified 03/29/24 14:41 [From Trileptal] Physical Examination - Vital Signs Vital Signs: Vital Signs Temp Pulse Pulse Resp BP BP Pulse Ox 03/30/24 08:23 94 L 03/30/24 07:23 98.2 F 101 H 16 164/70 93 L 03/30/24 02:00 98.1 F 87 16 144/58 100 03/29/24 20:00 98.8 F 105 H 16 153/70 92 L 03/29/24 15:57 97.5 F L 103 H 17 160/81 98 03/29/24 15:41 108 H 18 145/67 98 03/29/24 12:58 116/95 94 L 03/29/24 12:51 103 H 18 97 03/29/24 11:00 108 H 18 148/62 93 L FiO2 03/30/24 08:23 21 03/30/24 07:23 03/30/24 02:00 03/29/24 20:00 03/29/24 15:57 03/29/24 15:41 03/29/24 12:58 03/29/24 12:51 03/29/24 11:00 Intake and Output 03/29/24 03/30/24 03/30/24 22:59 06:59 14:59 Intake Total 590 Balance 590 Intake: Oral 590 Other: Voiding Method Diaper # Voids 0 1 Weight 77.111 kg - Constitutional General appearance: average body habitus - EENT EENT: PERRL, hearing intact, vision intact - Respiratory Respiratory: chest non-tender, lungs clear, normal breath sounds - Cardiovascular Cardiovascular: regular rate, no murmurs - Gastrointestinal Gastrointestinal: normoactive bowel sounds, non-tender - Integumentary Integumentary: normal - Neurologic Cranial nerve examination: PERRL, EOMI, VFF, face symmetric Speech examination: intact Detailed motor examination: other (Patient exhibited 5/5 strength of the upper extremities. Lower extremities were slightly less at 4 out of 5 as the patient complained of hip pain on raising her legs.) Detailed sensory examination: other (Patient reported some sensory deficit to her left lower extremity which is chronic in nature. She had no deficit to the upper extremities or face.) Reflex and gait examination: intact Results CT of the brain from March 29 revealed an old left central and temporal lobe infarct. Chest CT angiogram also on March 29 revealed no evidence of pulmonary embolus with a left pulmonary nodule less than 6 mm. Urinalysis as well as urine drug screen were negative and potassium was somewhat low at 3.2. - Laboratory Findings CBC and BMP: 03/29/24 05:53 03/29/24 05:53 Abnormal Lab Findings: Abnormal Labs 03/29/24 03/29/24 03/29/24 05:53 05:53 05:55 WBC 10.7 H RBC 3.72 L Hgb 11.3 L Neutrophils # 8.3 H APTT D-Dimer Potassium 3.2 L Chloride 108 H Carbon Dioxide 17 L Glucose 143 H POC Glucose (mg/dL) 147 H AST 37 H Urine Appearance Urine Protein Urine Blood Urine Mucus 03/29/24 03/29/24 08:50 11:27 WBC RBC Hgb Neutrophils # APTT 21.0 L D-Dimer 4.57 H Potassium Chloride Carbon Dioxide Glucose POC Glucose (mg/dL) AST Urine Appearance Cloudy H Urine Protein 1+ H Urine Blood Trace H Urine Mucus Rare H Assessment and Plan Assessment: Ms. Renee is a 69-year-old female with history of seizure secondary to alcohol withdrawal. She was admitted from a snf secondary to seizure activity which was also suffered in route. She is on Keppra at this time. He is may be due to Xanax withdrawal as the patient is apparently not used alcohol for many years. Plan: 1. Routine electroencephalogram is been ordered and will be read today. Based on the results I may continue Keppra or taper it. 2. Regarding patient's altered mental status I will order thyroid-stimulating hormone as well as vitamin B12 and ammonia levels. Based on these results I may consider whether she had will benefit from sleep improvement at night. 3. Neurology will continue to follow the patient in house and make further rec ommendations as needed. Time with Patient: Less than 30
[2024-03-30] MEDS: ENOXAPARIN 40 MG/0.4 ML SYRINGE SQ SCH (13:08)
[2024-03-30 15:31] LABS: T4, Free (Free Thyroxine) 1.26 ng/dL (0.80-1.80)
--- NOTE | 2024-03-30 16:17 | P.CN ---
Psychiatric Consult - . Consult date: 03/30/24 Consult:: IDENTIFYING DATA: This patient is a 69-year-old female with history of COPD, stroke, seizure disorder from alcohol withdrawal, migraines, left leg injury, anxiety, bipolar disorder, major depression. She was admitted to the hospital after having a seizure episode. REASON FOR REFERRAL: Psychiatry was consulted for AMS HISTORY OF PRESENT ILLNESS: The patient presented to the hospital after having a seizure episode, last for 2 minutes and she had 2 more seizures that lasted 15 to 20-second while coming to the hospital. It is reported that patient was on Xanax for a long time, it was stopped approximately 1 week ago. She has a reported history of alcohol use disorder however it is reported that she has not been using alcohol in several years. The patient was seen in her room, laying in bed, sleeping, patient was able to open her eyes when the journalists and other writers called her name. Did not answer why she came to the hospital, she reported that she is currently in the hospital, in [facility]. She denied any current suicidal or homical ideations, intent or plan. Patient denies any auditory, visual hallucinations and denies any paranoia or delusions. Denied any depression or anxiety. Patient could not keep her eye op en and she went back to sleep, reported that she is tired and want to go back to sleep, interview was ended at this time. Per the patient nurse patient was able to eat her breakfast and lunch. PAST PSYCHIATRIC HISTORY: Patient has a a history of alcohol use disorder, bipolar disorder, and major depressive disorder. Per chart review from last hospitalization in 03/26/2021 patient was discharged on Effexor XR 150 mg, Topamax 50 mg at bedtime. Per Chart review patient has been on numerous medication including Seroquel, trazodone, and Xanax. She has numerous admission to the inpatient psychiatric facility at this hospital. No prior suicidal attempt reported. PAST MEDICAL HISTORY: Past Medical History: COPD, CVA/TIA, Pneumonia, Seizure Disorder Additional Past Medical History / Comment(s): ETOH abuse/withdrawals/tremors, seizures-pt unsure if in past prior to using alcohol or only with alcohol withdrawal, head injury, CVA without residual, migraines, L leg/foot injury with surgery/gait dysfunction, tracheobronchitis. History of Any Multi-Drug Resistant Organisms: None Reported Past Surgical History: No Surgical Hx Reported, Orthopedic Surgery Additional Past Surgical History / Comment(s): R shoulder surgery d/t injury, L leg surgery d/t injury, colonoscopy Past Anesthesia/Blood Transfusion Reactions: No Reported Reaction Past Psychological History: Anxiety, Bipolar, Depression Smoking Status: Current every day smoker, Current some day smoker, Heavy tobacco smoker Past Alcohol Use History: Abuse, Daily, Heavy Past Drug Use History: None Reported ALLERGIES: as per EMR. CHEMICAL DEPENDENCY HISTORY: as per HPI. FAMILY PSYCHIATRIC/SUBSTANCE USE HISTORY: Reported the patient father was an alcoholic SOCIAL HISTORY: Per chart review patient was born in [place] and raised in [place] mom twice, has 2 children and 1 grandchild. Patient currently lives at the long term. MENTAL STATUS EXAM: General Appearance: Patient appears to be stated age is alert, sleepy, and uncooperative. Patient appears to have fair hygiene and grooming wearing hospital gown, open her eyes when her name was called however was closing her eyes for most of the interview. Behavior: Patient is calmly lying in bed without any agitated behavior. Speech: Patient's was answering questions by one-word, needed multiple redirection to stay awake Mood/Affect: Patient reports their mood is "okay", affect is sleepy, mood incongruent Suicidality/Homicidality: Patient denies having any suicidal or homicidal ideation intent or plan. Perceptions: Patient denies any visual hallucinations and denies any auditory hallucinations Though content/process: Could not assess for thought content and thought process since patient was sleepy barely answering questions Memory and concentration: Patient was sleepy, oriented to place and person only Judgment and insight: Assess Assessment: Ms. Renee is a 69-year-old female with history of seizure secondary to alcohol withdrawal. She was admitted from a long term secondary to seizure activity which was also suffered in route. Patient symptoms could be related to Xanax withdrawal as the patient is apparently not used alcohol for many years. On assessment today the patient could not give much history since she was sleepy and needed redirection multiple times, consider following delirium precaution as below. Will hold trazodone 100 mg p.o. hs. Labs reviewed, TSH high at 6.250 IMPRESSIONS: -Rule out delirium -Rule out benzodiazepine withdrawal -History of major depressive disorder PLAN: -At this time patient DOES NOT meet criteria for inpatient psychiatric admission. -Patient DOES NOT have decision making capacity at this time and is unable to reason through and communicate/appreciate the risks, benefits and alternatives to treatment. -Delirium precautions recommended with patient including - avoiding use of narcotics and EMERGENCY MANAGEMENT CONSULTANT sedatives, limit anticholinergic medications when possible, frequent re-orientation, minimize use of restraints, open window shades during the day and close them at night -Would recommend to continue her current psychotropic medication including Celexa 40 mg p.o. daily, and we recommend to hold Trazodone 100 mg p.o. hs -weld lay out worker to provide patient with outpatient mental health/psychiatry resources for appropriate follow up upon discharge -Communicated plan to patient's nurse -Will continue to follow along -Please contact with any questions. 03/30/24 15:44
--- NOTE | 2024-03-30 17:27 | P.HPIM ---
History of Present Illness H&P Date: 03/30/24 Chief Complaint: Seizures This is a 69-year-old patient, follows rules with visiting physician Dr. Silva. Chronic medical conditions include COPD, smoker, bipolar, history of prior alcohol abuse. Patient resident of [facility] and send clear. Patient at baseline is verbal and self-sufficient. Does use a walker but sometimes needs cueing. Otherwise independent. Does use oxygen at night. History of traumatic brain injury. Patient somewhat lethargic with a bit slurred speech. Not able to give much meaningful history. Talk and answer some questions. According to EMS run sheet patient walked in the room and they noticed the patient to be seizing. EMS was called. They witnessed 2 more episodes. Versed 5 mg was given. In the ER Keppra 1000 mg given. Review of systems could not be done as patient is somewhat lethargic cannot really give much of a history Social history: Resident of [facility] + [facility]. Smoker. Prior history of alcohol abuse. Does use a walker. Independent with her ADLs. Normally able to communicate. Has a legal guardian. Smoker Physical examination: VITAL SIGNS: 98.2, 101, 16, 164 x 70, 93% on room air GENERAL: BMI 26.6, laying in bed a bit lethargic. EYES: Pupils equal. Conjunctiva griselda l. HEENT: External appearance of nose and ears normal, oral cavity grossly normal. NECK: JVD not raised; masses not palpable. HEART: First and second heart sounds are normal; no edema. LUNGS: Respiratory rate normal; diminished breath sounds. ABDOMEN: Soft, nontender, liver spleen not palpable, no masses palpable. PSYCH: She can state her name. Sometimes she says she in the hospital sometimes not able to answer that.. A bit lethargic l. MUSCULOSKELETAL:No Clubbing/cyanosis;muscles-grossly intact NEUROLOGICAL: Cranial nerves grossly intact; no facial asymmetry, power and sensation grossly intact. LYMPHATICS: No lymph nodes palpable in the axilla and neck INVESTIGATIONS, reviewed in the clinical context: March 29, 2024: White count 10.7 hemoglobin 11.3 platelets 261 sodium 137 potassium 3.2 bicarb 17 BUN 12 creatinine 0.71 Ammonia 11 vitamin B12 255 TSH 6.2 Free T41.26 UA: Protein 1+ Urine drug screen: Negative EKG tracing personally reviewed by me-normal sinus rhythm. Rate 116. Probable LVH. Chest x-ray film personally reviewed by me-unremarkable CT brain without contrast: Nil acute. 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 Chest CTA: Left lower lobe 6 mm pulmonary nodule. No PE. Influenza type A, type B, RSV, COVID-19: Not detected Assessment plan: -Patient had an episode of seizure activity at the care home. 2 more seizure activity documented while EMS with the patient requiring Versed. Uncontrolled recurrent seizure, new patient history of EtOH abuse in the remote past and prior brain injury.. status epilepticus-diagnosis to be concerned Patient received Versed 5 mg at the site. Received Keppra 1000 mg the ER. Currently on 5 mg twice daily. Neurochecks. EEG. Being followed by neurology. -Chronic nicotine dependence, cigarette smoker Nicotine patch -Chronic gait dysfunction, does use a walker at baseline -Essential hypertension Lopressor 25 mg twice daily. Amlodipine -Hyperlipidemia Lipitor 20 mg nightly, Lofibra -Chronic hypoxic respiratory failure On nocturnal oxygen -Primary osteoarthritis Tylenol as needed -Major depressive disorder Celexa. At home on trazodone. Psychiatry consulted -Public guardian, [facility] Past Medical History Past Medical History: COPD, CVA/TIA, Pneumonia, Seizure Disorder Additional Past Medical History / Comment(s): ETOH abuse/withdrawals/tremors, seizures-pt unsure if in past prior to using alcohol or only with alcohol withdrawal, head injury, CVA without residual, migraines, L leg/foot injury with surgery/gait dysfunction, tracheobronchitis. History of Any Multi-Drug Resistant Organisms: None Reported Past Surgical History: No Surgical Hx Reported, Orthopedic Surgery Additional Past Surgical History / Comment(s): R shoulder surgery d/t injury, L leg surgery d/t injury, colonoscopy Past Anesthesia/Blood Transfusion Reactions: No Reported Reaction Past Psychological History: Anxiety, Bipolar, Depression Smoking Status: Current every day smoker, Current some day smoker, Heavy tobacco smoker Past Alcohol Use History: Abuse, Daily, Heavy Past Drug Use History: None Reported - Past Family History Father History Unknown: Yes Family Medical History: Hypertension Mother Family Medical History: No Reported History Additional Family Medical History / Comment(s): Mother is , pt states she was healthy. Medications and Allergies Home Medications Medication Instructions Recorded Confirmed Type Cholecalciferol [Vitamin D3 (25 50 mcg PO DAILY tab 12/09/23 03/29/24 Rx Mcg = 1000 Iu)] ALPRAZolam [Xanax] 1 mg PO TID@0800,1400,199903/29/24 03/29/24 History Acetaminophen [Tylenol Arthritis] 1,300 mg PO Q8H PRN 03/29/24 03/29/24 History Aspirin 81 mg PO DAILY@0800 03/29/24 03/29/24 History Atorvastatin [Lipitor] 20 mg PO HS@209903/29/24 03/29/24 History Cholestyramine (with Sugar) 4 gm PO AC-TID PRN 03/29/24 03/29/24 History [Cholestyramine Powder] Citalopram Hydrobromide 40 mg PO DAILY@0803/29/24 03/29/24 History [Citalopram HBr] Fenofibrate Nanocrystallized 145 mg PO DAILY@0800 03/29/24 03/29/24 History [Tricor] Fexofenadine HCl [Ngozi Allergy] 180 mg PO DAILY@0803/29/24 03/29/24 History Folic Acid 1 mg PO DAILY@0800 03/29/24 03/29/24 History Lidocaine 5% Patch [Lidoderm 5% 1 patch TRANSDERM DAILY PRN 03/29/24 03/29/24 History Patch] Loperamide HCl [Imodium A-D] 2 - 4 mg PO QID PRN 03/29/24 03/29/24 History Metoprolol Tartrate [Lopressor] 25 mg PO BID@0800,209903/29/24 03/29/24 History Ondansetron [Zofran] 4 mg PO TID PRN 03/29/24 03/29/24 History Vitamin B Complex 1 cap PO DAILY@0800 03/29/24 03/29/24 History amLODIPine [Norvasc] 10 mg PO DAILY@0800 03/29/24 03/29/24 History hydrALAZINE HCL [Apresoline] 25 mg PO DAILY PRN 03/29/24 03/29/24 History traZODone HCL [Desyrel] 100 mg PO HS@209903/29/24 03/29/24 History Allergies Allergy/AdvReac Type Severity Reaction Status Date / Time Sulfa (Sulfonamide Allergy Severe Rash/Hives Verified 03/29/24 14:41 Antibiotics) baclofen Allergy Unknown Verified 03/29/24 14:41 oxcarbazepine Allergy Unknown Verified 03/29/24 14:41 [From Trileptal] Physical Exam Vitals: Vital Signs Temp Pulse Resp BP Pulse Ox FiO2 03/30/24 12:24 98.2 F 80 16 102/61 100 03/30/24 08:23 94 L 21 03/30/24 07:23 98.2 F 101 H 16 164/70 93 L 03/30/24 02:00 98.1 F 87 16 144/58 100 03/29/24 20:00 98.8 F 105 H 16 153/70 92 L Intake and Output 03/30/24 03/30/24 03/30/24 06:59 14:59 22:59 Intake Total 590 Balance 590 Intake: Oral 590 Other: Voiding Method Diaper # Voids 1 1 Results CBC & Chem 7: 03/29/24 05:53 03/29/24 05:53 Labs: Abnormal Lab Results - Last 24 Hours (Table) 03/30/24 Range/Units 11:10 TSH 6.250 H (0.465-4.680) mIU/L Thrombosis Risk Factor Assmnt - Choose All That Apply Any of the Below Risk Factors Present?: Yes Each Factor Represents 1 point: Obesity (BMI >25) Other Risk Factors: Yes Each Risk Factor Represents 2 Points: Age 61-74 years Thrombosis Risk Factor Assessment Total Risk Factor Score: 3 Thrombosis Risk Factor Assessment Level: Moderate Risk
[2024-03-30] MEDS: NICOTINE 14MG/24HR PATCH TRANSDERM SCH (17:53)
[2024-03-31 02:02] LABS: Blood Urea Nitrogen 19.6 mg/dL (9.0-27.0); Calcium 8.7 mg/dL (8.7-10.3); Carbon Dioxide 23.4 mmol/L (21.6-31.8); Chloride 108 mmol/L (96-109); Glucose 102 mg/dL (70-110); Potassium 3.7 mmol/L (3.5-5.5); Sodium 142 mmol/L (135-145)
--- NOTE | 2024-03-31 11:50 | P.PN ---
Subjective Progress Note Date: 03/31/24 Principal diagnosis: Epileptic seizure, likely secondary to Xanax withdrawal. Ms. Renee is a 69-year-old female with history of COPD, stroke, seizure disorder from alcohol withdrawal, migraines left leg injury, anxiety, bipolar disorder, major depression. She was admitted to [facility] on March 29 from a fpc where she was noted to have seizure activity for approximately 2 minutes. She had 2 more seizures and route each lasting approximately 15 to 20 seconds and was given Versed which calmed these. She was loaded with Keppra 1000 mg in the emergency room and continues on Keppra at this time. She apparently fell 2 days ago and had some altered mental status following this however she is also been off her Xanax medication for approximately 1 week. Again she has a history of seizures in the past with alcohol withdrawal but has not used alcohol use in several years. In the hospital at this time patient was fairly confused and believes she is in [facility]. She will follow simple and complex commands but has difficulty recalling her history. Neurology was consulted for further management recommendations. On March 30, an electroencephalogram was ordered. However, the patient refused this. Psychiatry was also consulted due to the patient's history of bipolar disorder and they noted that she has a permanent caregiver and is incapable of making her own decisions at this time. This is dictated in the note. Laboratories ordered for workup of altered mental status include thyroid- stimulating hormone elevated at 6.25 with free T4 level normal at 1.26. Vitamin B12 level was 255 and ammonia level was 10. Urinalysis and urine drug screen are negative. On March 31, patient is sleeping in bed but is arousable. She still has some dysarthria but does not appear grossly confused. She is agreeable to have the given the electroencephalogram today. She was placed on Xanax as well as discontinued from trazodone by psychiatry. Neurologic exam is nonfocal in the upper extremities with lower extremity raising of 2-3 out of 5 bilaterally. Assessment and Plan Assessment: Ms. Renee is a 69-year-old female with history of seizure secondary to alcohol withdrawal. She was admitted from a fpc secondary to seizure activity which was also suffered in route. She is on Keppra at this time. He is may be due to Xanax withdrawal as the patient is apparently not used alcohol for many years. Plan: 1. Routine electroencephalogram will be obtained today. Based on the results I will either taper or continue the Keppra. 2. Patient should continue on home Xanax prescription of 1 mg 3 times daily upon discharge. 3. Neurology will continue to see the patient in house and make further recommendations as needed. Objective - Vital Signs Vital signs: Vital Signs Temp 98.7 F 03/31/24 07:07 Pulse 78 03/31/24 07:07 Resp 18 03/31/24 07:07 BP 127/74 03/31/24 07:07 Pulse Ox 99 03/31/24 07:07 FiO2 21 03/30/24 08:23 Intake & Output 03/30/24 03/31/24 03/31/24 18:59 06:59 18:59 Intake Total 500 Balance 500 Intake: Oral 500 Other: Voiding Method Diaper Diaper # Voids 1 - Labs CBC & Chem 7: 03/29/24 05:53 03/30/24 20:41 Labs: Abnormal Lab Results - Last 24 Hours (Table) 03/30/24 03/30/24 Range/Units 11:10 20:41 BUN/Creatinine Ratio 28.00 H (12.00-20.00) Ratio TSH 6.250 H (0.465-4.680) mIU/L
--- NOTE | 2024-03-31 16:44 | P.DS ---
Providers Date of admission: 03/29/24 13:40 Expected date of discharge: 03/31/24 Attending physician: Miller Locke Consults: 03/29/24 14:17 Consult Physician Urgent Consulting Provider: Nurys Hamm Consult Reason/Comments: Recurrent seizures Do you want consulting provider notified?: Yes 03/30/24 00:02 Consult Physician Routine Consulting Provider: Nitin Bernardo Consult Reason/Comments: AMS Do you want consulting provider notified?: Yes, Notify in am Primary care physician: Adair Silva MD Hospital Course: Chief Complaint: Seizures This is a 69-year-old patient, follows rules with visiting physician Dr. Silva. Chronic medical conditions include COPD, smoker, bipolar, history of prior alcohol abuse. Patient resident of [facility] and send clear. Patient at baseline is verbal and self-sufficient. Does use a walker but sometimes needs cueing. Otherwise independent. Does use oxygen at night. History of traumatic brain injury. Patient somewhat lethargic with a bit slurred speech. Not able to give much meaningful history. Talk and answer some questions. According to EMS run sheet patient walked in the room and they noticed the patient to be seizing. EMS was called. They witnessed 2 more episodes. Versed 5 mg was given. In the ER Keppra 1000 mg given. March 31: Patient doing well today. Communicating well much better. EEG came back to be negative for seizure activity. Given prior history of head trauma and alcohol abuse we will give patient a month supply of Keppra. Patient to follow-up with neurology outpatient. This can be then tapered down. Patient also given a short prescription for Xanax that can be then followed up through her family doctor. Discussed with nurse. Discussion and discharge planning more than 35 minutes Social history: Resident of [facility] + [facility]. Smoker. Prior history of alcohol abuse. Does use a walker. Independent with her ADLs. Normally able to communicate. Has a legal guardian. Smoker Physical examination: VITAL SIGNS: 98.4, 75, 16, 110 x 66, 97% 2 L GENERAL: BMI 26.6, reclining bed, awake, communicating much better. EYES: Pupils equal. Conjunctiva griselda l. HEENT: External appearance of nose and ears normal, oral cavity grossly normal. NECK: JVD not raised; masses not palpable. HEART: First and second heart sounds are normal; no edema. LUNGS: Respiratory rate normal; diminished breath sounds. ABDOMEN: Soft, nontender, liver spleen not palpable, no masses palpable. PSYCH: Able to answer questions much better. MUSCULOSKELETAL:No Clubbing/cyanosis;muscles-grossly intact NEUROLOGICAL: Cranial nerves grossly intact; no facial asymmetry, power and sensation grossly intact. INVESTIGATIONS, reviewed in the clinical context: EEG: Negative for epileptiform activity March 29, 2024: White count 10.7 hemoglobin 11.3 platelets 261 sodium 137 potassium 3.2 bicarb 17 BUN 12 creatinine 0.71 Ammonia 11 vitamin B12 255 TSH 6.2 Free T41.26 UA: Protein 1+ Urine drug screen: Negative EKG tracing personally reviewed by me-normal sinus rhythm. Rate 116. Probable LVH. Chest x-ray film personally reviewed by me-unremarkable CT brain without contrast: Nil acute. 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 Chest CTA: Left lower lobe 6 mm pulmonary nodule. No PE. Influenza type A, type B, RSV, COVID-19: Not detected Assessment plan: -Patient had an episode of seizure activity at the detention. 2 more seizure activity documented while EMS with the patient requiring Versed. Uncontrolled recurrent seizure, new patient history of EtOH abuse in the remote past and prior brain injury.. status epilepticus-diagnosis to be concerned Patient received Versed 5 mg at the site. Received Keppra 1000 mg the ER. EEG: Negative for epileptiform activity Discharge on Keppra 500 mg twice daily. 1 month supply. Patient to see neurology, Dr. Cevallos. Keppra can then be tapered down as felt to be appropriate. Seizure precaution including no driving -Chronic nicotine dependence, cigarette smoker Nicotine patch -Chronic gait dysfunction, does use a walker at baseline -Essential hypertension Lopressor 25 mg twice daily. Amlodipine -Hyperlipidemia Lipitor 20 mg nightly, Lofibra -Chronic hypoxic respiratory failure On nocturnal oxygen -Primary osteoarthritis Tylenol as needed -Major depressive disorder Celexa. Stop trazodone per psychiatry Seen by psychiatry -Public guardian, [facility] Disposition: AF home Past Medical History Past Medical History: COPD, CVA/TIA, Pneumonia, Seizure Disorder Additional Past Medical History / Comment(s): ETOH abuse/withdrawals/tremors, seizures-pt unsure if in past prior to using alcohol or only with alcohol withdrawal, head injury, CVA without residual, migraines, L leg/foot injury with surgery/gait dysfunction, tracheobronchitis. History of Any Multi-Drug Resistant Organisms: None Reported Past Surgical History: No Surgical Hx Reported, Orthopedic Surgery Additional Past Surgical History / Comment(s): R shoulder surgery d/t injury, L leg surgery d/t injury, colonoscopy Past Anesthesia/Blood Transfusion Reactions: No Reported Reaction Past Psychological History: Anxiety, Bipolar, Depression Smoking Status: Current every day smoker, Current some day smoker, Heavy tobacco smoker Past Alcohol Use History: Abuse, Daily, Heavy Past Drug Use History: None Reported Plan - Discharge Summary Discharge Rx Participant: No New Discharge Prescriptions: New Nicotine 14Mg/24Hr Patch [Habitrol] 1 patch TRANSDERM DAILY #30 patch levETIRAcetam [Keppra] 500 mg PO Q12HR #60 tab Continue Cholecalciferol [Vitamin D3 (25 Mcg = 1000 Iu)] 50 mcg PO DAILY tab Ondansetron [Zofran] 4 mg PO TID PRN PRN Reason: Nausea And Vomiting Aspirin 81 mg PO DAILY@0800 Atorvastatin [Lipitor] 20 mg PO HS@2100 Fenofibrate Nanocrystallized [Tricor] 145 mg PO DAILY@0800 Fexofenadine HCl [Ngozi Allergy] 180 mg PO DAILY@0800 Folic Acid 1 mg PO DAILY@0800 hydrALAZINE HCL [Apresoline] 25 mg PO DAILY PRN PRN Reason: Blood Pressure - High Lidocaine 5% Patch [Lidoderm 5% Patch] 1 patch TRANSDERM DAILY PRN PRN Reason: Pain Metoprolol Tartrate [Lopressor] 25 mg PO BID@0800,2100 Acetaminophen [Tylenol Arthritis] 1,300 mg PO Q8H PRN PRN Reason: Pain Cholestyramine (with Sugar) [Cholestyramine Powder] 4 gm PO AC-TID PRN PRN Reason: Diarrhea Loperamide HCl [Imodium A-D] 2 - 4 mg PO QID PRN PRN Reason: Diarrhea Vitamin B Complex 1 cap PO DAILY@0800 amLODIPine [Norvasc] 10 mg PO DAILY@0800 Citalopram Hydrobromide [Citalopram HBr] 40 mg PO DAILY@0800 Changed ALPRAZolam [Xanax] 1 mg PO TID@0800,1400,2000 #30 tab Discontinued traZODone HCL [Desyrel] 100 mg PO HS@2100 Discharge Medication List Cholecalciferol [Vitamin D3 (25 Mcg = 1000 Iu)] 50 mcg PO DAILY tab 12/09/23 [Rx] Acetaminophen [Tylenol Arthritis] 1,300 mg PO Q8H PRN 03/29/24 [History] Aspirin 81 mg PO DAILY@0803/29/24 [History] Atorvastatin [Lipitor] 20 mg PO HS@209903/29/24 [History] Cholestyramine (with Sugar) [Cholestyramine Powder] 4 gm PO AC-TID PRN 03/29/24 [History] Citalopram Hydrobromide [Citalopram HBr] 40 mg PO DAILY@79903/29/24 [History] Fenofibrate Nanocrystallized [Tricor] 145 mg PO DAILY@79903/29/24 [History] Fexofenadine HCl [Ngozi Allergy] 180 mg PO DAILY@79903/29/24 [History] Folic Acid 1 mg PO DAILY@79903/29/24 [History] Lidocaine 5% Patch [Lidoderm 5% Patch] 1 patch TRANSDERM DAILY PRN 03/29/24 [History] Loperamide HCl [Imodium A-D] 2 - 4 mg PO QID PRN 03/29/24 [History] Metoprolol Tartrate [Lopressor] 25 mg PO BID@0800,209903/29/24 [History] Ondansetron [Zofran] 4 mg PO TID PRN 03/29/24 [History] Vitamin B Complex 1 cap PO DAILY@79903/29/24 [History] amLODIPine [Norvasc] 10 mg PO DAILY@0803/29/24 [History] hydrALAZINE HCL [Apresoline] 25 mg PO DAILY PRN 03/29/24 [History] ALPRAZolam [Xanax] 1 mg PO TID@0800,1400,2000 #30 tab 03/31/24 [Rx] Nicotine 14Mg/24Hr Patch [Habitrol] 1 patch TRANSDERM DAILY #30 patch 03/31/24 [Rx] levETIRAcetam [Keppra] 500 mg PO Q12HR #60 tab 03/31/24 [Rx] Follow up Appointment(s)/Referral(s): Adair Silva MD [Primary Care Provider] - 1 Week (Please call and make appointment ) Pepito Cevallos MD [STAFF PHYSICIAN] - 1 Week (Please call and make appointment ) Activity/Diet/Wound Care/Special Instructions: Seizure precautions No driving for at least 6 months until cleared by a neurologist
--- NOTE | 2024-03-31 18:16 | P.PN ---
Progress Note - Text Progress Note Date: 03/31/24 Chief Complaint: Seizures This is a 69-year-old patient, follows rules with visiting physician Dr. Silva. Chronic medical conditions include COPD, smoker, bipolar, history of prior alcohol abuse. Patient resident of [facility] and send clear. Patient at baseline is verbal and self-sufficient. Does use a walker but sometimes needs cueing. Otherwise independent. Does use oxygen at night. History of traumatic brain injury. Patient somewhat lethargic with a bit slurred speech. Not able to give much meaningful history. Talk and answer some questions. According to EMS run sheet patient walked in the room and they noticed the patient to be seizing. EMS was called. They witnessed 2 more episodes. Versed 5 mg was given. In the ER Keppra 1000 mg given. March 31: Patient doing well today. Communicating well much better. EEG came back to be negative for seizure activity. Given prior history of head trauma and alcohol abuse we will give patient a month supply of Keppra. Patient to follow-up with neurology outpatient. This can be then tapered down. Patient also given a short prescription for Xanax that can be then followed up through her family doctor. Discussed with nurse. Patient was to be discharged this evening. At the time of discharge patient complaining of severe pain in both the hips. Discharge being canceled. X-ray of both hips. Consult orthopedics/Dr. Faith. Total time spent today about 50 minutes with over 30 minutes of discussion. Social history: Resident of [facility] + [facility]. Smoker. Prior history of alcohol abuse. Does use a walker. Independent with her ADLs. Normally able to communicate. Has a legal guardian. Smoker Physical examination: VITAL SIGNS: 98.4, 75, 16, 110 x 66, 97% 2 L GENERAL: BMI 26.6, reclining bed, awake, communicating much better. EYES: Pupils equal. Conjunctiva griselda l. HEENT: External appearance of nose and ears normal, oral cavity grossly normal. NECK: JVD not raised; masses not palpable. HEART: First and second heart sounds are normal; no edema. LUNGS: Respiratory rate normal; diminished breath sounds. ABDOMEN: Soft, nontender, liver spleen not palpable, no masses palpable. PSYCH: Able to answer questions much better. MUSCULOSKELETAL:No Clubbing/cyanosis;muscles-grossly intact NEUROLOGICAL: Cranial nerves grossly intact; no facial asymmetry, power and sensation grossly intact. INVESTIGATIONS, reviewed in the clinical context: EEG: Negative for epileptiform activity March 29, 2024: White count 10.7 hemoglobin 11.3 platelets 261 sodium 137 potassium 3.2 bicarb 17 BUN 12 creatinine 0.71 Ammonia 11 vitamin B12 255 TSH 6.2 Free T41.26 UA: Protein 1+ Urine drug screen: Negative EKG tracing personally reviewed by me-normal sinus rhythm. Rate 116. Probable LVH. Chest x-ray film personally reviewed by me-unremarkable CT brain without contrast: Nil acute. 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 Chest CTA: Left lower lobe 6 mm pulmonary nodule. No PE. Influenza type A, type B, RSV, COVID-19: Not detected Assessment plan: -Patient had an [facility] of [facility] the [facility]. 2 more seizure activity documented while EMS with the patient requiring Versed. Uncontrolled recurrent seizure, new patient history of EtOH abuse in the remote past and prior brain injury.. status epilepticus-diagnosis to be concerned Patient received Versed 5 mg at the site. Received Keppra 1000 mg the ER. EEG: Negative for epileptiform activity Discharge on Keppra 500 mg twice daily. 1 month supply. Patient to see neurology, Dr. Cevallos. Keppra can then be tapered down as felt to be appropriate. Seizure precaution including no driving -Chronic nicotine dependence, cigarette smoker Nicotine patch -Complaining of bilateral hip and pelvic pain. X-ray of both the hips and pelvis. Consult orthopedics Dr. Faith. -Chronic gait dysfunction, does use a walker at baseline -Essential hypertension Lopressor 25 mg twice daily. Amlodipine -Hyperlipidemia Lipitor 20 mg nightly, Lofibra -Chronic hypoxic respiratory failure On nocturnal oxygen -Primary osteoarthritis Tylenol as needed -Major depressive disorder Celexa. Stop trazodone per psychiatry Seen by psychiatry -Public guardian, [facility] Past Medical History Past Medical History: COPD, CVA/TIA, Pneumonia, Seizure Disorder Additional Past Medical History / Comment(s): ETOH abuse/withdrawals/tremors, seizures-pt unsure if in past prior to using alcohol or only with alcohol withdrawal, head injury, CVA without residual, migraines, L leg/foot injury with surgery/gait dysfunction, tracheobronchitis. History of Any Multi-Drug Resistant Organisms: None Reported Past Surgical History: No Surgical Hx Reported, Orthopedic Surgery Additional Past Surgical History / Comment(s): R shoulder surgery d/t injury, L leg surgery d/t injury, colonoscopy Past Anesthesia/Blood Transfusion Reactions: No Reported Reaction Past Psychological History: Anxiety, Bipolar, Depression Smoking Status: Current every day smoker, Current some day smoker, Heavy tobacco smoker Past Alcohol Use History: Abuse, Daily, Heavy Past Drug Use History: None Reported
--- NOTE | 2024-03-31 19:01 | XR ---
EXAMINATION TYPE: XR Hip Bilateral and AP pelvis DATE OF EXAM: 03/31/2024 6:49 PM COMPARISON: Previous pelvic radiograph 03/19/2020. CLINICAL INDICATION: Female, 69 years old with history of Bilateral hip pain; PHH TECHNIQUE: XR Hip Bilateral and AP pelvis; hip was examined in the frontal and lateral projections an d a AP pelvis. FINDINGS: Acute fracture or dislocation in the right or left hip. Previous ORIF of the proximal left femur with intramedullary patrick and gamma fixation. No periprostatic lucency. Osseous structures are demineralize d. Pelvic bones appear grossly intact. Moderate bilateral degenerative osteoarthritic changes of the hips. IMPRESSION: No acute osseous abnormality. [facility], , 03/31/2024 6:58 PM
[2024-03-31] MEDS: ACETAMINOPHEN TAB 325 MG TAB PO SCH (19:26)
[2024-03-31] MEDS: levETIRAcetam 500 MG TAB PO SCH (21:04)
[2024-03-31] MEDS: NAPROXEN 250 MG TAB PO SCH (21:04)
--- NOTE | 2024-04-01 00:19 | EEG ---
ELECTROENCEPHALOGRAM REPORT REASON FOR CONSULT: History of alcohol withdrawal seizures with Xanax withdrawal, anesthesia type event in her shelter. CURRENT MEDICATIONS: Include, 1. Tylenol. 2. Xanax. 3. Norvasc. 4. Lipitor. 5. Cholestyramine. 6. Celexa. 7. Fenofibrate. 8. Folate. 9. Hydralazine. 10.Motrin. 11.Toradol. 12.Lidocaine. 13.Imodium. 14.Claritin. 15.Lopressor. CHARACTERIZATION OF RECORD: This 28-minute electroencephalogram was characterized by background rhythm of roughly 8 to 9 Hertz alpha rhythm with some superimposed faster beta frequency rhythm. There were occasionally some sharp contours to this rhythm; however, no focal sharp waves or spikes were noted. No rhythmicity was evident. Photic stimulation was performed and resulted in a driving response from 6 to 12 Hertz. There were sleep features noted during the second portion of this electroencephalogram including poorly formed vertex waves as well as sleep spindles. Throughout this electroencephalogram, there was no evidence of focal slowing, focal spikes, sharp waves, or epileptiform discharges. CONCLUSION: This is a normal awake and asleep electroencephalogram. MMODL / IJN: [id number] /
--- NOTE | 2024-04-01 08:53 | P.CNOR ---
History of Present Illness - [facility] Consult date: 04/01/24 Requesting physician: Miller Locke Consult reason: other (Pelvic/ Bilateral hip pain) History of present illness: History of Presenting Illness Patient is a pleasantly confused 69-year-old female who presented to the ER via EMS after it was noticed patient was having a seizure, EMS witnessed two more episodes during transport. our services were consulted due to patient complaint of severe pain in her bilateral hips. Patient does reside at a [facility] facility. She is normally ambulatory with a walker. It is documented that at baseline patient is verbal and self-sufficient. Patient does have a history of a traumatic brain injury. Patient was seen and examined this morning. Patient is resting comfortably in bed. She is alert and is not presenting with any distress. Patient was able to answer some questions although she was not able to give a definitive history, drifting conversation. She does report that she feels weak due to being in bed for a long time. Patient does have a orthopedic history of a right shoulder surgery and a previous ORIF of the left femur with IM nail fixation. X-rays of the bilateral hip and pelvis taken on 03/31/2024 demonstrates no acute osseous abnormalities. Osseous structures are demineralized. Pelvic bones appear grossly intact. Moderate bilateral degenerative osteoarthritic changes of the hips. Review of Systems Pertinent positives and negatives as discussed in HPI, a complete review of systems was performed and all other systems are negative. Physical Examination Bilateral hip and lower extremities: Inspection: Negative for any open fractures, ecchymosis, significant erythema/ulcers. Sensation: Sensation is equal, symmetric, bilaterally intact throughout the upper and lower extremities Palpation: Nontender to palpation throughout bilateral upper and lower extremities and throughout spine exam Range of motion: Patient does have full range of motion bilateral upper and lower extremities on exam, patient does have some stiffness of the bilateral hip joints. Motor: Right: shoulder abduction 5/5, elbow flexors 5/5, wrist dorsiflexors 5/5. finger abductor 5/5, makeup artistry instructor 5/5, hip flexor 4/5, knee flexor 4/5, ankle dorsiflexor 4/5, ankle plantarflexion 4/5 and extensor hallucis 4/5. Left: shoulder abduction 5/5, elbow flexors 5/5, wrist dorsiflexors 5/5. finger abductor 5/5, makeup artistry instructor 5/5, hip flexor 4/5, knee flexor 4/5, ankle dorsiflexor 4/5, ankle plantarflexion 4/5 and extensor hallucis 4/5. Special tests: Negative Homans bilaterally. Negative Tabatha bilaterally. Negative clonus bilaterally. Neurovascular: Radial pulse intact, 2+ bilaterally. Cap refill under 3 seconds in digits upper extremities. Assessment Bilateral hip osteoarthritis Bilateral hip pain Generalized weakness Multiple complex cormobidities Plan At this time we do not recommend any emergent/urgent orthopedic surgical intervention. Patient may follow-up with Dr. Faith's office for further evaluation as needed. Orthopedics is signing off at this time. Please do not hesitate to contact us for any further questions. 2. Appreciate medical management 3. Pain management - Continue with anti-inflammatory, Utilize ice and heat therapy as needed. 4. PT/OT - weightbearing as tolerated with a walker as needed. 5. Appreciate consult. I reviewed and discussed this case with my attending Dr. Faith, whom has reviewed this chart and films and is in agreement with assessment and plan of care as outlined above. I have personally seen and examined the patient, performed the documentation and the assessment and plan as written. Number of minutes spent on the visit: 30m. 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 History of Any Multi-Drug Resistant Organisms: None Reported Past Surgical History: No Surgical Hx Reported, Orthopedic Surgery Additional Past Surgical History / Comment(s): R shoulder surgery d/t injury, L leg surgery d/t injury, colonoscopy Past Anesthesia/Blood Transfusion Reactions: No Reported Reaction Past Psychological History: Anxiety, Bipolar, Depression Smoking Status: Current every day smoker, Current some day smoker, Heavy tobacco smoker Past Alcohol Use History: Abuse, Daily, Heavy Past Drug Use History: None Reported - Past Family History Father History Unknown: Yes Family Medical History: Hypertension Mother Family Medical History: No Reported History Additional Family Medical History / Comment(s): Mother is , pt states she was healthy. Medications and Allergies Home Medications Medication Instructions Recorded Confirmed Type Cholecalciferol [Vitamin D3 (25 50 mcg PO DAILY tab 12/09/23 03/29/24 Rx Mcg = 1000 Iu)] Acetaminophen [Tylenol Arthritis] 1,300 mg PO Q8H PRN 03/29/24 03/29/24 History Aspirin 81 mg PO DAILY@0800 03/29/24 03/29/24 History Atorvastatin [Lipitor] 20 mg PO HS@2100 03/29/24 03/29/24 History Cholestyramine (with Sugar) 4 gm PO AC-TID PRN 03/29/24 03/29/24 History [Cholestyramine Powder] Citalopram Hydrobromide 40 mg PO DAILY@0800 03/29/24 03/29/24 History [Citalopram HBr] Fenofibrate Nanocrystallized 145 mg PO DAILY@0800 03/29/24 03/29/24 History [Tricor] Fexofenadine HCl [Ngozi Allergy] 180 mg PO DAILY@0800 03/29/24 03/29/24 History Folic Acid 1 mg PO DAILY@0800 03/29/24 03/29/24 History Lidocaine 5% Patch [Lidoderm 5% 1 patch TRANSDERM DAILY PRN 03/29/24 03/29/24 History Patch] Loperamide HCl [Imodium A-D] 2 - 4 mg PO QID PRN 03/29/24 03/29/24 History Metoprolol Tartrate [Lopressor] 25 mg PO BID@0800,2100 03/29/24 03/29/24 History Ondansetron [Zofran] 4 mg PO TID PRN 03/29/24 03/29/24 History Vitamin B Complex 1 cap PO DAILY@0800 03/29/24 03/29/24 History amLODIPine [Norvasc] 10 mg PO DAILY@0800 03/29/24 03/29/24 History hydrALAZINE HCL [Apresoline] 25 mg PO DAILY PRN 03/29/24 03/29/24 History ALPRAZolam [Xanax] 1 mg PO TID@0800,1400,2000 #30 tab 03/31/24 Rx Nicotine 14Mg/24Hr Patch [Habitrol] 1 patch TRANSDERM DAILY #30 patch 03/31/24 Rx levETIRAcetam [Keppra] 500 mg PO Q12HR #60 tab 03/31/24 Rx Allergies Allergy/AdvReac Type Severity Reaction Status Date / Time Sulfa (Sulfonamide Allergy Severe Rash/Hives Verified 03/29/24 14:41 Antibiotics) baclofen Allergy Unknown Verified 03/29/24 14:41 oxcarbazepine Allergy Unknown Verified 03/29/24 14:41 [From Trileptal] Results - Labs Labs: H & H 03/29/24 Range/Units 05:53 Hgb 11.3 L (11.4-16.0) gm/dL Hct 34.1 (34.0-46.0) % Coagulation 03/29/24 Range/Units 11:27 INR 1.0 (<1.2) Result Diagrams: 03/29/24 05:53 03/30/24 20:41
--- NOTE | 2024-04-01 19:34 | P.PN ---
Progress Note - Text Progress Note Date: 04/01/24 Chief Complaint: Seizures This is a 69-year-old patient, follows rules with visiting physician Dr. Silva. Chronic medical conditions include COPD, smoker, bipolar, history of prior alcohol abuse. Patient resident of [facility] and send clear. Patient at baseline is verbal and self-sufficient. Does use a walker but sometimes needs cueing. Otherwise independent. Does use oxygen at night. History of traumatic brain injury. Patient somewhat lethargic with a bit slurred speech. Not able to give much meaningful history. Talk and answer some questions. According to EMS run sheet patient walked in the room and they noticed the patient to be seizing. EMS was called. They witnessed 2 more episodes. Versed 5 mg was given. In the ER Keppra 1000 mg given. March 31: Patient doing well today. Communicating well much better. EEG came back to be negative for seizure activity. Given prior history of head trauma and alcohol abuse we will give patient a month supply of Keppra. Patient to follow-up with neurology outpatient. This can be then tapered down. Patient also given a short prescription for Xanax that can be then followed up through her family doctor. Discussed with nurse. Patient was to be discharged this evening. At the time of discharge patient complaining of severe pain in both the hips. Discharge being canceled. X-ray of both hips. Consult orthopedics/Dr. Faith. Total time spent today about 50 minutes with over 30 minutes of discussion. March 31: Saw the patient this morning. Rather sleepy. Patient has been on Keppra. No further seizures reported. Will change patient's Xanax to 0.5 mg every 8 as needed. Came back to see the patient later afternoon. Awake. But finding it difficult to come out of bed. She says she has chronic back pain. Patient also seen by orthopedics Dr. Faith. Patient has been on naproxen. Patient otherwise appears to be rather comfortable. PT OT is on the case. Patient will probably need rehab. Active Medications Acetaminophen (Acetaminophen Tab 325 Mg Tab) 650 mg PO Q6HR [facility] Last Admin: 04/01/24 16:54 Dose: 650 mg Alprazolam (Alprazolam 0.5 Mg Tab) 0.5 mg PO TID PRN PRN Reason: Anxiety Amlodipine Besylate (Amlodipine 10 Mg Tab) 10 mg PO DAILY@0800 [facility] Last Admin: 04/01/24 08:27 Dose: 10 mg Aspirin (Aspirin 81 Mg) 81 mg PO DAILY@0800 [facility] Last Admin: 04/01/24 08:28 Dose: 81 mg Atorvastatin Calcium (Atorvastatin 20 Mg Tab) 20 mg PO HS@2100 [facility] Last Admin: 03/31/24 16:56 Dose: 20 mg Cholecalciferol (Cholecalciferol 25 Mcg (1000 Iu) Tablet) 50 mcg PO DAILY [facility] Last Admin: 04/01/24 08:28 Dose: 50 mcg Cholestyramine Resin (Cholestyramine (With Sugar) 4 Gm Packet) 4 gm PO AC-TID PRN PRN Reason: Diarrhea Citalopram Hydrobromide (Citalopram Hydrobromide 20 Mg Tab) 40 mg PO DAILY@0800 [facility] Last Admin: 04/01/24 08:27 Dose: 40 mg Enoxaparin Sodium (Enoxaparin 40 Mg/0.4 Ml Syringe) 40 mg SQ DAILY [facility] Last Admin: 04/01/24 08:27 Dose: 40 mg Fenofibrate (Fenofibrate 160 Mg Tab) 160 mg PO DAILY@0800 [facility] Last Admin: 04/01/24 08:27 Dose: 160 mg Folic Acid (Folic Acid 1 Mg Tab) 1 mg PO DAILY@0800 [facility] Last Admin: 04/01/24 08:27 Dose: 1 mg Hydralazine HCl (Hydralazine Hcl 25 Mg Tab) 25 mg PO DAILY PRN PRN Reason: Blood Pressure - High Levetiracetam (Levetiracetam 500 Mg Tab) 500 mg PO Q12HR [facility] Last Admin: 04/01/24 08:28 Dose: 500 mg Lidocaine (Lidocaine 4% Patch) 1 patch TOPICAL DAILY PRN PRN Reason: Pain Loperamide HCl (Loperamide 2 Mg Cap) 2 mg PO QID PRN PRN Reason: Diarrhea Metoprolol Tartrate (Metoprolol Tartrate 25 Mg Tab) 25 mg PO BID@0800,2100 [facility] Last Admin: 04/01/24 08:28 Dose: 25 mg Naloxone HCl (Naloxone 0.4 Mg/Ml 1 Ml Vial) 0.2 mg IV Q2M PRN PRN Reason: Opioid Reversal Naproxen (Naproxen 250 Mg Tab) 250 mg PO TID [facility] Last Admin: 04/01/24 16:55 Dose: 250 mg Nicotine (Nicotine 14mg/24hr Patch) 1 patch TRANSDERM DAILY [facility] Last Admin: 04/01/24 08:27 Dose: 1 patch Ondansetron HCl (Ondansetron 4 Mg/2 Ml Vial) 4 mg IVP Q8HR PRN PRN Reason: Nausea And Vomiting Ondansetron HCl (Ondansetron 4 Mg Tab) 4 mg PO TID PRN PRN Reason: Nausea And Vomiting Social history: Resident of [facility] + [facility]. Smoker. Prior history of alcohol abuse. Does use a walker. Independent with her ADLs. Normally able to communicate. Has a legal guardian. Smoker Physical examination: VITAL SIGNS: 97.4, 67, 16, 107 x 66, 93% room air GENERAL: BMI 26.6, reclining bed, rather sleepy this morning, but very awake later today. EYES: Pupils equal. Conjunctiva griselda l. HEENT: External appearance of nose and ears normal, oral cavity grossly normal. NECK: JVD not raised; masses not palpable. HEART: First and second heart sounds are normal; no edema. LUNGS: Respiratory rate normal; diminished breath sounds. ABDOMEN: Soft, nontender, liver spleen not palpable, no masses palpable. PSYCH: Answering simple questions. MUSCULOSKELETAL:No Clubbing/cyanosis;muscles-grossly intact NEUROLOGICAL: Cranial nerves grossly intact; no facial asymmetry, power and sensation grossly intact. Patient moving all the limbs. But not able to get out of bed. INVESTIGATIONS, reviewed in the clinical context: EEG: Negative for epileptiform activity March 29, 2024: White count 10.7 hemoglobin 11.3 platelets 261 sodium 137 potassium 3.2 bicarb 17 BUN 12 creatinine 0.71 Ammonia 11 vitamin B12 255 TSH 6.2 Free T41.26 UA: Protein 1+ Urine drug screen: Negative EKG tracing personally reviewed by me-normal sinus rhythm. Rate 116. Probable LVH. Chest x-ray film personally reviewed by me-unremarkable CT brain without contrast: Nil acute. 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 Chest CTA: Left lower lobe 6 mm pulmonary nodule. No PE. Influenza type A, type B, RSV, COVID-19: Not detected Assessment plan: -Patient [facility]. 2 more seizure activity documented while EMS with the patient requiring Versed. history of EtOH abuse in the remote past and prior brain injury.. Patient received Versed 5 mg at the site. Received Keppra 1000 mg the ER. EEG: Negative for epileptiform activity Keppra 500 mg twice daily. 1 month supply. Patient to see neurology, Dr. Cevallos. Keppra can then be tapered down as felt to be appropriate. Seizure precaution including no driving -Chronic nicotine dependence, cigarette smoker Nicotine patch -Complaining of bilateral hip and pelvic pain.-Osteoarthritis X-ray of both the hips and pelvis. Seen by Dr. Faith. For pain management. -Acute medical debility. Patient has baseline able to normally use a walker. Unable to do so. PT OT. -Chronic gait dysfunction, does use a walker at baseline -Essential hypertension Lopressor 25 mg twice daily. Amlodipine -Hyperlipidemia Lipitor 20 mg nightly, Lofibra -Chronic hypoxic respiratory failure On nocturnal oxygen -Primary osteoarthritis Tylenol as needed -Major depressive disorder Celexa. Stop trazodone per psychiatry Seen by psychiatry -Public guardian, [facility] PT OT. Social work involved. Patient will need rehab. Basic Xanax was changed from 1 mg 3 times daily making rather sleepy to 0.5 mg every 8 as needed. 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 History of Any Multi-Drug Resistant Organisms: None Reported Past Surgical History: No Surgical Hx Reported, Orthopedic Surgery Additional Past Surgical History / Comment(s): R shoulder surgery d/t injury, L leg surgery d/t injury, colonoscopy Past Anesthesia/Blood Transfusion Reactions: No Reported Reaction Past Psychological History: Anxiety, Bipolar, Depression Smoking Status: Current every day smoker, Current some day smoker, Heavy tobacco smoker Past Alcohol Use History: Abuse, Daily, Heavy Past Drug Use History: None Reported
[2024-04-01] MEDS: ALPRAZolam 0.5 MG TAB PO PRN (21:09)
[2024-04-02 08:01] VITALS: RESP 16
[2024-04-02 13:56] VITALS: BP 135/69; PULSE 65; TEMP 97.8
--- NOTE | 2024-04-02 14:37 | P.PN ---
Progress Note - Text Progress Note Date: 04/02/24 Dictation was produced using [employer] dictation software. Please excuse any grammatical, word or spelling errors. Interval history: The pt was seen today for follow-up, initially was seen for AMS. Patient states that she is feeling well overall, reported that her mood today is " good," she was awake, oriented, laying in bed. She reported depression and anxiety has been improving, reported that she was not taking her medication and most likely that is why she is here. He denied any current s uicidal, homicidal thoughts or behavior. She reported her sleep and appetite are improving. States that she is compliant with her medication, denied any side effects. Nursing staff reported that patient most likely will be discharged today back to her same residence prior to arriving here or to a rehab place, reported that they are figuring out placement. MENTAL STATUS EXAM: General: Patient appears to be stated age is alert, oriented, cooperative, pleasant. Patient appears to have fair hygiene and grooming wearing hospital gown. Behavior: Patient is calmly lying in bed without any agitated behavior. Speech: Soft in tone, normal in rate, fluent and nonpressured. Mood/Affect: Patient reports their mood is "good", affect is full, mood incongruent Suicidality/Homicidality: Patient denies having any suicidal or homicidal ideation intent or plan. Perceptions: Patient denies any visual hallucinations and denies any auditory hallucinations Though content/process: There is no evidence of any delusional thought content and thought process is linear, logical Memory and concentration: AOX3, grossly intact for the purposes of this session. Can spell "WORLD" backwards Judgment and insight: fair Assessment: Ms. Renee is a 69-year-old female with history of seizure secondary to alcohol withdrawal. She was admitted from a correction secondary to seizure activity which was also suffered in route. Patient symptoms could be related to Xanax withdrawal as the patient is apparently not used alcohol for many years. On assessment today the patient reported improvement in her mood, denied any current suicidal, homicidal thoughts or behavior. She was awake, oriented, calm and cooperative during the interview. Reported that most likely she will be discharged today, patient was advised to follow-up with her outpatient team. Reported that she is compliant with her medication, denied any side effects. No further recommendation at this time. IMPRESSIONS: -Rule out delirium -Rule out benzodiazepine withdrawal -History of major depressive disorder PLAN: -At this time patient DOES NOT meet criteria for inpatient psychiatric admission. -Continue current care as per primary team -Would recommend to continue her current psychotropic medication -wall worker to provide patient with outpatient mental health/psychiatry resources for appropriate follow up upon discharge -Communicated plan to patient's nurse -Psychiatry will sign off at this time -Please contact with any questions.
--- NOTE | 2024-04-02 18:55 | P.DS ---
Providers Date of admission: 03/29/24 13:40 Expected date of discharge: 04/02/24 Attending physician: Miller Locke Consults: 03/29/24 14:17 Consult Physician Urgent Consulting Provider: Nurys Hamm Consult Reason/Comments: Recurrent seizures Do you want consulting provider notified?: Yes 03/30/24 00:02 Consult Physician Routine Consulting Provider: Nitin Bernardo Consult Reason/Comments: AMS Do you want consulting provider notified?: Yes, Notify in am 03/31/24 17:56 Consult Physician Routine Consulting Provider: Albert Faith Consult Reason/Comments: Pelvic pain, unable to ambulate Do you want consulting provider notified?: Yes Primary care physician: Adair Silva MD Hospital Course: Chief Complaint: Seizures This is a 69-year-old patient, follows rules with visiting physician Dr. Silva. Chronic medical conditions include COPD, smoker, bipolar, history of prior alcohol abuse. Patient resident of [facility] and send clear. Patient at baseline is verbal and self-sufficient. Does use a walker but sometimes needs cueing. Otherwise independent. Does use oxygen at night. History of traumatic brain injury. Patient somewhat lethargic with a bit slurred speech. Not able to give much meaningful history. Talk and answer some questions. According to EMS run sheet patient walked in the room and they noticed the patient to be seizing. EMS was called. They witnessed 2 more episodes. Versed 5 mg was given. In the ER Keppra 1000 mg given. March 31: Patient doing well today. Communicating well much better. EEG came back to be negative for seizure activity. Given prior history of head trauma and alcohol abuse we will give patient a month supply of Keppra. Patient to follow-up with neurology outpatient. This can be then tapered down. Patient also given a short prescription for Xanax that can be then followed up through her family doctor. Discussed with nurse. Patient was to be discharged this evening. At the time of discharge patient complaining of severe pain in both the hips. Discharge being canceled. X-ray of both hips. Consult orthopedics/Dr. Faith. Total time spent today about 50 minutes with over 30 minutes of discussion. April 01: Saw the patient this morning. Rather sleepy. Patient has been on Keppra. No further seizures reported. Will change patient's Xanax to 0.5 mg every 8 as needed. Came back to see the patient later afternoon. Awake. But finding it difficult to come out of bed. She says she has chronic back pain. Patient also seen by orthopedics Dr. Faith. Patient has been on naproxen. Patient otherwise appears to be rather comfortable. PT OT is on the case. Patient will probably need rehab. April 02: Patient doing much better. Well communicative. Spoke to the nurse. Patient actually ambulated rather well with a walker. Needed some cues. Spoke to the physical therapist. He felt with subcu so patient can do well at the assisted living. Patient walked 50 feet with a rolling walker. make ready worker spoke to the public guardian at the custodial. Patient Xanax prescription has been changed to 0.5 mg every 8 as needed. This is keeping the patient far more awake. Patient was seen neurology outpatient and then Keppra can be tapered. Pain is well-controlled with naproxen. Discussion and discharge planning more than 35 minutes Social history: Resident of [facility] + [facility]. Smoker. Prior history of alcohol abuse. Does use a walker. Independent with her ADLs. Normally able to communicate. Has a legal guardian. Smoker Physical examination: VITAL SIGNS: 97.8, 65, 16, 135 x 69, 93% room air GENERAL: BMI 26.6, awake and more cheerful EYES: Pupils equal. Conjunctiva griselda l. HEENT: External appearance of nose and ears normal, oral cavity grossly normal. NECK: JVD not raised; masses not palpable. HEART: First and second heart sounds are normal; no edema. LUNGS: Respiratory rate normal; diminished breath sounds. ABDOMEN: Soft, nontender, liver spleen not palpable, no masses palpable. PSYCH: Answering questions much more appropriately MUSCULOSKELETAL:No Clubbing/cyanosis;muscles-grossly intact NEUROLOGICAL: Cranial nerves grossly intact; no facial asymmetry, power and sensation grossly intact. Walked 50 feet with a rolling walker with physical therapy INVESTIGATIONS, reviewed in the clinical context: EEG: Negative for epileptiform activity March 29, 2024: White count 10.7 hemoglobin 11.3 platelets 261 sodium 137 potassium 3.2 bicarb 17 BUN 12 creatinine 0.71 Ammonia 11 vitamin B12 255 TSH 6.2 Free T41.26 UA: Protein 1+ Urine drug screen: Negative EKG tracing personally reviewed by me-normal sinus rhythm. Rate 116. Probable LVH. Chest x-ray film personally reviewed by me-unremarkable CT brain without contrast: Nil acute. 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 Chest CTA: Left lower lobe 6 mm pulmonary nodule. No PE. Influenza type A, type B, RSV, COVID-19: Not detected Assessment plan: -Patient had an episode of seizure activity at the custodial. 2 more seizure activity documented while EMS with the patient requiring Versed. history of EtOH abuse in the remote past and prior brain injury.. Patient received Versed 5 mg at the site. Received Keppra 1000 mg the ER. EEG: Negative for epileptiform activity Keppra 500 mg twice daily. 1 month supply. Patient to see neurology, Dr. Cevallos. Keppra can then be tapered down as felt to be appropriate. Seizure precaution including no driving -Chronic nicotine dependence, cigarette smoker Nicotine patch -Complaining of bilateral hip and pelvic pain.-Osteoarthritis X-ray of both the hips and pelvis. Seen by Dr. Faith. For pain management. -Acute medical debility. Patient has baseline able to normally use a walker. Doing much better now. PT OT. -Chronic gait dysfunction, does use a walker at baseline -Essential hypertension Lopressor 25 mg twice daily. Amlodipine -Hyperlipidemia Lipitor 20 mg nightly, Lofibra -Chronic hypoxic respiratory failure On nocturnal oxygen -Primary osteoarthritis Tylenol as needed -Major depressive disorder Celexa. Stop trazodone per psychiatry Seen by psychiatry Follow-up [facility] -Public guardian, [facility] Disposition: AF Past Medical History Past Medical History: COPD, CVA/TIA, Pneumonia, Seizure Disorder Additional Past Medical History / Comment(s): ETOH abuse/withdrawals/tremors, seizures-pt unsure if in past prior to using alcohol or only with alcohol withdrawal, head injury, CVA without residual, migraines, L leg/foot injury with surgery/gait dysfunction, tracheobronchitis. History of Any Multi-Drug Resistant Organisms: None Reported Past Surgical History: No Surgical Hx Reported, Orthopedic Surgery Additional Past Surgical History / Comment(s): R shoulder surgery d/t injury, L leg surgery d/t injury, colonoscopy Past Anesthesia/Blood Transfusion Reactions: No Reported Reaction Past Psychological History: Anxiety, Bipolar, Depression Smoking Status: Current every day smoker, Current some day smoker, Heavy tobacco smoker Past Alcohol Use History: Abuse, Daily, Heavy Past Drug Use History: None Reported Plan - Discharge Summary Discharge Rx Participant: No New Discharge Prescriptions: New Nicotine 14Mg/24Hr Patch [Habitrol] 1 patch TRANSDERM DAILY #30 patch Acetaminophen Tab [Tylenol] 650 mg PO Q6HR tab ALPRAZolam [Xanax] 0.5 mg PO TID PRN #30 tablet PRN Reason: Anxiety levETIRAcetam [Keppra] 500 mg PO Q12HR #60 tab Naproxen [Naprosyn] 250 mg PO BID #60 tab Continue Cholecalciferol [Vitamin D3 (25 Mcg = 1000 Iu)] 50 mcg PO DAILY tab Ondansetron [Zofran] 4 mg PO TID PRN PRN Reason: Nausea And Vomiting Aspirin 81 mg PO DAILY@0800 Atorvastatin [Lipitor] 20 mg PO HS@2100 Fenofibrate Nanocrystallized [Tricor] 145 mg PO DAILY@0800 Fexofenadine HCl [Ngozi Allergy] 180 mg PO DAILY@0800 Folic Acid 1 mg PO DAILY@0800 hydrALAZINE HCL [Apresoline] 25 mg PO DAILY PRN PRN Reason: Blood Pressure - High Lidocaine 5% Patch [Lidoderm 5% Patch] 1 patch TRANSDERM DAILY PRN PRN Reason: Pain Metoprolol Tartrate [Lopressor] 25 mg PO BID@0800,2100 Cholestyramine (with Sugar) [Cholestyramine Powder] 4 gm PO AC-TID PRN PRN Reason: Diarrhea Loperamide HCl [Imodium A-D] 2 - 4 mg PO QID PRN PRN Reason: Diarrhea Vitamin B Complex 1 cap PO DAILY@0800 amLODIPine [Norvasc] 10 mg PO DAILY@0800 Citalopram Hydrobromide [Citalopram HBr] 40 mg PO DAILY@0800 Discontinued ALPRAZolam [Xanax] 1 mg PO TID@0800,1400,2000 Acetaminophen [Tylenol Arthritis] 1,300 mg PO Q8H PRN PRN Reason: Pain traZODone HCL [Desyrel] 100 mg PO HS@2100 Discharge Medication List Cholecalciferol [Vitamin D3 (25 Mcg = 1000 Iu)] 50 mcg PO DAILY tab 12/09/23 [Rx] Aspirin 81 mg PO DAILY@0800 03/29/24 [History] Atorvastatin [Lipitor] 20 mg PO HS@209903/29/24 [History] Cholestyramine (with Sugar) [Cholestyramine Powder] 4 gm PO AC-TID PRN 03/29/24 [History] Citalopram Hydrobromide [Citalopram HBr] 40 mg PO DAILY@0803/29/24 [History] Fenofibrate Nanocrystallized [Tricor] 145 mg PO DAILY@79903/29/24 [History] Fexofenadine HCl [Ngozi Allergy] 180 mg PO DAILY@0803/29/24 [History] Folic Acid 1 mg PO DAILY@79903/29/24 [History] Lidocaine 5% Patch [Lidoderm 5% Patch] 1 patch TRANSDERM DAILY PRN 03/29/24 [History] Loperamide HCl [Imodium A-D] 2 - 4 mg PO QID PRN 03/29/24 [History] Metoprolol Tartrate [Lopressor] 25 mg PO BID@08,209903/29/24 [History] Ondansetron [Zofran] 4 mg PO TID PRN 03/29/24 [History] Vitamin B Complex 1 cap PO DAILY@0803/29/24 [History] amLODIPine [Norvasc] 10 mg PO DAILY@79903/29/24 [History] hydrALAZINE HCL [Apresoline] 25 mg PO DAILY PRN 03/29/24 [History] Nicotine 14Mg/24Hr Patch [Habitrol] 1 patch TRANSDERM DAILY #30 patch 03/31/24 [Rx] levETIRAcetam [Keppra] 500 mg PO Q12HR #60 tab 03/31/24 [Rx] ALPRAZolam [Xanax] 0.5 mg PO TID PRN #30 tablet 04/02/24 [Rx] Acetaminophen Tab [Tylenol] 650 mg PO Q6HR tab 04/02/24 [Rx] Naproxen [Naprosyn] 250 mg PO BID #60 tab 04/02/24 [Rx] Follow up Appointment(s)/Referral(s): dr MOHSEN [Other] - 10 Days Adair Silva MD [Primary Care Provider] - 1 Week (Please call and make appointment ) Jaqueline Miles NPC [Nurse Practitioner] - As Needed () Pepito Cevallos MD [STAFF PHYSICIAN] - 1 Week (The office will call with an appointment time and date, faxed over all information requested for appointment.) Patient Instructions/Handouts: Naproxen (By mouth), Alprazolam (By mouth), Nicotine (Into the mouth), Levetiracetam (By mouth) Activity/Diet/Wound Care/Special Instructions: Seizure precautions No driving for at least 6 months until cleared by a neurologist call pt's pharmacy to cancel 2 previous Rx sent for xanax - new Rx sent for 30 pills
== END 2024-04-02 16:03 | disposition home or self-care (01) ==
LOC: EC 05:29 → INTOOBSV 13:39 → OBSVTOIN 13:39 → 5NMEDONC 13:39 → INTOOBSV 13:40 → OBSVTOIN 13:40 → 5NMEDONC 14:54 → UNDODISIN 04-02 16:03
PROVIDERS: ADMIT Hospitalist; ATTEND Hospitalist
DX: G40.909 Epilepsy, unspecified, not intractable, without status epilepticus (principal); J96.11 Chronic respiratory failure with hypoxia; F10.11 Alcohol abuse, in remission; R26.89 Other abnormalities of gait and mobility; I10 Essential (primary) hypertension; E78.5 Hyperlipidemia, unspecified; J44.9 Chronic obstructive pulmonary disease, unspecified; R53.81 Other malaise; M16.0 Bilateral primary osteoarthritis of hip; F32.9 Major depressive disorder, single episode, unspecified; F41.9 Anxiety disorder, unspecified; G43.909 Migraine, unspecified, not intractable, without status migrainosus; G89.29 Other chronic pain; F17.210 Nicotine dependence, cigarettes, uncomplicated; M54.9 Dorsalgia, unspecified; Z88.2 Allergy status to sulfonamides; Z88.8 Allergy status to other drugs, medicaments and biological substances; Z79.82 Long term (current) use of aspirin; Z79.899 Other long term (current) drug therapy; Z87.820 Personal history of traumatic brain injury; Z99.81 Dependence on supplemental oxygen
CPT/HCPCS: 96376 ×3; 96372 ×3; 96375 ×3; 96361; 96365; 96366; 99285; 36415; 94760; 95819; 93005; 97530; 97162; 97166; 85379; 84439; 80053; 80048; 84443; 82607; 82140; 83605; 83735; 85025; 85610; 85730; 81001; 80306; 80320; 87636; 73521; 71045; 70450; 71275; G0378 ×5; S4990 ×4; J2060; J1630; J3480; J1650 ×4; J1953 ×3; Q9967; J2470; 51701

== ENCOUNTER 2024-04-09 09:35 | Observation (INO) | payer MEDICARE, OTHER ==
--- NOTE | 2024-04-09 10:23 | ED ---
Back Pain HPI - General Chief Complaint: Back Pain/Injury Stated Complaint: Lower back pain Time Seen by Provider: 04/09/24 10:22 Source: patient, EMS, RN notes reviewed Limitations: no limitations - History of Present Illness Initial Comments: 69-year-old female presenting to the ER with caregiver for chief complaint of bilateral hip pain x 1 week. Patient was recently admitted to the hospital status post multiple seizures. Patient states at time of initial seizure, she fell from a standing position. She believes she injured her hips at this time. She is unsure which side she fell on. Patient was seen by orthopedics during admission for hip pain. X-rays were negative. Patient continues to complain of severe bilateral hip pain and difficulty ambulating. She has been taking naproxen for the pain with no relief. I spoke with quality assurance group leader who attests that patient has been unable to ambulate since discharge which is unlike her. They would like short-term physical rehab placement. Denies numbness, tingling, weakness in the bilateral lower extremities. Denies saddle anesthesia. Denies bowel or bladder incontinence. - Related Data Home Medications Medication Instructions Recorded Confirmed Aspirin 81 mg PO DAILY@0800 03/29/24 04/09/24 Atorvastatin [Lipitor] 20 mg PO HS@209903/29/24 04/09/24 Cholestyramine (with Sugar) 4 gm PO AC-TID PRN 03/29/24 04/09/24 [Cholestyramine Powder] Citalopram Hydrobromide 40 mg PO DAILY@0800 03/29/24 04/09/24 [Citalopram HBr] Fenofibrate Nanocrystallized 145 mg PO DAILY@0800 03/29/24 04/09/24 [Tricor] Fexofenadine HCl [Ngozi Allergy] 180 mg PO DAILY@0800 03/29/24 04/09/24 Folic Acid 1 mg PO DAILY@0800 03/29/24 04/09/24 Lidocaine 5% Patch [Lidoderm 5% 1 patch TRANSDERM DAILY PRN 03/29/24 04/09/24 Patch] Loperamide HCl [Imodium A-D] 2 - 4 mg PO QID PRN MDD 8mg 03/29/24 04/09/24 Metoprolol Tartrate [Lopressor] 25 mg PO BID@0800,209903/29/24 04/09/24 Ondansetron [Zofran] 4 mg PO TID PRN 03/29/24 04/09/24 Vitamin B Complex 1 cap PO DAILY@0800 03/29/24 04/09/24 amLODIPine [Norvasc] 10 mg PO DAILY@0800 03/29/24 04/09/24 hydrALAZINE HCL [Apresoline] 25 mg PO DAILY PRN 03/29/24 04/09/24 Acetaminophen Tab [Tylenol] 650 mg PO Q8H PRN 04/09/24 04/09/24 Cholecalciferol [Vitamin D3 (25 50 mcg PO DAILY@0800 04/09/24 04/09/24 Mcg = 1000 Iu)] Naproxen [Naprosyn] 250 mg PO BID@0800,2100 04/09/24 04/09/24 levETIRAcetam [Keppra] 500 mg PO BID@0800,2100 04/09/24 04/09/24 Previous Rx's Medication Instructions Recorded Nicotine 14Mg/24Hr Patch [Habitrol] 1 patch TRANSDERM DAILY #30 patch 03/31/24 ALPRAZolam [Xanax] 0.5 mg PO TID PRN #30 tablet 04/02/24 Allergies Allergy/AdvReac Type Severity Reaction Status Date / Time Sulfa (Sulfonamide Allergy Severe Rash/Hives Verified 04/09/24 11:39 Antibiotics) baclofen Allergy Unknown Verified 04/09/24 11:39 oxcarbazepine Allergy Unknown Verified 04/09/24 11:39 [From Trileptal] Review of Systems ROS Statement: Those systems with pertinent positive or pertinent negative responses have been documented in the HPI. ROS Other: All systems not noted in ROS Statement are negative. 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 History of Any Multi-Drug Resistant Organisms: None Reported Past Surgical History: No Surgical Hx Reported, Orthopedic Surgery Additional Past Surgical History / Comment(s): R shoulder surgery d/t injury, L leg surgery d/t injury, colonoscopy Past Anesthesia/Blood Transfusion Reactions: No Reported Reaction Past Psychological History: Anxiety, Bipolar, Depression Smoking Status: Current every day smoker, Current some day smoker, Heavy tobacco smoker Past Alcohol Use History: Abuse, Daily, Heavy Past Drug Use History: Prescription Drug Abuse - Past Family History Father History Unknown: Yes Family Medical History: Hypertension Mother Family Medical History: No Reported History Additional Family Medical History / Comment(s): Mother is , pt states she was healthy. General Exam Limitations: no limitations General appearance: alert, in no apparent distress Head exam: Present: atraumatic, normocephalic, normal inspection Extremities exam: Present: normal inspection, full ROM, normal capillary refill, other (No skin changes or tenderness over bilateral hips. Full strength and range of motion of bilateral hips. Full sensation and DP pulses bilaterally. No shortening). Absent: tenderness, pedal edema, joint swelling, calf tenderness Neurological exam: Present: alert, oriented X3 Psychiatric exam: Present: normal affect, normal mood Skin exam: Present: warm, dry, intact, normal color. Absent: rash Course Vital Signs 04/09/24 04/09/24 09:36 12:38 Temperature 99.2 F 98.4 F Pulse Rate 54 L 56 L Respiratory 18 16 Rate Blood Pressure 125/50 137/81 O2 Sat by Pulse 93 L 97 Oximetry Medical Decision Making - Medical Decision Making Was pt. sent in by a medical professional or institution ([facility], [employer], urgent care, hospital, or [facility]...) When possible be specific @ -No Did you speak to anyone other than the patient for history (EMS, parent, family, police, friend...)? What history was obtained from this source @ -I spoke with caregiver and quality assurance group leader Did you review nursing and triage notes (agree or disagree)? Why? @ -I reviewed and agree with nursing and triage notes Were old charts reviewed (outside hosp., previous admission, EMS record, old EKG, old radiological studies, urgent care reports/EKG's, [facility] records)? Report findings @ -No old charts were reviewed Differential Diagnosis (chest pain, altered mental status, abdominal pain women, abdominal pain men, vaginal bleeding, weakness, fever, dyspnea, syncope, headache, dizziness, GI bleed, back pain, seizure, CVA, palpatations, mental health, musculoskeletal)? @ -Differential Musculoskeletal Muscular strain, contusion, ligament sprain, fracture, arthritis, septic arthritis, bursitis, cellulitis, muscle spasm, nerve compression, DVT, arterial occlusion, herpes zoster, electrolyte abnormality, tumor.... This is not meant to be in all inclusive list EKG interpreted by me (3pts min.). @ -None X-rays interpreted by me (1pt min.). @ -X-ray bilateral hips reveals no acute process CT interpreted by me (1pt min.). @ -CT bilateral hips reveals no acute process U/S interpreted by me (1pt. min.). @ -None done What testing was considered but not performed or refused? (CT, X-rays, U/S, labs)? Why? @ -None What meds were considered but not given or refused? Why? @ -None Did you discuss the management of the patient with other professionals (professionals i.e. , PA, [employer], lab, RT, psych nurse, transition social worker, asset protection representative, teacher, senior administrative services officer, showcase maker)? Give summary @ -I spoke with Dr. Melgar who accepts admission for short-term rehab placement Was smoking cessation discussed for >3mins.? @ -No Was critical care preformed (if so, how long)? @ -No Were there social determinants of health that impacted care today? How? (Homelessness, low income, unemployed, alcoholism, drug addiction, transportation, low edu. Level, literacy, decrease access to med. care, fpc, rehab)? @ -No Was there de-escalation of care discussed even if they declined (Discuss DNR or withdrawal of care, Hospice)? DNR status @ -No What co-morbidities impacted this encounter? (DM, HTN, Smoking, COPD, CAD, Cancer, CVA, ARF, Chemo, Hep., AIDS, mental health diagnosis, sleep apnea, morbid obesity)? @ -None Was patient admitted / discharged? Hospital course, mention meds given and route, prescriptions, significant lab abnormalities, going to OR and other p ertinent info. @ -Admitted. This is a 69-year-old female presenting for bilateral hip pain. Patient has not been able to ambulate since recent admission. Caregiver and quality assurance group leader requesting short-term rehab placement. History and physical examination performed. Patient is neurovascularly intact. X-rays and CT bilateral hips performed and were negative for acute fracture or dislocation. Basic lab work unremarkable. Results discussed with patient and caregiver. I spoke with Dr. Melgar who accepts admission for short-term rehab placement. Case discussed with my ED attending Dr. Maradiaga Undiagnosed new problem with uncertain prognosis? @ -No Drug Therapy requiring intensive monitoring for toxicity (Heparin, Nitro, Insulin, Cardizem)? @ -No Were any procedures done? @ -No Diagnosis/symptom? @ -Bilateral hip pain Acute, or Chronic, or Acute on Chronic? @ -Acute Uncomplicated (without systemic symptoms) or Complicated (systemic symptoms)? @ -Uncomplicated Side effects of treatment? @ -No Exacerbation, Progression, or Severe Exacerbation? @ -No Poses a threat to life or bodily function? How? (Chest pain, USA, NC, pneumonia, PE, COPD, DKA, ARF, appy, cholecystitis, CVA, Diverticulitis, Homicidal, Suicidal, threat to staff... and all critical care pts) @ -No - Lab Data Result diagrams: 04/09/24 11:17 04/09/24 11:17 Lab Results 04/09/24 04/09/24 Range/Units 11:17 11:17 WBC 7.0 (3.8-10.6) k/uL RBC 3.97 (3.80-5.40) m/uL Hgb 11.9 (11.4-16.0) gm/dL Hct 36.5 (34.0-46.0) % MCV 91.9 (80.0-100.0) fL MCH 30.0 (25.0-35.0) pg MCHC 32.7 (31.0-37.0) g/dL RDW 14.0 (11.5-15.5) % Plt Count 355 (150-450) k/uL MPV 7.8 Neutrophils % 55 % Lymphocytes % 35 % Monocytes % 5 % Eosinophils % 4 % Basophils % 1 % Neutrophils # 3.8 (1.3-7.7) k/uL Lymphocytes # 2.4 (1.0-4.8) k/uL Monocytes # 0.3 (0-1.0) k/uL Eosinophils # 0.3 (0-0.7) k/uL Basophils # 0.1 (0-0.2) k/uL Sodium 138 (137-145) mmol/L Potassium 4.3 (3.5-5.1) mmol/L Chloride 104 (98-107) mmol/L Carbon Dioxide 28 (22-30) mmol/L Anion Gap 6 mmol/L BUN 19 H (7-17) mg/dL Creatinine 0.75 (0.52-1.04) mg/dL Est GFR (CKD-EPI)AfAm >90 (>60 ml/min/1.73 sqM) Est GFR (CKD-EPI)NonAf 81 (>60 ml/min/1.73 sqM) Glucose 86 (74-99) mg/dL Calcium 9.7 (8.4-10.2) mg/dL Total Bilirubin 0.4 (0.2-1.3) mg/dL AST 25 (14-36) U/L ALT 14 (4-34) U/L Alkaline Phosphatase 150 H (38-126) U/L Total Protein 6.5 (6.3-8.2) g/dL Albumin 3.7 (3.5-5.0) g/dL Disposition Clinical Impression: Bilateral hip pain Disposition: ADMITTED IP TO THIS [facility] Time of Disposition: 13:17
[2024-04-09] MEDS: KETOROLAC 15 MG/ML 1 ML VIAL IM STA (10:27)
[2024-04-09 11:45] LABS: Basophils # (A) 0.1 k/uL (0-0.2); Basophils % (A) 1 %; Eosinophils # (A) 0.3 k/uL (0-0.7); Eosinophils % (A) 4 %; HCT 36.5 % (34.0-46.0); HGB 11.9 gm/dL (11.4-16.0); Lymphocytes # (A) 2.4 k/uL (1.0-4.8); Lymphocytes % (A) 35 %; MCHC 32.7 g/dL (31.0-37.0); MCV 91.9 fL (80.0-100.0); Mean Platelet Volume 7.8; Monocytes # (A) 0.3 k/uL (0-1.0); Monocytes % (A) 5 %; Neutrophils # (A) 3.8 k/uL (1.3-7.7); Neutrophils % (A) 55 %; Platelet Count 355 k/uL (150-450); RBC 3.97 m/uL (3.80-5.40)
--- NOTE | 2024-04-09 11:45 | XR ---
EXAMINATION TYPE: XR Hip Bilateral Complete DATE OF EXAM: 04/09/2024 COMPARISON: 03/31/2024 CLINICAL INDICATION: Female, 69 years old with history of b/l hip pain; TECHNIQUE: 2 views submitted FINDINGS: There is no evidence of erosive change or acute fracture. Postsurgical changes left hip. Mild generalized demineralization. Joint space in the right hip is sarwat ntained. Vascular calcifications are seen. IMPRESSION: 1. No evidence of acute fracture or dislocation. 2. Postsurgical changes left hip. [facility], , 04/09/2024 11:43 AM
[2024-04-09 12:01] LABS: ALT 14 U/L (4-34); AST 25 U/L (14-36); African American GFR (CKD) >90 (>60 ml/min/1.73 sqM); Albumin 3.7 g/dL (3.5-5.0); Alkaline Phosphatase 150 U/L (38-126); Anion Gap 6 mmol/L; Blood Urea Nitrogen 19 mg/dL (7-17); Calcium 9.7 mg/dL (8.4-10.2); Carbon Dioxide 28 mmol/L (22-30); Chloride 104 mmol/L (98-107); Glucose 86 mg/dL (74-99); Non-African American GFR(CKD) 81 (>60 ml/min/1.73 sqM); Potassium 4.3 mmol/L (3.5-5.1); Sodium 138 mmol/L (137-145); Total Bilirubin 0.4 mg/dL (0.2-1.3); Total Protein 6.5 g/dL (6.3-8.2)
--- NOTE | 2024-04-09 12:30 | CT ---
EXAMINATION TYPE: CT hip RT wo con DATE OF EXAM: 04/09/2024 COMPARISON: None CLINICAL INDICATION: Female, 69 years old with history of b/l hip pain; PHH, B/L hip pain. recent sei zure this week CT DLP: 327 mGycm Automated exposure control for dose reduction was used. FINDINGS: There is no fracture, dislocation, or focal intraosseous abnormality. The joint space is well preserv ed and there is no significant degenerative arthritis. Soft tissues are unremarkable. The right hemipelvis is intact. IMPRESSION: 1. NO ACUTE TRAUMA. 2. NO SIGNIFICANT OSTEOARTHRITIS OF THE RIGHT HIP. [facility], Workstation: [facility], 04/09/2024 12:28 PM
--- NOTE | 2024-04-09 12:34 | CT ---
EXAMINATION TYPE: CT hip LT wo con DATE OF EXAM: 04/09/2024 COMPARISON: 11/18/2015 CLINICAL INDICATION: Female, 69 years old with history of b/l hip pain; PHH, B/L hip pain. recent sei zure this week CT DLP: 327 mGycm Automated exposure control for dose reduction was used. FINDINGS: There are postsurgical changes of open reduction and internal fixation of a prior left hip fracture. There is a transfemoral neck screw and intramedullary patrick in the proximal left femur. There is no acute fracture or dislocation. The left hip joint space is well preserved. The left hemipelvis is intact IMPRESSION: 1. No acute trauma. 2. Prior open reduction and internal fixation of a prior left hip fracture described above. IMPRESSION: [facility], , 04/09/2024 12:31 PM
[2024-04-09] MEDS ORDERED: NALOXONE 0.4 MG/ML 1 ML VIAL IV PRN ×2 (13:16→14:45)
[2024-04-09] MEDS ORDERED: ACETAMINOPHEN TAB 325 MG TAB PO PRN (13:16)
[2024-04-09] MEDS ORDERED: hydrALAZINE HCL 25 MG TAB PO PRN (14:50)
[2024-04-09] MEDS ORDERED: CHOLESTYRAMINE (WITH SUGAR) 4 GM PACKET PO PRN (14:50)
[2024-04-09] MEDS ORDERED: LIDOCAINE 4% PATCH TOPICAL PRN (14:50)
--- NOTE | 2024-04-09 16:44 | P.HPIM ---
History of Present Illness H&P Date: 04/09/24 Patient is a 69-year-old female with past medical history significant for seizures, history of vertebral compression fractures, falls, hypertension, hyperlipidemia presents to the emergency department for low back pain that radiates to the bilateral hips and buttocks since Saturday. She is accompanied by her fisheries inspector at the bedside. Patient is a poor historianhistory obtained from fisheries inspector and prior records. Patient notes that the pain is "indescribable, endless." Wallpaper Printer notes that after being discharged from the hospital on 04/02 patient was ambulating normally on 04/02 and 04/03. She notes that on 04/04 the patient began having discomfort with sitting. She notes that starting 04/05 the patient had more difficulty getting out of bed and states that starting on 04/06 the patient has been unable to get out of bed and perform her activities of daily living independently like before. Patient states that she has not tried taking [id number] pain meds as she does not believe that they will work. Wallpaper Printer notes that patient did sit with a heating pad on her back on Saturday with little relief. Patient currently unable to sit due to pain. Initial hip x-ray: No evidence of acute fracture/dislocation. Initial right hip CT: No acute trauma, no significant osteoarthritis of the right hip. Initial left hip CT: No acute trauma, prior open reduction and internal fixation of prior left hip fracture. Initial labs: WBC 7, hemoglobin 11.9, platelets 355, sodium 138, potassium 4.3, chloride 104, CO2 28, BUN 19, creatinine 0.75, glucose 86, AST 25, ALT 14, alkaline phosphatase 150. Initial vitals: Afebrile, bradycardic, hypertensive, saturating 96% on room air. ED documentation reviewed. Review of systems: Pertinent positives and negatives as discussed in HPI, a complete review of systems was performed and all other systems are negative. Social history: Tobacco: Current every day smoker Alcohol: None reported Recreational drugs: None reported Travel: None reported Sick contacts: None reported Physical examination: Vital signs reviewed General: Nontoxic, no distress, appears stated age, well-appearing Derm: Warm, dry, intact Head: Atraumatic, normocephalic, symmetric Eyes: EOMI, anicteric sclera Mouth: No lip lesion, mucus membranes moist Cardiovascular: S1-S2 regular, no murmur Lungs: CTA bilateral, no rhonchi, no rales, no accessory muscle use Abdominal: Soft, non-tender to palpation Extremities: No cyanosis, clubbing, or pedal edema. Right: 4/5 strength in upper and lower extremities; Left: 4/5 strength in upper and lower extremities, 0/5 ankle dorsiflexion Neuro: Alert, oriented x 3, gross neurological examination did not reveal any focal deficits. Cranial nerves II to XII grossly intact. Bilateral negative Babinski. Psych: Appropriate affect and mood Assessment and Plan: Patient is a 69-year-old female with past medical history significant for seizures, history of vertebral compression fractures, falls, hypertension, hyperlipidemia admitted for low back pain. Active #. Low back pain, history of compression fractures of undetermined age #. Bilateral hip pain #. Bilateral buttock pain #. Lower extremity weakness, bilateral, but more prominent on left - concern for spinal stenosis and radiculopathy Hip x-ray and hip CT negative bilaterally UA pending to rule out obstructive uropathy MRI lumbar spine pending -0/5 LLE dorsiflexion which represents a change from prior orthopedic surgery consultation from earlier this month Lidocaine patch, tylenol PRN, norco PRN, morphine PRN PT/OT consulted Chronic #. History of seizures Continue Keppra #. History of falls Fall precautions #. Hypertension Amlodipine 10 mg PO daily Hydralazine 25 mg PO daily Metoprolol 25 mg PO daily #. Hyperlipidemia Lipitor 20 mg PO at bedtime Questran 4 g PO AC 3 times daily as needed Lofibra 160 mg PO daily #. Nicotine dependence Nicotine 14 mg per 24-hour patch DVT prophylaxis: Lovenox 40 mg subcutaneous daily The patient is admitted with an anticipated less than 2 midnight stay for evaluation of low back pain. CODE STATUS: Full code Discussed with: Patient, fisheries inspector Anticipated discharge place: Home I saw and evaluated the patient during the moss and critical portions of this encounter, and discussed the case in detail with the resident author of this note, I agree with the Assessment and Plan, and my changes, if any, are highlighted in blue. 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 History of Any Multi-Drug Resistant Organisms: None Reported Past Surgical History: No Surgical Hx Reported, Orthopedic Surgery Additional Past Surgical History / Comment(s): R shoulder surgery d/t injury, L leg surgery d/t injury, colonoscopy Past Anesthesia/Blood Transfusion Reactions: No Reported Reaction Past Psychological History: Anxiety, Bipolar, Depression Smoking Status: Current every day smoker, Current some day smoker, Heavy tobacco smoker Past Alcohol Use History: Abuse, Daily, Heavy Past Drug Use History: Prescription Drug Abuse - Past Family History Father History Unknown: Yes Family Medical History: Hypertension Mother Family Medical History: No Reported History Additional Family Medical History / Comment(s): Mother is , pt states she was healthy. Medications and Allergies Home Medications Medication Instructions Recorded Confirmed Type Aspirin 81 mg PO DAILY@0800 03/29/24 04/09/24 History Atorvastatin [Lipitor] 20 mg PO HS@209903/29/24 04/09/24 History Cholestyramine (with Sugar) 4 gm PO AC-TID PRN 03/29/24 04/09/24 History [Cholestyramine Powder] Citalopram Hydrobromide 40 mg PO DAILY@0800 03/29/24 04/09/24 History [Citalopram HBr] Fenofibrate Nanocrystallized 145 mg PO DAILY@0800 03/29/24 04/09/24 History [Tricor] Fexofenadine HCl [Ngozi Allergy] 180 mg PO DAILY@0800 03/29/24 04/09/24 History Folic Acid 1 mg PO DAILY@0800 03/29/24 04/09/24 History Lidocaine 5% Patch [Lidoderm 5% 1 patch TRANSDERM DAILY PRN 03/29/24 04/09/24 History Patch] Loperamide HCl [Imodium A-D] 2 - 4 mg PO QID PRN MDD 8mg 03/29/24 04/09/24 History Metoprolol Tartrate [Lopressor] 25 mg PO BID@0800,2100 03/29/24 04/09/24 History Ondansetron [Zofran] 4 mg PO TID PRN 03/29/24 04/09/24 History Vitamin B Complex 1 cap PO DAILY@0800 03/29/24 04/09/24 History amLODIPine [Norvasc] 10 mg PO DAILY@0800 03/29/24 04/09/24 History hydrALAZINE HCL [Apresoline] 25 mg PO DAILY PRN 03/29/24 04/09/24 History Nicotine 14Mg/24Hr Patch [Habitrol] 1 patch TRANSDERM DAILY #30 patch 03/31/24 04/09/24 Rx ALPRAZolam [Xanax] 0.5 mg PO TID PRN #30 tablet 04/02/24 04/09/24 Rx Acetaminophen Tab [Tylenol] 650 mg PO Q8H PRN 04/09/24 04/09/24 History Cholecalciferol [Vitamin D3 (25 50 mcg PO DAILY@0800 04/09/24 04/09/24 History Mcg = 1000 Iu)] Naproxen [Naprosyn] 250 mg PO BID@0800,2100 04/09/24 04/09/24 History levETIRAcetam [Keppra] 500 mg PO BID@0800,2100 04/09/24 04/09/24 History Allergies Allergy/AdvReac Type Severity Reaction Status Date / Time Sulfa (Sulfonamide Allergy Severe Rash/Hives Verified 04/09/24 11:39 Antibiotics) baclofen Allergy Unknown Verified 04/09/24 11:39 oxcarbazepine Allergy Unknown Verified 04/09/24 11:39 [From Trileptal] Physical Exam Osteopathic Statement: *. No significant issues noted on an osteopathic structural exam other than those noted in the History and Physical/Consult. Vitals: Vital Signs Temp Pulse Resp BP Pulse Ox 04/09/24 12:38 98.4 F 56 L 16 137/81 97 04/09/24 09:36 99.2 F 54 L 18 125/50 93 L Intake and Output 04/08/24 04/09/24 04/09/24 22:59 06:59 14:59 Other: Weight 74.843 kg Results CBC & Chem 7: 04/09/24 11:17 04/09/24 11:17 Labs: Abnormal Lab Results - Last 24 Hours (Table) 04/09/24 Range/Units 11:17 BUN 19 H (7-17) mg/dL Alkaline Phosphatase 150 H (38-126) U/L
[2024-04-09] MEDS: NICOTINE 14MG/24HR PATCH TRANSDERM SCH (17:25)
[2024-04-09] MEDS: METOPROLOL TARTRATE 25 MG TAB PO SCH (20:07)
[2024-04-09] MEDS: ATORVASTATIN 20 MG TAB PO SCH (20:22)
[2024-04-09] MEDS: levETIRAcetam 500 MG TAB PO SCH (20:23)
[2024-04-09] MEDS: HYDROcodone/APAP 5-325MG 1 EACH TAB PO PRN (20:23)
[2024-04-09] MEDS: SENNOSIDES-DOCUSATE SODIUM 1 EACH TAB PO SCH (20:23)
[2024-04-09] MEDS: MORPHINE SULFATE 4 MG/ML SYRINGE IV PRN (22:44)
[2024-04-10 06:52] LABS: Amorphous Sediment,Urine Moderate /hpf; Appearance,Urine Cloudy (Clear); Bilirubin,Urine Negative (Negative); Blood,Urine Negative (Negative); Color,Urine Yellow; Glucose,Urine (UA) Negative (Negative); Hyaline Casts,Urine 1 /lpf (0-2); Ketones,Urine Trace (Negative); Leukocyte Esterase,Urine Small (Negative); Mucus,Urine Rare /hpf; Nitrite,Urine Negative (Negative); PH, Urine 6.5 (5.0-8.0); Protein,Urine Trace (Negative); Specific Gravity,Urine 1.035 (1.001-1.035); Squamous Epithelial Cell,Urine 6 /hpf (0-4); WBC,Urine 11 /hpf (0-5)
[2024-04-10 08:26] LABS: BUN/Creat Ratio 27.55 Ratio (12.00-20.00); Blood Urea Nitrogen 30.3 mg/dL (9.0-27.0); Calcium 9.5 mg/dL (8.7-10.3); Carbon Dioxide 27.3 mmol/L (21.6-31.8); Chloride 100 mmol/L (96-109); Glucose 95 mg/dL (70-110); Potassium 4.6 mmol/L (3.5-5.5); Sodium 139 mmol/L (135-145)
[2024-04-10] MEDS: CITALOPRAM HYDROBROMIDE 20 MG TAB PO SCH (08:28)
[2024-04-10] MEDS: FOLIC ACID 1 MG TAB PO SCH (08:28)
[2024-04-10] MEDS: ASPIRIN 81 MG PO SCH (08:28)
[2024-04-10] MEDS: CHOLECALCIFEROL 25 MCG (1000 IU) TABLET PO SCH (08:28)
[2024-04-10] MEDS: FENOFIBRATE 160 MG TAB PO SCH (08:28)
[2024-04-10] MEDS: LORATADINE 10 MG TAB PO SCH (08:28)
[2024-04-10] MEDS: amLODIPine 10 MG TAB PO SCH (08:28)
[2024-04-10] MEDS: ENOXAPARIN 40 MG/0.4 ML SYRINGE SQ SCH (08:29)
[2024-04-10 08:34] LABS: Basophils # (A) 0.09 X 10*3/uL (0.00-0.10); Basophils % (A) 1.3 %; Eosinophils # (A) 0.28 X 10*3/uL (0.04-0.35); Eosinophils % (A) 4.1 %; HCT 37.1 % (37.2-46.3); HGB 11.9 g/dL (12.0-15.0); Lymphocytes # (A) 2.96 X 10*3/uL (0.90-5.00); Lymphocytes % (A) 43.3 %; MCH 30.2 pg (27.0-32.0); MCHC 32.1 g/dL (32.0-37.0); MCV 94.2 FL (80.0-97.0); Mean Platelet Volume 10.8 FL (9.5-12.2); Monocytes % (A) 5.9 %; NRBC Per 100 WBC 0 X 10*3/uL (0.00-0.01); Neutrophils # (A) 3.07 X 10*3/uL (1.80-7.70); Platelet Count 330 X 10*3/uL (140-440); RBC 3.94 X 10*6/uL (4.10-5.20); RDW 13.7 % (11.5-14.5); WBC 6.83 X 10*3/uL (4.50-10.00)
--- NOTE | 2024-04-10 13:06 | P.PN ---
Subjective Progress Note Date: 04/10/24 Patient is a 69-year-old female with past medical history significant for seizures, history of vertebral compression fractures, falls, hypertension, hyperlipidemia presents to the emergency department for low back pain that radiates to the bilateral hips and buttocks since Saturday. She is accompanied by her supplemental manager at the bedside. Patient is a poor historianhistory obtained from supplemental manager and prior records. Patient notes that the pain is "indescribable, endless." Floor Helper notes that after being discharged from the hospital on 04/02 patient was ambulating normally on 04/02 and 04/03. She notes that on 04/04 the patient began having discomfort with sitting. She notes that starting 04/05 the patient had more difficulty getting out of bed and states that starting on 04/06 the patient has been unable to get out of bed and perform her activities of daily living independently like before. Patient states that she has not tried taking [id number] pain meds as she does not believe that they will work. Floor Helper notes that patient did sit with a heating pad on her back on Saturday with little relief. Patient currently unable to sit due to pain. Initial hip x-ray: No evidence of acute fracture/dislocation. Initial right hip CT: No acute trauma, no significant osteoarthritis of the right hip. Initial left hip CT: No acute trauma, prior open reduction and internal fixation of prior left hip fracture. Initial labs: WBC 7, hemoglobin 11.9, platelets 355, sodium 138, potassium 4.3, chloride 104, CO2 28, BUN 19, creatinine 0.75, glucose 86, AST 25, ALT 14, alkaline phosphatase 150. Initial vitals: Afebrile, bradycardic, hypertensive, saturating 96% on room air. 04/10. Patient seen lying comfortably in bed. No acute events overnight. No significant complaints today. Continues to report low back pain that radiates to the bilateral hips and buttocks. Denies fever, chills, nausea/vomiting, chest pain, dyspnea, abdominal pain. Labs today: WBC 623, hemoglobin 11.9, platelets 330, sodium 139, potassium 4.6, chloride 100, CO2 27.3, BUN 30.3, creatinine 1.1, glucose 95. Pertinent positives and negatives discussed above, a complete review of systems was performed and all the other systems were negative. Physical examination: Vital signs reviewed General: Nontoxic, no distress, appears stated age, well-appearing Derm: Warm, dry, intact Head: Atraumatic, normocephalic, symmetric Eyes: EOMI, anicteric sclera Mouth: No lip lesion, mucus membranes moist Cardiovascular: S1-S2 regular, no murmur Lungs: CTA bilateral, no rhonchi, no rales, no accessory muscle use Abdominal: Soft, non-tender to palpation Extremities: No cyanosis, clubbing, or pedal edema. Right: 4/5 strength in upper and lower extremities; Left: 4/5 strength in upper and lower extremities, 0/5 ankle dorsiflexion Neuro: Alert, oriented x 3, gross neurological examination did not reveal any focal deficits. Cranial nerves II to XII grossly intact. Bilateral negative Babinski. Psych: Appropriate affect and mood Assessment and Plan: Patient is a 69-year-old female with past medical history significant for seizures, history of vertebral compression fractures, falls, hypertension, hyperlipidemia admitted for low back pain. Active #. Low back pain, history of compression fractures of undetermined age #. Bilateral hip pain #. Bilateral buttock pain #. Lower extremity weakness, bilateral, but more prominent on left - concern for spinal stenosis and radiculopathy Hip x-ray and hip CT negative bilaterally UA pending to rule out obstructive uropathy MRI lumbar spine pendin/5 LLE dorsiflexion which represents a change from prior orthopedic surgery consultation from earlier this month Lidocaine patch, tylenol PRN, norco PRN, morphine PRN PT/OT consulted Chronic #. History of seizures Continue Keppra #. History of falls Fall precautions #. Hypertension Amlodipine 10 mg PO daily Hydralazine 25 mg PO daily Metoprolol 25 mg PO daily #. Hyperlipidemia Lipitor 20 mg PO at bedtime Questran 4 g PO AC 3 times daily as needed Lofibra 160 mg PO daily #. Nicotine dependence Nicotine 14 mg per 24-hour patch F: None E: Replete if required N: Heart healthy diet DVT prophylaxis: Lovenox 40 mg subcutaneous daily Code status: Full code Anticipated discharge place: Home I saw and evaluated the patient during the moss and critical portions of this encounter, and discussed the case in detail with the resident author of this note, I agree with the Assessment and Plan, and my changes, if any, are highlighted in blue. Objective - Vital Signs Vital signs: Vital Signs Temp 98.0 F 04/10/24 02:00 Pulse 60 04/10/24 02:00 Resp 16 04/10/24 02:00 BP 146/72 04/10/24 02:00 Pulse Ox 98 04/10/24 02:00 FiO2 Intake & Output 04/09/24 04/09/24 04/10/24 06:59 18:59 06:59 Output Total 50 Balance -50 Weight 74.843 kg Output: Urine 50 Other: Voiding Method Diaper External Catheter # Voids 0 - Labs CBC & Chem 7: 04/10/24 02:47 04/10/24 02:47 Labs: Abnormal Lab Results - Last 24 Hours (Table) 04/09/24 Range/Units 11:17 BUN 19 H (7-17) mg/dL Alkaline Phosphatase 150 H (38-126) U/L
--- NOTE | 2024-04-10 14:00 | MR ---
EXAMINATION TYPE: MR lumbar spine wo con DATE OF EXAM: 04/10/2024 1:08 PM COMPARISON: 09/20/2016. CLINICAL INDICATION: Female, 69 years old with history of compression fracture r/o radiculopathy at L 1; PHH, LBP, L-1 radiculopathy, evaluate for fx. TECHNIQUE: Multi planar, multi sequence imaging was performed utilizing: T1-weighted, T2-weighted, a nd turbo inversion recovery imaging of the lumbar spine. IV Contrast: mL (None, if empty) FINDINGS: Alignment: The lumbar vertebral bodies have preserved heights and alignment. Cord: The conus medullaris and the distal spinal cord appear unremarkable with regards to their signa l intensity and morphology. Bones/Discs: Similar compression deformities of the superior endplates of T12-L2. There is bony edema within the S2 vertebrae with associated curvilinear low T1/T2 signal. No significant retropulsion. D egeneration changes throughout the spine with osteophyte formation and facet joint arthropathy. Inter vertebral disc signal is maintained. No abnormal inversion recovery signal to suggest bony edema. T12-L1: No evidence of significant spinal canal stenosis. Facet joint arthropathy mild bilateral neur al foraminal stenosis. L1-L2: No evidence of significant spinal canal stenosis. Facet joint arthropathy mild bilateral neura l foraminal stenosis. L2-L3: No evidence of significant spinal canal stenosis. Facet joint arthropathy mild bilateral neura l foraminal stenosis. L3-L4: No evidence of significant spinal canal stenosis. Facet joint arthropathy mild bilateral neura l foraminal stenosis. L4-L5: No evidence of significant spinal canal stenosis. Facet joint arthropathy mild bilateral neura l foraminal stenosis. L5-S1: No evidence of significant spinal canal stenosis. Facet joint arthropathy mild bilateral neura l foraminal stenosis. No significant spinal canal or neural foraminal stenosis in the remainder of the visualized levels. Other findings: None. IMPRESSION: 1. Acute fracture through the S2 vertebral body with cortical buckling seen on prior CT. No signific ant retropulsion. 2. No definitive evidence of disc herniation or significant spinal canal stenosis. 3. Moderate disc degeneration with associated osteoarthritic changes. 4. [facility], , 04/10/2024 1:57 PM
--- NOTE | 2024-04-10 17:26 | P.PN ---
Progress Note - Text Progress Note Date: 04/10/24 MRI reviewed. Full consult pending. MRI shows old VCF at L2/3. No severe stenotic levels to account for her sx. No foraminal stenosis. Minimal disc height loss at L3-5 which would correlate with her sx. Recommend MRI T spine for further work up.
[2024-04-10] MEDS: KETOROLAC 15 MG/ML 1 ML VIAL IVP PRN (20:42)
[2024-04-11 09:15] LABS: Basophils # (A) 0.08 X 10*3/uL (0.00-0.10); Basophils % (A) 1.3 %; Eosinophils # (A) 0.27 X 10*3/uL (0.04-0.35); Eosinophils % (A) 4.4 %; HCT 38.1 % (37.2-46.3); HGB 12.5 g/dL (12.0-15.0); Lymphocytes % (A) 39.2 %; MCH 30.3 pg (27.0-32.0); MCHC 32.8 g/dL (32.0-37.0); MCV 92.3 FL (80.0-97.0); Mean Platelet Volume 10.8 FL (9.5-12.2); Monocytes # (A) 0.31 X 10*3/uL (0.20-1.00); Monocytes % (A) 5.1 %; NRBC Per 100 WBC 0 X 10*3/uL (0.00-0.01); Neutrophils # (A) 3.03 X 10*3/uL (1.80-7.70); Neutrophils % (A) 49.5 %; Platelet Count 320 X 10*3/uL (140-440); RBC 4.13 X 10*6/uL (4.10-5.20); RDW 13.8 % (11.5-14.5); WBC 6.12 X 10*3/uL (4.50-10.00)
[2024-04-11 09:47] LABS: Blood Urea Nitrogen 29.6 mg/dL (9.0-27.0); Calcium 9.4 mg/dL (8.7-10.3); Carbon Dioxide 24.8 mmol/L (21.6-31.8); Chloride 103 mmol/L (96-109); Glucose 91 mg/dL (70-110); Potassium 4.6 mmol/L (3.5-5.5); Sodium 138 mmol/L (135-145)
--- NOTE | 2024-04-11 13:26 | MR ---
EXAMINATION TYPE: MR thoracic spine wo con DATE OF EXAM: 04/11/2024 12:50 PM COMPARISON: 09/20/2016 CT 04/09/2024.. CLINICAL INDICATION: Female, 69 years old with history of radiculopathy; PHH, Radiculopathy, TECHNIQUE: Multi planar, multi sequence imaging was performed utilizing: T1-weighted, short-tau inver osvaldo recovery and T2-weighted of the thoracic spine. IV Contrast: mL (None, if empty) FINDINGS: Alignment: Alignment is within normal limits. Vertebral bodies have preserved heights. Spinal cord: Spinal cord is within normal limits for signal. Discs: Intervertebral disc signal is maintained. No evidence of significant spinal canal or neural fo raminal stenosis. There is no evidence of extradural defects or central spinal canal narrowing at any thoracic vertebral body level Osseous structures: Endplate deformities are unchanged from prior. No new acute bony edema on inversi on recovery sequences. Multilevel osteophyte formation and facet joint arthropathy. Scattered disc sp maryann narrowing. IMPRESSION: 1. No evidence for compression fracture and the spine remote appearing lower thoracic spine compress ion fractures. 2. No evidence for significant spinal canal or neural foraminal stenosis. [facility], , 04/11/2024 1:23 PM
--- NOTE | 2024-04-11 17:43 | P.PN ---
Subjective Progress Note Date: 04/11/24 Patient is a 69-year-old female with past medical history significant for seizures, history of vertebral compression fractures, falls, hypertension, hyperlipidemia presents to the emergency department for low back pain that radiates to the bilateral hips and buttocks since Saturday. She is accompanied by her new grad rn at the bedside. Patient is a poor historianhistory obtained from new grad rn and prior records. Patient notes that the pain is "indescribable, endless." Medical Social Consultant notes that after being discharged from the hospital on 04/02 patient was ambulating normally on 04/02 and 04/03. She notes that on 04/04 the patient began having discomfort with sitting. She notes that starting 04/05 the patient had more difficulty getting out of bed and states that starting on 04/06 the patient has been unable to get out of bed and perform her activities of daily living independently like before. Patient states that she has not tried taking rwbo-wav-[id number] pain meds as she does not believe that they will work. Medical Social Consultant notes that patient did sit with a heating pad on her back on Saturday with little relief. Patient currently unable to sit due to pain. Initial hip x-ray: No evidence of acute fracture/dislocation. Initial right hip CT: No acute trauma, no significant osteoarthritis of the right hip. Initial left hip CT: No acute trauma, prior open reduction and internal fixation of prior left hip fracture. Initial labs: WBC 7, hemoglobin 11.9, platelets 355, sodium 138, potassium 4.3, chloride 104, CO2 28, BUN 19, creatinine 0.75, glucose 86, AST 25, ALT 14, alkaline phosphatase 150. Initial vitals: Afebrile, bradycardic, hypertensive, saturating 96% on room air. 04/10. Patient seen lying comfortably in bed. No acute events overnight. No significant complaints today. Continues to report low back pain that radiates to the bilateral hips and buttocks. Denies fever, chills, nausea/vomiting, chest pain, dyspnea, abdominal pain. Labs today: WBC 623, hemoglobin 11.9, platelets 330, sodium 139, potassium 4.6, chloride 100, CO2 27.3, BUN 30.3, creatinine 1.1, glucose 95. 04/11. Patient seen lying in bed. No acute events overnight. No significant complaints today. Patient underwent lumbar spine MRI yesterday and thoracic spine MRI today. Labs today: WBC 6.12, hemoglobin 12.5, platelets 320, sodium 138, potassium 4.6, chloride 103, CO2 24.8, BUN 29.6, creatinine 0.8. Pertinent positives and negatives discussed above, a complete review of systems was performed and all the other systems were negative. Physical examination: Vital signs reviewed General: Nontoxic, no distress, appears stated age, well-appearing Derm: Warm, dry, intact Head: Atraumatic, normocephalic, symmetric Eyes: EOMI, anicteric sclera Mouth: No lip lesion, mucus membranes moist Cardiovascular: S1-S2 regular, no murmur Lungs: CTA bilateral, no rhonchi, no rales, no accessory muscle use Abdominal: Soft, non-tender to palpation Extremities: No cyanosis, clubbing, or pedal edema. Right: 4/5 strength in upper and lower extremities; Left: 4/5 strength in upper and lower extremities, 0/5 ankle dorsiflexion Neuro: Alert, oriented x 3, gross neurological examination did not reveal any focal deficits. Cranial nerves II to XII grossly intact. Bilateral negative Babinski. Psych: Appropriate affect and mood Assessment and Plan: Patient is a 69-year-old female with past medical history significant for seizures, history of vertebral compression fractures, falls, hypertension, hyperlipidemia admitted for low back pain. Active #. Low back pain, history of compression fractures of undetermined age #. Bilateral hip pain #. Bilateral buttock pain #. Lower extremity weakness, bilateral, but more prominent on left - concern for spinal stenosis and radiculopathy Hip x-ray and hip CT negative bilaterally UA pending to rule out obstructive uropathy MRI lumbar spine: Acute fracture through S2 vertebral body with cortical buckling seen on prior CTno significant retropulsion, no definitive evidence of disc herniation or significant spinal canal stenosis, moderate disc degeneration with associated osteoarthritic changes. MRI thoracic spine: No evidence for compression fracture in the spine remote appearing lower thoracic spine compression fractures, no evidence for significant spinal canal or neural foraminal stenosis. Orthopedics following Lidocaine patch, tylenol PRN, norco PRN, morphine PRN PT/OT consulted Chronic #. History of seizures Continue Keppra #. History of falls Fall precautions #. Hypertension Amlodipine 10 mg PO daily Hydralazine 25 mg PO daily Metoprolol 25 mg PO daily #. Hyperlipidemia Lipitor 20 mg PO at bedtime Questran 4 g PO AC 3 times daily as needed Lofibra 160 mg PO daily #. Nicotine dependence Nicotine 14 mg per 24-hour patch F: None E: Replete if required N: Heart healthy diet DVT prophylaxis: Lovenox 40 mg subcutaneous daily Code status: Full code Anticipated discharge place: Home I saw and evaluated the patient during the moss and critical portions of this encounter, and discussed the case in detail with the resident author of this note, I agree with the Assessment and Plan, and my changes, if any, are highlighted in blue. Objective - Vital Signs Vital signs: Vital Signs Temp 97.9 F 04/11/24 01:59 Pulse 55 L 04/11/24 01:59 Resp 18 04/11/24 01:59 BP 137/77 04/11/24 01:59 Pulse Ox 96 04/11/24 01:59 FiO2 Intake & Output 04/10/24 04/10/24 04/11/24 06:59 18:59 06:59 Output Total 50 75 250 Balance -50 -75 -250 Output: Urine 50 75 250 Other: Voiding Method Diaper Diaper Diaper External Catheter External Catheter External Catheter # Voids 0 1 - Labs CBC & Chem 7: 04/11/24 05:35 04/11/24 05:35 Labs: Abnormal Lab Results - Last 24 Hours (Table) 04/10/24 04/10/24 Range/Units 02:47 02:47 RBC 3.94 L (4.10-5.20) X 10*6/uL Hgb 11.9 L (12.0-15.0) g/dL Hct 37.1 L (37.2-46.3) % BUN 30.3 H (9.0-27.0) mg/dL Est GFR (CKD-EPI) 54 L (>=60) BUN/Creatinine Ratio 27.55 H (12.00-20.00) Ratio
[2024-04-12 07:48] LABS: Basophils # (A) 0.1 k/uL (0-0.2); Basophils % (A) 2 %; Eosinophils # (A) 0.3 k/uL (0-0.7); Eosinophils % (A) 4 %; HCT 39.2 % (34.0-46.0); HGB 12.7 gm/dL (11.4-16.0); Lymphocytes # (A) 2.3 k/uL (1.0-4.8); Lymphocytes % (A) 34 %; MCH 30.3 pg (25.0-35.0); MCHC 32.5 g/dL (31.0-37.0); MCV 93.3 fL (80.0-100.0); Mean Platelet Volume 7.8; Monocytes # (A) 0.3 k/uL (0-1.0); Monocytes % (A) 4 %; Neutrophils # (A) 3.7 k/uL (1.3-7.7); Neutrophils % (A) 55 %; Platelet Count 325 k/uL (150-450); RBC 4.21 m/uL (3.80-5.40); RDW 13.8 % (11.5-15.5); WBC 6.6 k/uL (3.8-10.6)
[2024-04-12 08:11] LABS: African American GFR (CKD) 76 (>60 ml/min/1.73 sqM); Anion Gap 7 mmol/L; Blood Urea Nitrogen 44 mg/dL (7-17); Calcium 9.8 mg/dL (8.4-10.2); Carbon Dioxide 29 mmol/L (22-30); Chloride 103 mmol/L (98-107); Glucose 91 mg/dL (74-99); Non-African American GFR(CKD) 66 (>60 ml/min/1.73 sqM); Potassium 4.7 mmol/L (3.5-5.1); Sodium 139 mmol/L (137-145)
--- NOTE | 2024-04-12 11:25 | P.PN ---
Subjective Progress Note Date: 04/12/24 Patient is a 69-year-old female with past medical history significant for seizures, history of vertebral compression fractures, falls, hypertension, hyperlipidemia presents to the emergency department for low back pain that radiates to the bilateral hips and buttocks since Saturday. She is accompanied by her basketball coach at the bedside. Patient is a poor historianhistory obtained from basketball coach and prior records. Patient notes that the pain is "indescribable, endless." Weaving Instructor notes that after being discharged from the hospital on 04/02 patient was ambulating normally on 04/02 and 04/03. She notes that on 04/04 the patient began having discomfort with sitting. She notes that starting 04/05 the patient had more difficulty getting out of bed and states that starting on 04/06 the patient has been unable to get out of bed and perform her activities of daily living independently like before. Patient states that she has not tried taking [id number] pain meds as she does not believe that they will work. Weaving Instructor notes that patient did sit with a heating pad on her back on Saturday with little relief. Patient currently unable to sit due to pain. Initial hip x-ray: No evidence of acute fracture/dislocation. Initial right hip CT: No acute trauma, no significant osteoarthritis of the right hip. Initial left hip CT: No acute trauma, prior open reduction and internal fixation of prior left hip fracture. Initial labs: WBC 7, hemoglobin 11.9, platelets 355, sodium 138, potassium 4.3, chloride 104, CO2 28, BUN 19, creatinine 0.75, glucose 86, AST 25, ALT 14, alkaline phosphatase 150. Initial vitals: Afebrile, bradycardic, hypertensive, saturating 96% on room air. 04/10. Patient seen lying comfortably in bed. No acute events overnight. No significant complaints today. Continues to report low back pain that radiates to the bilateral hips and buttocks. Denies fever, chills, nausea/vomiting, chest pain, dyspnea, abdominal pain. Labs today: WBC 623, hemoglobin 11.9, platelets 330, sodium 139, potassium 4.6, chloride 100, CO2 27.3, BUN 30.3, creatinine 1.1, glucose 95. 04/11. Patient seen lying in bed. No acute events overnight. No significant complaints today. Patient underwent lumbar spine MRI yesterday and thoracic spine MRI today. Labs today: WBC 6.12, hemoglobin 12.5, platelets 320, sodium 138, potassium 4.6, chloride 103, CO2 24.8, BUN 29.6, creatinine 0.8. 04/12. Pt seen laying in bed, KENDAL overnight. No new complaints. Awaiting PT/OT evaluation and final spine surgery recs. Pertinent positives and negatives discussed above, a complete review of systems was performed and all the other systems were negative. Physical examination: Vital signs reviewed General: Nontoxic, no distress, appears stated age, well-appearing Derm: Warm, dry, intact Head: Atraumatic, normocephalic, symmetric Eyes: EOMI, anicteric sclera Mouth: No lip lesion, mucus membranes moist Cardiovascular: S1-S2 regular, no murmur Lungs: CTA bilateral, no rhonchi, no rales, no accessory muscle use Abdominal: Soft, non-tender to palpation Extremities: No cyanosis, clubbing, or pedal edema. Right: 4/5 strength in upper and lower extremities; Left: 4/5 strength in upper and lower extremities, 0/5 ankle dorsiflexion Neuro: Alert, oriented x 3, gross neurological examination did not reveal any focal deficits. Cranial nerves II to XII grossly intact. Bilateral negative Babinski. Psych: Appropriate affect and mood Assessment and Plan: Patient is a 69-year-old female with past medical history significant for seizures, history of vertebral compression fractures, falls, hypertension, hyperlipidemia admitted for low back pain. Active #. Low back pain, history of compression fractures of undetermined age #. Bilateral hip pain #. Bilateral buttock pain #. Lower extremity weakness, bilateral, but more prominent on left - concern for spinal stenosis and radiculopathy Hip x-ray and hip CT negative bilaterally UA pending to rule out obstructive uropathy MRI lumbar spine: Acute fracture through S2 vertebral body with cortical buckling seen on prior CTno significant retropulsion, no definitive evidence of disc herniation or significant spinal canal stenosis, moderate disc degeneration with associated osteoarthritic changes. MRI thoracic spine: No evidence for compression fracture in the spine remote appearing lower thoracic spine compression fractures, no evidence for significant spinal canal or neural foraminal stenosis. Orthopedics following Lidocaine patch, tylenol PRN, norco PRN, morphine PRN PT/OT consulted Chronic #. History of seizures Continue Keppra #. History of falls Fall precautions #. Hypertension Amlodipine 10 mg PO daily Hydralazine 25 mg PO daily Metoprolol 25 mg PO daily #. Hyperlipidemia Lipitor 20 mg PO at bedtime Questran 4 g PO AC 3 times daily as needed Lofibra 160 mg PO daily #. Nicotine dependence Nicotine 14 mg per 24-hour patch F: None E: Replete if required N: Heart healthy diet DVT prophylaxis: Lovenox 40 mg subcutaneous daily Code status: Full code Anticipated discharge place: Home Objective - Vital Signs Vital signs: Vital Signs Temp 98.3 F 04/12/24 07:00 Pulse 61 04/12/24 09:28 Resp 16 04/12/24 07:00 BP 141/52 04/12/24 07:00 Pulse Ox 96 04/12/24 07:00 FiO2 Intake & Output 04/11/24 04/12/24 04/12/24 18:59 06:59 18:59 Intake Total 100 118 Output Total 200 500 Balance -100 -382 Intake: Oral 100 118 Output: Urine 200 500 Other: Voiding Method Diaper External Catheter External Catheter - Labs CBC & Chem 7: 04/12/24 07:28 04/12/24 07:28 Labs: Abnormal Lab Results - Last 24 Hours (Table) 04/12/24 Range/Units 07:28 BUN 44 H (7-17) mg/dL Microbiology - Last 24 Hours (Table) 04/10/24 06:00 Urine Culture - Final Urine,Voided
[2024-04-12] MEDS ORDERED: CYCLOBENZAPRINE 5 MG TAB PO PRN (11:59)
--- NOTE | 2024-04-12 12:12 | P.CNOR ---
History of Present Illness - [facility] Consult date: 04/11/24 Requesting physician: Sarah Parry Consult reason: other (compression fractures with LLE 0/5 dorsiflexion) History of present illness: Patient is a 69-year-old female who was seen at bedside this morning on 6 N. lying the semirecumbent position. patient presented to the ER on 04/09/2024 with healthcare specialist due to complaint of bilateral hip pain over the past week. Orthopedics was consulted due to imaging findings from lumbar spine. Patient states that she is not currently having any hip pain at this time but has had ongoing low back pain for years and she states around the last year the pain has gotten worse. Some of the history is difficult to obtain and the patient is unsure of if she has had any traumas or injuries over the past year that have led to worsening in the back pain. She states is mostly located in the low back at midline. Patient denies any radiation of pain. She denies any lumbar radiculopathy. Patient denies any loss of bowel/bladder control or saddle anesthesia. MRI of the lumbar spine does show old vertebral compression fracture L2-L3. There are any severe stenotic levels to account for patient's symptoms there is also some disc height loss at L3-L5 that could be somewhat contributing to the patient's symptoms. MRI thoracic spine is negative for any significant findings. Patient states anytime she tries to get up out of bed she does have a difficult time in which she tries to sit in the chair or stand up she does get intense low back pain. Per medicine and ER no the roving frame tender states that heating pad does help with some relief of pain to the low back. Patient denies any previous orthopedic spine surgery. Patient states she did have a work injury a long time ago to the left lower extremity but is unable to give any details about this injury. Patient denies any other orthopedic complaints at this time. 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 History of Any Multi-Drug Resistant Organisms: None Reported Past Surgical History: No Surgical Hx Reported, Orthopedic Surgery Additional Past Surgical History / Comment(s): R shoulder surgery d/t injury, L leg surgery d/t injury, colonoscopy Past Anesthesia/Blood Transfusion Reactions: No Reported Reaction Past Psychological History: Anxiety, Bipolar, Depression Smoking Status: Current every day smoker, Current some day smoker, Heavy tobacco smoker Past Alcohol Use History: Abuse, Daily, Heavy Past Drug Use History: Prescription Drug Abuse - Past Family History Father History Unknown: Yes Family Medical History: Hypertension Mother Family Medical History: No Reported History Additional Family Medical History / Comment(s): Mother is , pt states she was healthy. Medications and Allergies Home Medications Medication Instructions Recorded Confirmed Type Aspirin 81 mg PO DAILY@0800 03/29/24 04/09/24 History Atorvastatin [Lipitor] 20 mg PO HS@209903/29/24 04/09/24 History Cholestyramine (with Sugar) 4 gm PO AC-TID PRN 03/29/24 04/09/24 History [Cholestyramine Powder] Citalopram Hydrobromide 40 mg PO DAILY@0800 03/29/24 04/09/24 History [Citalopram HBr] Fenofibrate Nanocrystallized 145 mg PO DAILY@0800 03/29/24 04/09/24 History [Tricor] Fexofenadine HCl [Ngozi Allergy] 180 mg PO DAILY@0800 03/29/24 04/09/24 History Folic Acid 1 mg PO DAILY@0800 03/29/24 04/09/24 History Lidocaine 5% Patch [Lidoderm 5% 1 patch TRANSDERM DAILY PRN 03/29/24 04/09/24 History Patch] Loperamide HCl [Imodium A-D] 2 - 4 mg PO QID PRN MDD 8mg 03/29/24 04/09/24 Hi story Metoprolol Tartrate [Lopressor] 25 mg PO BID@0800,2100 03/29/24 04/09/24 History Ondansetron [Zofran] 4 mg PO TID PRN 03/29/24 04/09/24 History Vitamin B Complex 1 cap PO DAILY@0800 03/29/24 04/09/24 History amLODIPine [Norvasc] 10 mg PO DAILY@0800 03/29/24 04/09/24 History hydrALAZINE HCL [Apresoline] 25 mg PO DAILY PRN 03/29/24 04/09/24 History Nicotine 14Mg/24Hr Patch [Habitrol] 1 patch TRANSDERM DAILY #30 patch 03/31/24 04/09/24 Rx ALPRAZolam [Xanax] 0.5 mg PO TID PRN #30 tablet 04/02/24 04/09/24 Rx Acetaminophen Tab [Tylenol] 650 mg PO Q8H PRN 04/09/24 04/09/24 History Cholecalciferol [Vitamin D3 (25 50 mcg PO DAILY@0800 04/09/24 04/09/24 History Mcg = 1000 Iu)] Naproxen [Naprosyn] 250 mg PO BID@0800,2100 04/09/24 04/09/24 History levETIRAcetam [Keppra] 500 mg PO BID@0800,2100 04/09/24 04/09/24 History Allergies Allergy/AdvReac Type Severity Reaction Status Date / Time Sulfa (Sulfonamide Allergy Severe Rash/Hives Verified 04/09/24 11:39 Antibiotics) baclofen Allergy Unknown Verified 04/09/24 11:39 oxcarbazepine Allergy Unknown Verified 04/09/24 11:39 [From Trileptal] Physical Examination Inspection: Multiple scars present from left knee extending distally to above the left ankle. Negative for any open fractures, significant erythema/ecchymosis. Sensation: Equal, symmetric, bilateral intact throughout the upper and lower extremities on exam. Palpation: Very minimal tenderness palpation throughout spine on exam at midline and in the paravertebral regions. Nontender to palpation on rest of exam. Range of motion: Patient does have severely limited range of motion in the left ankle and dorsi/plantarflexion likely due to previous work injury years ago. Patient does have good passive range of motion throughout left lower extremity and hip in flexion so extension and knee in flexion to extension. Patient unable to actively flex/extend left knee or dorsi/plantarflex left ankle. Patient is able to wiggle digits and bilateral feet. Patient does have good range of motion throughout joints and right lower extremity. Full range of motion throughout bilateral upper extremities on exam. Motor: 5/5 in all major motor groups in bilateral upper extremities on exam. 4+/5 in all major motor groups in right lower extremity. 4-/5 in resisted left hip flexion/extension. 3/5 in resisted left knee flexion extension and left ankle dorsi/plantarflexion. Neurovascular: Radial pulse intact, 2+ bilaterally. Cap refill under 3 seconds digits of upper extremities. Special test: Negative Homans bilaterally. Negative clonus bilaterally. Negative Tabatha bilaterally. Results - Labs Labs: Abnormal Lab Results - Last 24 Hours (Table) 04/11/24 Range/Units 05:35 BUN 29.6 H (9.0-27.0) mg/dL BUN/Creatinine Ratio 37.00 H (12.00-20.00) Ratio Microbiology - Last 24 Hours (Table) 04/10/24 06:00 Urine Culture - Final Urine,Voided H & H 04/09/24 04/10/24 04/11/24 Range/Units 11:17 02:47 05:35 Hgb 11.9 11.9 L 12.5 (11.4-16.0) gm/dL Hct 36.5 37.1 L 38.1 (34.0-46.0) % Result Diagrams: 04/12/24 07:28 04/12/24 07:28 - Diagnostic results Lumbar MRI with/without contrast: report reviewed, image reviewed (MRI shows old VCF at L2/3. No severe stenotic levels to account for her sx. No foraminal stenosis. Minimal disc height loss at L3-5 ) Assessment and Plan Assessment: 1. Low back pain; L2/L3 vertebral compression fracture; lumbar spondylosis; degenerative disc disease Plan: 1. Low back pain; L2/L3 vertebral compression fracture; lumbar spondylosis; degenerative disc disease - MRI lumbar spine shows old VCF at L2/3. No severe stenotic levels to account for her sx. No foraminal stenosis. Minimal disc height loss at L3-. Thoracic spine MRI negative for any significant findings. At this time we are not recommending any emergent/urgent orthopedic surgical intervention. We are recommending conservative measures with the use of PT/OT and pain medication as needed. We have ordered Flexeril and gabapentin for symptom control. Patient is stable from orthopedic spine standpoint for discharge from the hospital. Follow-up in office with Dr. Faith as needed. Orthopedics is signing off at this time. Please do not hesitate to contact us for any further questions. 2. Appreciate medical management 3. Pain management -[place]; Flexeril; gabapentin 4. DVT prophylaxis -aspirin; Lovenox 5. GI prophylaxis recs 6. PT/OT -weightbearing as tolerated with walker and assistance 7. encourage incentive spirometer use 8. Appreciate consult Time with Patient: Less than 30
[2024-04-12] MEDS: GABAPENTIN 300 MG CAP PO SCH (15:38)
[2024-04-13 06:55] LABS: Basophils # (A) 0.1 k/uL (0-0.2); Basophils % (A) 1 %; Eosinophils # (A) 0.3 k/uL (0-0.7); Eosinophils % (A) 4 %; HCT 39.7 % (34.0-46.0); HGB 13.5 gm/dL (11.4-16.0); Lymphocytes # (A) 2.9 k/uL (1.0-4.8); Lymphocytes % (A) 41 %; MCH 30.9 pg (25.0-35.0); MCHC 33.9 g/dL (31.0-37.0); MCV 91.2 fL (80.0-100.0); Mean Platelet Volume 9.3; Monocytes # (A) 0.3 k/uL (0-1.0); Monocytes % (A) 4 %; Neutrophils # (A) 3.4 k/uL (1.3-7.7); Neutrophils % (A) 49 %; Platelet Count 287 k/uL (150-450); RBC 4.35 m/uL (3.80-5.40); RDW 13.9 % (11.5-15.5); WBC 7.1 k/uL (3.8-10.6)
[2024-04-13 07:47] LABS: African American GFR (CKD) >90 (>60 ml/min/1.73 sqM); Anion Gap 9 mmol/L; Blood Urea Nitrogen 32 mg/dL (7-17); Calcium 9.9 mg/dL (8.4-10.2); Carbon Dioxide 23 mmol/L (22-30); Chloride 105 mmol/L (98-107); Glucose 86 mg/dL (74-99); Non-African American GFR(CKD) 86 (>60 ml/min/1.73 sqM); Potassium 4.4 mmol/L (3.5-5.1); Sodium 137 mmol/L (137-145)
--- NOTE | 2024-04-13 14:44 | P.PN ---
Subjective Progress Note Date: 04/13/24 Patient is a 69-year-old female with past medical history significant for seizures, history of vertebral compression fractures, falls, hypertension, hyperlipidemia presents to the emergency department for low back pain that radiates to the bilateral hips and buttocks since Saturday. She is accompanied by her gang miner at the bedside. Patient is a poor historianhistory obtained from gang miner and prior records. Patient notes that the pain is "indescribable, endless." Electrician Front notes that after being discharged from the hospital on 04/02 patient was ambulating normally on 04/02 and 04/03. She notes that on 04/04 the patient began having discomfort with sitting. She notes that starting 04/05 the patient had more difficulty getting out of bed and states that starting on 04/06 the patient has been unable to get out of bed and perform her activities of daily living independently like before. Patient states that she has not tried taking [id number] pain meds as she does not believe that they will work. Electrician Front notes that patient did sit with a heating pad on her back on Saturday with little relief. Patient currently unable to sit due to pain. Initial hip x-ray: No evidence of acute fracture/dislocation. Initial right hip CT: No acute trauma, no significant osteoarthritis of the right hip. Initial left hip CT: No acute trauma, prior open reduction and internal fixation of prior left hip fracture. Initial labs: WBC 7, hemoglobin 11.9, platelets 355, sodium 138, potassium 4.3, chloride 104, CO2 28, BUN 19, creatinine 0.75, glucose 86, AST 25, ALT 14, alkaline phosphatase 150. Initial vitals: Afebrile, bradycardic, hypertensive, saturating 96% on room air. 04/10. Patient seen lying comfortably in bed. No acute events overnight. No significant complaints today. Continues to report low back pain that radiates to the bilateral hips and buttocks. Denies fever, chills, nausea/vomiting, chest pain, dyspnea, abdominal pain. Labs today: WBC 623, hemoglobin 11.9, platelets 330, sodium 139, potassium 4.6, chloride 100, CO2 27.3, BUN 30.3, creatinine 1.1, glucose 95. 04/11. Patient seen lying in bed. No acute events overnight. No significant complaints today. Patient underwent lumbar spine MRI yesterday and thoracic spine MRI today. Labs today: WBC 6.12, hemoglobin 12.5, platelets 320, sodium 138, potassium 4.6, chloride 103, CO2 24.8, BUN 29.6, creatinine 0.8. 04/12. Pt seen laying in bed, KENDAL overnight. No new complaints. Awaiting PT/OT evaluation and final spine surgery recs. 04/13. Pt seen and examined. KENDAL overnight. PT/OT recommending SNF. CM working on placement and auth. Pertinent positives and negatives discussed above, a complete review of systems was performed and all the other systems were negative. Physical examination: Vital signs reviewed General: Nontoxic, no distress, appears stated age, well-appearing Derm: Warm, dry, intact Head: Atraumatic, normocephalic, symmetric Eyes: EOMI, anicteric sclera Mouth: No lip lesion, mucus membranes moist Cardiovascular: S1-S2 regular, no murmur Lungs: CTA bilateral, no rhonchi, no rales, no accessory muscle use Abdominal: Soft, non-tender to palpation Extremities: No cyanosis, clubbing, or pedal edema. Right: 4/5 strength in upper and lower extremities; Left: 4/5 strength in upper and lower extremities, 0/5 ankle dorsiflexion Neuro: Alert, oriented x 3, gross neurological examination did not reveal any focal deficits. Cranial nerves II to XII grossly intact. Bilateral negative Babinski. Psych: Appropriate affect and mood Assessment and Plan: Patient is a 69-year-old female with past medical history significant for seizures, history of vertebral compression fractures, falls, hypertension, hyperlipidemia admitted for low back pain. Active #. Low back pain, history of compression fractures of undetermined age #. Bilateral hip pain #. Bilateral buttock pain #. Lower extremity weakness, bilateral, but more prominent on left - concern for spinal stenosis and radiculopathy Hip x-ray and hip CT negative bilaterally UA pending to rule out obstructive uropathy MRI lumbar spine: Acute fracture through S2 vertebral body with cortical buckling seen on prior CTno significant retropulsion, no definitive evidence of disc herniation or significant spinal canal stenosis, moderate disc degeneration with associated osteoarthritic changes. MRI thoracic spine: No evidence for compression fracture in the spine remote appearing lower thoracic spine compression fractures, no evidence for significant spinal canal or neural foraminal stenosis. Orthopedics following, no acute surgical intervention, f/u outpatient Lidocaine patch, tylenol PRN, norco PRN, morphine PRN PT/OT consulted Chronic #. History of seizures Continue Keppra #. History of falls Fall precautions #. Hypertension Amlodipine 10 mg PO daily Hydralazine 25 mg PO daily Metoprolol 25 mg PO daily #. Hyperlipidemia Lipitor 20 mg PO at bedtime Questran 4 g PO AC 3 times daily as needed Lofibra 160 mg PO daily #. Nicotine dependence Nicotine 14 mg per 24-hour patch F: None E: Replete if required N: Heart healthy diet DVT prophylaxis: Lovenox 40 mg subcutaneous daily Code status: Full code Anticipated discharge place: Home Objective - Vital Signs Vital signs: Vital Signs Temp 98.3 F 04/13/24 14:42 Pulse 53 L 04/13/24 14:42 Resp 16 04/13/24 14:42 BP 105/60 04/13/24 14:42 Pulse Ox 94 L 04/13/24 14:42 FiO2 Intake & Output 04/12/24 04/13/24 04/13/24 18:59 06:59 18:59 Intake Total 591 Output Total 800 300 Balance 591 -800 -300 Intake: Oral 591 Output: Urine 800 300 Other: Voiding Method Diaper Diaper Diaper External Catheter External Catheter External Catheter - Labs CBC & Chem 7: 04/13/24 05:16 04/13/24 05:16 Labs: Abnormal Lab Results - Last 24 Hours (Table) 04/13/24 Range/Units 05:16 BUN 32 H (7-17) mg/dL
--- NOTE | 2024-04-14 13:36 | P.PN ---
Subjective Progress Note Date: 04/14/24 1-year-old female with PMH significant for seizures, COPD, Depression, vertebral compression fractures, history of falls, hypertension, hyperlipidemia presents to the emergency department for uncontrolled low back pain that radiates to the bilateral hips and buttocks since Saturday. Recently admitted from 03/29-04/02 for possible seizures and started on Keppra at that time. In the ED she underwent extensive evaluation. BP 125/50, HR 54, T 99.2F, RR 18, 93% on RA. CBC, CMP significant for BUN 19, alk phos 150. UA small LE with 11 WBC and 6 Sq epithelial cells. Hip XR and CT negative for acute pathology. Ortho Sx consulted. MRI L and T spine showed acute fracture through the S2 vertebral body with cortical buckling no significant spinal canal stenosis. Ortho Sx recommended no surgical intervention. PT and OT consulted, recommending SNF, case management on board. 04/14 Patient was seen and examined. No acute events overnight. Reports moderate to severe pain in her buttocks. No new labs done today. General: non toxic, no distress, appears at stated age Derm: warm, dry Head: atraumatic, normocephalic, symmetric Eyes: EOMI, no lid lag, anicteric sclera Mouth: no lip lesion, mucus membranes moist Cardiovascular: S1S2 reg, no murmur Lungs: CTA bilateral, no rhonchi, no rales , no accessory muscle use Ext: no gross muscle atrophy, no edema, no contractures Neuro: no focal neuro deficits Psych: Alert, oriented, appropriate affect Based on my assessment of this patient, this patient meets a moderate complexity level of care. Acute fracture through S2 vertebral body with cortical buckling: PT and OT on board. Fall precautions. Ortho Sx recommends no surgical intervention. Pain management with Morphine 4 mg IV Q4H PRN, [place] 5 PO Q6 PRN, Tylenol 650 mg PO Q6H PRN, Lidocaine 4% patch, Gabapentin 300 mg PO TID. Seizure disorder: Keppra 500 mg PO BID. COPD not in acute exacerbation Nicotine dependence: Habitrol 14 mg TRANSDERM. Anxiety and Depression: Citalopram 40 mg PO QD. Xanax 0.5 mg PO BID PRN. History of falls: Fall precautions. Hypertension: Amlodipine 10 mg PO QD. Hydralazine 25 mg PO QD. Metoprolol 25 mg PO BID. Hyperlipidemia: ASA 81 mg PO QD. Lipitor 20 mg PO QD. Fenofibrate 145 mg PO QD. CODE STATUS: FULL CODE DVT Prophylaxis: Lovenox SQ GI Prophylaxis: Designated medical POA if patient is not able to make medical decisions for themselves: I have reviewed the following oracle hrms consultant notes: I have reviewed the results of the following tests: I have ordered the following tests: I have discussed the care of this patient with the following independent historian: Case management, RN. I have independently interpreted the following test below: I have discussed the management of this patient with the following physician: Objective - Vital Signs Vital signs: Vital Signs Temp 97.7 F 04/14/24 07:10 Pulse 63 04/14/24 07:10 Resp 16 04/14/24 07:10 BP 146/82 04/14/24 07:10 Pulse Ox 97 04/14/24 07:10 FiO2 Intake & Output 04/13/24 04/14/24 04/14/24 18:59 06:59 18:59 Output Total 300 Balance -300 Output: Urine 300 Other: Voiding Method Diaper Diaper External Catheter External Catheter # Voids 3 - Labs CBC & Chem 7: 04/13/24 05:16 04/13/24 05:16
--- NOTE | 2024-04-15 09:58 | P.PN ---
Subjective Progress Note Date: 04/15/24 1-year-old female with PMH significant for seizures, COPD, Depression, vertebral compression fractures, history of falls, hypertension, hyperlipidemia presents to the emergency department for uncontrolled low back pain that radiates to the bilateral hips and buttocks since Saturday. Recently admitted from 03/29-04/02 for possible seizures and started on Keppra at that time. In the ED she underwent extensive evaluation. BP 125/50, HR 54, T 99.2F, RR 18, 93% on RA. CBC, CMP significant for BUN 19, alk phos 150. UA small LE with 11 WBC and 6 Sq epithelial cells. Hip XR and CT negative for acute pathology. Ortho Sx consulted. MRI L and T spine showed acute fracture through the S2 vertebral body with cortical buckling no significant spinal canal stenosis. Ortho Sx recommended no surgical intervention. PT and OT consulted, recommending SNF, case management on board. 04/14 Patient was seen and examined. No acute events overnight. Reports moderate to severe pain in her buttocks. No new labs done today. 04/15 Patient was seen and examined. No acute events overnight. Continues to report hip + buttocks pain. Plans for SNF with insurance auth. SW and case management on board. General: non toxic, no distress, appears at stated age Derm: warm, dry Head: atraumatic, normocephalic, symmetric Eyes: EOMI, no lid lag, anicteric sclera Mouth: no lip lesion, mucus membranes moist Cardiovascular: S1S2 reg, no murmur Lungs: CTA bilateral, no rhonchi, no rales , no accessory muscle use Ext: no gross muscle atrophy, no edema, no contractures Neuro: no focal neuro deficits Psych: Alert, oriented, appropriate affect Based on my assessment of this patient, this patient meets a moderate complexity level of care. Acute fracture through S2 vertebral body with cortical buckling: PT and OT on board. Fall precautions. Ortho Sx recommends no surgical intervention. Pain management with Morphine 4 mg IV Q4H PRN, [place] 5 PO Q6 PRN, Tylenol 650 mg PO Q6H PRN, Lidocaine 4% patch, Gabapentin 300 mg PO TID. Seizure disorder: Keppra 500 mg PO BID. COPD not in acute exacerbation Nicotine dependence: Habitrol 14 mg TRANSDERM. Anxiety and Depression: Citalopram 40 mg PO QD. Xanax 0.5 mg PO BID PRN. History of falls: Fall precautions. Hypertension: Amlodipine 10 mg PO QD. Hydralazine 25 mg PO QD. Metoprolol 25 mg PO BID. Hyperlipidemia: ASA 81 mg PO QD. Lipitor 20 mg PO QD. Fenofibrate 145 mg PO QD. CODE STATUS: FULL CODE DVT Prophylaxis: Lovenox SQ GI Prophylaxis: Designated medical POA if patient is not able to make medical decisions for themselves: I have reviewed the following wealth management consultant notes: I have reviewed the results of the following tests: I have ordered the following tests: I have discussed the care of this patient with the following independent historian: I have independently interpreted the following test below: I have discussed the management of this patient with the following physician: Objective - Vital Signs Vital signs: Vital Signs Temp 97.7 F 04/15/24 06:55 Pulse 60 04/15/24 06:55 Resp 16 04/15/24 06:55 BP 159/71 04/15/24 06:55 Pulse Ox 96 04/15/24 06:55 FiO2 Intake & Output 04/14/24 04/15/24 04/15/24 18:59 06:59 18:59 Intake Total 240 Output Total 250 Balance -250 240 Intake: Oral 240 Output: Urine 250 Other: Voiding Method Diaper External Catheter # Voids 1 200 # Bowel Movements 0 - Labs CBC & Chem 7: 04/13/24 05:16 04/13/24 05:16
--- NOTE | 2024-04-16 12:09 | P.PN ---
Subjective Progress Note Date: 04/16/24 1-year-old female with PMH significant for seizures, COPD, Depression, vertebral compression fractures, history of falls, hypertension, hyperlipidemia presents to the emergency department for uncontrolled low back pain that radiates to the bilateral hips and buttocks since Saturday. Recently admitted from 03/29-04/02 for possible seizures and started on Keppra at that time. In the ED she underwent extensive evaluation. BP 125/50, HR 54, T 99.2F, RR 18, 93% on RA. CBC, CMP significant for BUN 19, alk phos 150. UA small LE with 11 WBC and 6 Sq epithelial cells. Hip XR and CT negative for acute pathology. Ortho Sx consulted. MRI L and T spine showed acute fracture through the S2 vertebral body with cortical buckling no significant spinal canal stenosis. Ortho Sx recommended no surgical intervention. PT and OT consulted, recommending SNF, case management on board. 04/14 Patient was seen and examined. No acute events overnight. Reports moderate to severe pain in her buttocks. No new labs done today. 04/15 Patient was seen and examined. No acute events overnight. Continues to report hip + buttocks pain. Plans for SNF with insurance auth. PATSY and case management on board. 04/16 Patient was seen and examined. Persistent hip + buttocks pain. Accepted to [facility] but needs insurance authorization, discussed with Lashell GARNER and RN. General: non toxic, no distress, appears at stated age Derm: warm, dry Head: atraumatic, normocephalic, symmetric Eyes: EOMI, no lid lag, anicteric sclera Mouth: no lip lesion, mucus membranes moist Cardiovascular: S1S2 reg, no murmur Lungs: CTA bilateral, no rhonchi, no rales , no accessory muscle use Ext: no gross muscle atrophy, no edema, no contractures Neuro: no focal neuro deficits Psych: Alert, oriented, appropriate affect Based on my assessment of this patient, this patient meets a moderate complexity level of care. Acute fracture through S2 vertebral body with cortical buckling: PT and OT on board. Fall precautions. Ortho Sx recommends no surgical intervention. Pain management with Morphine 4 mg IV Q4H PRN, Tylenol 650 mg PO Q6H PRN, Lidocaine 4% patch, Gabapentin 300 mg PO TID. Switch [place] 5 to Percocet 7.5 PO Q6H PRN. Seizure disorder: Keppra 500 mg PO BID. COPD not in acute exacerbation Nicotine dependence: Habitrol 14 mg TRANSDERM. Anxiety and Depression: Citalopram 40 mg PO QD. Xanax 0.5 mg PO BID PRN. History of falls: Fall precautions. Hypertension: Amlodipine 10 mg PO QD. Hydralazine 25 mg PO QD. Metoprolol 25 mg PO BID. Hyperlipidemia: ASA 81 mg PO QD. Lipitor 20 mg PO QD. Fenofibrate 145 mg PO QD. CODE STATUS: FULL CODE DVT Prophylaxis: Lovenox SQ GI Prophylaxis: Designated medical POA if patient is not able to make medical decisions for themselves: Dispo: Accepted to [facility] but needs insurance authorization. Medically stable. I have reviewed the following marketing database consultant notes: I have reviewed the results of the following tests: I have ordered the following tests: I have discussed the care of this patient with the following independent historian: Lashell BASS RN. I have independently interpreted the following test below: I have discussed the management of this patient with the following physician: Objective - Vital Signs Vital signs: Vital Signs Temp 97.6 F 04/16/24 07:00 Pulse 57 L 04/16/24 07:00 Resp 17 04/16/24 07:00 BP 147/62 04/16/24 07:00 Pulse Ox 96 04/16/24 07:00 FiO2 Intake & Output 04/15/24 04/16/24 04/16/24 18:59 06:59 18:59 Intake Total 480 240 Output Total 200 650 Balance 280 -650 240 Intake: Oral 480 240 Output: Urine 200 650 - Labs CBC & Chem 7: 04/13/24 05:16 04/13/24 05:16
[2024-04-16] MEDS: oxyCODONE-APAP 7.5-325MG 1 EACH TAB PO STA (13:01)
[2024-04-16 14:51] VITALS: BMI 25.8
[2024-04-16] MEDS: oxyCODONE-APAP 7.5-325MG 1 EACH TAB PO PRN (21:07)
--- NOTE | 2024-04-17 13:05 | P.PN ---
Subjective Progress Note Date: 04/17/24 1-year-old female with PMH significant for seizures, COPD, Depression, vertebral compression fractures, history of falls, hypertension, hyperlipidemia presents to the emergency department for uncontrolled low back pain that radiates to the bilateral hips and buttocks since Saturday. Recently admitted from 03/29-04/02 for possible seizures and started on Keppra at that time. In the ED she underwent extensive evaluation. BP 125/50, HR 54, T 99.2F, RR 18, 93% on RA. CBC, CMP significant for BUN 19, alk phos 150. UA small LE with 11 WBC and 6 Sq epithelial cells. Hip XR and CT negative for acute pathology. Ortho Sx consulted. MRI L and T spine showed acute fracture through the S2 vertebral body with cortical buckling no significant spinal canal stenosis. Ortho Sx recommended no surgical intervention. PT and OT consulted, recommending SNF, case management on board. 04/14 Patient was seen and examined. No acute events overnight. Reports moderate to severe pain in her buttocks. No new labs done today. 04/15 Patient was seen and examined. No acute events overnight. Continues to report hip + buttocks pain. Plans for SNF with insurance auth. PATSY and case management on board. 04/16 Patient was seen and examined. Persistent hip + buttocks pain. Accepted to [facility] but needs insurance authorization, discussed with Lashell GARNER and RN. 04/17 Patient was seen and examined. Persistent hip + buttocks pain. Accepted to [facility] but needs insurance authorization, discussed with Lashell GARNER, Dr. Spann and RN. General: non toxic, no distress, appears at stated age Derm: warm, dry Head: atraumatic, normocephalic, symmetric Eyes: EOMI, no lid lag, anicteric sclera Mouth: no lip lesion, mucus membranes moist Cardiovascular: S1S2 reg, no murmur Lungs: CTA bilateral, no rhonchi, no rales , no accessory muscle use Ext: no gross muscle atrophy, no edema, no contractures Neuro: no focal neuro deficits Psych: Alert, oriented, appropriate affect Based on my assessment of this patient, this patient meets a moderate complexity level of care. Acute fracture through S2 vertebral body with cortical buckling: PT and OT on board. Fall precautions. Ortho Sx recommends no surgical intervention. Pain management with Morphine 4 mg IV Q4H PRN, Tylenol 650 mg PO Q6H PRN, Lidocaine 4% patch, Gabapentin 300 mg PO TID. Switch [place] 5 to Percocet 7.5 PO Q6H PRN. Seizure disorder: Keppra 500 mg PO BID. COPD not in acute exacerbation Nicotine dependence: Habitrol 14 mg TRANSDERM. Anxiety and Depression: Citalopram 40 mg PO QD. Xanax 0.5 mg PO BID PRN. History of falls: Fall precautions. Hypertension: Amlodipine 10 mg PO QD. Hydralazine 25 mg PO QD. Metoprolol 25 mg PO BID. Hyperlipidemia: ASA 81 mg PO QD. Lipitor 20 mg PO QD. Fenofibrate 145 mg PO QD. CODE STATUS: FULL CODE DVT Prophylaxis: Lovenox SQ GI Prophylaxis: Designated medical POA if patient is not able to make medical decisions for themselves: Dispo: Accepted to [facility] but needs insurance authorization. Medically stable. I have reviewed the following data migration consultant notes: I have reviewed the results of the following tests: I have ordered the following tests: CBC and BMP in the AM. I have discussed the care of this patient with the following independent historian: Lashell BASS RN. Dr. Spann. I have independently interpreted the following test below: I have discussed the management of this patient with the following physician: Objective - Vital Signs Vital signs: Vital Signs Temp 97.7 F 04/17/24 07:00 Pulse 57 L 04/17/24 07:00 Resp 19 04/17/24 07:00 BP 158/54 04/17/24 07:00 Pulse Ox 95 04/17/24 07:00 FiO2 Intake & Output 04/16/24 04/17/24 04/17/24 18:59 06:59 18:59 Intake Total 358 240 Output Total 250 1350 Balance 108 -1350 240 Weight 74.843 kg Intake: Oral 358 240 Output: Urine 250 1350 Other: Voiding Method Diaper Diaper External Catheter External Catheter - Labs CBC & Chem 7: 04/13/24 05:16 04/13/24 05:16
[2024-04-18 04:22] LABS: HCT 37.6 % (34.0-46.0); HGB 12.4 gm/dL (11.4-16.0); MCH 30.6 pg (25.0-35.0); MCHC 32.9 g/dL (31.0-37.0); MCV 93.1 fL (80.0-100.0); Mean Platelet Volume 8.3; Platelet Count 337 k/uL (150-450); RBC 4.04 m/uL (3.80-5.40); RDW 13.3 % (11.5-15.5); WBC 7.3 k/uL (3.8-10.6)
[2024-04-18 04:39] LABS: African American GFR (CKD) 89 (>60 ml/min/1.73 sqM); Anion Gap 7 mmol/L; Blood Urea Nitrogen 29 mg/dL (7-17); Calcium 9.8 mg/dL (8.4-10.2); Carbon Dioxide 26 mmol/L (22-30); Chloride 102 mmol/L (98-107); Glucose 78 mg/dL (74-99); Non-African American GFR(CKD) 78 (>60 ml/min/1.73 sqM); Potassium 4.4 mmol/L (3.5-5.1); Sodium 135 mmol/L (137-145)
--- NOTE | 2024-04-18 13:00 | P.PN ---
Subjective Progress Note Date: 04/18/24 1-year-old female with PMH significant for seizures, COPD, Depression, vertebral compression fractures, history of falls, hypertension, hyperlipidemia presents to the emergency department for uncontrolled low back pain that radiates to the bilateral hips and buttocks since Saturday. Recently admitted from 03/29-04/02 for possible seizures and started on Keppra at that time. In the ED she underwent extensive evaluation. BP 125/50, HR 54, T 99.2F, RR 18, 93% on RA. CBC, CMP significant for BUN 19, alk phos 150. UA small LE with 11 WBC and 6 Sq epithelial cells. Hip XR and CT negative for acute pathology. Ortho Sx consulted. MRI L and T spine showed acute fracture through the S2 vertebral body with cortical buckling no significant spinal canal stenosis. Ortho Sx recommended no surgical intervention. PT and OT consulted, recommending SNF, case management on board. 04/14 Patient was seen and examined. No acute events overnight. Reports moderate to severe pain in her buttocks. No new labs done today. 04/15 Patient was seen and examined. No acute events overnight. Continues to report hip + buttocks pain. Plans for SNF with insurance auth. PATSY and case management on board. 04/16 Patient was seen and examined. Persistent hip + buttocks pain. Accepted to [facility] but needs insurance authorization, discussed with Lashell GARNER and RN. 04/17 Patient was seen and examined. Persistent hip + buttocks pain. Accepted to [facility] but needs insurance authorization, discussed with Lashell GARNER, Dr. Spann and RN. 04/18 Patient was seen and examined. CBC and BMP significant Na 135, BUN 29. General: non toxic, no distress, appears at stated age Derm: warm, dry Head: atraumatic, normocephalic, symmetric Eyes: EOMI, no lid lag, anicteric sclera Mouth: no lip lesion, mucus membranes moist Cardiovascular: S1S2 reg, no murmur Lungs: CTA bilateral, no rhonchi, no rales , no accessory muscle use Ext: no gross muscle atrophy, no edema, no contractures Neuro: no focal neuro deficits Psych: Alert, oriented, appropriate affect Based on my assessment of this patient, this patient meets a moderate complexity level of care. Acute fracture through S2 vertebral body with cortical buckling: PT and OT on board. Fall precautions. Ortho Sx recommends no surgical intervention. Pain management with Morphine 4 mg IV Q4H PRN, Tylenol 650 mg PO Q6H PRN, Lidocaine 4% patch, Gabapentin 300 mg PO TID, Percocet 7.5 PO Q6H PRN. Seizure disorder: Keppra 500 mg PO BID. COPD not in acute exacerbation Nicotine dependence: Habitrol 14 mg TRANSDERM. Anxiety and Depression: Citalopram 40 mg PO QD. Xanax 0.5 mg PO BID PRN. History of falls: Fall precautions. Hypertension: Amlodipine 10 mg PO QD. Hydralazine 25 mg PO QD. Metoprolol 25 mg PO BID. Hyperlipidemia: ASA 81 mg PO QD. Lipitor 20 mg PO QD. Fenofibrate 145 mg PO QD. CODE STATUS: FULL CODE DVT Prophylaxis: Lovenox SQ GI Prophylaxis: Designated medical POA if patient is not able to make medical decisions for themselves: Dispo: Accepted to [facility] but needs insurance authorization. Medically stable. I have reviewed the following ibm websphere commerce consultant notes: I have reviewed the results of the following tests: CBC, BMP. I have ordered the following tests: I have discussed the care of this patient with the following independent historian: I have independently interpreted the following test below: I have discussed the management of this patient with the following physician: Objective - Vital Signs Vital signs: Vital Signs Temp 98.3 F 04/18/24 07:00 Pulse 61 04/18/24 07:00 Resp 16 04/18/24 07:00 BP 166/76 04/18/24 07:00 Pulse Ox 96 04/18/24 07:00 FiO2 Intake & Output 04/17/24 04/18/24 04/18/24 18:59 06:59 18:59 Intake Total 1020 Output Total 351 Balance 1020 -351 Intake: Oral 1020 Output: Urine 350 Stool 1 Other: Voiding Method Diaper Diaper External Catheter External Catheter External Catheter # Voids 0 1 - Labs CBC & Chem 7: 04/18/24 03:42 04/18/24 03:42 Labs: Abnormal Lab Results - Last 24 Hours (Table) 04/18/24 Range/Units 03:42 Sodium 135 L (137-145) mmol/L BUN 29 H (7-17) mg/dL
--- NOTE | 2024-04-19 09:29 | P.PN ---
Subjective Progress Note Date: 04/19/24 1-year-old female with PMH significant for seizures, COPD, Depression, vertebral compression fractures, history of falls, hypertension, hyperlipidemia presents to the emergency department for uncontrolled low back pain that radiates to the bilateral hips and buttocks since Saturday. Recently admitted from 03/29-04/02 for possible seizures and started on Keppra at that time. In the ED she underwent extensive evaluation. BP 125/50, HR 54, T 99.2F, RR 18, 93% on RA. CBC, CMP significant for BUN 19, alk phos 150. UA small LE with 11 WBC and 6 Sq epithelial cells. Hip XR and CT negative for acute pathology. Ortho Sx consulted. MRI L and T spine showed acute fracture through the S2 vertebral body with cortical buckling no significant spinal canal stenosis. Ortho Sx recommended no surgical intervention. PT and OT consulted, recommending SNF, case management on board. 04/14 Patient was seen and examined. No acute events overnight. Reports moderate to severe pain in her buttocks. No new labs done today. 04/15 Patient was seen and examined. No acute events overnight. Continues to report hip + buttocks pain. Plans for SNF with insurance auth. PATSY and case management on board. 04/16 Patient was seen and examined. Persistent hip + buttocks pain. Accepted to [facility] but needs insurance authorization, discussed with Lashell GARNER and RN. 04/17 Patient was seen and examined. Persistent hip + buttocks pain. Accepted to [facility] but needs insurance authorization, discussed with Lashell GARNER, Dr. Spann and RN. 04/18 Patient was seen and examined. CBC and BMP significant Na 135, BUN 29. 04/19 Patient was seen and examined. Persistent hip + buttocks pain. States pain meds are not helping. Accepted to [facility] but needs insurance authorization. General: non toxic, no distress, appears at stated age Derm: warm, dry Head: atraumatic, normocephalic, symmetric Eyes: EOMI, no lid lag, anicteric sclera Mouth: no lip lesion, mucus membranes moist Cardiovascular: S1S2 reg, no murmur Lungs: CTA bilateral, no rhonchi, no rales , no accessory muscle use Ext: no gross muscle atrophy, no edema, no contractures Neuro: no focal neuro deficits Psych: Alert, oriented, appropriate affect Based on my assessment of this patient, this patient meets a moderate complexity level of care. Acute fracture through S2 vertebral body with cortical buckling: PT and OT on board. Fall precautions. Ortho Sx recommends no surgical intervention. Pain management with Morphine 4 mg IV Q4H PRN, Tylenol 650 mg PO Q6H PRN, Lidocaine 4% patch, Gabapentin 300 mg PO TID, Percocet 7.5 PO Q6H PRN. Pain management consulted. Seizure disorder: Keppra 500 mg PO BID. COPD not in acute exacerbation Nicotine dependence: Habitrol 14 mg TRANSDERM. Anxiety and Depression: Citalopram 40 mg PO QD. Xanax 0.5 mg PO BID PRN. History of falls: Fall precautions. Hypertension: Amlodipine 10 mg PO QD. Hydralazine 25 mg PO QD. Metoprolol 25 mg PO BID. Hyperlipidemia: ASA 81 mg PO QD. Lipitor 20 mg PO QD. Fenofibrate 145 mg PO QD. CODE STATUS: FULL CODE DVT Prophylaxis: Lovenox SQ GI Prophylaxis: Designated medical POA if patient is not able to make medical decisions for themselves: Dispo: Accepted to [facility] but needs insurance authorization. Medically stable. I have reviewed the following medical economics consultant notes: I have reviewed the results of the following tests: I have ordered the following tests: I have discussed the care of this patient with the following independent historian: ZACARIAS. I have independently interpreted the following test below: I have discussed the management of this patient with the following physician: Objective - Vital Signs Vital signs: Vital Signs Temp 97.4 F L 04/19/24 07:15 Pulse 59 L 04/19/24 07:15 Resp 16 04/19/24 07:15 BP 143/69 04/19/24 07:15 Pulse Ox 97 04/19/24 07:15 FiO2 Intake & Output 04/18/24 04/19/24 04/19/24 18:59 06:59 18:59 Output Total 0 850 Balance 0 -850 Output: Urine 0 850 Other: Voiding Method External Catheter External Catheter External Catheter # Voids 1 # Bowel Movements 1 - Labs CBC & Chem 7: 04/18/24 03:42 04/18/24 03:42
[2024-04-20 04:13] VITALS: RESP 16
--- NOTE | 2024-04-20 15:05 | P.DS ---
Providers Date of admission: 04/09/24 13:38 Expected date of discharge: 04/20/24 Attending physician: Kandace Melgar MD Consults: 04/10/24 13:20 Consult Physician Routine Consulting Provider: Albert Faith Consult Reason/Comments: compression fractures with LLE 0/5 dorsiflexion Do you want consulting provider notified?: Yes Primary care physician: Adair Silva MD Hospital Course: 69-year-old female, follows with Dr. Silva with PMH significant for seizures, COPD, Depression, vertebral compression fractures, history of falls, hypertension, hyperlipidemia presents to the emergency department for uncontrolled low back pain that radiates to the bilateral hips and buttocks since Saturday. Recently admitted from 03/29-04/02 for possible seizures and started on Keppra at that time. In the ED she underwent extensive evaluation. BP 125/50, HR 54, T 99.2F, RR 18, 93% on RA. CBC, CMP significant for BUN 19, alk phos 150. UA small LE with 11 WBC and 6 Sq epithelial cells. Hip XR and CT negative for acute pathology. Ortho Sx consulted. MRI L and T spine showed acute fracture through the S2 vertebral body with cortical buckling no significant spinal canal stenosis. Ortho Sx recommended no surgical intervention. PT and OT consulted, recommending SNF, case management on board. 04/14 Patient was seen and examined. No acute events overnight. Reports moderate to severe pain in her buttocks. No new labs done today. 04/15 Patient was seen and examined. No acute events overnight. Continues to report hip + buttocks pain. Plans for SNF with insurance auth. PATSY and case management on board. 04/16 Patient was seen and examined. Persistent hip + buttocks pain. Accepted to [facility] but needs insurance authorization, discussed with Lashell GARNER and RN. 04/17 Patient was seen and examined. Persistent hip + buttocks pain. Accepted to [facility] but needs insurance authorization, discussed with Lashell GARNER, Dr. Spann and RN. 04/18 Patient was seen and examined. CBC and BMP significant Na 135, BUN 29. 04/19 Patient was seen and examined. Persistent hip + buttocks pain. States pain meds are not helping. Accepted to [facility] but needs insurance authorization. April 20: Eating well. Does complain of increased pain in the lower back with activity. Patient does not want to use a brace. Has been seen by Dr. Faith from orthopedic team. Cleared for discharge. Will have the patient follow-up with Dr. Faith outpatient. Discussed with pediatric social worker. Patient been accepted at [facility]. Discussion and discharge planning more than 35 minutes Social history: Resident of [facility] + [facility]. Smoker. Prior history of alcohol abuse. Does use a walker. . Has a legal guardian. Smoker Physical examination: VITAL SIGNS: 98.4, 55, 16, 146% 6, 96% room air GENERAL: BMI 25.8, reclining bed awake not in distress EYES: Pupils equal. Conjunctiva griselda l. HEENT: External appearance of nose and ears normal, oral cavity grossly normal. NECK: JVD not raised; masses not palpable. HEART: First and second heart sounds are normal; no edema. LUNGS: Respiratory rate normal; diminished breath sounds. ABDOMEN: Soft, nontender, liver spleen not palpable, no masses palpable. PSYCH: Able to answer simple questions. MUSCULOSKELETAL:No Clubbing/cyanosis;muscles-grossly intact NEUROLOGICAL: Cranial nerves grossly intact; no facial asymmetry, power and sensation grossly intact. Assessment plan: Acute fracture through S2 vertebral body with cortical buckling: PT and OT on board. Fall precautions. Ortho Sx recommends no surgical intervention. Pain management with Morphine 4 mg IV Q4H PRN, Tylenol 650 mg PO Q6H PRN, Lidocaine 4% patch, Gabapentin 300 mg PO TID, Percocet 7.5 PO Q6H PRN. Pain management consulted. Seizure disorder: Keppra 500 mg PO BID. COPD not in acute exacerbation Nicotine dependence: Habitrol 14 mg TRANSDERM. Primary osteoarthritis specially hip joints Chronic hypoxic respiratory failure from COPD with nocturnal oxygen Chronic gait dysfunction does use a walker at baseline Major depressive disorder: Citalopram 40 mg PO QD. Xanax 0.5 mg PO BID PRN. History of falls: Fall precautions. Essential hypertension: Amlodipine 10 mg PO QD. Hydralazine 25 mg PO QD. Metoprolol 25 mg PO BID. Hyperlipidemia: ASA 81 mg PO QD. Lipitor 20 mg PO QD. Fenofibrate 145 mg PO QD. CODE STATUS: FULL CODE Public guardian: [facility] Disposition: [facility] Plan - Discharge Summary New Discharge Prescriptions: New Cyclobenzaprine [Flexeril] 5 mg PO TID PRN tab PRN Reason: Muscle Spasm Gabapentin [Neurontin] 300 mg PO TID cap oxyCODONE-APAP 7.5-325MG [Percocet 7.5-325 mg] 1 each PO Q6HR PRN #12 tab PRN Reason: Pain Sennosides-Docusate Sodium [Senokot-S] 1 each PO BID tab Continue Ondansetron [Zofran] 4 mg PO TID PRN PRN Reason: Nausea And Vomiting Aspirin 81 mg PO DAILY@0800 Atorvastatin [Lipitor] 20 mg PO HS@2100 Fenofibrate Nanocrystallized [Tricor] 145 mg PO DAILY@0800 Fexofenadine HCl [Ngozi Allergy] 180 mg PO DAILY@0800 Folic Acid 1 mg PO DAILY@0800 hydrALAZINE HCL [Apresoline] 25 mg PO DAILY PRN PRN Reason: Blood Pressure - High Lidocaine 5% Patch [Lidoderm 5% Patch] 1 patch TRANSDERM DAILY PRN PRN Reason: Pain Metoprolol Tartrate [Lopressor] 25 mg PO BID@0800,2100 Nicotine 14Mg/24Hr Patch [Habitrol] 1 patch TRANSDERM DAILY #30 patch levETIRAcetam [Keppra] 500 mg PO BID@0800,2100 Cholecalciferol [Vitamin D3 (25 Mcg = 1000 Iu)] 50 mcg PO DAILY@0800 Cholestyramine (with Sugar) [Cholestyramine Powder] 4 gm PO AC-TID PRN PRN Reason: Diarrhea Vitamin B Complex 1 cap PO DAILY@0800 amLODIPine [Norvasc] 10 mg PO DAILY@0800 Citalopram Hydrobromide [Citalopram HBr] 40 mg PO DAILY@0800 Naproxen [Naprosyn] 250 mg PO BID@0800,2100 Acetaminophen Tab [Tylenol] 650 mg PO Q8H PRN PRN Reason: Pain Or Fever > 100.5 ALPRAZolam [Xanax] 0.5 mg PO TID PRN #90 tablet PRN Reason: Anxiety Discontinued Loperamide HCl [Imodium A-D] 2 - 4 mg PO QID PRN MDD 8mg PRN Reason: Diarrhea Discharge Medication List Aspirin 81 mg PO DAILY@0800 03/29/24 [History] Atorvastatin [Lipitor] 20 mg PO HS@209903/29/24 [History] Cholestyramine (with Sugar) [Cholestyramine Powder] 4 gm PO AC-TID PRN 03/29/24 [History] Citalopram Hydrobromide [Citalopram HBr] 40 mg PO DAILY@79903/29/24 [History] Fenofibrate Nanocrystallized [Tricor] 145 mg PO DAILY@79903/29/24 [History] Fexofenadine HCl [Ngozi Allergy] 180 mg PO DAILY@79903/29/24 [History] Folic Acid 1 mg PO DAILY@79903/29/24 [History] Lidocaine 5% Patch [Lidoderm 5% Patch] 1 patch TRANSDERM DAILY PRN 03/29/24 [History] Metoprolol Tartrate [Lopressor] 25 mg PO BID@799,209903/29/24 [History] Ondansetron [Zofran] 4 mg PO TID PRN 03/29/24 [History] Vitamin B Complex 1 cap PO DAILY@79903/29/24 [History] amLODIPine [Norvasc] 10 mg PO DAILY@79903/29/24 [History] hydrALAZINE HCL [Apresoline] 25 mg PO DAILY PRN 03/29/24 [History] Nicotine 14Mg/24Hr Patch [Habitrol] 1 patch TRANSDERM DAILY #30 patch 03/31/24 [Rx] Acetaminophen Tab [Tylenol] 650 mg PO Q8H PRN 04/09/24 [History] Cholecalciferol [Vitamin D3 (25 Mcg = 1000 Iu)] 50 mcg PO DAILY@79904/09/24 [History] Naproxen [Naprosyn] 250 mg PO BID@799,209904/09/24 [History] levETIRAcetam [Keppra] 500 mg PO BID@799,209904/09/24 [History] ALPRAZolam [Xanax] 0.5 mg PO TID PRN #90 tablet 04/20/24 [Rx] Cyclobenzaprine [Flexeril] 5 mg PO TID PRN tab 04/20/24 [Rx] Gabapentin [Neurontin] 300 mg PO TID cap 04/20/24 [Rx] Sennosides-Docusate Sodium [Senokot-S] 1 each PO BID tab 04/20/24 [Rx] oxyCODONE-APAP 7.5-325MG [Percocet 7.5-325 mg] 1 each PO Q6HR PRN #12 tab 04/20/24 [Rx] Follow up Appointment(s)/Referral(s): Adair Silva MD [Primary Care Provider] - 1-2 days Albert Faith DO [Doctor of Osteopathic Medicine] - 2 Weeks
[2024-04-20 16:29] VITALS: BP 136/54; PULSE 66; TEMP 98.2
--- NOTE | 2024-04-20 16:54 | P.PAINPG ---
Objective - Vital Signs Vital signs: Vital Signs Temp 98.2 F 04/20/24 15:00 Pulse 66 04/20/24 15:00 Resp 16 04/20/24 15:00 BP 136/54 04/20/24 15:00 Pulse Ox 96 04/20/24 07:00 FiO2 Intake & Output 04/19/24 04/20/24 04/20/24 18:59 06:59 18:59 Intake Total 500 236 Balance 500 236 Intake: Oral 500 236 Other: Voiding Method External Catheter # Voids 1 1 # Bowel Movements 1 1 - Labs CBC & Chem 7: 04/18/24 03:42 04/18/24 03:42 PQRS Measure Charge Sheet History and Exam Findings: All other causes of pain ruled out Comment: HISTORY OF PRESENT ILLNESS: A 69 yr old inpatient female as a referral from Dr Abreu presents today w severe and chronic LBP > 1 yr secondary to radiculopathy, spondylosis and facet arthropathy without myelopathy for evaluation. Pt states pain level is provoked at 8 /10 in intensity, constant, localized in the lower lumbar spine, predominantly axial, achy in character w occasional shooting pain towards the buttocks and hips. Pain is provoked by any movement. Pain is alleviated by medications (MS 4mg IVP q4h prn, Percocet 7.5/325mg q4h prn, Flexeril 5mg TID prn, Tyl 650mg PO q6h prn), repositioning and rest . Pt will be discharged to a SNF facility today. PMH: OA, COPD, CVA, Seizure Disorder, CHI, MDD/ Anxiety/ Bipolar PSH: R Shoulder Surgery, LLE Surgery, Colonoscopy SH: Daily tobacco use, Hx ETOH abuse w Withdrawals/ DTs, Hx Prescription Drug Abuse FH: Fa- CAD. Mo- No Reported History All: See list Meds: See list REVIEW OF ORGAN SYSTEMS: CONSTITUTIONAL: No fevers or chills. No recent weight loss. NEUROLOGICAL: + numbness and tingling along the distal extremities. No seizure disorders or headaches. MUSCULOSKELETAL: + pain PSYCHIATRIC: Denies current depression or suicidal thoughts. Physical Examinations : Constitutional : Cooperative , not in acute distress . Neurologic : Cranial nerve II to XII intact. No focal neurological deficits. Psychiatric : alert & oriented x 3. Matching mood & appropriate affect. Judgment & insight intact. Musculoskeletal : Cervical Spine Motor strength in the deltoid and biceps: Normal right side. Normal Left side Motor strength biceps and the wrist extensors: Normal right side . Normal left side Motor strength in the triceps muscle: Normal right side. Normal left side Deep tendon reflexes: Normal at the biceps. Normal at Brachioradialis. Normal at triceps Vertebral body tenderness to deep palpation over Cervical facet loading test: positive bilaterally Spurling test: positive bilaterally Neck distraction test: positive bilate rally Tabatha sign: positive bilaterally Lumbar spine Motor strength lower extremities ,thigh and legs 5/5 Right side , 5/5 Left side Deep tendon reflexes : Normal Knee Jerk. Normal Ankle Jerk Vertebral body tenderness over Sandoval Test positive Lumbar facet Loading Test: positive Rig ht / positive Left Range of motion of the lumbar spine Flexion 30 degrees, extension 10 degrees Straight Leg Raise test: Left/ Right positive at degrees Chon test: positive right / positive left. Severe tenderness over the Sacroiliac joint on the Right / Left sides Gaenslen test: positive bilaterally Seated flexion test: positive bilaterally. Sacral spine : Severe tenderness over the Sacroiliac joint: right side / left side Range of motion: Flexion of the lumbar spine <60 degrees Range of motion: Extension of the lumbar spine <20 degrees Gaenslen's Test positive Chon test: positive right side / left side Thigh Thrust Test Sacral Thrust Test Imaging: MRI non contrast lumbar spine from 04/10/24 reviewed MRI non contrast thoracic spine from 04/11/24 reviewed Assessment/ Plan : Lumbar radiculopathy, S2 fracture Recommendation of medication management. Script provided for Percocet 7.5/325gm #12 NR on file. Discussed use, side effects, adverse reactions, safe storage. Discussed w pt to utilize pain medication prior to start of inpatient PT at SNF. Acknowledged understanding. All questions answered. I have spent greater than 30 minutes on patient care today. Dr Clark was available by phone for the evaluation of this patient. The time was used to review the medical records including relevant urine studies and Prescription history (MAPs), review of the available imaging, evaluation and examination of the patient, coordination of care with the medical staff and if applicable referring physicians, as well as creation of the medical record - Pain Location Bilateral Hip Non-Pharmacological Interventions: Darkened Room Pharmacological Interventions: Discuss Pain Med Options Pain Comment: SEE MAR PQRS Narrative: Smoking Status Current every day smoker Blood Pressure [Left Arm] 136/54 Blood Pressure 138/84 Pain Intensity [Bilateral Hip] 0 Pain Intensity 0 Pain Scale Used Numeric (1 - 10) Scale Used Numeric (1 - 10) Home Medications: Ambulatory Orders Aspirin 81 mg PO DAILY@79903/29/24 Atorvastatin [Lipitor] 20 mg PO HS@209903/29/24 Cholestyramine (with Sugar) [Cholestyramine Powder] 4 gm PO AC-TID PRN 03/29/24 Citalopram Hydrobromide [Citalopram HBr] 40 mg PO DAILY@79903/29/24 Fenofibrate Nanocrystallized [Tricor] 145 mg PO DAILY@79903/29/24 Fexofenadine HCl [Ngozi Allergy] 180 mg PO DAILY@79903/29/24 Folic Acid 1 mg PO DAILY@79903/29/24 Lidocaine 5% Patch [Lidoderm 5% Patch] 1 patch TRANSDERM DAILY PRN 03/29/24 Metoprolol Tartrate [Lopressor] 25 mg PO BID@799,209903/29/24 Ondansetron [Zofran] 4 mg PO TID PRN 03/29/24 Vitamin B Complex 1 cap PO DAILY@79903/29/24 amLODIPine [Norvasc] 10 mg PO DAILY@79903/29/24 hydrALAZINE HCL [Apresoline] 25 mg PO DAILY PRN 03/29/24 Nicotine 14Mg/24Hr Patch [Habitrol] 1 patch TRANSDERM DAILY #30 patch 03/31/24 Acetaminophen Tab [Tylenol] 650 mg PO Q8H PRN 04/09/24 Cholecalciferol [Vitamin D3 (25 Mcg = 1000 Iu)] 50 mcg PO DAILY@79904/09/24 Naproxen [Naprosyn] 250 mg PO BID@08,209904/09/24 levETIRAcetam [Keppra] 500 mg PO BID@799,209904/09/24 ALPRAZolam [Xanax] 0.5 mg PO TID PRN #90 tablet 04/20/24 Cyclobenzaprine [Flexeril] 5 mg PO TID PRN tab 04/20/24 Gabapentin [Neurontin] 300 mg PO TID cap 01/06/25 Sennosides-Docusate Sodium [Senokot-S] 1 each PO BID tab 04/20/24 oxyCODONE-APAP 7.5-325MG [Percocet 7.5-325 mg] 1 each PO Q6HR PRN #12 tab 04/20/24 Controlled Substance Measures - Controlled Substance Measures Is patient prescribed a controlled substance at discharge?: No
[2024-04-20] MEDS: ALPRAZolam 0.5 MG TAB PO PRN (17:02)
== END 2024-04-20 16:39 ==
LOC: EC 09:35 → 6NMEDSUR 13:38
PROVIDERS: ADMIT Student in an Organized Health Care Education/Training Program; ATTEND Student in an Organized Health Care Education/Training Program
DX: S32.10XA Unspecified fracture of sacrum, initial encounter for closed fracture (principal); M47.26 Other spondylosis with radiculopathy, lumbar region; M51.16 Intervertebral disc disorders with radiculopathy, lumbar region; M16.0 Bilateral primary osteoarthritis of hip; G40.909 Epilepsy, unspecified, not intractable, without status epilepticus; I10 Essential (primary) hypertension; E78.5 Hyperlipidemia, unspecified; J96.11 Chronic respiratory failure with hypoxia; J44.9 Chronic obstructive pulmonary disease, unspecified; R00.1 Bradycardia, unspecified; F41.9 Anxiety disorder, unspecified; F32.9 Major depressive disorder, single episode, unspecified; R26.9 Unspecified abnormalities of gait and mobility; F17.200 Nicotine dependence, unspecified, uncomplicated; W18.30XA Fall on same level, unspecified, initial encounter; Z79.82 Long term (current) use of aspirin; Z79.899 Other long term (current) drug therapy; Z79.1 Long term (current) use of non-steroidal anti-inflammatories (NSAID); Z88.2 Allergy status to sulfonamides; Z88.8 Allergy status to other drugs, medicaments and biological substances; Z91.81 History of falling; Z87.81 Personal history of (healed) traumatic fracture; Z98.890 Other specified postprocedural states
CPT/HCPCS: 96376; 96372 ×11; 96374; 96375; 99285; 36415; 97110; 97530 ×3; 97162; 97166; 80053; 80048 ×5; 83735; 85025 ×5; 85027; 81001; 87086; 73521; 73700 ×2; 72146; 72148; G0378 ×12; S4990 ×12; J2270 ×2; J1650 ×10; J1885 ×3